=== PATIENT | female | born 1965 | race Caucasian/White ===

== ENCOUNTER → 2019-04-01 11:36 | Outpatient (CLI) | payer OTHER, SELFPAY ==
--- NOTE | 2019-04-01 | DI.MG.S_ITS ---
BILATERAL DIGITAL SCREENING MAMMOGRAM 3D/2D WITH CAD: 04/01/2019 CLINICAL: Routine screening. Comparison is made to exams dated: 01/09/2017 mammogram, 06/27/2014 mammogram, and 11/08/2007 mammogram - [facility]. There are scattered fibroglandular elements in both breasts. Current study was also evaluated with a Computer Aided Detection (CAD) system. There are benign calcifications in the left breast. No significant masses, calcifications, or other findings are seen in either breast. There has been no significant interval change. IMPRESSION: There is no mammographic evidence of malignancy. A 1 year screening mammogram is recommended. This exam was interpreted at Station ID: [id number]. NOTE: For mammograms, a report in lay terms will be sent to the patient. Approximately 15% of breast malignancies will not be visualized mammographically. In the management of a palpable breast mass, a negative mammogram must not discourage biopsy of a clinically suspicious lesion. Electronically Signed By: Kellen wood/kenneth:04/02/2019 08:50:04 letter sent: Normal Exam ACR BI-RADS Category 2: Benign Finding(s) 3342F
== END ==
PROVIDERS: PCP Family Medicine; Visit Provider Family Medicine
DX: Z12.31 Encounter for screening mammogram for malignant neoplasm of breast (principal)
CPT/HCPCS: 77063; 77067

== ENCOUNTER → 2020-04-11 14:47 | Outpatient (CLI) | payer OTHER, SELFPAY ==
--- NOTE | 2020-04-11 14:48 | DI.MG.S_ITS ---
BILATERAL DIGITAL SCREENING MAMMOGRAM 3D/2D WITH CAD: 04/11/2020 CLINICAL: Routine screening. Comparison is made to exams dated: 04/01/2019 mammogram, 01/09/2017 mammogram, and 06/27/2014 mammogram - [facility]. There are scattered fibroglandular elements in both breasts. Current study was also evaluated with a Computer Aided Detection (CAD) system. There are benign calcifications in both breasts. There also are benign post operative findings in both breasts. No significant masses, calcifications, or other findings are seen in either breast. There has been no significant interval change. IMPRESSION: BENIGN There is no mammographic evidence of malignancy. A 1 year screening mammogram is recommended. This exam was interpreted at Station ID: [id number]. NOTE: For mammograms, a report in lay terms will be sent to the patient. Approximately 15% of breast malignancies will not be visualized mammographically. In the management of a palpable breast mass, a negative mammogram must not discourage biopsy of a clinically suspicious lesion. Electronically Signed By: Alonso caro/kenneth:04/13/2020 08:06:24 letter sent: Normal Exam ACR BI-RADS Category 2: Benign Finding(s) 3342F
== END ==
PROVIDERS: PCP Family Medicine; Referring Provider Family Medicine; Visit Provider Family Medicine
DX: Z12.31 Encounter for screening mammogram for malignant neoplasm of breast (principal)
CPT/HCPCS: 77063; 77067

== ENCOUNTER → 2021-07-09 14:59 | Outpatient (CLI) | payer OTHER, SELFPAY ==
--- NOTE | 2021-07-09 15:00 | DI.MG.S_ITS ---
BILATERAL DIGITAL SCREENING MAMMOGRAM 3D/2D WITH CAD: 07/09/2021 CLINICAL: Routine screening. Comparison is made to exams dated: 04/11/2020 mammogram, 04/01/2019 mammogram, and 01/09/2017 mammogram - [facility]. The tissue of both breasts is predominantly fatty. Current study was also evaluated with a Computer Aided Detection (CAD) system. There are benign calcifications in both breasts. There also are benign post operative findings in both breasts. No significant masses, calcifications, or other findings are seen in either breast. There has been no significant interval change. IMPRESSION: BENIGN There is no mammographic evidence of malignancy. A 1 year screening mammogram is recommended. This exam was interpreted at Station ID: [id number]. NOTE: For mammograms, a report in lay terms will be sent to the patient. Approximately 15% of breast malignancies will not be visualized mammographically. In the management of a palpable breast mass, a negative mammogram must not discourage biopsy of a clinically suspicious lesion. Electronically Signed By: Keith barragan/kenneth:07/09/2021 17:50:07 letter sent: Normal Exam ACR BI-RADS Category 2: Benign Finding(s) 3342F
== END ==
PROVIDERS: PCP Family Medicine; Referring Provider Family Medicine; Visit Provider Family Medicine
DX: Z12.31 Encounter for screening mammogram for malignant neoplasm of breast (principal)
CPT/HCPCS: 77063; 77067

== ENCOUNTER 2021-08-17 06:35 | Day surgery (SDC) | payer OTHER, SELFPAY ==
[2021-08-10 10:34] VITALS: BMI 37.2
[2021-08-17] VITALS (8 sets, daily range): BP systolic 124–150; BP diastolic 78–96; PULSE 70–109; RESP 12–18; TEMP 36.1; O2SAT 96–99; BMI 37.2
--- NOTE | 2021-08-17 | PATH_ITS ---
[facility] Accession Number: [id number] . 01 Material submitted: . PART A: rectum - RECTAL POLYP PART B: rectum - RECTAL POLYP BASE . 01 Diagnosis: A. Rectum, Polyp, Biopsy: Inflammatory cloacogenic polyp with mucosal prolapse and superficial erosion. Negative for dysplasia and malignancy. . B. Rectum, Polyp Base, Biopsy: Fibrovascular connective tissue with no evidence of dysplasia or malignancy. MRV 08/19/2021 1117 Local . 01 Electronically signed: . Rocio Jack MD, Pathologist NPI- [id number] . 01 Gross description: . Part A: RECTAL POLYP: Received in formalin is 1 fragment(s) of read, soft tissue measuring 1.5 x 1.3 x 1.0 cm which is serially sectioned and submitted entirely in 2 cassette(s) Part B: RECTAL POLYP BASE: Received in formalin is 1 fragment(s) of read, soft tissue measuring 1.0 x 1.0 x 0.8 cm which is trisected and submitted entirely in 1 cassette(s) /CPE 08/18/2021 0722 Local . 01 Pathologist provided ICD-10: K63.5 . 01 CPT . 229546, 102764 Specimen Comment: A courtesy copy of this report has been sent to [phone] Performed at: 01 [facility] [address] [place] [address], [place], [place] [id number] MD Alonso Jauregui MD Phone: [phone]
[2021-08-17] MEDS: LACTATED RINGERS 1,000 ML 42 ML IV (07:32)
[2021-08-17 07:33] LABS: COVID19 -Nasal RAPID Negative (Negative)
[2021-08-17] MEDS: SCOPOLAMINE 1 PATCH TOP (07:49)
--- NOTE | 2021-08-17 07:50 | PM.HP.1 ---
History of Present Illness History of Present Illness Date Patient Seen: 08/17/21 Time Patient Seen: 07:50 Chief complaint: SDC Narrative: Andreina is a 55-year-old woman who has a prolapsing rectal hemorrhoid versus a rectal polyp. She has bleeding. See the office note from February for details. Patient History Medical History (Updated 08/10/21 @ 10:42 by Ladan Lyon RN) Anxiety Arthritis Depression Diabetes type 2, controlled GERD (gastroesophageal reflux disease) History of headache Kidney stones Sinus drainage Surgical History (Updated 08/10/21 @ 10:42 by Ladan Lyon RN) H/O abdominoplasty History of hysterectomy Hx of breast reduction, elective Hx of colonoscopy (2018) Family & Social History Family History Mother Hypertension Brother Diabetes mellitus Father Stomach cancer Social History: household members spouse,children lives independently Yes Tobacco & Substance use: Smoking Status Never smoker alcohol intake current alcohol intake frequency holiday/special occasion Substance Use Type does not use Meds Home Medications and Allergies Home Medications Medication Instructions Recorded Confirmed Type acyclovir 800 mg tablet 800 mg PO DAILY 03/09/21 08/17/21 History atorvastatin 20 mg tablet 20 mg PO DAILY 03/09/21 08/17/21 History azelastine 0.05 % eye drops 1 drp EYE-BOTH DAILY 03/09/21 08/17/21 History citalopram 20 mg tablet 20 mg PO DAILY 03/09/21 08/17/21 History fluticasone propionate 50 2 spray INTRANASAL DAILY 03/09/21 08/17/21 History mcg/actuation nasal spray,suspension glipizide 10 mg tablet 10 mg PO DAILY 03/09/21 08/17/21 History hydrocortisone 2.5 % topical cream 1 applic OR QD-BID PRN 03/09/21 08/10/21 History with perineal applicator (Anusol-HC) hydroxyzine HCl 10 mg tablet 10 mg PO BEDTIME 03/09/21 08/17/21 History metformin 500 mg tablet 500 mg PO TID 03/09/21 08/17/21 History Allergies Allergy/AdvReac Type Severity Reaction Status Date / Time morphine [MORPHINE] Allergy Severe hives Verified 08/17/21 07:12 amoxicillin AdvReac Severe yeast Verified 08/17/21 07:12 infection Exam Vital Signs (past 8 hours): - 08/17/21 07:35 Temperature 96.9 F L Pulse Rate 70 Respiratory Rate 16 Blood Pressure 130/83 Pulse Oximetry 96 Oxygen Delivery Method Room Air Const General: comfortable Objective Labs Labs: Laboratory Results - last 24 hr 08/17/21 06:52 SARS-CoV-2 (PCR) Negative Assessment & Plan Assessment and plan (1) Internal bleeding hemorrhoids: Status: Acute Plan Recommend excisional hemorrhoidectomy to remove the tissue and assess the pathological significance to determine if it is a prolapsing internal hemorrhoid or a rectal polyp. Time Spent With Patient Critical Care time: I spent a total of [] minutes of critical care time on this patient's care today; this time is exclusive of procedural time.
[2021-08-17] MEDS: CEFAZOLIN 2 GM/20 ML SYRINGE IV (08:04)
--- NOTE | 2021-08-17 08:24 | SUR.OPER ---
Lithotomy on padded OR bed, head on pillow, arms secured on padded arm boards at <90 degrees abduction supported with blankets underneath for proper shoulder alignment. Safety strap across abdomen. Legs secured in padded yellow fins stirrups, heels properly supported. Directed and approved by surgeon
[2021-08-17] MEDS: BUPIVACAINE LIPOSOME 266 MG/20 ML VIAL INJ (08:34)
--- NOTE | 2021-08-17 09:09 | PM.OP.1 ---
Operative Date/Time/Diagnoses Date of procedure: 08/17/21 Time of procedure: 09:09 Pre-op diagnosis: Internal hemorrhoids Post-op diagnosis: other (Rectal polyp) Procedure & Clinicians Procedure: Transanal excision of rectal polyp Same procedure as scheduled: No Surgeon: Myles Cosby Anesthesia Type: General Operative Notes Procedure in detail: The patient was brought to the operating room and placed on the table in the supine position. General endotracheal anesthesia was induced. She was then placed in lithotomy position with stirrups. The perineum was prepped and draped in the usual fashion and a time-out was performed. Anoscopy was performed and demonstrated that the prolapsing tissue was more likely to be a rectal polyp on a stalk. This polyp was about twice as large as it was in February. It appeared to be on a short stalk emanating from anterior distal rectum just above the dentate line. We injected some Exparel into the mucosa and the anoderm in the anterior section. The polyp was then excised at the base with cautery. Polyp was rather friable and did tear off the stalk. This specimen was sent as ?polyp?. We excised additional mucosa from the base and sent this as ?base.? There was some bleeding from the mucosal edges and a 3-0 chromic suture was used to close the wound partially which stopped the bleeding. We then performed rigid proctoscopy. No polyps or other lesions were seen in the distal 2/3 of the rectum. We then placed a Gelfoam into the anus. The patient was taken out of lithotomy and mesh panties were applied with pad. EBL: 30 mL Post-operative Disposition: PACU
--- NOTE | 2021-08-17 09:37 | SUR.PHASEII ---
Denied pain, no CBG check per Dr. Galvez. Pt aware to take home meds when she gets home, denied pain tolerated po fluids.
== END 2021-08-17 16:24 | disposition home or self-care (01) ==
PROVIDERS: PCP Family Medicine; Referring Provider Surgery; Visit Provider Surgery
PROC: (CPT 46610; principal; 2021-08-17 07:45)
DX: K62.1 Rectal polyp (principal); F41.9 Anxiety disorder, unspecified; F32.A Depression, unspecified; E11.9 Type 2 diabetes mellitus without complications; K21.9 Gastro-esophageal reflux disease without esophagitis; Z79.84 Long term (current) use of oral hypoglycemic drugs
CPT/HCPCS: 46610; 87635; C9803; C9290; J0330; J0690; J2250; J2405; J2704; J3010

== ENCOUNTER → 2022-01-11 11:43 | Outpatient (CLI) | payer OTHER, SELFPAY ==
--- NOTE | 2022-01-11 11:45 | DI.RAD.S_ITS ---
PROCEDURE: XR LUMBAR SPINE 2-3V INDICATIONS: Lumbago with sciatica, r side TECHNIQUE: 3 views of the lumbar spine were acquired. COMPARISON: None. FINDINGS: Bones: 5 [id number] vertebrae are present. Minimal dextrocurvature centered at the L3 level. 2 mm retrolisthesis L1-L2 and L3-L4. Mild multilevel disc height loss with endplate sclerosis and spurring. Mild facet joint arthropathy from the L3-L4 through the L5-S1 level.. No vertebral body compression fractures. No suspicious bony lesions. Soft tissues: Overlying bowel gas pattern is normal. No suspicious soft tissue calcifications. IMPRESSION: Mild multilevel lumbar spine spondylosis. Dictated by: Chay Huber [facility] Interpreted: Marcia Cool MD on 01/11/2022 at 12:13 Transcribed by: CATALINA on 01/11/2022 at 12:14 Approved by: Marcia Cool M.D. on 01/11/2022 at 15:39
== END ==
PROVIDERS: PCP Family Medicine; Referring Provider Family Medicine; Visit Provider Family Medicine
DX: M54.41 Lumbago with sciatica, right side (principal); M47.816 Spondylosis without myelopathy or radiculopathy, lumbar region
CPT/HCPCS: 72100

== ENCOUNTER 2022-10-15 18:21 | Observation (INO) | payer OTHER, SELFPAY ==
[2022-10-15] VITALS (18 sets, daily range): BP systolic 132–168; BP diastolic 77–112; PULSE 73–88; RESP 15–34; TEMP 36.1–36.3; O2SAT 93–98; BMI 37.2; BMI 36.8
--- NOTE | 2022-10-15 18:31 | DI.CT.S_ITS ---
PROCEDURE: CT STROKE INDICATIONS: expressive aphasia TECHNIQUE: Noncontrast 4.5 mm thick angled axial sections acquired from the foramen magnum to the vertex, with coronal reformats. For radiation dose reduction, the following was used: automated exposure control, adjustment of mA and/or kV according to patient size. COMPARISON: None. FINDINGS: Image quality: Excellent. CSF spaces: Basal cisterns are patent. No extra-axial fluid collections. Ventricles are normal in size and shape. Brain: No midline shift. No intracranial masses or hemorrhage. Arias-white matter interface is normal. Skull and face: Calvarium and visualized facial bones are intact, without suspicious lesions. Sinuses: Visualized sinuses and mastoids are clear. IMPRESSION: Normal CT of the brain. No intracranial hemorrhage. This study fulfills neurological imaging criteria for inclusion or exclusion of acute stroke therapies based on available published neurological imaging guidelines. Note: Critical results were discussed with Dr. Padilla at 06:10 PM [place] time on 10/15/[address]: [address] M.D. on 10/15/2022 at 18:14
--- NOTE | 2022-10-15 18:32 | ED_ITS ---
HPI - Neuro Symptoms/Deficit General Chief Complaint: Neuro Symptoms/Deficit Stated Complaint: thinks stroke Time Seen by Provider: 10/15/22 18:30 Source: patient, RN notes reviewed and old records reviewed Mode of arrival: EMS Limitations: no limitations History of Present Illness HPI Narrative: This is a 56 year old female with history of diabetes, dyslipidemia with complaint of onset of headache and expressive aphasia at about 1800 today. Patient was with her in the kitchen they were working together when he noticed she is just sort of stopped and was staring he asked her what was wrong she was delayed in her responses and seems to be having a hard time getting her words out he states there was a mild improvement while they were at home but is still present. Patient is able to express that she wants to say her words but can not get them out. She states headache is better, she describes some blurred vision which has improved. Denies numbness, tingling or weakness in her extremities. No gait or balance issues appreciated by patient or . No chest pain, no shortness of breath, some mild nausea, no vomiting, no diarrhea or constipation. No incontinence. Patient did take 3 Advil today. She is on medication for diabetes, dyslipidemia and has been taking Tylenol and Advil as n eeded for joint pain. She states allergic to morphine and amoxicillin. No tobacco use, occasional alcohol, no illicit. Patient's noted the change at 1800, contacted nursing hotline was recommended to come to the emergency department for evaluation. Glucose is 201 with point of care. Related Data Home Medications Medication Instructions Recorded Confirmed acyclovir 800 mg tablet 800 mg PO DAILY Genital herpes 03/09/21 10/15/22 prophylaxis atorvastatin 20 mg tablet 20 mg PO DAILY Cholesterol 03/09/21 10/15/22 azelastine 0.05 % eye drops 1 drp EYE-BOTH DAILY Allergies 03/09/21 10/15/22 citalopram 20 mg tablet 20 mg PO DAILY Depression 03/09/21 10/15/22 fluticasone propionate 50 2 spray intranasal DAILY Allergies 03/09/21 10/15/22 mcg/actuation nasal spray,suspension glipizide 10 mg tablet 10 mg PO BID Diabetes 03/09/21 10/15/22 hydroxyzine HCl 10 mg tablet 10 mg PO BEDTIME PRN Sleep and 12/21/21 07/29/23 anxiety metformin 500 mg tablet 1,000 mg PO BID Diabetes 03/09/21 10/15/22 blood sugar diagnostic (Blood 10/15/22 10/15/22 Glucose Test strips) cyclobenzaprine 10 mg tablet 10 mg PO 3XD PRN Pain, Muscle 10/15/22 10/15/22 Spasms losartan 25 mg DAILY 10/15/22 10/15/22 pen needle, diabetic 32 gauge x 10/15/22 10/15/22 (BD Roxie 2nd Gen Pen Needle) semaglutide 0.25 mg or 0.5 mg (2 0.5 mg SUBCUT QWEEK Diabetes 10/15/22 10/15/22 mg/3 mL) subcutaneous pen injector ([employer]) Allergies Allergy/AdvReac Type Severity Reaction Status Date / Time morphine [MORPHINE] Allergy Severe hives Verified 10/15/22 20:59 alcohol Allergy Mild Generalized Verified 10/15/22 22:21 erythema amoxicillin AdvReac Severe yeast Verified 10/15/22 20:59 infection Review of Systems Review of Systems ROS Unobtainable: All systems reviewed & are unremarkable except as noted in HPI and below Patient History Medical History Anxiety Arthritis Depression Diabetes type 2, controlled GERD (gastroesophageal reflux disease) History of headache Kidney stones Sinus drainage Surgical History H/O abdominoplasty History of hysterectomy Hx of breast reduction, elective Hx of colonoscopy (2018) Family History Mother Hypertension Brother Diabetes mellitus Father Stomach cancer Social History marital status: household members: spouse and children lives independently: Yes Smoking Status: Never smoker alcohol intake: former Smoking Status: Never smoker alcohol intake frequency: holidays/special occasions only Substance Use Type: does not use Exam Narrative Exam Narrative: GEN: well nourished, well appearing female, alert and oriented x 3, patient appears to be in moderate distress. HEENT: Atraumatic, pupils are equal round reactive to light, extraocular movements are intact, nares are clear, TMs are clear with no fluid, there is no conjunctival pallor. Throat is clear without any exudates, erythema, tonsillar enlargement or uvular deviation, no facial droop. HEART: Regular rate and rhythm without murmur, clicks, rubs. pulses are equal in upper and lower extremities LUNGS:Lungs clear to auscultation, no wheezes, rales, crackles, chest moves symmetrically ABD:bowel sounds normal, soft, non-tender, no guarding, rebound, rigidity, no masses noted, no hepatosplenomegaly :No CVA tenderness MSCL: Non-tender, no muscle atrophy, muscles strength 5/5 upper and lower extremities, full range of motion, normal gait NEURO:CN 2-12 intact, sensation normal, reflexes 2/4 upper and lower extremities. finger nose finger test normal, heel malik test normal, positive for expressive aphasia but is able to list everything on the cards although slowly. Initial Vital Signs Initial Vital Signs: Vital Signs Pulse Rate 85 10/15/22 18:33 Respiratory Rate 20 10/15/22 18:33 Blood Pressure 168/112 H 10/15/22 18:33 Pulse Oximetry 97 10/15/22 18:33 Oxygen Delivery Method Room Air 10/15/22 18:33 Scores NIH Stroke Scale Level of Conciousness: Alert, keenly responsive Ask month/age: Answers both questions correctly. Open/close eyes, close hand: Performs both tasks correctly Best gaze horizontal: Normal Visual zimmerman: No visual loss Facial palsy: Normal symetrical movement Left arm drift: No drift for full 10 sec Right arm drift: No drift for full 10 sec Left leg drift: No drift for full 5 sec Right leg drift: No drift for full 5 sec Limb ataxia: Absent Sensory on face/arms/legs: Normal, no sensory loss Best language: Mild to moderate, slurs some words Dysarthria: Mild to mod,some slurring Extinction or inattention: No abnormality Total NIH Stroke scale score: 2 Course Orders Ordered: ED Orders 10/15/22 19:33 COVID19 -Nasal RAPID Stat 10/15/22 20:30 Urine Drug Screen, Rapid Stat Acetaminophen (Acetaminophen 325 Mg Tablet) 650 mg PO Q6H PRN PRN Reason: Fever/Mild Pain (1-3) Hydrocodone Bitart/Acetaminophen (Hydrocodone/Acet 5/325 Tablet) 1 tab PO Q8H PRN PRN Reason: pain Acyclovir (Acyclovir 400 Mg Tablet) 800 mg PO DAILY [facility] Al Hydrox/Mg Hydrox/Simethicone (Mag Hydrox/Alum/Simeth 30 Ml Udc) 30 ml PO Q6HR PRN PRN Reason: Dyspepsia Aspirin (Aspirin Ec 81 Mg Tablet) 81 mg PO DAILY [facility] Atorvastatin Calcium (Atorvastatin 20 Mg Tablet) 20 mg PO DAILY [facility] Citalopram Hydrobromide (Citalopram 10 Mg Tablet) 20 mg PO DAILY [facility] Clopidogrel Bisulfate (Clopidogrel 75 Mg Tablet) 75 mg PO DAILY [facility] Dextrose (Dextrose 50 % In Water 25 Gm/50 Ml Syringe) 25 gm IV PRN PRN PRN Reason: Hypoglycemia Enoxaparin Sodium (Enoxaparin 40 Mg/0.4 Ml Syringe) 40 mg SUBCUT DAILY [facility] Fluticasone Propionate (Fluticasone 120 Toyah/16 Gm Toyah.Susp) 2 spray NASAL DAILY [facility] Glipizide (Glipizide 5 Mg Tablet) 10 mg PO DAILY [facility] Hydrocortisone (Hydrocortisone 2.5% Cream 30 Gm) 1 applic TOP BID PRN PRN Reason: As Directed Insulin Human Lispro (Insulin Lispro 100 Unit/Ml 3ml Vial) 0 unit SUBCUT ACHS [facility]; Protocol Last Admin: 10/15/22 22:38 Dose: Not Given Documented By: AT Magnesium Hydroxide (Magnesium Hydroxide 30 Ml Udc) 30 ml PO DAILY PRN PRN Reason: Constipation Metformin HCl (Metformin Hcl 500 Mg Tablet) 500 mg PO TID [facility] Last Admin: 10/15/22 22:38 Dose: Not Given Documented By: AT Naloxone HCl (Naloxone 0.4 Mg/Ml Vial) 0.2 mg IV Q2MIN PRN PRN Reason: Opiate Reversal Non-Formulary Medication (Azelastine) 1 drop EYE-BOTH DAILY [facility] Non-Formulary Medication (Hydroxyzine Hcl) 10 mg PO BEDTIME [facility] Last Admin: 10/15/22 23:14 Dose: Not Given Documented By: AT Discontinued Medications Aspirin (Aspirin 81 Mg Chew Tab) 324 mg PO NOW ONE Stop: 10/15/22 20:21 Last Admin: 10/15/22 20:43 Dose: 324 mg Documented By: ST Clopidogrel Bisulfate (Clopidogrel 75 Mg Tablet) 300 mg PO NOW ONE Stop: 10/15/22 20:24 Last Admin: 10/15/22 20:43 Dose: 300 mg Documented By: ST Alteplase, Recombinant (Activase) 9 mg in 9 mls @ 540 mls/hr IV NOW ONE Stop: 10/15/22 19:15 Last Admin: 10/15/22 19:29 Dose: Not Given Documented By: ST Alteplase, Recombinant (Activase) 81 mg in 81 mls @ 81 mls/hr IV NOW ONE Stop: 10/15/22 20:13 Last Admin: 10/15/22 19:29 Dose: Not Given Documented By: ST Vital Signs Vital signs: Vital Signs - 8 hr 10/15/22 20:00 10/15/22 20:01 10/15/22 20:01 Pulse Rate 78 80 Respiratory Rate 16 20 Blood Pressure 139/98 H Pulse Oximetry 94 93 Oxygen Delivery Method Room Air 10/15/22 20:15 10/15/22 20:15 10/15/22 20:25 Pulse Rate 82 Respiratory Rate 21 Blood Pressure 139/84 138/82 Pulse Oximetry 94 Oxygen Delivery Method 10/15/22 20:25 Pulse Rate 73 Respiratory Rate Blood Pressure Pulse Oximetry 95 Oxygen Delivery Method Room Air MDM - Neuro Symptoms/Deficit Lab Data 10/15/22 18:37 10/15/22 18:37 Labs: Lab Results 10/15/22 10/15/22 10/15/22 Range/Units 18:37 18:37 18:37 WBC 8.3 (4.5-11.0) X10^3/uL RBC 5.03 (4.0-5.2) X10^6/uL Hgb 15.6 (12.0-16.0) g/dL Hct 45.0 (36-46) % MCV 89.5 (80-100) fL MCH 30.9 (26-34) PG MCHC 34.6 (30-36) % RDW 13.6 (11.6-14.8) % Plt Count (150-400) X10^3/uL Neut % (Auto) 55.4 (50-75) % Lymph % (Auto) 34.8 (25-40) % Charles % (Auto) 5.9 (3-14) % Eos % (Auto) 3.1 (2-4) % Baso % (Auto) 0.8 (0-2) % Neut # (Auto) 4600 (4609-8082) /uL Lymph # (Auto) 2900 (6730-1452) /uL Charles # (Auto) 500 (0-900) /uL Eos # (Auto) 300 (0-450) /uL Baso # (Auto) 100 (0-100) /uL RBC Morphology Normal morphology PT 10.3 (10.1-12.7) SECONDS INR 0.9 (0.9-1.3) APTT 23 L (26-36) SECONDS Sodium 137 (137-145) mmol/L Potassium 4.2 (3.4-5.1) mmol/L Chloride 101 (98-107) mmol/L Carbon Dioxide 27 (22-32) mmol/L BUN 17 (7-17) mg/dL Creatinine 0.56 (0.52-1.04) mg/dL Estimated GFR > 60 (>60) mL/min BUN/Creatinine Ratio 30.4 H (6-22) Glucose 200 H (70-100) mg/dL Calcium 10.0 (8.4-10.2) mg/dL Total Bilirubin 0.6 (0.2-1.3) mg/dL AST 46 H (14-36) IU/L ALT 58 H (<35) IU/L Alkaline Phosphatase 100 (38-126) U/L Total Creatine Kinase 248 H (30-135) U/L Troponin I < 0.012 (0.01-0.034) ng/mL Total Protein 7.5 (6.3-8.2) g/dL Albumin 4.5 (3.5-5.0) g/dL Globulin 3.0 (1.7-4.1) g/dL Albumin/Globulin Ratio 1.5 (1.0-2.8) Ethyl Alcohol < 10 ( - 10) mg/dL SARS-CoV-2 (PCR) (Negative) 10/15/22 Range/Units 19:33 WBC (4.5-11.0) X10^3/uL RBC (4.0-5.2) X10^6/uL Hgb (12.0-16.0) g/dL Hct (36-46) % MCV (80-100) fL MCH (26-34) PG MCHC (30-36) % RDW (11.6-14.8) % Plt Count (150-400) X10^3/uL Neut % (Auto) (50-75) % Lymph % (Auto) (25-40) % Charles % (Auto) (3-14) % Eos % (Auto) (2-4) % Baso % (Auto) (0-2) % Neut # (Auto) (2020-0222) /uL Lymph # (Auto) (8063-2773) /uL Charles # (Auto) (0-900) /uL Eos # (Auto) (0-450) /uL Baso # (Auto) (0-100) /uL RBC Morphology PT (10.1-12.7) SECONDS INR (0.9-1.3) APTT (26-36) SECONDS Sodium (137-145) mmol/L Potassium (3.4-5.1) mmol/L Chloride (98-107) mmol/L Carbon Dioxide (22-32) mmol/L BUN (7-17) mg/dL Creatinine (0.52-1.04) mg/dL Estimated GFR (>60) mL/min BUN/Creatinine Ratio (6-22) Glucose (70-100) mg/dL Calcium (8.4-10.2) mg/dL Total Bilirubin (0.2-1.3) mg/dL AST (14-36) IU/L ALT (<35) IU/L Alkaline Phosphatase (38-126) U/L Total Creatine Kinase (30-135) U/L Troponin I (0.01-0.034) ng/mL Total Protein (6.3-8.2) g/dL Albumin (3.5-5.0) g/dL Globulin (1.7-4.1) g/dL Albumin/Globulin Ratio (1.0-2.8) Ethyl Alcohol ( - 10) mg/dL SARS-CoV-2 (PCR) Negative (Negative) Point of Care Testing Glucose POC [address] scan - head: My Impression: No acute bleed, mass appreciated. CTA - brain/neck: Radiologist's Impression: Andreina Schmid??56??F??1965 ? Allergy/Adv: morphine, alcohol, amoxicillin (More??) Close Head/Neck CTA (Signed) Kody Peña - 10/15/[address] (Signed) Rashad Lane - 10/15/22 Lumbar Spine X-Ray (Signed) Dominic Coolley - 01/11/22 Mammogram Screening (Signed) Keith Laurent - 07/09/21 Mammogram Screening (Signed) Alonso Almanzar - 04/11/20 Mammogram Screening (Signed) Kellen Dawn - 04/01/19 Launch?Image [address] [address] [address] Scan Report Signed Patient: Andreina Schmid MR#: [id number] : 1965 Acct:[id number] Age/Sex: 56 / F Date of Service: 10/15/22 Loc: ED Accession Number: [id number] ?? Procedure: CT angio head and neck Ordering Provider: Cristina Padilla D.O. PROCEDURE:? CT ANGIO HEAD AND NECK ? INDICATIONS:? expressive aphasia ? TECHNIQUE:? ? After the administration of intravenous contrast, 1 mm thick sections acquired from the aortic arch through the [place] of [place].? Post-contrast 4.5 mm thick sections then re-acquired from the foramen magnum to the vertex.? 3-dimensional jwtfcui-eyyuigkdt-kbcwwpekfb (MIP) and/or volume rendering reformats were acquired of the central intracranial vasculature and neck separately. For radiation dose reduction, the following was used:? automated exposure control, adjustment of mA and/or kV according to patient size.? ? COMPARISON:? [facility], CT, CT STROKE, 10/15/2022, 18:40. ? FINDINGS:? ? Suboptimal image quality due to motion artifact. ? BRAIN:? CSF spaces:? Ventricles are normal in size and shape.? Basal cisterns are patent.? No extra-axial fluid collections.? ? Brain:? No midline shift.? No intracranial bleeds or masses.? Arias-white matter interface appears intact.? ? Skull and face:? Calvarium and facial bones appear intact, without suspicious lesions.? Orbits appear normal.? ? Sinuses:? Sinuses and mastoids are clear.? ? HEAD CT ANGIOGRAPHY:? Anterior circulation:? Intracranial internal carotid arteries are normal in size and flow.? The flow within the paired anterior cerebral arteries is normal and symmetric.? The flow within the middle cerebral arteries is normal and symmetric.? The anterior communicating artery is seen.? No aneurysms are seen.? ? Posterior circulation:? Visualized portions of the vertebral arteries demon strate normal caliber, and join to form a normal appearing basilar artery.? Flow within the posterior cerebral arteries is normal and symmetric.? No aneurysms are seen.? ? NECK CT ANGIOGRAPHY:? Carotid system:? The great vessels demonstrate a conventional anatomy as they arise from the aortic arch.? The origins of the common carotid arteries appear patent.? The common carotid arteries demonstrate normal caliber and courses.? The bifurcation regions are both widely patent.? The internal carotid arteries demonstrate normal calibers and courses.? ? Posterior circulation:? The origins of the vertebral arteries both appear widely patent.? The more superior extracranial portions of both vertebral arteries also demonstrate normal courses and calibers.? They join to form a normal appearing basilar artery.? ? ? IMPRESSION:? No large special occlusion or high-grade carotid stenosis identified. ? Any quantitative measurements of stenosis were performed using NASCET criteria.? ? ? Dictated by: Kody Peña M.D. on 10/15/2022 at 19:25 ? ? Approved by: Kody Peña M.D. on 10/15/2022 at 19:32?? ECG Data Attestation: I personally reviewed and interpreted this ECG as follows: Prior ECG tracings: not available for review Interpretation: Sinus rhythm, rate of 72 GA 196, QRS of 90 QTC of 431. No acute ST elevation depression appreciated. No priors for comparison. MDM Narrative Medical decision making narrative: This is a 56-year-old female who presents with mainly expressive aphasia, patient is able to get most of her words out but does clearly have some difficulty. She was able to perform all of the cards for NIH but there is some delay. She is noted to be hypertensive 168/112 initially, glucose was 201, patient's onset of symptoms at 6:00 p.m. she is within the window for tPA. Went to head CT and CT angio emergently. Patient is not anticoagulated. 1906: On recheck still has some expressive aphasia. Consultation with [facility] for stroke: Dr. Brisa Fagan neurology fellow reviewed waiting for head CT non-con an angio NIH of 2 but has persistent expressive aphasia. Blood pressure has improved. Gordon patient is likely to be tPA candidate and she is going to meet with the patient over video to evaluate and discussed recommendations. Non-con head CT reported to myself by Radiology is negative. CT angio is negative Labs show normal white count hemoglobin platelets are Coags are negative CMP shows normal renal function, sodium glucose of 200 AST ALT 46 and 4 VA, total CK is 248, troponins negative. ETOH is negative. Neurology Dr. Brisa Fagan, had [id number] video evaluation with patient and family at this time after evaluation and discussion does not recommend tPA so was canceled. Recommends aspirin/Plavix and continued stroke workup. Aspi rin 324 mg x 1 and then 81 mg daily, Plavix 300mg x 1 and then 75 mg p.o. times [address] Restrepo accepts for admission and evaluated patient in the department. Discharge Plan Departure Patient Disposition: Admitted As Inpatient Clinical Impression: Acute CVA (cerebrovascular accident) Admit Date/Time: 10/15/22 20:27 Admit Provider: Virgil Restrepo
--- NOTE | 2022-10-15 18:32 | DI.CT.S_ITS ---
PROCEDURE: CT ANGIO HEAD AND NECK INDICATIONS: expressive aphasia TECHNIQUE: After the administration of intravenous contrast, 1 mm thick sections acquired from the aortic arch through the [place] of [place]. Post-contrast 4.5 mm thick sections then re-acquired from the foramen magnum to the vertex. 3-dimensional dsecksc-nbklxudzj-mkhvykntly (MIP) and/or volume rendering reformats were acquired of the central intracranial vasculature and neck separately. For radiation dose reduction, the following was used: automated exposure control, adjustment of mA and/or kV according to patient size. COMPARISON: [facility], CT, CT STROKE, 10/15/2022, 18:40. FINDINGS: Suboptimal image quality due to motion artifact. BRAIN: CSF spaces: Ventricles are normal in size and shape. Basal cisterns are patent. No extra-axial fluid collections. Brain: No midline shift. No intracranial bleeds or masses. Arias-white matter interface appears intact. Skull and face: Calvarium and facial bones appear intact, without suspicious lesions. Orbits appear normal. Sinuses: Sinuses and mastoids are clear. HEAD CT ANGIOGRAPHY: Anterior circulation: Intracranial internal carotid arteries are normal in size and flow. The flow within the paired anterior cerebral arteries is normal and symmetric. The flow within the middle cerebral arteries is normal and symmetric. The anterior communicating artery is seen. No aneurysms are seen. Posterior circulation: Visualized portions of the vertebral arteries demonstrate normal caliber, and join to form a normal appearing basilar artery. Flow within the posterior cerebral arteries is normal and symmetric. No aneurysms are seen. NECK CT ANGIOGRAPHY: Carotid system: The great vessels demonstrate a conventional anatomy as they arise from the aortic arch. The origins of the common carotid arteries appear patent. The common carotid arteries demonstrate normal caliber and courses. The bifurcation regions are both widely patent. The internal carotid arteries demonstrate normal calibers and courses. Posterior circulation: The origins of the vertebral arteries both appear widely patent. The more superior extracranial portions of both vertebral arteries also demonstrate normal courses and calibers. They join to form a normal appearing basilar artery. IMPRESSION: No large special occlusion or high-grade carotid stenosis identified. Any quantitative measurements of stenosis were performed using NASCET criteria. Dictated by: Koyd Peña M.D. on 10/15/2022 at 19:25 Approved by: Kody Peña M.D. on 10/15/2022 at 19:32
[2022-10-15 18:57] LABS: INR 0.9 (0.9-1.3); Prothrombin Time 10.3 SECONDS (10.1-12.7)
[2022-10-15 18:59] LABS: PTT Partial Thromboplastin Tim 23 SECONDS (26-36)
[2022-10-15 19:02] LABS: Add Manual Diff / Slide Review SLIDE REVIEW; Basophils Absolute Auto 100 /uL (0-100); Basophils Percent Auto 0.8 % (0-2); Eosinophils Absolute Auto 300 /uL (0-450); Eosinophils Percent Auto 3.1 % (2-4); Hemoglobin 15.6 g/dL (12.0-16.0); Lymphocytes Absolute Auto 2900 /uL (1100-4500); Lymphocytes Percent Auto 34.8 % (25-40); Mean Corpuscular HGB Conc 34.6 % (30-36); Mean Corpuscular Hemoglobin 30.9 PG (26-34); Mean Corpuscular Volume 89.5 fL (80-100); Monocytes Absolute Auto 500 /uL (0-900); Monocytes Percent Auto 5.9 % (3-14); Neutrophils Absolute Auto 4600 /uL (1500-7000); Neutrophils Percent Auto 55.4 % (50-75); Red Blood Cell Count 5.03 X10^6/uL (4.0-5.2); Red Cell Distribution Width 13.6 % (11.6-14.8); White Blood Cell Count 8.3 X10^3/uL (4.5-11.0)
[2022-10-15 19:05] LABS: Alanine Aminotransferase 58 IU/L (<35); Albumin 4.5 g/dL (3.5-5.0); Albumin Globulin Ratio 1.5 (1.0-2.8); Alkaline Phosphatase 100 U/L (38-126); Aspartate Aminotransferase 46 IU/L (14-36); BUN Creatinine Ratio 30.4 (6-22); Bilirubin Total 0.6 mg/dL (0.2-1.3); Blood Urea Nitrogen 17 mg/dL (7-17); Carbon Dioxide 27 mmol/L (22-32); Chloride 101 mmol/L (98-107); Creatine Kinase 248 U/L (30-135); Estimated Glomerular Filt Rate > 60 mL/min (>60); Ethanol (ETOH) < 10 mg/dL; Glucose 200 mg/dL (70-100); HEMOLYSIS 40 (0-50); Potassium 4.2 mmol/L (3.4-5.1); Sodium 137 mmol/L (137-145); Total Protein 7.5 g/dL (6.3-8.2)
[2022-10-15 19:16] LABS: Troponin I < 0.012 ng/mL (0.01-0.034)
[2022-10-15 19:21] LABS: RBC Morphology Normal Morphology
[2022-10-15 19:54] LABS: COVID19 -Nasal RAPID Negative (Negative)
[2022-10-15 20:43] LABS: UR Morphine/Opiate cutoff 300 Negative (Negative); Ur Creatinine Normal (Normal); Ur Specific Gravity Normal (Normal); Urine Amphetamines Negative (Negative); Urine Barbiturates Negative (Negative); Urine Benzodiazepines Negative (Negative); Urine Cocaine Negative (Negative); Urine MDMA Negative (Negative); Urine Methadone Negative (Negative); Urine Methamphetamines Negative (Negative); Urine Oxycodone Negative (Negative); Urine Phencyclidine Negative (Negative); Urine Tetrahydrocannabinol Negative (Negative); Urine Tricyclic Antidepressant Positive (Negative); Urine pH Normal (Normal)
[2022-10-15] MEDS: CLOPIDOGREL 75 MG TABLET 300 MG PO (20:43)
[2022-10-15] MEDS: ASPIRIN 81 MG CHEW TAB 324 MG PO (20:43)
[2022-10-15 20:54] LABS: Bacteria Urine Moderate (10-30); Culture Indicated Urine Specimen Cultured; RBC Urine None Seen (0-5/HPF); Squamous Epithelial Cell Urine 1-5 /HPF (0-5/HPF); WBC Urine 5-10/HPF (0-5/HPF)
--- NOTE | 2022-10-15 20:55 | PC.NURSE ---
Called to give report. RN not available, will call back
--- NOTE | 2022-10-15 21:00 | PC.NURSE ---
Alteplase not given on direction of both neurology (on telestroke) and Dr. Padilla. Returned to pharmacy
--- NOTE | 2022-10-15 21:04 | PC.NURSE ---
Assisted pt to commode. Pt transferred without difficulty and movements are steady. Speech significantly improved over previous assessments on arrival. Mildly slurred speech with somewhat delayed answers and slight difficulty finding words, but RN, pt and spouse all appreciate significant improvement. Pt passed bedside swallow screen and was provided with snack and beverage with MD Padilla approval.
--- NOTE | 2022-10-15 21:26 | PC.NURSE ---
Called report to BRAD Lucia. Pt A&Ox4 on departure.
--- NOTE | 2022-10-15 21:38 | DI.MRI.S_ITS ---
PROCEDURE: MR HEAD/BRAIN WO CON INDICATIONS: aphasia TECHNIQUE: Non-contrast axial T1 spin echo, axial T2 fast spin echo, sagittal and axial FLAIR, coronal T2 fast spin echo, axial gradient echo, axial diffusion and ADC through the brain. COMPARISON: [facility], CT, CT ANGIO HEAD AND NECK, 10/15/2022, 18:40. [facility], CT, CT STROKE, 10/15/2022, 18:40. FINDINGS: Image quality: Excellent. CSF spaces: Ventricles appear symmetric in size and shape. Basal cisterns are patent. No extra-axial fluid collections. Brain: No intracranial bleeds or mass effects. There is cerebral volume loss for age. There are very minimal, age-appropriate periventricular and deep white matter chronic small vessel ischemic changes. Brainstem appears normal. Diffusion-weighted images show no acute ischemic insults. No chronic ischemic insults. Normal intravascular flow voids are present. Skull and face: Calvarial bone marrow is normal in signal. Orbits are normal. Sinuses: Mucous retention cyst, right maxillary sinus. Sinuses and mastoids are otherwise clear. IMPRESSION: No acute intracranial abnormality. Dictated by: Zach Ledesma M.D. on 10/16/2022 at 8:01 Approved by: Zach Ledesma M.D. on 10/16/2022 at 8:03
--- NOTE | 2022-10-15 21:41 | P.HP_ITS ---
History of Present Illness History of Present Illness Date Patient Seen: 10/15/22 Time Patient Seen: 21:41 Date of Onset of Symptoms: 10/15/22 Chief complaint: thinks stroke Narrative: Patient is a 55-year-old female patient of Dr. Carmona who apparently was in her usual state of health as of today until 6:00 p.m. emmie. She was standing making dinner and was holding a glass she got a funny feeling in her head she is having a hard time describing it. She felt pressure in her head. And then kind of went blank. She had a mild headache. No other changes. She did not feel any numbness or tingling she just kind of stood there and stared. Her came up to her and ask her question and she knew she could find the words but s he could not see them. She was not have any issues with movement although her says it was difficult to get her to go and sit down but he did not see any laxity or problem. Patient was very tired. And felt like she wanted to go to bed. She was refusing to go to the hospital. But after discussion they sent her there. Patient continued to have issues with word finding. Stroke score was 2. Should pretty dense aphasia when she arrived but in expressive and it slowly improved by the time she was here. She feels like she is pretty much back to normal in the time I interviewed her. She was at that time not complaining of anything other than being tired and having a mild headache and because of her diabetes she had an 8 and she was worried about that. She has no other significant new changes. Never had any neurologic changes. Never had any cardiac events. [facility] Medical History Anxiety Arthritis Depression Diabetes type 2, controlled GERD (gastroesophageal reflux disease) History of headache Kidney stones Sinus drainage Surgical History H/O abdominoplasty History of hysterectomy Hx of breast reduction, elective Hx of colonoscopy (2018) Family History Mother Hypertension Brother Diabetes mellitus Father Stomach cancer Social History marital status: household members: spouse and children lives independently: Yes Smoking Status: Never smoker alcohol intake: current Meds Home Medications and Allergies Home Medications Medication Instructions Recorded Confirmed Type acyclovir 800 mg tablet 800 mg PO DAILY 03/09/21 09/08/21 History atorvastatin 20 mg tablet 20 mg PO DAILY 03/09/21 09/08/21 History azelastine 0.05 % eye drops 1 drp EYE-BOTH DAILY 03/09/21 09/08/21 History citalopram 20 mg tablet 20 mg PO DAILY 03/09/21 09/08/21 History fluticasone propionate 50 2 spray intranasal DAILY 03/09/21 09/08/21 History mcg/actuation nasal spray,suspension glipizide 10 mg tablet 10 mg PO DAILY 03/09/21 09/08/21 History hydrocortisone 2.5 % topical cream 1 applic NE QD-BID PRN As Directed 03/09/21 09/08/21 History with perineal applicator (Anusol-HC) hydroxyzine HCl 10 mg tablet 10 mg PO BEDTIME 03/09/21 09/08/21 History metformin 500 mg tablet 500 mg PO TID 03/09/21 09/08/21 History hydrocodone 5 mg-acetaminophen 325 1 tab PO Q8H PRN pain #14 tabs 08/17/21 09/08/21 Rx mg tablet Allergies Allergy/AdvReac Type Severity Reaction Status Date / Time morphine [MORPHINE] Allergy Severe hives Verified 10/15/22 20:59 amoxicillin AdvReac Severe yeast Verified 10/15/22 20:59 infection Review of Systems Review of Systems Narrative: Negative except for above Exam Vital Signs (past 8 hours): - 10/15/22 18:36 10/15/22 18:33 10/15/22 18:56 Temperature 97.4 F L Pulse Rate 85 78 Respiratory Rate 20 23 Blood Pressure 168/112 H Pulse Oximetry 97 97 Oxygen Delivery Method Room Air 10/15/22 19:00 10/15/22 19:00 10/15/22 19:07 Temperature Pulse Rate 77 Respiratory Rate 19 Blood Pressure 139/88 140/82 Pulse Oximetry 98 Oxygen Delivery Method 10/15/22 19:07 10/15/22 19:15 10/15/22 19:15 Temperature Pulse Rate 80 83 Respiratory Rate 20 22 Blood Pressure 139/80 Pulse Oximetry 97 95 Oxygen Delivery Method Room Air 10/15/22 19:30 10/15/22 19:30 10/15/22 19:45 Temperature Pulse Rate 81 81 Respiratory Rate 19 21 Blood Pressure 138/77 Pulse Oximetry Oxygen Delivery Method 10/15/22 19:46 10/15/22 19:46 10/15/22 20:00 Temperature Pulse Rate 81 78 Respiratory Rate 34 H 16 Blood Pressure 135/79 Pulse Oximetry 94 Oxygen Delivery Method 10/15/22 20:01 10/15/22 20:01 10/15/22 20:15 Temperature Pulse Rate 80 Respiratory Rate 20 Blood Pressure 139/98 H 139/84 Pulse Oximetry 93 Oxygen Delivery Method Room Air 10/15/22 20:15 10/15/22 20:25 10/15/22 20:25 Temperature Pulse Rate 82 73 Respiratory Rate 21 Blood Pressure 138/82 Pulse Oximetry 94 95 Oxygen Delivery Method Room Air 10/15/22 20:30 10/15/22 20:30 10/15/22 20:45 Temperature Pulse Rate 79 Respiratory Rate 23 Blood Pressure 132/83 136/82 Pulse Oximetry 98 Oxygen Delivery Method 10/15/22 20:45 10/15/22 21:00 10/15/22 21:00 Temperature Pulse Rate 79 81 Respiratory Rate 26 H 23 Blood Pressure 134/87 Pulse Oximetry 95 95 Oxygen Delivery Method Room Air 10/15/22 21:15 10/15/22 21:15 Temperature Pulse Rate 88 Respiratory Rate 22 Blood Pressure 140/91 H Pulse Oximetry 96 Oxygen Delivery Method Room Air Oxygen Delivery Method Room Air Narrative Exam Narrative: Alert mildly fatigued female in no acute distress Pupils are equal response and for light EOMI is intact mucous membranes moist neck supple without adenopathy lungs are clear heart is regular rate and rhythm without murmurs clicks rubs or gallops abdomen is soft positive bowel sounds nontender neurologic exam shows cranial nerves 2-12 are intact motor is 5/5 reflexes 2+ and symmetric sensations intact. [id number] and [id number]-[id number] are normal. Did not ambulate. Objective Labs 10/15/22 18:37 10/15/22 18:37 Labs: Laboratory Results - last 24 hr 10/15/22 10/15/22 10/15/22 18:37 18:37 18:37 WBC 8.3 RBC 5.03 Hgb 15.6 Hct 45.0 MCV 89.5 MCH 30.9 MCHC 34.6 RDW 13.6 Plt Count Neut % (Auto) 55.4 Lymph % (Auto) 34.8 [place] % (Auto) 5.9 Eos % (Auto) 3.1 Baso % (Auto) 0.8 Neut # (Auto) 4600 Lymph # (Auto) 2900 [place] # (Auto) 500 Eos # (Auto) 300 Baso # (Auto) 100 RBC Morphology Normal morphology PT 10.3 INR 0.9 APTT 23 L Sodium 137 Potassium 4.2 Chloride 101 Carbon Dioxide 27 BUN 17 Creatinine 0.56 Estimated GFR > 60 BUN/Creatinine Ratio 30.4 H Glucose 200 H Calcium 10.0 Total Bilirubin 0.6 AST 46 H ALT 58 H Alkaline Phosphatase 100 Total Creatine Kinase 248 H Troponin I < 0.012 Total Protein 7.5 Albumin 4.5 Globulin 3.0 Albumin/Globulin Ratio 1.5 Urine RBC Urine WBC Ur Squamous Epith Cells Urine Bacteria Ur Culture Indicated? U Opiates 300ng/mL cut Ur Oxycodone Screen Urine Methadone Screen Ur Barbiturates Screen U Tricyclic Antidepress Ur Phencyclidine Scrn Ur Amphetamines Screen U Methamphetamines Scrn Ur MDMA Scrn (Ecstasy) U Benzodiazepines Scrn Urine Cocaine Screen U Marijuana (THC) Screen Ethyl Alcohol < 10 SARS-CoV-2 (PCR) 10/15/22 10/15/22 10/15/22 19:33 20:30 20:30 WBC RBC Hgb Hct MCV MCH MCHC RDW Plt Count Neut % (Auto) Lymph % (Auto) [place] % (Auto) Eos % (Auto) Baso % (Auto) Neut # (Auto) Lymph # (Auto) [place] # (Auto) Eos # (Auto) Baso # (Auto) RBC Morphology PT INR APTT Sodium Potassium Chloride Carbon Dioxide BUN Creatinine Estimated GFR BUN/Creatinine Ratio Glucose Calcium Total Bilirubin AST ALT Alkaline Phosphatase Total Creatine Kinase Troponin I Total Protein Albumin Globulin Albumin/Globulin Ratio Urine RBC None seen Urine WBC 5-10/hpf H Ur Squamous Epith Cells 1-5 /hpf Urine Bacteria Moderate (10-30) H Ur Culture Indicated? Specimen cultured U Opiates 300ng/mL cut Negative Ur Oxycodone Screen Negative Urine Methadone Screen Negative Ur Barbiturates Screen Negative U Tricyclic Antidepress Positive H Ur Phencyclidine Scrn Negative Ur Amphetamines Screen Negative U Methamphetamines Scrn Negative Ur MDMA Scrn (Ecstasy) Negative U Benzodiazepines Scrn Negative Urine Cocaine Screen Negative U Marijuana (THC) Screen Negative Ethyl Alcohol SARS-CoV-2 (PCR) Negative Assessment & Plan Assessment & Plan narrative: TIA/stroke with maybe some very slight residual aphasia. Emergency room discussed with neurology team who recommend at this time no transfer. And loading with Plavix and 21 days of Plavix along with full-dose aspirin today and 81 mg at that time. Will obtain MRI tomorrow and echo. Will keep on tele. And follow. We discussed this extensively she understands questions answered clearly she is at high risk if she were to go home. We did discuss the importance of the to our keen window so that if she ever has a again she would be able to come a little quicker and make that make sense. Will start with dysphagia diet mechanical soft and increase as tolerated I do not think she is going to have a swallowing issue. Type 2 diabetes. Stable. Usual maintenance. Will follow. Sliding scale and 4 times a day blood sugars. Follow from there. Hyperlipidemia. Continue statin. May need to consider increase. Insomnia continue hydroxyzine. Code status full. GI prophylaxis will hold for now. Disposition. Will probably be here till Monday morning but will see how things go. Certainly need to get all evaluations before we make any decisions and make sure she is stable. PT OT consult tomorrow. Will follow closely.
[2022-10-16] VITALS: BP 118/75; PULSE 74; RESP 17; TEMP 36.4; O2SAT 95
[2022-10-16 04:00] VITALS: BP 117/80; PULSE 74; RESP 17; TEMP 36.7; O2SAT 95
[2022-10-16 05:23] LABS: Add Manual Diff / Slide Review NO; Basophils Absolute Auto 100 /uL (0-100); Eosinophils Absolute Auto 200 /uL (0-450); Eosinophils Percent Auto 4.2 % (2-4); Hematocrit 40.8 % (36-46); Hemoglobin 13.8 g/dL (12.0-16.0); Lymphocytes Absolute Auto 2100 /uL (1100-4500); Lymphocytes Percent Auto 38.3 % (25-40); Mean Corpuscular HGB Conc 33.8 % (30-36); Mean Corpuscular Volume 88.8 fL (80-100); Monocytes Absolute Auto 300 /uL (0-900); Monocytes Percent Auto 6.2 % (3-14); Neutrophils Absolute Auto 2700 /uL (1500-7000); Neutrophils Percent Auto 50.3 % (50-75); Platelet Count 223 X10^3/uL (150-400); Red Cell Distribution Width 13.5 % (11.6-14.8); White Blood Cell Count 5.4 X10^3/uL (4.5-11.0)
[2022-10-16 05:34] LABS: Alanine Aminotransferase 48 IU/L (<35); Albumin 3.4 g/dL (3.5-5.0); Albumin Globulin Ratio 1.3 (1.0-2.8); Alkaline Phosphatase 83 U/L (38-126); Aspartate Aminotransferase 35 IU/L (14-36); BUN Creatinine Ratio 26.5 (6-22); Bilirubin Total 0.5 mg/dL (0.2-1.3); Blood Urea Nitrogen 13 mg/dL (7-17); Calcium 8.5 mg/dL (8.4-10.2); Carbon Dioxide 25 mmol/L (22-32); Chloride 104 mmol/L (98-107); Estimated Glomerular Filt Rate > 60 mL/min (>60); Globulin 2.7 g/dL (1.7-4.1); Glucose 176 mg/dL (70-100); HEMOLYSIS < 15 (0-50); Potassium 3.7 mmol/L (3.4-5.1); Sodium 135 mmol/L (137-145); Total Protein 6.1 g/dL (6.3-8.2)
[2022-10-16 07:53] VITALS: BP 124/83; PULSE 77; RESP 20; TEMP 36.5; O2SAT 95
[2022-10-16] MEDS: glipiZIDE 5 MG TABLET 10 MG PO (08:16)
[2022-10-16] MEDS: FLUTICASONE 120 SPRAY/16 GM SPRAY.SUSP NASAL (08:16)
[2022-10-16] MEDS: CLOPIDOGREL 75 MG TABLET PO (08:16)
[2022-10-16] MEDS: ASPIRIN EC 81 MG TABLET PO (08:16)
[2022-10-16] MEDS: METFORMIN HCL 500 MG TABLET PO (08:16)
[2022-10-16] MEDS: ACETAMINOPHEN 325 MG TABLET 650 MG PO (08:19)
[2022-10-16] MEDS: ENOXAPARIN 40 MG/0.4 ML SYRINGE SUBCUT (08:24)
--- NOTE | 2022-10-16 09:14 | CM.DANOTE ---
Patient is a 56 yo female who was admitted on 10/15/22 for Stroke r/o. Pt has [employer] FRS for insurance and her PCP is Dr. Christiane Carmona. EMR was reviewed. Per MD, pt admitted with aphasia and headache and TIA/CVA r/o. Per MD and RN, pt's symptoms seem mostly resolved and MRI and Echo ordered. PT/OT/OT ordered and pending. SW met bedside with pt and explained role and she confirms that she lives in [place] with her and pt is active and independent at baseline and denies any hx of HH or SNF. 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 Pt confirms that her spouse is available for transport home and to assist as needed but pt tolerating diet and feels her symptoms have resolved and is hopeful for d/c home today and does not anticipate any needs. Plan: SW to follow for MRI and Echo results and therapies might not be available today (Souris) for initial eval. SW to follow for plan of home with spouse and any further identified discharge planning needs. LAQUITA [place] Discharge Planning/Care Management CM Discharge Assessment Start: 10/16/22 09:11 Freq: Status: Active Protocol: Document 10/16/22 09:11 BF (Rec: 10/16/22 09:14 BF [id number]) Discharge Planning Assessment Assigned Public Relations Senior Associate LAQUITA Álvarez DPOA/Assigned Designee Name informally spouse Sukhwinder Contact Information [phone] Advance Directives? No Advance Directives on File No History Provided By Patient,Medical Record Has Patient been admitted in last 30 No days? Prior Living Arrangements House Comment Spouse, Family members, mom and siblings, live in [place]. Household Members spouse,children Type of transporation used prior to Drives own vehicle admit Independent with ADL's Yes Is patient alert and oriented? Yes Caregiver for Another No Barriers to Discharge No Discharge Plan Home Transportation Arrangement spouse Referrals Initiated None needed Whiteboard Updated in Patient Room with Yes name and ext. # of Public Relations Senior Associate Review Status In Process Please Provide Date Initial DC 10/16/22 Assessment Was Performed Next Review Type Continued Stay Review
[2022-10-16] MEDS: HYDROCODONE/ACET 5/325 TABLET 1 TAB PO (10:23)
--- NOTE | 2022-10-16 10:32 | P.PN_ITS ---
Subjective Subjective Date Patient Seen: 10/16/22 Time Patient Seen: 10:33 Interval history: Patient seen in follow-up of aphasia. Patient currently is feeling better. Has not no difficulties with speech today. No other changes. MRI showed no definitive abnormality. Previous CT scan showed normal vascular tree carotids posterior circulation and head. No evidence of significant change. She is having a small headache but otherwise no changes. Patient has no visual symptoms. He is otherwise neurologically feeling well. Exam Vital Signs (past 8 hours): - 10/16/22 04:00 10/16/22 07:53 Temperature 98.0 F 97.7 F Pulse Rate 74 77 Respiratory Rate 17 20 Blood Pressure 117/80 124/83 Pulse Oximetry 95 95 Oxygen Flow Rate 0 Oxygen Delivery Method Room Air Oxygen Flow Rate 0 Narrative Exam Narrative: Alert female in no acute distress mildly fatigued in appearance Lungs are clear heart is regular rate and rhythm neurologic exam is normal with no focal defect Objective Labs 10/16/22 05:05 10/16/22 05:05 Labs: Laboratory Results - last 24 hr 10/15/22 10/15/22 10/15/22 18:37 18:37 18:37 WBC 8.3 RBC 5.03 Hgb 15.6 Hct 45.0 MCV 89.5 MCH 30.9 MCHC 34.6 RDW 13.6 Plt Count Neut % (Auto) 55.4 Lymph % (Auto) 34.8 [place] % (Auto) 5.9 Eos % (Auto) 3.1 Baso % (Auto) 0.8 Neut # (Auto) 4600 Lymph # (Auto) 2900 [place] # (Auto) 500 Eos # (Auto) 300 Baso # (Auto) 100 RBC Morphology Normal morphology PT 10.3 INR 0.9 APTT 23 L Sodium 137 Potassium 4.2 Chloride 101 Carbon Dioxide 27 BUN 17 Creatinine 0.56 Estimated GFR > 60 BUN/Creatinine Ratio 30.4 H Glucose 200 H Calcium 10.0 Total Bilirubin 0.6 AST 46 H ALT 58 H Alkaline Phosphatase 100 Total Creatine Kinase 248 H Troponin I < 0.012 Total Protein 7.5 Albumin 4.5 Globulin 3.0 Albumin/Globulin Ratio 1.5 Urine RBC Urine WBC Ur Squamous Epith Cells Urine Bacteria Ur Culture Indicated? U Opiates 300ng/mL cut Ur Oxycodone Screen Urine Methadone Screen Ur Barbiturates Screen U Tricyclic Antidepress Ur Phencyclidine Scrn Ur Amphetamines Screen U Methamphetamines Scrn Ur MDMA Scrn (Ecstasy) U Benzodiazepines Scrn Urine Cocaine Screen U Marijuana (THC) Screen Ethyl Alcohol < 10 SARS-CoV-2 (PCR) 10/15/22 10/15/22 10/15/22 19:33 20:30 20:30 WBC RBC Hgb Hct MCV MCH MCHC RDW Plt Count Neut % (Auto) Lymph % (Auto) [place] % (Auto) Eos % (Auto) Baso % (Auto) Neut # (Auto) Lymph # (Auto) [place] # (Auto) Eos # (Auto) Baso # (Auto) RBC Morphology PT INR APTT Sodium Potassium Chloride Carbon Dioxide BUN Creatinine Estimated GFR BUN/Creatinine Ratio Glucose Calcium Total Bilirubin AST ALT Alkaline Phosphatase Total Creatine Kinase Troponin I Total Protein Albumin Globulin Albumin/Globulin Ratio Urine RBC None seen Urine WBC 5-10/hpf H Ur Squamous Epith Cells 1-5 /hpf Urine Bacteria Moderate (10-30) H Ur Culture Indicated? Specimen cultured U Opiates 300ng/mL cut Negative Ur Oxycodone Screen Negative Urine Methadone Screen Negative Ur Barbiturates Screen Negative U Tricyclic Antidepress Positive H Ur Phencyclidine Scrn Negative Ur Amphetamines Screen Negative U Methamphetamines Scrn Negative Ur MDMA Scrn (Ecstasy) Negative U Benzodiazepines Scrn Negative Urine Cocaine Screen Negative U Marijuana (THC) Screen Negative Ethyl Alcohol SARS-CoV-2 (PCR) Negative 10/16/22 10/16/22 05:05 05:05 WBC 5.4 RBC 4.60 Hgb 13.8 Hct 40.8 MCV 88.8 MCH 30.0 MCHC 33.8 RDW 13.5 Plt Count 223 Neut % (Auto) 50.3 Lymph % (Auto) 38.3 [place] % (Auto) 6.2 Eos % (Auto) 4.2 H Baso % (Auto) 1.0 Neut # (Auto) 2700 Lymph # (Auto) 2100 [place] # (Auto) 300 Eos # (Auto) 200 Baso # (Auto) 100 RBC Morphology PT INR APTT Sodium 135 L Potassium 3.7 Chloride 104 Carbon Dioxide 25 BUN 13 Creatinine 0.49 L Estimated GFR > 60 BUN/Creatinine Ratio 26.5 H Glucose 176 H Calcium 8.5 Total Bilirubin 0.5 AST 35 ALT 48 H Alkaline Phosphatase 83 Total Creatine Kinase Troponin I Total Protein 6.1 L Albumin 3.4 L Globulin 2.7 Albumin/Globulin Ratio 1.3 Urine RBC Urine WBC Ur Squamous Epith Cells Urine Bacteria Ur Culture Indicated? U Opiates 300ng/mL cut Ur Oxycodone Screen Urine Methadone Screen Ur Barbiturates Screen U Tricyclic Antidepress Ur Phencyclidine Scrn Ur Amphetamines Screen U Methamphetamines Scrn Ur MDMA Scrn (Ecstasy) U Benzodiazepines Scrn Urine Cocaine Screen U Marijuana (THC) Screen Ethyl Alcohol SARS-CoV-2 (PCR) PFSH Medical History Anxiety Arthritis Depression Diabetes type 2, controlled GERD (gastroesophageal reflux disease) History of headache Kidney stones Sinus drainage Surgical History H/O abdominoplasty History of hysterectomy Hx of breast reduction, elective Hx of colonoscopy (2018) Family History Mother Hypertension Brother Diabetes mellitus Father Stomach cancer Social History marital status: household members: spouse and children lives independently: Yes Smoking Status: Never smoker alcohol intake: former Assessment & Plan Assessment & Plan narrative: TIA/stroke. MRI shows no evidence of stroke. Carotids and intra cerebral vascular evaluation shows no abnormality. Most likely embolic source. Awaiting echo. Tele shows no evidence of atrial fibrillation. May need longer version such as Zio patch. But will need to do that as outpatient. Seems to be stable on her current Plavix load and aspirin. Will need 21 days of Plavix and aspirin once a day. For life. Patient understands. If stable for the next 24 hours will go home. Headache. Etiology is unclear. Certainly does not appear to be sinus related. Unlikely secondary to either vascular or stroke. Since no evidence of either on MRI or CT scan. Maybe just fatigue will see how things go. Continue treatment and re-evaluate in a.m.. Reassuring neurologic exam Hyperlipidemia stable continue statin will increase to 40 mg Insomnia continue hydroxyzine Code status full. GI prophylaxis hold for now. DVT prophylaxis on Lovenox. Disposition discussed with the patient. Catalina salas reviewed all the information in the current situation. Seems to be stable. But need to have echo and tele evaluation. She understands questions answered to probable discharge tomorrow. 40 minutes spent with the patient nursing dictation orders Quality VTE Deep Vein Thrombosis/Pulmonary Embolism Present on Admission: No
[2022-10-16 11:27] VITALS: BP 118/82; PULSE 72; RESP 20; TEMP 36.2; O2SAT 95
[2022-10-16 15:19] VITALS: BP 125/80; PULSE 87; RESP 20; TEMP 35.9; O2SAT 95
[2022-10-16] MEDS: METFORMIN HCL 500 MG TABLET 1000 MG PO (18:24)
[2022-10-16 19:21] VITALS: BP 125/81; PULSE 77; RESP 17; TEMP 35.8; O2SAT 96
--- NOTE | 2022-10-16 20:39 | DI.ECHO.S_ITS ---
[place] +---------+ [facility] +---------+ : : [address] : [place] : : : : [id number] : : : : Phone: [phone]+ Echocardiogram Report + + :Name: BEREKET EARL Study Date: 10/16/2022 Height: 68 in : :[facility] ReadingLocation: Weight: 242 lb : : Gender: Female BSA: 2.2 m2 : :: 1965 Age: 56 yrs BP: 133/85 mmHg: :Reason For Study: APHASIA : : Performed By: Jesus Alberto Werner : :Referring: CAM PARKER : + + Interpretation Summary The left ventricle is normal in size. Left ventricular systolic function is normal. The ejection fraction is estimated to be 55-60%. There are no obvious focal wall motion abnormalities noted but poor endocardial definition reduces the sensitivity for the detection of such. Diastolic parameters suggest a relaxation abnormality of the left ventricle, consistent with probable normal filling pressures. The right ventricle is normal size. Right ventricular systolic function is borderline reduced. Right ventricular systolic pressure is estimated to be 20 mmHg plus the clinically estimated CVP which cannot be estimated on this exam. Both atria are normal in size. Injection of contrast documented no interatrial shunt but bubble study was suboptimal hence sensitivity is reduced. There is no significant valvular heart disease. The aortic root is normal size. Procedure: A two-dimensional transthoracic echocardiogram with color flow and Doppler was performed. The study quality was technically adequate. There is no prior echocardiogram noted for this patient. The subcostal views were difficult to obtain and are suboptimal in quality. A saline contrast injection was performed to assess for cardiac shunting. The patient was in normal sinus rhythm during the exam. Left Ventricle: The left ventricle is normal in size. There is normal left ventricular wall thickness. Left ventricular systolic function is normal. The ejection fraction is estimated to be 55-60%. There are no obvious focal wall motion abnormalities noted but poor endocardial definition reduces the sensitivity for the detection of such. Diastolic parameters suggest a relaxation abnormality of the left ventricle, consistent with probable normal filling pressures. Right Ventricle: The right ventricle is normal size. Right ventricular systolic function is borderline reduced. Atria: Both atria are normal in size. Injection of contrast documented no interatrial shunt. Mitral Valve: There is mild mitral annular calcification. There is mild mitral regurgitation. Aortic Valve: The aortic valve is trileaflet. The aortic valve opens well. No aortic regurgitation is present. Tricuspid Valve: The tricuspid valve is normal in structure and function. There is mild tricuspid regurgitation. Right ventricular systolic pressure is estimated to be 20 mmHg plus the clinically estimated CVP which cannot be estimated on this exam. Pulmonic Valve: The pulmonic valve is not well seen, but is grossly normal. There is trace pulmonic regurgitation. There is no significant valvular heart disease. Great Vessels: The aortic root is normal size. The dimensions of the ascending aorta are normal. The pulmonary artery is normal size. The inferior vena cava was not well visualized. Pericardium/ Pleura There is no pericardial effusion. There is no pleural effusion. MMode/2D Measurements & Calculations LVIDd: 4.5 cm LVOT diam: 2.2 cm LVIDs: 2.7 cm Ao root diam: 3.2 cm FS: 40.8 % asc Aorta Diam: 3.2 cm EPSS: 0.61 cm Ao Arch Diam (Prox Trans): 3.0 cm IVSd: 0.83 cm LVPWd: 0.89 cm LV bowen. diameter/BSA (cm/m^2): 2.0 LV sys. diameter/BSA (cm/m^2): 1.2 LA A2 area: 19.1 cm2 RA long axis: 5.3 cm LA A4 area: 20.1 cm2 RA area: 13.5 cm2 LA length (vol): 5.6 cm RA vol: 29.6 ml LA vol: 58.3 ml RA : 13.3 ml/m2 LA vol index: 26.3 ml/m2 RVD1 (basal): 3.1 cm RVD2 (mid): 2.9 cm TAPSE: 1.6 cm Doppler Measurements & Calculations Ao V2 max: 111.3 cm/sec LVOT Max Shaun: 83.9 cm/sec Ao V2 mean: 91.3 cm/sec LV V1 max P.8 mmHg Ao max P.0 mmHg LV V1 VTI: 19.0 cm Ao mean P.5 mmHg MELQUIADES(I,D): 2.9 cm2 Ao V2 VTI: 24.7 cm MELQUIADES(V,D): 2.9 cm2 sev ratio: 0.77 MELQUIADES indexed to BSA (cm^2/m^2): 1.3 MV E max shaun: 37.1 cm/sec TR max shaun: 224.6 cm/sec MV A max shaun: 53.2 cm/sec TR max P.2 mmHg MV E/A: 0.70 PA V2 max: 69.8 cm/sec Med Peak E' Shaun: 5.8 cm/sec PA V2 mean: 54.0 cm/sec E/E' med: 6.4 PA mean P.2 mmHg Lat Peak E' Shaun: 9.7 cm/sec PA pr(Accel): 34.5 mmHg E/E' lat: 3.8 E/e' average: 5.1 MV dec time: 0.26 sec SV(LVOT): 72.4 ml Reading Physician:06:51 PM
[2022-10-16] MEDS: METOCLOPRAMIDE HCL 5 MG TABLET 10 MG PO (20:58)
[2022-10-16] MEDS: SODIUM CHLORIDE 0.9% FLUSH 10 ML IV (20:58)
[2022-10-17 00:19] VITALS: PULSE 73; RESP 17
[2022-10-17 05:13] VITALS: BP 128/87; PULSE 87; RESP 17; TEMP 36.2; O2SAT 93
--- NOTE | 2022-10-17 05:19 | PC.NURSE ---
Pt was c/o headache, Nausea and vomiting. Pt stated she thinks this all started after she taken some [place]. She also stated it has been happening since she started taking her ozempic. Dr. Restrepo was contacted and pt now has order for reglan 10 mg po which according to patient it helped and she was able to sleep all night.
[2022-10-17] MEDS: PANTOPRAZOLE DR 20 MG TABLET PO (06:29)
[2022-10-17 07:00] VITALS: BP 119/82; PULSE 77; RESP 16; TEMP 36.1; O2SAT 94
--- NOTE | 2022-10-17 07:49 | OT.IP.EVAL ---
Past Medical History (Last Reviewed 10/15/22 @ 18:45 by Cristina Padilla DO) Anxiety Arthritis Depression Diabetes type 2, controlled GERD (gastroesophageal reflux disease) History of headache Kidney stones Sinus drainage Surgical History (Last Reviewed 10/15/22 @ 18:45 by Cristina Padilla DO) H/O abdominoplasty History of hysterectomy Hx of breast reduction, elective Hx of colonoscopy (2018) Occupational Therapy Inpatient Evaluation/Re-Eval M1 PT/OT-IP Prior Functional Status Start: 10/17/22 13:09 Freq: NEEDED Status: Active Protocol: Document 10/17/22 13:10 CGR (Rec: 10/17/22 13:18 CGR [id number]) Medical Review Prior Functional Status Medical History Reviewed Yes Communication Pt is an effective verbal communicator Mobility and Gait Pt was IND in all functional mobility at baseline Activities of Daily Living and IADL's Pt was IND in all ADLs at baseline Social History Household Members spouse,children Living Arrangements House Number of Floors (Floors) Two Floors Number of Stairs To Enter/Railing? Pt has 2 steps to enter with no rail and can stay on the leveler helper. Home Environment Standard Height Toilet,Tub/ Shower Home Equipment Grab Bars In Shower Employment Status [employer] Employed Additional Social History Comment Pt has a claw foot tub and an adjustable bed. 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 M2 OT-IP Current Condition Start: 10/17/22 13:09 Freq: Status: Active Protocol: Document 10/17/22 13:10 CGR (Rec: 10/17/22 13:18 R [id number]) Occupational Therapy Current Condition Current Condition Evaluation Date 10/17/22 Treatment Diagnosis TIA vs CVA with word finding deficits Diagnosis Onset Date 10/15/22 M3 OT- IP Subjective and Pain Start: 10/17/22 13:09 Freq: Status: Active Protocol: Document 10/17/22 13:10 CGR (Rec: 10/17/22 13:18 R [id number]) OT- Subjective Occupational Therapy Visit Type Type Initial Evaluation Visit Start Time 07:38 Visit Stop Time 07:49 Total Visit Minutes 11 Notes Pt is agreeable to OT services . States she has a headache. OT Pain Assessment Pain When Pain Assessed At Rest Pain Present Pain Present Pain Reported Location Head Intensity 4 Scale Used Numeric (0 - 10) Management Techniques Distraction,Modification of Treatment,Re-positioning M4 OT- IP ADL's Start: 10/17/22 13:09 Freq: Status: Active Protocol: Document 10/17/22 13:10 CGR (Rec: 10/17/22 13:18 R [id number]) OT [id number] Comments OT Self-Feeding Comments not meal time OT ADL-Grooming Comments OT Grooming Comments pt declined OT ADL-Oral Care Comments Oral Care Comments pt declined, already performed OT ADL-Dressing General Eval Lower Body Dressing Ability Independent Areas Needing Assistance Socks OT ADL-Toileting General Evaluation Toileting Ability Independent Comments OT Toileting Comments urination seated on toeitl OT ADL-Bathing Comments OT Bathing Comments not performed M5 OT- IP IADL's Start: 10/17/22 13:09 Freq: Status: Active Protocol: Document 10/17/22 13:10 CGR (Rec: 10/17/22 13:18 R [id number]) OT-Instrumental Activities of Daily Living Deficits IADL Deficits Identified No Deficits Home Safety Awareness Awareness of Need for Assistance at Home Good Awareness Ability to Problem Solve Emergency Able to Problem Solve Situations Medication Management Medication Management No Deficits Identified Money Management Money Management No Deficits Identified Meal Preparation Meal Preparation No Deficits Identified Meter Calibrator Meter Calibrator No Deficits Identified Driving Driving Comments 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 OT- IP Functional Cognition Start: 10/17/22 13:09 Freq: Status: Active Protocol: Document 10/17/22 13:10 CGR (Rec: 10/17/22 13:18 R [id number]) Cognitive Factors Limiting Selfcare Function Cognitive Ability Level of Alertness Alert Patient Orientation Name,Age,Birthday,Month,Date, Year,Day of Week,Place, Situation Attention Span Ability Capable of Focused Attention, Capable of Sustained Attention Ability to Follow Commands Able to Follow Multi-Step Commands OT- Vision and Hearing OT- Hearing Assessment OT- Hearing Assessment WFL OT- Vision Assessment Visual Acuity Glasses All The Time Visual Attentiveness WFL Occular Pursuits WFL Visual Convergence WFL M7 OT- IP Mobility and Balance Start: 10/17/22 13:09 Freq: Status: Active Protocol: Document 10/17/22 13:10 CGR (Rec: 10/17/22 13:18 CGR [id number]) OT-Transfer Assessment Sit to and From Stand Sit to and from Stand Independent Transfers Transfer Ability Independent Technique Transfer Destination Chair,Toilet Transfer Technique Stand Step Pivot Comments Mobility Comments Mobility around the room OT- Balance Assessment Sitting Balance and Reactions Static Sitting Balance Ability Normal Dynamic Sitting Balance Ability Normal M8 OT- IP Objective Assessments Start: 10/17/22 13:09 Freq: Status: Active Protocol: Document 10/17/22 13:10 CGR (Rec: 10/17/22 13:18 CGR [id number]) OT Gross Range of Motion Upper Extremity Range of Motion Assessment Within Functional Limits OT Strength Upper Extremity Strength Assessment Within Functional Limits Comments Strength Comments 4/5 throughout OT- Coordination Assessment Upper Extremity Finger to Nose Test Within Functional Limits Finger Tapping Test Within Functional Limits OT-Muscle Tone Assessment Muscle Tone WNL Yes OT Sensation Assessment Edema Edema Absent M9 OT- IP Assessment and Plan Start: 10/17/22 13:09 Freq: Status: Active Protocol: Document 10/17/22 13:10 CGR (Rec: 10/17/22 13:18 CGR [id number]) OT Summary Assessment and Plan Potential Rehabilitation Potential Excellent Analytic Complexity at Evaluation Low Summary Progress Towards Goals Goals Met Assessment Summary Pt presents as a low complexity evaluation s/p admit for TIA. Pt's symptoms appear to be gone with the exception of minimal word finding deficits. No further OT needs. Frequency of Treatment Frequency Of Treatment Discharge Discharge Recommendations OT Discharge Recommendations Home Transportation Needs at Discharge Private Vehicle
[2022-10-17] MEDS: METOCLOPRAMIDE HCL 5 MG TABLET 10 MG PO (08:00)
--- NOTE | 2022-10-17 08:24 | P.DS_ITS ---
History of Present Illness History of Present Illness Chief complaint: thinks stroke Narrative: Patient is a 55-year-old female patient of Dr. Carmona who apparently was in her usual state of health as of today until 6:00 p.m. tonight. She was standing making dinner and was holding a glass she got a funny feeling in her head she is having a hard time describing it. She felt pressure in her head. And then kind of went blank. She had a mild headache. No other changes. She did not feel any numbness or tingling she just kind of stood there and stared. Her came up to her and ask her question and she knew she could find the words but she could not see them. She was not have any issues with movement although her says it was difficult to get her to go and sit down but he did not see any laxity or problem. Patient was very tired. And felt like she wanted to go to bed. She was refusing to go to the hospital. But after discussion they sent her there. Patient continued to have issues with word finding. Stroke score was 2. Should pretty dense aphasia when she arrived but in expressive and it slowly improved by the time she was here. She feels like she is pretty much back to normal in the time I interviewed her. She was at that time not complaining of anything other than being tired and having a mild headache and because of her diabetes she had an 8 and she was worried about that. She has no other significant new changes. Never had any neurologic changes. Never had any cardiac events. Discharge Providers Provider Date of admission: 10/15/22 20:27 Discharge Date: 10/17/22 Primary care physician: Christiane Carmona MD Consults: 10/15/22 20:36 Consult to Discharge Planning Routine Comment: Consult to Occupational Therapy Evaluate & Treat Comment: Physician Instructions: Evaluate and treat Consult to Physical Therapy Evaluate & Treat Comment: Physician Instructions: Evaluate and Treat Consult to Speech Therapy Evaluate & Treat Comment: Physician Instructions: Evaluate and treat Discharge provider: Virgil Restrepo MD Summary Hospital Course Discharge Diagnosis: TIA with aphasia Headache Type 2 diabetes Hyperlipidemia Insomnia Hospital Course: TIA with aphasia. Patient presented with pretty dense aphasia expressive, by the time emergency room evaluation was over she pretty much completely normalize d. Neurologic consult felt no further treatment was needed other than Plavix. She was loaded with Plavix and continued on once a day. Recommendation for 21 days of treatment plus aspirin. Aspirin for life. Telemetry was normal throughout the course of her stay. Echo showed no abnormality. MRI showed no evidence of significant defect her vascular study with CT scan showed no significant change. She was feeling better as time went and was pretty much normal on the day of discharge. Interesting patient had started Ozempic on the day of symptoms and will hold that until discussed with Dr. Carmona and her roofing apprentice. I doubt this was a significant impact but at this point will hold. Also will need probable longer monitoring for cardiac arrhythmias. Headache. Patient with headache since start of admission. Did not seem to definitively come with treatment. She did have a little nausea. Reglan seemed to make that better. She was feeling really pretty well on day of discharge. MRI physical exam labs all were normal. Doubt infection. Probably stress and insomnia related from being in the hospital but will have to follow closely. She will call if any worsening or change. Type 2 diabetes. Stable throughout the course of her admission. No new treatment was done. She was starting on Ozempic on the day that she presented with her symptoms I do not think this is related but we are going to hold until we discuss with her roofing apprentice and her primary care doctor. Will use her usual metformin. Hyperlipidemia. Stable throughout course no change. Insomnia. Not long-term issue. We discussed this. No other changes. Will continue her current treatment as outpatient. No other changes. 40 minutes spent with patient dictation orders Exam Vital Signs (past 8 hours): - 10/17/22 05:13 10/17/22 07:00 Temperature 97.2 F L 97 F L Pulse Rate 87 77 Respiratory Rate 17 16 Blood Pressure 128/87 119/82 Pulse Oximetry 93 94 Oxygen Flow Rate 0 0 Oxygen Delivery Method Room Air Oxygen Flow Rate 0 Narrative Exam Narrative: Alert female in no acute distress much less fatigued in appearance Lungs are clear heart is regular rate and rhythm neurologic exam completely normal Objective Labs 10/16/22 05:05 10/16/22 05:05 [facility] Medical History Anxiety Arthritis Depression Diabetes type 2, controlled GERD (gastroesophageal reflux disease) History of headache Kidney stones Sinus drainage Surgical History H/O abdominoplasty History of hysterectomy Hx of breast reduction, elective Hx of colonoscopy (2018) Family History Mother Hypertension Brother Diabetes mellitus Father Stomach cancer Social History marital status: household members: spouse and children lives independently: Yes Smoking Status: Never smoker alcohol intake: former Discharge Assessment & Plan Assessment and Plan Assessment: Stable Plan of Treatment: Discharge home Discharge Plan Discharge Plan Patient Disposition: Home Discharge orders & Medications Prescriptions: New clopidogrel 75 mg Tablet 75 mg PO DAILY Qty: 30 0RF aspirin 81 mg Tablet,Delayed Release (Dr/Ec) 81 mg PO DAILY Qty: 100 3RF metoclopramide HCl 5 mg Tablet 10 mg PO Q4H PRN (Reason: Nausea) Qty: 60 1RF Continued citalopram 20 mg tablet 20 mg PO DAILY glipizide 10 mg tablet 10 mg PO BID metformin 500 mg tablet 1,000 mg PO BID atorvastatin 20 mg tablet 20 mg PO DAILY hydroxyzine HCl 10 mg tablet 10 mg PO BEDTIME PRN (Reason: Sleep and anxiety) acyclovir 800 mg tablet 800 mg PO DAILY fluticasone propionate 50 mcg/actuation spray,suspension 2 spray intranasal DAILY Rx Instructions: administer into each nostril azelastine 0.05 % drops 1 drp EYE-BOTH DAILY cyclobenzaprine 10 mg tablet 10 mg PO 3XD PRN (Reason: Pain, Muscle Spasms) (DME) Blood Glucose Test Strip 1 strip MISCELLANEOUS DAILY (DME) pen needle, diabetic [BD Roxie 2nd Gen Pen Needle] 32 gauge x 5/32 needle MISCELLANEOUS Patient Comments: [NO ORIGINAL SIG] Ozempic 0.25 mg or 0.5 mg (2 mg/3 mL) pen injector 0.5 mg SUBCUT QWEEK Patient Comments: [NO ORIGINAL SIG] Rx Instructions: Every Monday subcut 0.5 mg losartan 25 mg DAILY Follow up/Referrals: Christiane Carmona MD [Primary Care Provider] - 3-5 Days (Please call for appointment) Discharge Health Status Multidrug resistant organism: No MDRO Diet/Activity/Treatments Diet: Carb-consistent/Diabetic Activity: As tolerated Visit Report/Discharge Packet Stand Alone Forms: Patient Portal/API, Stroke Signs & Symptoms Discharge Data Primary Care Provider: Christiane Carmona Attending Provider: Virgil Restrepo Admit Date/Time: 10/15/22 20:27 Quality VTE Deep Vein Thrombosis/Pulmonary Embolism Present on Admission: No
--- NOTE | 2022-10-17 08:31 | PC.NURSE ---
Patient is A&OX4, VSS, afebrile on RA. She denies n/v this a.m. and is able to tolerate breakfast. She is independent in the room and evaluated by OT at bedside. MD Restrepo at bedside this a.m. clearing patient for discharge home. She c/o a headache but declines hydrocodone for pain medication due to episode of n/v yesterday. She states that reglan has been very effective. She verbalizes understanding of discharge medications, activity, worsening symptoms and follow up recommendations. at bedside here to transport patient home.
[2022-10-17] MEDS: CLOPIDOGREL 75 MG TABLET PO (08:46)
[2022-10-17] MEDS: ASPIRIN EC 81 MG TABLET PO (08:46)
[2022-10-17] MEDS: ACETAMINOPHEN 325 MG TABLET 650 MG PO (08:46)
[2022-10-17] MEDS: METFORMIN HCL 500 MG TABLET 1000 MG PO (08:46)
[2022-10-17] MEDS: glipiZIDE 5 MG TABLET 10 MG PO (08:47)
[2022-10-17] MEDS: FLUTICASONE 120 SPRAY/16 GM SPRAY.SUSP NASAL (08:50)
--- NOTE | 2022-10-17 09:27 | CM.DPC ---
DCP Discharge Home Per MD, pt is medically stable to d/c home today and cleared by OT and pt continues to have a headache but managed with medication and pt agreeable to d/c home today and back to baseline. Per RN, pt independent in room and no concerns identified. Spouse bedside for discharge instructions and plans to transport pt home this morning. No further SW needs at this time. LAQUITA Gillette
--- NOTE | 2022-10-17 09:33 | PT-IP ANOTE ---
Received PT orders and completed chart review. OT had already worked with the patient and noted independent mobility with no balance concerns. RN confirmed same. Met with pt briefly and observed her moving independently in the room. Pt states all of her symptoms have cleared and she feels ready to discharge. Educated pt on stroke signs and symptoms and on the need for immediate treatment if she should experience any of these symptoms again. No acute PT needs are appreciated. Will d/c PT orders.
--- NOTE | 2022-10-17 09:57 | PC.NURSE ---
Discharge instructions and home care handout reviewed with patient. She states understanding and has no further questions or concerns at this time. States she will be following up with Dr. 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 Patient escorted out via wheelchair with all her belongings by [employer]. to discharge to home with her .
== END 2022-10-17 10:01 | disposition home or self-care (01) ==
LOC: ED 20:23 → AC 20:28
PROVIDERS: Admitting Provider Family Medicine; Emergency Provider Emergency Medicine; PCP Family Medicine; Visit Provider Family Medicine
DX: G45.9 Transient cerebral ischemic attack, unspecified (principal); R47.01 Aphasia; R29.702 NIHSS score 2; E11.9 Type 2 diabetes mellitus without complications; E78.5 Hyperlipidemia, unspecified; Z79.84 Long term (current) use of oral hypoglycemic drugs; G47.00 Insomnia, unspecified; Z20.822 Contact with and (suspected) exposure to COVID-19
CPT/HCPCS: 36415; 70450; 70496; 70498; 70551; 80053; 80305; 80320; 81003; 81015; 82550; 82962; 84484; 85025; 85610; 85730; 87077; 87086; 87186; 87635; 93005; 93306; 97166; 99284; C9803; G0378; Q3014; J1650; Q9967

== ENCOUNTER → 2023-04-21 09:44 | Outpatient (CLI) | payer OTHER, SELFPAY ==
[2022-10-15 21:53] VITALS: BMI 36.8
--- NOTE | 2023-04-21 | DI.RAD.S_ITS ---
PROCEDURE: XR LUMBAR SPINE 2-3V INDICATIONS: PAIN TECHNIQUE: 3 views of the lumbar spine were acquired. COMPARISON: [facility], , XR LUMBAR SPINE 2-3V, 01/11/2022, 11:44. FINDINGS: Bones: 5 [id number] vertebrae are present. Stable mild grade 1 anterolisthesis of L4 on L5. There is multilevel facet arthropathy, worse at L4-5 and L5-S1. Mild multilevel disc height loss with degenerative endplate changes and spurring is present. No vertebral body compression fractures. No suspicious bony lesions. Soft tissues: Overlying bowel gas pattern is normal. No suspicious soft tissue calcifications. Mild atherosclerotic vascular calcifications. IMPRESSION: Stable mild degenerative changes of the lumbar spine. Dictated by: Yann Maria M.D. on 04/21/2023 at 10:32 Approved by: Yann Maria M.D. on 04/21/2023 at 10:35
--- NOTE | 2023-04-21 | DI.RAD.S_ITS ---
PROCEDURE: XR ANKLE LT MIN 3V INDICATIONS: PAIN TECHNIQUE: 3 views of the ankle were acquired. COMPARISON: [facility], , ANKLE 3 VIEWS RIGHT, 01/09/2017, 8:12. FINDINGS: Bones: No fractures or dislocations. Ankle mortise is normally aligned. Well-defined plantar calcaneal enthesophyte is seen. No ankle fracture No suspicious bony lesions. Soft tissues: No tibiotalar joint effusion. Achilles tendon appears normal. IMPRESSION: No ankle fracture or dislocation. No significant joint effusion. Well-defined plantar calcaneal enthesophyte. Dictated by: Fermin Pastor M.D. on 04/21/2023 at 10:39 Approved by: Fermin Pastor M.D. on 04/21/2023 at 10:40
== END ==
LOC: RAD 09:46
PROVIDERS: PCP Family Medicine; Referring Provider Family Medicine; Visit Provider Family Medicine
DX: M54.50 Low back pain, unspecified (principal); M25.572 Pain in left ankle and joints of left foot; M47.816 Spondylosis without myelopathy or radiculopathy, lumbar region
CPT/HCPCS: 72100; 73610

== ENCOUNTER → 2023-09-06 07:42 | Outpatient (CLI) | payer OTHER, SELFPAY ==
[2022-10-15 21:53] VITALS: BMI 36.8
--- NOTE | 2023-09-06 | DI.MG.S_ITS ---
BILATERAL DIGITAL SCREENING MAMMOGRAM 3D/2D WITH CAD: 09/06/2023 CLINICAL: Routine screening. Comparison is made to exams dated: 07/09/2021 mammogram, 04/11/2020 mammogram, and 04/01/2019 mammogram - [facility]. Both breasts are almost entirely fatty (category a/<25% glandular tissue). Current study was also evaluated with a Computer Aided Detection (CAD) system. There are benign calcifications in both breasts. There also are benign post operative findings in both breasts. No significant masses, calcifications, or other findings are seen in either breast. There has been no significant interval change. IMPRESSION: BENIGN There is no mammographic evidence of malignancy. A 1 year screening mammogram is recommended. Based on the Tyrer Cuzick model (a risk assessment model) the patient's lifetime risk is 6.9% and her 10 year risk is 2.6%. According to the ACR, ACS, and NCCN guidelines, an annual breast MRI exam along with mammogram is recommended if the patient's lifetime risk is 20% or greater. This exam was interpreted at Station ID: [id number]. NOTE: For mammograms, a report in lay terms will be sent to the patient. Approximately 15% of breast malignancies will not be visualized mammographically. In the management of a palpable breast mass, a negative mammogram must not discourage biopsy of a clinically suspicious lesion. Electronically Signed By: Kellen wood/kenneth:09/06/2023 12:25:19 letter sent: Normal Exam ACR BI-RADS Category 2: Benign Finding(s) [id number]
== END ==
LOC: MAMMO 07:42
PROVIDERS: Family Provider Family Medicine; PCP Family Medicine; Referring Provider Family Medicine; Visit Provider Family Medicine
DX: Z12.31 Encounter for screening mammogram for malignant neoplasm of breast (principal); R92.313 Mammographic fatty tissue density, bilateral breasts
CPT/HCPCS: 77063; 77067

== ENCOUNTER 2023-10-16 14:30 | Outpatient (RCR) | payer OTHER, SELFPAY ==
[2022-10-15 21:53] VITALS: BMI 36.8
--- NOTE | 2023-06-07 15:50 | PT.OIE ---
Current Diagnoses Pain in left ankle and joints of left foot (06/07/23) Low back pain, unspecified (06/07/23) Other lack of coordination (06/07/23) Weakness (06/07/23) Past Medical History (Last Reviewed 10/15/22 @ 18:45 by Cristina Padilla DO) Anxiety Arthritis Depression Diabetes type 2, controlled GERD (gastroesophageal reflux disease) History of headache Kidney stones Sinus drainage Past Surgical History (Last Reviewed 10/15/22 @ 18:45 by Cristina Padilla DO) H/O abdominoplasty History of hysterectomy Hx of breast reduction, elective Hx of colonoscopy (2018) Visit Care Team Role Provider Type Christiane Carmona MD Attending Provider Physician Family Provider Primary Care Provider Referring Provider Specialty: Family Practice Address: [address] [place] [address], [facility] Email: [email or web address] Physical Therapy Initial Evaluation PT-OP-A Visit Information Start: 05/26/23 17:12 Freq: Status: Active Protocol: Document 06/07/23 14:29 NM (Rec: 06/07/23 16:41 NM [id number]) Out-Patient Physical Therapy Visit Information Visit Information Visit Type Initial Evaluation Visit Start Time 14:30 Visit Stop Time 15:15 Visit Number 1 Evaluation Information Evaluation Date 06/07/23 Precautions Precautions anterolisthesis, fall risk, previous TIA PT-OP-B Current Condition Start: 05/26/23 17:12 Freq: Status: Active Protocol: Document 06/07/23 14:29 NM (Rec: 06/07/23 16:41 NM [id number]) Current Condition History of Current Condition Onset Date last year Current Complaints pain, weakness, mobility History of Current Condition Pt presents with lumbar spine pain and L ankle pain. 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 Pt reports that her back pain worsen last year, when lifting an object. Pt reports that lifting up to 10# before pain. Pt reports that she has low back with sitting, standing, walking, sleeping along R side. Pt reports that her knees give out on stairs. She reports that she has a bone spur in L ankle, pain along medial ankle under malleoli. Ankle pain began last year when she was started wearing orthotics (had worn them for 10 years) for collapsed arch and leg lift. Tried a soft brace but did not help. She reports that her ankle pain is worse with walking, when she resorts to using a walking stick. She reports that she is able to bike. 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 Last year, pt reports that she had a ministroke where she was unable to speak but has not been confirmed; reports balance has worsened since then. Prior Treatments and Tests Imaging 04/2023: lumbar spine- stable anterolisthesis L4 on L5, mild facet arthopathy L4- S1; ankle radiograph- no fracture, calcaneal enthesophyte Treatment Goals Patient/Caregiver Goals trip to [place] in Nov, long PT-OP-C Subjective Start: 05/26/23 17:12 Freq: Status: Active Protocol: Document 06/07/23 14:29 NM (Rec: 06/07/23 16:41 NM [id number]) OP-PT Subjective Patient Comments Patient Comments see hx above for pt Patient Questionnaires Oswestry Low Back Index Oswestry Score 13/50 OP-PT Pain Assessment Location lumbar spine Pain Location Details R sided Intensity 2 Scale Used Numeric (0 - 10) Description Aching Description- Other worst 7 Frequency Constant Radiating Location to hip and knee Pain Aggravating Factors ADL's,Activity,Standing, Sitting,Walking,Stair Climbing ,Bending,Lifting Other Pain Aggravating Factors extension, 1/2 mi walking, stand 30 min Pain Alleviating Factors Heat,Lying Supine Other Pain Alleviating Factors sidelying B, dragon balm L ankle Pain Location Details anteromedial ankle pain under medial malleoli Intensity 1 Scale Used Numeric (0 - 10) Description Aching,Sharp Description- Other normal 4-5/10, worst 6-7/10 Frequency Frequent Pain Aggravating Factors Standing,Sitting,Walking Other Pain Aggravating Factors 1/2 mi walking, stand 30 min Pain Alleviating Factors Medication,Elevation,Rest Other Pain Alleviating Factors topical dragon balm, oil PT-OP-D Balance Start: 05/26/23 17:12 Freq: Status: Active Protocol: Document 06/07/23 14:29 NM (Rec: 06/07/23 16:41 NM [id number]) Balance Tests Single Limb Standing Single Limb- Right 0 seconds Single Limb- Left 1 seconds Tandem Tandem Standing unable to maintain PT-OP-E Functional Tests Start: 05/26/23 17:12 Freq: Status: Active Protocol: Document 06/07/23 14:29 NM (Rec: 06/07/23 16:41 NM [id number]) Functional Tests Five Times Sit to Stand Test Score 4 reps in 15 seconds, unable to complete 5th w/o UE assist Comments requires hand on quads to stand PT-OP-F Manual Assessment Start: 05/26/23 17:12 Freq: Status: Active Protocol: Document 06/07/23 14:29 NM (Rec: 06/07/23 16:41 NM [id number]) Manual Assessments Soft Tissue Assessment Soft Tissue Mobility Assessment Tightness R>L: B hamstrings, paraspinals, QL, and glutes/ piriformis Joint Mobility Assessment Joint Mobility Assessment Decreased L ankle dorsiflexion , pain with inversion. Hypomobility of L1-L5 with P-A springing. No lateral or medial ligamentous instability of L ankle PT-OP-G Mobility & Gait Start: 05/26/23 17:12 Freq: Status: Active Protocol: Document 06/07/23 14:29 NM (Rec: 06/07/23 16:41 NM [id number]) OP Gait Assessment Gait Gait Assistance Required: Independent Distance (Feet) 150 Gait Deviations General Gait Pattern Antalgic,Lateral Trunk Lean Factors Limiting Gait Function Factors Limiting Gait Function Decreased Strength,Limited Range of Motion,Pain,Poor Balance Comments Gait Comments L lean with L stance, also slight forward trunk lean PT-OP-H Neuro Start: 05/26/23 17:12 Freq: Status: Active Protocol: Document 06/07/23 14:29 NM (Rec: 06/07/23 16:41 NM [id number]) Sensation Evaluation Comments Summary Comments BLE equally intact to light touch sensation PT-OP-J Posture/Palpation/Skin Start: 05/26/23 17:12 Freq: Status: Active Protocol: Document 06/07/23 14:29 NM (Rec: 06/07/23 16:41 NM [id number]) Posture Evaluation Position Standing Head/C-Spine Posture Forward Head T-Spine Posture Increased Kyphosis L-Spine Posture Increased Lordosis Pelvis Posture Anteriorly Tilted Hip Posture (L) Externally Rotated,(R) Externally Rotated Knee Posture (L) Genu Valgus,(R) Genu Valgus Patellar Posture (L) Superior,(R) Superior Ankle/Foot Posture (L) Pronated,(R) Pronated,(L) Calcaneal Eversion,(R) Calcaneal Eversion Foot Arch (L) Low Arch,(R) Low Arch Palpation Assessment Location L ankle Palpation Details Tenderness at R navicular bone , under R medial malleolus and along posterior tibialis tendon, metatarsal pads Edema of B ankles, swelling present over R navicular bone lumbar spine Palpation Details R>L symptoms Tenderness: B PSIS, R SIJ, R glutes/piriformis, R lateral to midline L4-S1, R greater trochanter PT-OP-K Range of Motion Start: 05/26/23 17:12 Freq: Status: Active Protocol: Document 06/07/23 14:29 NM (Rec: 06/07/23 16:41 NM [id number]) Lumbar Spine Range of Motion Lumbar Spine Active Percentage Flexion 75 Extension 100 Rotation Left 5 Rotation Right 3 Lateral Flexion Left 100 Lateral Flexion Right 100 ROM Limitations Soft Tissue Tightness,Pain Comments Pain reproduced at R PSIS with R rotation, R lateral flexion , extension. Stretch of paraspinals with flexion Hip Goniometric Range of Motion Hip Right Flexion w/Knee Flexed 90 Extension 5 Abduction 25 Internal Rotation 30 External Rotation 25 Comments hamstrin deg Left Flexion w/Knee Flexed 100 Extension 5 Abduction 20 Internal Rotation 30 External Rotation 35 Comments hamstrin deg Ankle and Foot Goniometric Range of Motion Ankle and Foot Right Dorsiflexion with Knee Flexed 5 Plantarflexion 30 Inversion 20 Eversion 10 Left Dorsiflexion with Knee Flexed 5 Plantarflexion 30 Inversion 20 Eversion 15 Comments No pain with passive movement except from examiner hand placement PT-OP-L Special Tests Start: 05/26/23 17:12 Freq: Status: Active Protocol: Document 06/07/23 14:29 NM (Rec: 06/07/23 16:41 NM [id number]) Special Tests Lumbar Spine Special Tests Straight Leg Raise Test Results - Comments hamstring tightness, no change with tension Slump Test Results + Comments L Distraction Test Results + Jarvis/Quadrant Test Results + Comments R PSIS pain reproduced ea direction Foot/Ankle Special Tests Windlass Test Results - Talar tilt Test Results - Anterior Drawer Test Results - PT-OP-M Strength Start: 05/26/23 17:12 Freq: Status: Active Protocol: Document 06/07/23 14:29 NM (Rec: 06/07/23 16:41 NM [id number]) Trunk Strength Trunk Manual Muscle Testing Flexion 4 Good Extension 4 Good Rotation Left 4 Good Rotation Right 4 Good Lateral Flexion Left 4 Good Lateral Flexion Right 4 Good Comments Pain reproduced at R PSIS with resisted R rotation Hip Strength Hip Manual Muscle Testing Right Flexion (L2) 4 Good Extension (S1) 3+ Fair+ Abduction 3+ Fair+ Adduction 4 Good External Rotation 4 Good Internal Rotation 4 Good Comments Reports hip pain with resisted abduction along glute Left Flexion (L2) 4 Good Extension (S1) 3+ Fair+ Abduction 3+ Fair+ Adduction 4 Good External Rotation 4 Good Internal Rotation 4 Good Comments Reports hip pain with resisted abduction along glute Knee Strength Knee Manual Muscle Testing Right Flexion (S2) 4 Good Extension (L3) 4 Good Left Flexion (S2) 4 Good Extension (L3) 4 Good Ankle/Foot Strength Ankle and Foot Manual Muscle Testing Right Dorsiflexion (L4) 4 Good Plantarflexion (S1) 4 Good Inversion 4 Good Eversion (S1) 4 Good Left Dorsiflexion (L4) 4 Good Plantarflexion (S1) 4 Good Inversion 4- Good- Eversion (S1) 4 Good Comments Pain reproduced with resisted inversion PT-OP-T Assessment and Plan Start: 05/26/23 17:12 Freq: Status: Active Protocol: Document 06/07/23 14:29 NM (Rec: 06/07/23 16:41 NM [id number]) Physical Therapy Assessment Rehab Potential Rehabilitation Potential Good Evaluation Complexity Number of Personal Factors/Comorbidities 3 or More Number of Body Systems Impaired 1-2 Clinical Presentation at Evaluation Stable Impairments Impairments Activity Tolerance,Balance, Coordination,Edema,Functional Activities,Functional Mobility ,Gait,Integument,Pain,Posture, ROM,Sensation,Soft Tissue Mobility,Strength Goals Five Impairment mobility Impairment L ankle dorsiflexion 5 deg Short Term Goal (STG) Pt will increase L ankle dorsiflexion to at least 8 deg in order to improve gait mechanics and ankle AROM for activity STG Duration 5 weeks Junior Estimator Goal (LTG) Pt will increase B ankle dorsiflexion to at least 10 deg in order to improve gait mechanics and ankle AROM for activity LTG Duration 10 weeks Four Impairment HEP Impairment not performing HEP Short Term Goal (STG) Pt will report compliance with HEP at least 2-3x/wk in order to maximize progression with PT during episode of care STG Duration 5 weeks Halfway Goal (LTG) Pt will report compliance with HEP at least 3x/wk in order to smoothly transition to maintenance program upon discharge from PT to independent exercise LTG Duration 10 weeks Three Impairment function Impairment standing 30 minutes before pain in ankle and low back, walk 1/2 mile Short Term Goal (STG) Pt will report that she is able to stand for at least 45 minutes before needing to sit or rest due to pain in the low back in order to demonstrate improved activity tolerance STG Duration 5 weeks Junior Estimator Goal (LTG) Pt will report that she is able to ambulate for at least 3/4 mile before resting due to pain in order to demonstrate improved activity tolerance and pain management LTG Duration 10 weeks Two Impairment strength Impairment Difficulty with STS without UE use Short Term Goal (STG) Pt will be able to perform 5x STS without UE use from 20 table in order to demonstrate improved quad and glute strength for gait, stairs, and ADLs STG Duration 5 weeks Halfway Goal (LTG) Pt will be able to perform at least 10 bilateral squats without pain or compensation in order to demonstrate improved quad and glute strength for gait, stairs, and ADLs LTG Duration 10 weeks One Impairment Oswestry Impairment 13/50 Junior Estimator Goal (LTG) Pt will decrease Oswestry score to <13/50 in order to demonstrate improved pain management and activity tolerance LTG Duration 10 weeks Assessment Summary Assessment Pt is a 57 y.o. female presenting with R sided lumbar spine pain and L ankle pain beginning in 2022. Pt has difficulty with standing or ambulating for >30 minutes due to pain. Low back pain is worse with extension, R lateral flexion, and 3D movements. Jarvis/Quadrant is positive for R sided local pain, along with L slump test; symptoms are minimized with distraction. Pain symptoms are reproduced near R PSIS and R lower lumbar spine facets. Pt' s lumbar spine AROM is limited into flexion due to hamstring tightness; has full trunk AROM despite pain with lumbar extension. Trunk strength is within functional limits, but concordant pain is reproduced with R lateral flexion. Left ankle pain is reproduced with palpation along medial ankle at navicular bone and posterior tibilias tendon. Pt has decreased B ankle AROM, especially into dorsiflexion which likely influences gait pattern and ankle pain symptoms. Gait is antalgic with left trunk lean and slight forward trunk lean with L stance. Pt is unable to perform sit to stand without use of UE. Due to pt's previous use of foot orthotics , she would likely benefit from updated referral to echocardiologist to address impairments of L foot and to improve management of pain symptoms with updated orthotic . PT discussed exam findings and POC with pt; pt verbalizes agreement. 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 from skilled PT to address lumbar AROM and stabilization, L ankle mobility and BLE strengthening along with body mechanics training in order to decrease pain symptoms, improve activity tolerance, and improve QOL. Physical Therapy Plan Frequency and Duration Frequency of Treatment 2x/Week Duration of treatment (weeks) 10 Plan of Care Start Date 06/07/23 Plan of Care End Date 08/18/23 Therapeutic Interventions Therapeutic Interventions Aquatic Therapy,Balance Training,Coordination Training ,Gait Training,Home Exercise Program,Joint Mobilizations, Manual Therapy,Neuromuscular Re-education,Orthotic/ Prosthetic Management,Patient/ Caregiver Education,Self-Care/ Home Management,Sensory Integration,Soft Tissue Mobilization,Taping, Therapeutic Activities, Therapeutic Exercises Modalities Cold Pack/Ice Massage,Electric Stimulation,Hot Packs, Ultrasound,Vasopneumatic Devices Other Therapeutic Interventions pelvic realignment Other Referrals/Consults Referrals/Consults Recommended 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 from referral to echocardiologist for custom orthotics to address L ankle/ foot pain Next Visit Focus/Plan Next Note Type Treatment Note Next Visit Plan Ankle: DF mobilization, banded ankle 4 way, ankle mobility with BAPS, G/S stretch Back: LTR, TrA, flexion-biased core isometrics>progress, squat/STS from elevated height , hip abduction/extension ( sidelying, sitting, supine), bridge with ADD
--- NOTE | 2023-06-13 16:26 | PT.OTN ---
Current Diagnoses Pain in left ankle and joints of left foot (06/13/23) Low back pain, unspecified (06/13/23) Other lack of coordination (06/13/23) Weakness (06/13/23) Physical Therapy Treatment Note PT-OP-A Visit Information Start: 05/26/23 17:12 Freq: Status: Active Protocol: Document 06/13/23 12:53 AB (Rec: 06/13/23 16:26 AB [id number]) Out-Patient Physical Therapy Visit Information Visit Information Visit Type Treatment Note Visit Note Access Code: [email or web address] Visit Start Time 13:48 Visit Stop Time 14:34 Visit Number 2 Number of COMMUNITY SERVICE DIRECTOR Visits 1 Evaluation Information Evaluation Date 06/07/23 Precautions Precautions anterolisthesis, fall risk, previous TIA PT-OP-B Current Condition Start: 05/26/23 17:12 Freq: Status: Active Protocol: Document 06/07/23 14:29 NM (Rec: 06/07/23 16:41 NM [id number]) Current Condition History of Current Condition Onset Date last year Current Complaints pain, weakness, mobility History of Current Condition Pt presents with lumbar spine pain and L ankle pain. 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 Pt reports that her back pain worsen last year, when lifting an object. Pt reports that lifting up to 10# before pain. Pt reports that she has low back with sitting, standing, walking, sleeping along R side. Pt reports that her knees give out on stairs. She reports that she has a bone spur in L ankle, pain along medial ankle under malleoli. Ankle pain began last year when she was started wearing orthotics (had worn them for 10 years) for collapsed arch and leg lift. Tried a soft brace but did not help. She reports that her ankle pain is worse with walking, when she resorts to using a walking stick. She reports that she is able to bike. 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 Last year, pt reports that she had a ministroke where she was unable to speak but has not been confirmed; reports balance has worsened since then. Prior Treatments and Tests Imaging 04/2023: lumbar spine- stable anterolisthesis L4 on L5, mild facet arthopathy L4- S1; ankle radiograph- no fracture, calcaneal enthesophyte Treatment Goals Patient/Caregiver Goals trip to [place] in Nov, long flight PT-OP-C Subjective Start: 05/26/23 17:12 Freq: Status: Active Protocol: Document 06/13/23 12:53 AB (Rec: 06/13/23 16:26 AB [id number]) OP-PT Subjective Patient Comments Patient Comments Patient reports the back is more sore on the right side, also comments that she thinks nothing can be done with the foot PT-OP-D Balance Start: 05/26/23 17:12 Freq: Status: Active Protocol: Document 06/07/23 14:29 NM (Rec: 06/07/23 16:41 NM [id number]) Balance Tests Single Limb Standing Single Limb- Right 0 seconds Single Limb- Left 1 seconds Tandem Tandem Standing unable to maintain PT-OP-E Functional Tests Start: 05/26/23 17:12 Freq: Status: Active Protocol: Document 06/07/23 14:29 NM (Rec: 06/07/23 16:41 NM [id number]) Functional Tests Five Times Sit to Stand Test Score 4 reps in 15 seconds, unable to complete 5th w/o UE assist Comments requires hand on quads to stand PT-OP-F Manual Assessment Start: 05/26/23 17:12 Freq: Status: Active Protocol: Document 06/07/23 14:29 NM (Rec: 06/07/23 16:41 NM [id number]) Manual Assessments Soft Tissue Assessment Soft Tissue Mobility Assessment Tightness R>L: B hamstrings, paraspinals, QL, and glutes/ piriformis Joint Mobility Assessment Joint Mobility Assessment Decreased L ankle dorsiflexion , pain with inversion. Hypomobility of L1-L5 with P-A springing. No lateral or medial ligamentous instability of L ankle PT-OP-G Mobility & Gait Start: 05/26/23 17:12 Freq: Status: Active Protocol: Document 06/07/23 14:29 NM (Rec: 06/07/23 16:41 NM [id number]) OP Gait Assessment Gait Gait Assistance Required: Independent Distance (Feet) 150 Gait Deviations General Gait Pattern Antalgic,Lateral Trunk Lean Factors Limiting Gait Function Factors Limiting Gait Function Decreased Strength,Limited Range of Motion,Pain,Poor Balance Comments Gait Comments L lean with L stance, also slight forward trunk lean PT-OP-H Neuro Start: 05/26/23 17:12 Freq: Status: Active Protocol: Document 06/07/23 14:29 NM (Rec: 06/07/23 16:41 NM [id number]) Sensation Evaluation Comments Summary Comments BLE equally intact to light touch sensation PT-OP-J Posture/Palpation/Skin Start: 05/26/23 17:12 Freq: Status: Active Protocol: Document 06/07/23 14:29 NM (Rec: 06/07/23 16:41 NM [id number]) Posture Evaluation Position Standing Head/C-Spine Posture Forward Head T-Spine Posture Increased Kyphosis L-Spine Posture Increased Lordosis Pelvis Posture Anteriorly Tilted Hip Posture (L) Externally Rotated,(R) Externally Rotated Knee Posture (L) Genu Valgus,(R) Genu Valgus Patellar Posture (L) Superior,(R) Superior Ankle/Foot Posture (L) Pronated,(R) Pronated,(L) Calcaneal Eversion,(R) Calcaneal Eversion Foot Arch (L) Low Arch,(R) Low Arch Palpation Assessment Location L ankle Palpation Details Tenderness at R navicular bone , under R medial malleolus and along posterior tibialis tendon, metatarsal pads Edema of B ankles, swelling present over R navicular bone lumbar spine Palpation Details R>L symptoms Tenderness: B PSIS, R SIJ, R glutes/piriformis, R lateral to midline L4-S1, R greater trochanter PT-OP-K Range of Motion Start: 05/26/23 17:12 Freq: Status: Active Protocol: Document 06/07/23 14:29 NM (Rec: 06/07/23 16:41 NM [id number]) Lumbar Spine Range of Motion Lumbar Spine Active Percentage Flexion 75 Extension 100 Rotation Left 5 Rotation Right 3 Lateral Flexion Left 100 Lateral Flexion Right 100 ROM Limitations Soft Tissue Tightness,Pain Comments Pain reproduced at R PSIS with R rotation, R lateral flexion , extension. Stretch of paraspinals with flexion Hip Goniometric Range of Motion Hip Right Flexion w/Knee Flexed 90 Extension 5 Abduction 25 Internal Rotation 30 External Rotation 25 Comments hamstrin deg Left Flexion w/Knee Flexed 100 Extension 5 Abduction 20 Internal Rotation 30 External Rotation 35 Comments hamstrin deg Ankle and Foot Goniometric Range of Motion Ankle and Foot Right Dorsiflexion with Knee Flexed 5 Plantarflexion 30 Inversion 20 Eversion 10 Left Dorsiflexion with Knee Flexed 5 Plantarflexion 30 Inversion 20 Eversion 15 Comments No pain with passive movement except from examiner hand placement PT-OP-L Special Tests Start: 05/26/23 17:12 Freq: Status: Active Protocol: Document 06/07/23 14:29 NM (Rec: 06/07/23 16:41 NM [id number]) Special Tests Lumbar Spine Special Tests Straight Leg Raise Test Results - Comments hamstring tightness, no change with tension Slump Test Results + Comments L Distraction Test Results + Jarvis/Quadrant Test Results + Comments R PSIS pain reproduced ea direction Foot/Ankle Special Tests Windlass Test Results - Talar tilt Test Results - Anterior Drawer Test Results - PT-OP-M Strength Start: 05/26/23 17:12 Freq: Status: Active Protocol: Document 06/07/23 14:29 NM (Rec: 06/07/23 16:41 NM [id number]) Trunk Strength Trunk Manual Muscle Testing Flexion 4 Good Extension 4 Good Rotation Left 4 Good Rotation Right 4 Good Lateral Flexion Left 4 Good Lateral Flexion Right 4 Good Comments Pain reproduced at R PSIS with resisted R rotation Hip Strength Hip Manual Muscle Testing Right Flexion (L2) 4 Good Extension (S1) 3+ Fair+ Abduction 3+ Fair+ Adduction 4 Good External Rotation 4 Good Internal Rotation 4 Good Comments Reports hip pain with resisted abduction along glute Left Flexion (L2) 4 Good Extension (S1) 3+ Fair+ Abduction 3+ Fair+ Adduction 4 Good External Rotation 4 Good Internal Rotation 4 Good Comments Reports hip pain with resisted abduction along glute Knee Strength Knee Manual Muscle Testing Right Flexion (S2) 4 Good Extension (L3) 4 Good Left Flexion (S2) 4 Good Extension (L3) 4 Good Ankle/Foot Strength Ankle and Foot Manual Muscle Testing Right Dorsiflexion (L4) 4 Good Plantarflexion (S1) 4 Good Inversion 4 Good Eversion (S1) 4 Good Left Dorsiflexion (L4) 4 Good Plantarflexion (S1) 4 Good Inversion 4- Good- Eversion (S1) 4 Good Comments Pain reproduced with resisted inversion PT-OP-Q Treatments Start: 05/26/23 17:12 Freq: Status: Active Protocol: Document 06/13/23 12:53 AB (Rec: 06/13/23 16:26 AB [id number]) Therapeutic Exercises Supine Exercises lower trunk rotation Reps/Minutes one minute Comments Verbal cues to perform in pain free range hooklying hip abduction with band Resistance level 3 band Reps/Minutes X10 Comments verbal cues for direction of force bridge with band Resistance level 3 band Reps/Minutes X10 Comments verbal cues to keep tension on band and monitored for pain breathing from diaphragm in modified restorative pose Reps/Minutes 2 minutes Comments verbal cues for LE positioning and and breathing from diaphragm Chaitanya stretch Supine Exercise Name from hooklying knee to chest Side bilateral Reps/Minutes 60 seconds each LE Sitting Exercises seated hip abduction with band Side bilateral Equipment Used level 3 light green band Reps/Minutes X10 Comments verbal cues monitored for pain Therapeutic Activity Therapeutic Activity sit to stand Name raised seat height Reps/Minutes 4 X Comments Verbal cues for hip hinge, patient ed mechanics of sit to stand Manual Therapy Treatment Soft Tissue Mobilization LS parspinals Mobilization Type Sustained Pressure Intensity/Depth Moderate Body Position Sidelying Comments superficial right lower levels bilateral gluteal muscles/piriformis Mobilization Type Cross-Friction,Rolling Intensity/Depth Moderate Body Position Sidelying Manual Techniques MET for right AI left PI and pubic shotgun Body Location SI Body Position Hooklying Reps/Duration 6X6 seconds Comments Verbal cues to perform with decreased force Self-Care/Home Management Treatment Activities Self-Care/Home Management Activities Chaitanya stretch edge of bed, breathing from diaphragm, seated hip abd with band and bridge with band, lower trunk rotation to HEP PT-OP-T Assessment and Plan Start: 05/26/23 17:12 Freq: Status: Active Protocol: Document 06/13/23 12:53 AB (Rec: 06/13/23 16:26 AB [id number]) Physical Therapy Assessment Goals Five Impairment mobility Impairment L ankle dorsiflexion 5 deg Short Term Goal (STG) Pt will increase L ankle dorsiflexion to at least 8 deg in order to improve gait mechanics and ankle AROM for activity STG Duration 5 weeks Bowling Alley Refinisher Goal (LTG) Pt will increase B ankle dorsiflexion to at least 10 deg in order to improve gait mechanics and ankle AROM for activity LTG Duration 10 weeks Four Impairment HEP Impairment not performing HEP Short Term Goal (STG) Pt will report compliance with HEP at least 2-3x/wk in order to maximize progression with PT during episode of care STG Duration 5 weeks Bowling Alley Refinisher Goal (LTG) Pt will report compliance with HEP at least 3x/wk in order to smoothly transition to maintenance program upon discharge from PT to independent exercise LTG Duration 10 weeks Three Impairment function Impairment standing 30 minutes before pain in ankle and low back, walk 1/2 mile Short Term Goal (STG) Pt will report that she is able to stand for at least 45 minutes before needing to sit or rest due to pain in the low back in order to demonstrate improved activity tolerance STG Duration 5 weeks Bowling Alley Refinisher Goal (LTG) Pt will report that she is able to ambulate for at least 3/4 mile before resting due to pain in order to demonstrate improved activity tolerance and pain management LTG Duration 10 weeks Two Impairment strength Impairment Difficulty with STS without UE use Short Term Goal (STG) Pt will be able to perform 5x STS without UE use from 20 table in order to demonstrate improved quad and glute strength for gait, stairs, and ADLs STG Duration 5 weeks Longterm Goal (LTG) Pt will be able to perform at least 10 bilateral squats without pain or compensation in order to demonstrate improved quad and glute strength for gait, stairs, and ADLs LTG Duration 10 weeks One Impairment Oswestry Impairment 13/50 Longterm Goal (LTG) Pt will decrease Oswestry score to <13/50 in order to demonstrate improved pain management and activity tolerance LTG Duration 10 weeks Assessment Summary Assessment Patient reports feeling better end of session. Good tolerance to exercise, but hooklying abd with band appeared more difficult than seated hip abd with band which patient confirmed when question and sit to stand from a standard chair height requires UE use, but did have good return demonstration for hip hinge from raised seat height. Physical Therapy Plan Frequency and Duration Frequency of Treatment 2x/Week Duration of treatment (weeks) 10 Plan of Care Start Date 06/07/23 Plan of Care End Date 08/18/23 Next Visit Focus/Plan Next Note Type Treatment Note Next Visit Plan Ankle: DF mobilization, banded ankle 4 way, ankle mobility with BAPS, G/S stretch Back: LTR, TrA, flexion-biased core isometrics>progress, squat/STS from elevated height , hip abduction/extension ( sidelying, sitting (added to HEP for abd), supine (abd not corby supine)), bridge with ADD * assess corby to HEP, focus on abdominal/core strength, reassess sit to stand
--- NOTE | 2023-06-16 16:18 | PT.OTN ---
Current Diagnoses Pain in left ankle and joints of left foot (06/16/23) Low back pain, unspecified (06/16/23) Other lack of coordination (06/16/23) Weakness (06/16/23) Physical Therapy Treatment Note PT-OP-A Visit Information Start: 05/26/23 17:12 Freq: Status: Active Protocol: Document 06/16/23 10:21 AB (Rec: 06/16/23 16:18 AB [id number]) Out-Patient Physical Therapy Visit Information Visit Information Visit Type Treatment Note Visit Note Access Code: [email or web address] Visit Start Time 13:48 Visit Stop Time 14:31 Visit Number 3 Number of FEED RESEARCH AIDE Visits 1 Evaluation Information Evaluation Date 06/07/23 Precautions Precautions anterolisthesis, fall risk, previous TIA PT-OP-B Current Condition Start: 05/26/23 17:12 Freq: Status: Active Protocol: Document 06/07/23 14:29 NM (Rec: 06/07/23 16:41 NM [id number]) Current Condition History of Current Condition Onset Date last year Current Complaints pain, weakness, mobility History of Current Condition Pt presents with lumbar spine pain and L ankle pain. 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 Pt reports that her back pain worsen last year, when lifting an object. Pt reports that lifting up to 10# before pain. Pt reports that she has low back with sitting, standing, walking, sleeping along R side. Pt reports that her knees give out on stairs. She reports that she has a bone spur in L ankle, pain along medial ankle under malleoli. Ankle pain began last year when she was started wearing orthotics (had worn them for 10 years) for collapsed arch and leg lift. Tried a soft brace but did not help. She reports that her ankle pain is worse with walking, when she resorts to using a walking stick. She reports that she is able to bike. 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 Last year, pt reports that she had a ministroke where she was unable to speak but has not been confirmed; reports balance has worsened since then. Prior Treatments and Tests Imaging 04/2023: lumbar spine- stable anterolisthesis L4 on L5, mild facet arthopathy L4- S1; ankle radiograph- no fracture, calcaneal enthesophyte Treatment Goals Patient/Caregiver Goals trip to [place] [place] in Nov, long flight PT-OP-C Subjective Start: 05/26/23 17:12 Freq: Status: Active Protocol: Document 06/16/23 10:21 AB (Rec: 06/16/23 16:18 AB [id number]) OP-PT Subjective Patient Comments Patient Comments Patient reports she is a little better, comments the pain is still there, but the stretching and breathing are helping. PT-OP-D Balance Start: 05/26/23 17:12 Freq: Status: Active Protocol: Document 06/07/23 14:29 NM (Rec: 06/07/23 16:41 NM [id number]) Balance Tests Single Limb Standing Single Limb- Right 0 seconds Single Limb- Left 1 seconds Tandem Tandem Standing unable to maintain PT-OP-E Functional Tests Start: 05/26/23 17:12 Freq: Status: Active Protocol: Document 06/07/23 14:29 NM (Rec: 06/07/23 16:41 NM [id number]) Functional Tests Five Times Sit to Stand Test Score 4 reps in 15 seconds, unable to complete 5th w/o UE assist Comments requires hand on quads to stand PT-OP-F Manual Assessment Start: 05/26/23 17:12 Freq: Status: Active Protocol: Document 06/07/23 14:29 NM (Rec: 06/07/23 16:41 NM [id number]) Manual Assessments Soft Tissue Assessment Soft Tissue Mobility Assessment Tightness R>L: B hamstrings, paraspinals, QL, and glutes/ piriformis Joint Mobility Assessment Joint Mobility Assessment Decreased L ankle dorsiflexion , pain with inversion. Hypomobility of L1-L5 with P-A springing. No lateral or medial ligamentous instability of L ankle PT-OP-G Mobility & Gait Start: 05/26/23 17:12 Freq: Status: Active Protocol: Document 06/07/23 14:29 NM (Rec: 06/07/23 16:41 NM [id number]) OP Gait Assessment Gait Gait Assistance Required: Independent Distance (Feet) 150 Gait Deviations General Gait Pattern Antalgic,Lateral Trunk Lean Factors Limiting Gait Function Factors Limiting Gait Function Decreased Strength,Limited Range of Motion,Pain,Poor Balance Comments Gait Comments L lean with L stance, also slight forward trunk lean PT-OP-H Neuro Start: 05/26/23 17:12 Freq: Status: Active Protocol: Document 06/07/23 14:29 NM (Rec: 06/07/23 16:41 NM [id number]) Sensation Evaluation Comments Summary Comments BLE equally intact to light touch sensation PT-OP-J Posture/Palpation/Skin Start: 05/26/23 17:12 Freq: Status: Active Protocol: Document 06/07/23 14:29 NM (Rec: 06/07/23 16:41 NM [id number]) Posture Evaluation Position Standing Head/C-Spine Posture Forward Head T-Spine Posture Increased Kyphosis L-Spine Posture Increased Lordosis Pelvis Posture Anteriorly Tilted Hip Posture (L) Externally Rotated,(R) Externally Rotated Knee Posture (L) Genu Valgus,(R) Genu Valgus Patellar Posture (L) Superior,(R) Superior Ankle/Foot Posture (L) Pronated,(R) Pronated,(L) Calcaneal Eversion,(R) Calcaneal Eversion Foot Arch (L) Low Arch,(R) Low Arch Palpation Assessment Location L ankle Palpation Details Tenderness at R navicular bone , under R medial malleolus and along posterior tibialis tendon, metatarsal pads Edema of B ankles, swelling present over R navicular bone lumbar spine Palpation Details R>L symptoms Tenderness: B PSIS, R SIJ, R glutes/piriformis, R lateral to midline L4-S1, R greater trochanter PT-OP-K Range of Motion Start: 05/26/23 17:12 Freq: Status: Active Protocol: Document 06/07/23 14:29 NM (Rec: 06/07/23 16:41 NM [id number]) Lumbar Spine Range of Motion Lumbar Spine Active Percentage Flexion 75 Extension 100 Rotation Left 5 Rotation Right 3 Lateral Flexion Left 100 Lateral Flexion Right 100 ROM Limitations Soft Tissue Tightness,Pain Comments Pain reproduced at R PSIS with R rotation, R lateral flexion , extension. Stretch of paraspinals with flexion Hip Goniometric Range of Motion Hip Right Flexion w/Knee Flexed 90 Extension 5 Abduction 25 Internal Rotation 30 External Rotation 25 Comments hamstrin deg Left Flexion w/Knee Flexed 100 Extension 5 Abduction 20 Internal Rotation 30 External Rotation 35 Comments hamstrin deg Ankle and Foot Goniometric Range of Motion Ankle and Foot Right Dorsiflexion with Knee Flexed 5 Plantarflexion 30 Inversion 20 Eversion 10 Left Dorsiflexion with Knee Flexed 5 Plantarflexion 30 Inversion 20 Eversion 15 Comments No pain with passive movement except from examiner hand placement PT-OP-L Special Tests Start: 05/26/23 17:12 Freq: Status: Active Protocol: Document 06/07/23 14:29 NM (Rec: 06/07/23 16:41 NM [id number]) Special Tests Lumbar Spine Special Tests Straight Leg Raise Test Results - Comments hamstring tightness, no change with tension Slump Test Results + Comments L Distraction Test Results + Jarvis/Quadrant Test Results + Comments R PSIS pain reproduced ea direction Foot/Ankle Special Tests Windlass Test Results - Talar tilt Test Results - Anterior Drawer Test Results - PT-OP-M Strength Start: 05/26/23 17:12 Freq: Status: Active Protocol: Document 06/07/23 14:29 NM (Rec: 06/07/23 16:41 NM [id number]) Trunk Strength Trunk Manual Muscle Testing Flexion 4 Good Extension 4 Good Rotation Left 4 Good Rotation Right 4 Good Lateral Flexion Left 4 Good Lateral Flexion Right 4 Good Comments Pain reproduced at R PSIS with resisted R rotation Hip Strength Hip Manual Muscle Testing Right Flexion (L2) 4 Good Extension (S1) 3+ Fair+ Abduction 3+ Fair+ Adduction 4 Good External Rotation 4 Good Internal Rotation 4 Good Comments Reports hip pain with resisted abduction along glute Left Flexion (L2) 4 Good Extension (S1) 3+ Fair+ Abduction 3+ Fair+ Adduction 4 Good External Rotation 4 Good Internal Rotation 4 Good Comments Reports hip pain with resisted abduction along glute Knee Strength Knee Manual Muscle Testing Right Flexion (S2) 4 Good Extension (L3) 4 Good Left Flexion (S2) 4 Good Extension (L3) 4 Good Ankle/Foot Strength Ankle and Foot Manual Muscle Testing Right Dorsiflexion (L4) 4 Good Plantarflexion (S1) 4 Good Inversion 4 Good Eversion (S1) 4 Good Left Dorsiflexion (L4) 4 Good Plantarflexion (S1) 4 Good Inversion 4- Good- Eversion (S1) 4 Good Comments Pain reproduced with resisted inversion PT-OP-Q Treatments Start: 05/26/23 17:12 Freq: Status: Active Protocol: Document 06/16/23 10:21 AB (Rec: 06/16/23 16:18 AB [id number]) Therapeutic Exercises Supine Exercises abdominal bracing with LE extension Side bilateral Reps/Minutes X10 Comments verbal cues to brace as LE moves away from core Chaitanya stretch Supine Exercise Name from hooklying knee to chest Side bilateral Reps/Minutes 60 seconds each LE Sitting Exercises AROM DF Side bilateral Reps/Minutes X10 Comments Verbal and visual cues Standing Exercises Pallof press Side bilateral Resistance level one band Reps/Minutes 2X15 Comments Verbal and visual cues calf stretches Standing Exercise Name standing at wall with knee straight and knee bent Side bilateral Reps/Minutes 60 seconds X 1 each Manual Therapy Treatment Soft Tissue Mobilization left calf Mobilization Type Cross-Friction,Rolling Intensity/Depth Moderate Body Position Sidelying Comments with AROM DF PF LS parspinals Body Location bilateral Mobilization Type Sustained Pressure Intensity/Depth Moderate Body Position Sidelying Comments superficial right lower levels bilateral gluteal muscles/piriformis Mobilization Type Cross-Friction,Rolling Intensity/Depth Moderate Body Position Sidelying Manual Techniques MET for right AI left PI and pubic shotgun Body Location SI Body Position Hooklying Reps/Duration 6X6 seconds Comments Verbal cues to perform with decreased force PT-OP-T Assessment and Plan Start: 05/26/23 17:12 Freq: Status: Active Protocol: Document 06/16/23 10:21 AB (Rec: 06/16/23 16:18 AB [id number]) Physical Therapy Assessment Goals Five Impairment mobility Impairment L ankle dorsiflexion 5 deg Short Term Goal (STG) Pt will increase L ankle dorsiflexion to at least 8 deg in order to improve gait mechanics and ankle AROM for activity STG Duration 5 weeks Halfway Goal (LTG) Pt will increase B ankle dorsiflexion to at least 10 deg in order to improve gait mechanics and ankle AROM for activity LTG Duration 10 weeks Four Impairment HEP Impairment not performing HEP Short Term Goal (STG) Pt will report compliance with HEP at least 2-3x/wk in order to maximize progression with PT during episode of care STG Duration 5 weeks Halfway Goal (LTG) Pt will report compliance with HEP at least 3x/wk in order to smoothly transition to maintenance program upon discharge from PT to independent exercise LTG Duration 10 weeks Three Impairment function Impairment standing 30 minutes before pain in ankle and low back, walk 1/2 mile Short Term Goal (STG) Pt will report that she is able to stand for at least 45 minutes before needing to sit or rest due to pain in the low back in order to demonstrate improved activity tolerance STG Duration 5 weeks Halfway Goal (LTG) Pt will report that she is able to ambulate for at least 3/4 mile before resting due to pain in order to demonstrate improved activity tolerance and pain management LTG Duration 10 weeks Two Impairment strength Impairment Difficulty with STS without UE use Short Term Goal (STG) Pt will be able to perform 5x STS without UE use from 20 table in order to demonstrate improved quad and glute strength for gait, stairs, and ADLs STG Duration 5 weeks Halfway Goal (LTG) Pt will be able to perform at least 10 bilateral squats without pain or compensation in order to demonstrate improved quad and glute strength for gait, stairs, and ADLs LTG Duration 10 weeks One Impairment Oswestry Impairment 13/50 Halfway Goal (LTG) Pt will decrease Oswestry score to <13/50 in order to demonstrate improved pain management and activity tolerance LTG Duration 10 weeks Assessment Summary Assessment Patient reports feeling stretched end of session. Patient reports she started this session with less pain compared to last session. Physical Therapy Plan Frequency and Duration Frequency of Treatment 2x/Week Duration of treatment (weeks) 10 Plan of Care Start Date 06/07/23 Plan of Care End Date 08/18/23 Next Visit Focus/Plan Next Note Type Treatment Note Next Visit Plan Ankle: DF mobilization MWM next session, banded ankle 4 way, ankle mobility with BAPS, G/S stretch Back: LTR, TrA, flexion-biased core isometrics>progress, squat/STS from elevated height , hip abduction/extension ( sidelying, sitting (added to HEP for abd), supine (abd not corby supine)), bridge with ADD * assess corby to HEP, focus on abdominal/core strength/bent knee fall out, reassess sit to stand
--- NOTE | 2023-06-19 15:30 | PT.OTN ---
Current Diagnoses Pain in left ankle and joints of left foot (06/19/23) Low back pain, unspecified (06/19/23) Other lack of coordination (06/19/23) Weakness (06/19/23) Physical Therapy Treatment Note PT-OP-A Visit Information Start: 05/26/23 17:12 Freq: Status: Active Protocol: Document 06/19/23 14:34 NM (Rec: 06/19/23 15:30 NM [id number]) Out-Patient Physical Therapy Visit Information Visit Information Visit Type Treatment Note Visit Start Time 14:35 Visit Stop Time 15:15 Visit Number 4 PT-OP-B Current Condition Start: 05/26/23 17:12 Freq: Status: Active Protocol: Document 06/07/23 14:29 NM (Rec: 06/07/23 16:41 NM [id number]) Current Condition History of Current Condition Onset Date last year Current Complaints pain, weakness, mobility History of Current Condition Pt presents with lumbar spine pain and L ankle pain. 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 Pt reports that her back pain worsen last year, when lifting an object. Pt reports that lifting up to 10# before pain. Pt reports that she has low back with sitting, standing, walking, sleeping along R side. Pt reports that her knees give out on stairs. She reports that she has a bone spur in L ankle, pain along medial ankle under malleoli. Ankle pain began last year when she was started wearing orthotics (had worn them for 10 years) for collapsed arch and leg lift. Tried a soft brace but did not help. She reports that her ankle pain is worse with walking, when she resorts to using a walking stick. She reports that she is able to bike. 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 Last year, pt reports that she had a ministroke where she was unable to speak but has not been confirmed; reports balance has worsened since then. Prior Treatments and Tests Imaging 04/2023: lumbar spine- stable anterolisthesis L4 on L5, mild facet arthopathy L4- S1; ankle radiograph- no fracture, calcaneal enthesophyte Treatment Goals Patient/Caregiver Goals trip to [place] in Nov, long flight PT-OP-C Subjective Start: 05/26/23 17:12 Freq: Status: Active Protocol: Document 06/19/23 14:34 NM (Rec: 06/19/23 15:30 NM [id number]) OP-PT Subjective Patient Comments Patient Comments Pt reports no change in symptoms but reports feeling better after last session and arriving into this session. Really enjoys STM, MET. Feels like needs strengthening (core ); not compliant with HEP PT-OP-D Balance Start: 05/26/23 17:12 Freq: Status: Active Protocol: Document 06/07/23 14:29 NM (Rec: 06/07/23 16:41 NM [id number]) Balance Tests Single Limb Standing Single Limb- Right 0 seconds Single Limb- Left 1 seconds Tandem Tandem Standing unable to maintain PT-OP-E Functional Tests Start: 05/26/23 17:12 Freq: Status: Active Protocol: Document 06/07/23 14:29 NM (Rec: 06/07/23 16:41 NM [id number]) Functional Tests Five Times Sit to Stand Test Score 4 reps in 15 seconds, unable to complete 5th w/o UE assist Comments requires hand on quads to stand PT-OP-F Manual Assessment Start: 05/26/23 17:12 Freq: Status: Active Protocol: Document 06/07/23 14:29 NM (Rec: 06/07/23 16:41 NM [id number]) Manual Assessments Soft Tissue Assessment Soft Tissue Mobility Assessment Tightness R>L: B hamstrings, paraspinals, QL, and glutes/ piriformis Joint Mobility Assessment Joint Mobility Assessment Decreased L ankle dorsiflexion , pain with inversion. Hypomobility of L1-L5 with P-A springing. No lateral or medial ligamentous instability of L ankle PT-OP-G Mobility & Gait Start: 05/26/23 17:12 Freq: Status: Active Protocol: Document 06/07/23 14:29 NM (Rec: 06/07/23 16:41 NM [id number]) OP Gait Assessment Gait Gait Assistance Required: Independent Distance (Feet) 150 Gait Deviations General Gait Pattern Antalgic,Lateral Trunk Lean Factors Limiting Gait Function Factors Limiting Gait Function Decreased Strength,Limited Range of Motion,Pain,Poor Balance Comments Gait Comments L lean with L stance, also slight forward trunk lean PT-OP-H Neuro Start: 05/26/23 17:12 Freq: Status: Active Protocol: Document 06/07/23 14:29 NM (Rec: 06/07/23 16:41 NM [id number]) Sensation Evaluation Comments Summary Comments BLE equally intact to light touch sensation PT-OP-J Posture/Palpation/Skin Start: 05/26/23 17:12 Freq: Status: Active Protocol: Document 06/07/23 14:29 NM (Rec: 06/07/23 16:41 NM [id number]) Posture Evaluation Position Standing Head/C-Spine Posture Forward Head T-Spine Posture Increased Kyphosis L-Spine Posture Increased Lordosis Pelvis Posture Anteriorly Tilted Hip Posture (L) Externally Rotated,(R) Externally Rotated Knee Posture (L) Genu Valgus,(R) Genu Valgus Patellar Posture (L) Superior,(R) Superior Ankle/Foot Posture (L) Pronated,(R) Pronated,(L) Calcaneal Eversion,(R) Calcaneal Eversion Foot Arch (L) Low Arch,(R) Low Arch Palpation Assessment Location L ankle Palpation Details Tenderness at R navicular bone , under R medial malleolus and along posterior tibialis tendon, metatarsal pads Edema of B ankles, swelling present over R navicular bone lumbar spine Palpation Details R>L symptoms Tenderness: B PSIS, R SIJ, R glutes/piriformis, R lateral to midline L4-S1, R greater trochanter PT-OP-K Range of Motion Start: 05/26/23 17:12 Freq: Status: Active Protocol: Document 06/07/23 14:29 NM (Rec: 06/07/23 16:41 NM [id number]) Lumbar Spine Range of Motion Lumbar Spine Active Percentage Flexion 75 Extension 100 Rotation Left 5 Rotation Right 3 Lateral Flexion Left 100 Lateral Flexion Right 100 ROM Limitations Soft Tissue Tightness,Pain Comments Pain reproduced at R PSIS with R rotation, R lateral flexion , extension. Stretch of paraspinals with flexion Hip Goniometric Range of Motion Hip Right Flexion w/Knee Flexed 90 Extension 5 Abduction 25 Internal Rotation 30 External Rotation 25 Comments hamstrin deg Left Flexion w/Knee Flexed 100 Extension 5 Abduction 20 Internal Rotation 30 External Rotation 35 Comments hamstrin deg Ankle and Foot Goniometric Range of Motion Ankle and Foot Right Dorsiflexion with Knee Flexed 5 Plantarflexion 30 Inversion 20 Eversion 10 Left Dorsiflexion with Knee Flexed 5 Plantarflexion 30 Inversion 20 Eversion 15 Comments No pain with passive movement except from examiner hand placement PT-OP-L Special Tests Start: 05/26/23 17:12 Freq: Status: Active Protocol: Document 06/07/23 14:29 NM (Rec: 06/07/23 16:41 NM [id number]) Special Tests Lumbar Spine Special Tests Straight Leg Raise Test Results - Comments hamstring tightness, no change with tension Slump Test Results + Comments L Distraction Test Results + Jarvis/Quadrant Test Results + Comments R PSIS pain reproduced ea direction Foot/Ankle Special Tests Windlass Test Results - Talar tilt Test Results - Anterior Drawer Test Results - PT-OP-M Strength Start: 05/26/23 17:12 Freq: Status: Active Protocol: Document 06/07/23 14:29 NM (Rec: 06/07/23 16:41 NM [id number]) Trunk Strength Trunk Manual Muscle Testing Flexion 4 Good Extension 4 Good Rotation Left 4 Good Rotation Right 4 Good Lateral Flexion Left 4 Good Lateral Flexion Right 4 Good Comments Pain reproduced at R PSIS with resisted R rotation Hip Strength Hip Manual Muscle Testing Right Flexion (L2) 4 Good Extension (S1) 3+ Fair+ Abduction 3+ Fair+ Adduction 4 Good External Rotation 4 Good Internal Rotation 4 Good Comments Reports hip pain with resisted abduction along glute Left Flexion (L2) 4 Good Extension (S1) 3+ Fair+ Abduction 3+ Fair+ Adduction 4 Good External Rotation 4 Good Internal Rotation 4 Good Comments Reports hip pain with resisted abduction along glute Knee Strength Knee Manual Muscle Testing Right Flexion (S2) 4 Good Extension (L3) 4 Good Left Flexion (S2) 4 Good Extension (L3) 4 Good Ankle/Foot Strength Ankle and Foot Manual Muscle Testing Right Dorsiflexion (L4) 4 Good Plantarflexion (S1) 4 Good Inversion 4 Good Eversion (S1) 4 Good Left Dorsiflexion (L4) 4 Good Plantarflexion (S1) 4 Good Inversion 4- Good- Eversion (S1) 4 Good Comments Pain reproduced with resisted inversion PT-OP-Q Treatments Start: 05/26/23 17:12 Freq: Status: Active Protocol: Document 06/19/23 14:34 NM (Rec: 06/19/23 15:30 NM [id number]) Therapeutic Exercises Supine Exercises figure 4 Supine Exercise Name knee flexed Side bilateral Equipment Used cued ppt Reps/Minutes 1x60 Comments pain free, feels good, gentle stretch TrA activation Supine Exercise Name 1. bracing w/ breath, 2. BKFO Side bilateral Reps/Minutes 1. 1x5 with brief hold, 2. 1x10 ea Comments cued ppt, pain free abdominal bracing with LE extension Supine Exercise Name heel taps Side bilateral Equipment Used hooklying; cued ppt Reps/Minutes 1x10 Comments verbal cues to brace as LE moves away from core lower trunk rotation Side bilateral Reps/Minutes 1x10 ea Comments cued for ppt, pain free, feels good Sitting Exercises AROM DF Side bilateral Resistance lvl 2 tb Reps/Minutes 2x10 Comments cued eccentric control Standing Exercises Ankle DF mobilization Standing Exercise Name talocrural mobilization Side left Resistance lvl 3 resistance band A-P force on talus Equipment Used foot on second step, hand rail use for balance Reps/Minutes 1x10 with 3 hold Comments cued heel flat; reports knee gives out at end range flexion calf stretches Standing Exercise Name standing at wall with knee straight and knee bent Side bilateral Reps/Minutes 1x60 ea Comments pain free Other Exercises self soft tissue mobilization Other Exercise Name lumbar spine, glutes Side right Equipment Used ball in pillowcase at wall Reps/Minutes 2 min total Comments wow this feels really good Therapeutic Activity Therapeutic Activity sit to stand Name raised seat height Reps/Minutes 2x8 Comments Verbal cues for hip hinge, patient ed mechanics of sit to stand. Level 2 teal tb around thighs to promote hip abduction and level pelvis, cued anterior weight shift Manual Therapy Treatment Soft Tissue Mobilization left calf Mobilization Type Cross-Friction,Instrument Assisted,Rolling Intensity/Depth Moderate Body Position Sidelying Comments Mobilization with movement ( ankle DF/PF), pain free but very tender along L lateral mid-calf. Monitored for pain, tenderness improved with reps LS parspinals Body Location right paraspinals, QL Mobilization Type Oscillations,Rolling,Sustained Pressure Intensity/Depth Moderate Body Position Sidelying Comments 1. Rolling/sustained pressure along R QL, paraspinals. Reports pain free but increased tightness, improved with soft tissue mobilization 2. L sidelying, L lateral flexion with R trunk elongation at ribs/pelvis to create lengthening of R paraspinals, pain free, feels really good, 1x10 bilateral gluteal muscles/piriformis Body Location Right Mobilization Type Cross-Friction,Rolling, Sustained Pressure Intensity/Depth Moderate Body Position Sidelying Comments Mobilization with movement into hip ext and hip ER/IR, no pain but increased tenderness along R piriformis, decreased with reps. Educated on STM using ball/wall as part of HEP PT-OP-T Assessment and Plan Start: 05/26/23 17:12 Freq: Status: Active Protocol: Document 06/19/23 14:34 NM (Rec: 06/19/23 15:30 NM [id number]) Physical Therapy Assessment Goals Five Impairment mobility Impairment L ankle dorsiflexion 5 deg Short Term Goal (STG) Pt will increase L ankle dorsiflexion to at least 8 deg in order to improve gait mechanics and ankle AROM for activity STG Duration 5 weeks Shop Tech Goal (LTG) Pt will increase B ankle dorsiflexion to at least 10 deg in order to improve gait mechanics and ankle AROM for activity LTG Duration 10 weeks Four Impairment HEP Impairment not performing HEP Short Term Goal (STG) Pt will report compliance with HEP at least 2-3x/wk in order to maximize progression with PT during episode of care STG Duration 5 weeks Retirement Goal (LTG) Pt will report compliance with HEP at least 3x/wk in order to smoothly transition to maintenance program upon discharge from PT to independent exercise LTG Duration 10 weeks Three Impairment function Impairment standing 30 minutes before pain in ankle and low back, walk 1/2 mile Short Term Goal (STG) Pt will report that she is able to stand for at least 45 minutes before needing to sit or rest due to pain in the low back in order to demonstrate improved activity tolerance STG Duration 5 weeks Shop Tech Goal (LTG) Pt will report that she is able to ambulate for at least 3/4 mile before resting due to pain in order to demonstrate improved activity tolerance and pain management LTG Duration 10 weeks Two Impairment strength Impairment Difficulty with STS without UE use Short Term Goal (STG) Pt will be able to perform 5x STS without UE use from 20 table in order to demonstrate improved quad and glute strength for gait, stairs, and ADLs STG Duration 5 weeks Retirement Goal (LTG) Pt will be able to perform at least 10 bilateral squats without pain or compensation in order to demonstrate improved quad and glute strength for gait, stairs, and ADLs LTG Duration 10 weeks One Impairment Oswestry Impairment 13/50 Retirement Goal (LTG) Pt will decrease Oswestry score to <13/50 in order to demonstrate improved pain management and activity tolerance LTG Duration 10 weeks Assessment Summary Assessment Pt tolerated session well and reports feeling improvements in both her L ankle and her back pain. Manual treatment to reduce soft tissue restrictions and promote pain reduciton. Initiated lateral flexion trunk elongation to improve R paraspinal muscle length. Added mobilization with movement of R hip and L ankle to improve soft tissue length within functional movements, which pt has improved pain symptoms after performing. Progressed sit to stand with resistance band to improve ankle and pelvic stability; pt cued for hip hinge, limit knee valgus, anterior weight shift to improve biomechanics. Continued with flexion-biased core strengthening, pt demos good core activation but would benefit from stabilization in sitting/standing to maximize function. Educated pt on soft tissue mobilization using a small ball to assist with reducing pain symptoms. Initiated resisted ankle dorsiflexion; pain free, will assess ankle plantarflexion in next session. 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 from skilled PT for progressive B hip and lumbar/ core strengthening in order to improve stability and L ankle mobility/strengthening in order to improve activity tolerance and decrease pain symptoms. Physical Therapy Plan Frequency and Duration Frequency of Treatment 2x/Week Duration of treatment (weeks) 10 Plan of Care Start Date 06/07/23 Plan of Care End Date 08/18/23 Therapeutic Interventions Therapeutic Interventions Aquatic Therapy,Balance Training,Coordination Training ,Gait Training,Home Exercise Program,Joint Mobilizations, Manual Therapy,Neuromuscular Re-education,Orthotic/ Prosthetic Management,Patient/ Caregiver Education,Self-Care/ Home Management,Sensory Integration,Soft Tissue Mobilization,Taping, Therapeutic Activities, Therapeutic Exercises Modalities Cold Pack/Ice Massage,Electric Stimulation,Hot Packs, Ultrasound,Vasopneumatic Devices Other Therapeutic Interventions pelvic realignment Other Referrals/Consults Referrals/Consults Recommended 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 from referral to senior sales operations manager for custom orthotics to address L ankle/ foot pain Next Visit Focus/Plan Next Note Type Treatment Note Next Visit Plan Calf raise Ankle: DF mobilization MWM next session, banded ankle 4 way, ankle mobility with BAPS, G/S stretch Back: LTR, TrA, flexion-biased core isometrics>progress, squat/STS from elevated height , hip abduction/extension ( sidelying, sitting (added to HEP for abd), supine (abd not corby supine)), bridge with ADD * assess corby to HEP, focus on abdominal/core strength/bent knee fall out, reassess sit to stand
--- NOTE | 2023-06-23 12:42 | PT.OTN ---
Current Diagnoses Pain in left ankle and joints of left foot (06/23/23) Low back pain, unspecified (06/23/23) Other lack of coordination (06/23/23) Weakness (06/23/23) Physical Therapy Treatment Note PT-OP-A Visit Information Start: 05/26/23 17:12 Freq: Status: Active Protocol: Document 06/23/23 10:32 NM (Rec: 06/23/23 11:17 NM [id number]) Out-Patient Physical Therapy Visit Information Visit Information Visit Type Treatment Note Visit Start Time 10:32 Visit Stop Time 11:15 Visit Number 5 PT-OP-B Current Condition Start: 05/26/23 17:12 Freq: Status: Active Protocol: Document 06/07/23 14:29 NM (Rec: 06/07/23 16:41 NM [id number]) Current Condition History of Current Condition Onset Date last year Current Complaints pain, weakness, mobility History of Current Condition Pt presents with lumbar spine pain and L ankle pain. 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 Pt reports that her back pain worsen last year, when lifting an object. Pt reports that lifting up to 10# before pain. Pt reports that she has low back with sitting, standing, walking, sleeping along R side. Pt reports that her knees give out on stairs. She reports that she has a bone spur in L ankle, pain along medial ankle under malleoli. Ankle pain began last year when she was started wearing orthotics (had worn them for 10 years) for collapsed arch and leg lift. Tried a soft brace but did not help. She reports that her ankle pain is worse with walking, when she resorts to using a walking stick. She reports that she is able to bike. 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 Last year, pt reports that she had a ministroke where she was unable to speak but has not been confirmed; reports balance has worsened since then. Prior Treatments and Tests Imaging 04/2023: lumbar spine- stable anterolisthesis L4 on L5, mild facet arthopathy L4- S1; ankle radiograph- no fracture, calcaneal enthesophyte Treatment Goals Patient/Caregiver Goals trip to [place] in Nov, long flight PT-OP-C Subjective Start: 05/26/23 17:12 Freq: Status: Active Protocol: Document 06/23/23 10:32 NM (Rec: 06/23/23 11:17 NM [id number]) OP-PT Subjective Patient Comments Patient Comments Pt reports that her symptoms feel the same, but she tweaked her back while moving . She is moving her mom. She was bending/twisting. She has been using dragon balm, hot shower, tylenol. Reports ankle is just there. She performed HEP last 2 days, reports improved core activation. She was good sore after last session, resolved <24 hrs PT-OP-D Balance Start: 05/26/23 17:12 Freq: Status: Active Protocol: Document 06/07/23 14:29 NM (Rec: 06/07/23 16:41 NM [id number]) Balance Tests Single Limb Standing Single Limb- Right 0 seconds Single Limb- Left 1 seconds Tandem Tandem Standing unable to maintain PT-OP-E Functional Tests Start: 05/26/23 17:12 Freq: Status: Active Protocol: Document 06/07/23 14:29 NM (Rec: 06/07/23 16:41 NM [id number]) Functional Tests Five Times Sit to Stand Test Score 4 reps in 15 seconds, unable to complete 5th w/o UE assist Comments requires hand on quads to stand PT-OP-F Manual Assessment Start: 05/26/23 17:12 Freq: Status: Active Protocol: Document 06/07/23 14:29 NM (Rec: 06/07/23 16:41 NM [id number]) Manual Assessments Soft Tissue Assessment Soft Tissue Mobility Assessment Tightness R>L: B hamstrings, paraspinals, QL, and glutes/ piriformis Joint Mobility Assessment Joint Mobility Assessment Decreased L ankle dorsiflexion , pain with inversion. Hypomobility of L1-L5 with P-A springing. No lateral or medial ligamentous instability of L ankle PT-OP-G Mobility & Gait Start: 05/26/23 17:12 Freq: Status: Active Protocol: Document 06/07/23 14:29 NM (Rec: 06/07/23 16:41 NM [id number]) OP Gait Assessment Gait Gait Assistance Required: Independent Distance (Feet) 150 Gait Deviations General Gait Pattern Antalgic,Lateral Trunk Lean Factors Limiting Gait Function Factors Limiting Gait Function Decreased Strength,Limited Range of Motion,Pain,Poor Balance Comments Gait Comments L lean with L stance, also slight forward trunk lean PT-OP-H Neuro Start: 05/26/23 17:12 Freq: Status: Active Protocol: Document 06/07/23 14:29 NM (Rec: 06/07/23 16:41 NM [id number]) Sensation Evaluation Comments Summary Comments BLE equally intact to light touch sensation PT-OP-J Posture/Palpation/Skin Start: 05/26/23 17:12 Freq: Status: Active Protocol: Document 06/07/23 14:29 NM (Rec: 06/07/23 16:41 NM [id number]) Posture Evaluation Position Standing Head/C-Spine Posture Forward Head T-Spine Posture Increased Kyphosis L-Spine Posture Increased Lordosis Pelvis Posture Anteriorly Tilted Hip Posture (L) Externally Rotated,(R) Externally Rotated Knee Posture (L) Genu Valgus,(R) Genu Valgus Patellar Posture (L) Superior,(R) Superior Ankle/Foot Posture (L) Pronated,(R) Pronated,(L) Calcaneal Eversion,(R) Calcaneal Eversion Foot Arch (L) Low Arch,(R) Low Arch Palpation Assessment Location L ankle Palpation Details Tenderness at R navicular bone , under R medial malleolus and along posterior tibialis tendon, metatarsal pads Edema of B ankles, swelling present over R navicular bone lumbar spine Palpation Details R>L symptoms Tenderness: B PSIS, R SIJ, R glutes/piriformis, R lateral to midline L4-S1, R greater trochanter PT-OP-K Range of Motion Start: 05/26/23 17:12 Freq: Status: Active Protocol: Document 06/07/23 14:29 NM (Rec: 06/07/23 16:41 NM [id number]) Lumbar Spine Range of Motion Lumbar Spine Active Percentage Flexion 75 Extension 100 Rotation Left 5 Rotation Right 3 Lateral Flexion Left 100 Lateral Flexion Right 100 ROM Limitations Soft Tissue Tightness,Pain Comments Pain reproduced at R PSIS with R rotation, R lateral flexion , extension. Stretch of paraspinals with flexion Hip Goniometric Range of Motion Hip Right Flexion w/Knee Flexed 90 Extension 5 Abduction 25 Internal Rotation 30 External Rotation 25 Comments hamstrin deg Left Flexion w/Knee Flexed 100 Extension 5 Abduction 20 Internal Rotation 30 External Rotation 35 Comments hamstrin deg Ankle and Foot Goniometric Range of Motion Ankle and Foot Right Dorsiflexion with Knee Flexed 5 Plantarflexion 30 Inversion 20 Eversion 10 Left Dorsiflexion with Knee Flexed 5 Plantarflexion 30 Inversion 20 Eversion 15 Comments No pain with passive movement except from examiner hand placement PT-OP-L Special Tests Start: 05/26/23 17:12 Freq: Status: Active Protocol: Document 06/07/23 14:29 NM (Rec: 06/07/23 16:41 NM [id number]) Special Tests Lumbar Spine Special Tests Straight Leg Raise Test Results - Comments hamstring tightness, no change with tension Slump Test Results + Comments L Distraction Test Results + Jarvis/Quadrant Test Results + Comments R PSIS pain reproduced ea direction Foot/Ankle Special Tests Windlass Test Results - Talar tilt Test Results - Anterior Drawer Test Results - PT-OP-M Strength Start: 05/26/23 17:12 Freq: Status: Active Protocol: Document 06/07/23 14:29 NM (Rec: 06/07/23 16:41 NM [id number]) Trunk Strength Trunk Manual Muscle Testing Flexion 4 Good Extension 4 Good Rotation Left 4 Good Rotation Right 4 Good Lateral Flexion Left 4 Good Lateral Flexion Right 4 Good Comments Pain reproduced at R PSIS with resisted R rotation Hip Strength Hip Manual Muscle Testing Right Flexion (L2) 4 Good Extension (S1) 3+ Fair+ Abduction 3+ Fair+ Adduction 4 Good External Rotation 4 Good Internal Rotation 4 Good Comments Reports hip pain with resisted abduction along glute Left Flexion (L2) 4 Good Extension (S1) 3+ Fair+ Abduction 3+ Fair+ Adduction 4 Good External Rotation 4 Good Internal Rotation 4 Good Comments Reports hip pain with resisted abduction along glute Knee Strength Knee Manual Muscle Testing Right Flexion (S2) 4 Good Extension (L3) 4 Good Left Flexion (S2) 4 Good Extension (L3) 4 Good Ankle/Foot Strength Ankle and Foot Manual Muscle Testing Right Dorsiflexion (L4) 4 Good Plantarflexion (S1) 4 Good Inversion 4 Good Eversion (S1) 4 Good Left Dorsiflexion (L4) 4 Good Plantarflexion (S1) 4 Good Inversion 4- Good- Eversion (S1) 4 Good Comments Pain reproduced with resisted inversion PT-OP-Q Treatments Start: 05/26/23 17:12 Freq: Status: Active Protocol: Document 06/23/23 10:32 NM (Rec: 06/23/23 11:17 NM [id number]) Therapeutic Exercises Supine Exercises figure 4 Supine Exercise Name knee flexed Side bilateral Equipment Used cued ppt Reps/Minutes 1x60 Comments pain free, feels good, gentle stretch Standing Exercises hip 3 way Standing Exercise Name trialed in PT Side bilateral Resistance lvl 2 tb around ankles Equipment Used prn hand support on ballet bar Reps/Minutes 1x5 ea Comments cued upright posture with slight hip hinge for glute activation, core stab lat pull down Standing Exercise Name added to HEP Side bilateral Resistance lvl 4 tb Reps/Minutes 2x12 Comments cued core stabilization w/ strong stance, pain free rojas carry Standing Exercise Name 1. uni side, 2. opp side, 3. OH carry Side bilateral Resistance 5# db 1 hand Reps/Minutes 2x20 ft ea Comments feels it in R side, pain free but working Pallof press Side bilateral Resistance level one band (2 bands) Reps/Minutes 2x15 Comments Verbal and visual cues to prevent rotation, pain free but working calf stretches Standing Exercise Name standing at wall with knee straight and knee bent Side bilateral Reps/Minutes 1x30 ea Comments pain free Manual Therapy Treatment Soft Tissue Mobilization left calf Body Location calf, post tib distal>proximal , navicular Mobilization Type Cross-Friction,Instrument Assisted,Rolling Intensity/Depth Moderate Body Position Sidelying Comments Mobilization with movement ( ankle DF/PF), pain free but very tender along L lateral mid-calf. Monitored for pain, tenderness improved with reps LS parspinals Body Location right paraspinals, QL Mobilization Type Oscillations,Rolling,Sustained Pressure Intensity/Depth Moderate Body Position Sidelying Comments 1. Rolling/sustained pressure along R QL, paraspinals. Reports pain free but increased tightness, improved with soft tissue mobilization 2. L sidelying, L lateral flexion with R trunk elongation at ribs/pelvis to create lengthening of R paraspinals, pain free, feels really good, 1x10 3. L sidelying with rotation and extension with blocking at pelvis/shoulder 4x15. Pt reports this feels really good, like lengthened bilateral gluteal muscles/piriformis Body Location Right Mobilization Type Cross-Friction,Rolling, Sustained Pressure Intensity/Depth Moderate Body Position Sidelying Comments No pain but increased tenderness along R piriformis Joint Mobilizations L ankle Joint talocrural joint Direction A-P for DF Grade III Body Position Supine Reps/Duration 1x15 Comments monitored for pain, for improved mobility. Pain free, reports Feels good Self-Care/Home Management Treatment Education Patient Education Body Mechanics,Home Exercise Program,Joint Protection Other Education HEP: lat pull down, hip 3 way with band. Brief education on body mechanics, protecting low back while moving pt's mom to new home PT-OP-T Assessment and Plan Start: 05/26/23 17:12 Freq: Status: Active Protocol: Document 06/23/23 10:32 NM (Rec: 06/23/23 11:17 NM [id number]) Physical Therapy Assessment Goals Five Impairment mobility Impairment L ankle dorsiflexion 5 deg Short Term Goal (STG) Pt will increase L ankle dorsiflexion to at least 8 deg in order to improve gait mechanics and ankle AROM for activity STG Duration 5 weeks Custodial Goal (LTG) Pt will increase B ankle dorsiflexion to at least 10 deg in order to improve gait mechanics and ankle AROM for activity LTG Duration 10 weeks Four Impairment HEP Impairment not performing HEP Short Term Goal (STG) Pt will report compliance with HEP at least 2-3x/wk in order to maximize progression with PT during episode of care STG Duration 5 weeks Custodial Goal (LTG) Pt will report compliance with HEP at least 3x/wk in order to smoothly transition to maintenance program upon discharge from PT to independent exercise LTG Duration 10 weeks Three Impairment function Impairment standing 30 minutes before pain in ankle and low back, walk 1/2 mile Short Term Goal (STG) Pt will report that she is able to stand for at least 45 minutes before needing to sit or rest due to pain in the low back in order to demonstrate improved activity tolerance STG Duration 5 weeks 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) Pt will report that she is able to ambulate for at least 3/4 mile before resting due to pain in order to demonstrate improved activity tolerance and pain management LTG Duration 10 weeks Two Impairment strength Impairment Difficulty with STS without UE use Short Term Goal (STG) Pt will be able to perform 5x STS without UE use from 20 table in order to demonstrate improved quad and glute strength for gait, stairs, and ADLs STG Duration 5 weeks Custodial Goal (LTG) Pt will be able to perform at least 10 bilateral squats without pain or compensation in order to demonstrate improved quad and glute strength for gait, stairs, and ADLs LTG Duration 10 weeks One Impairment Oswestry Impairment 13/50 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 Began with manual treatment to reduce pain levels, improve lumbar muscle length. Trialed sidelying lateral flexion elongation, then with extension/rotation bias; pt reports reduction in symptoms post soft tissue mobilization. Followed by light weight rojas's carry to retrain lumbar paraspinals. Pt challenged with avoiding trunk lean compensation, but reports good feedback with strengthening, pain free on R side. Initiated dorsiflexion grade III mobilization to improve L ankle mobility. Trialed lat pull down to improve core stability in dynamic situation and strengthen back muscles. Added Hip 3 way to HEP, trialed in PT for hip stability and strengthening. Pt pain free and cued for upright posture with good hip hinge to activate glutes. 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 from skilled PT for lumbar/core strengthening and L ankle stabilization to improve activity tolerance and decrease pain symptoms. Physical Therapy Plan Frequency and Duration Frequency of Treatment 2x/Week Duration of treatment (weeks) 10 Plan of Care Start Date 06/07/23 Plan of Care End Date 08/18/23 Therapeutic Interventions Therapeutic Interventions Aquatic Therapy,Balance Training,Coordination Training ,Gait Training,Home Exercise Program,Joint Mobilizations, Manual Therapy,Neuromuscular Re-education,Orthotic/ Prosthetic Management,Patient/ Caregiver Education,Self-Care/ Home Management,Sensory Integration,Soft Tissue Mobilization,Taping, Therapeutic Activities, Therapeutic Exercises Modalities Cold Pack/Ice Massage,Electric Stimulation,Hot Packs, Ultrasound,Vasopneumatic Devices Other Therapeutic Interventions pelvic realignment Other Referrals/Consults Referrals/Consults Recommended 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 from referral to department director for custom orthotics to address L ankle/ foot pain Next Visit Focus/Plan Next Note Type Treatment Note Next Visit Plan Calf raise, hip hinge/deadlift for body mechanics, hip abd strengthening, rojas carry, ankle BAPS/4 way Ankle: DF mobilization MWM next session, banded ankle 4 way, ankle mobility with BAPS, G/S stretch Back: LTR, TrA, flexion-biased core isometrics>progress, squat/STS from elevated height , hip abduction/extension ( sidelying, sitting (added to HEP for abd), supine (abd not corby supine)), bridge with ADD * assess corby to HEP, focus on abdominal/core strength/bent knee fall out, reassess sit to stand
--- NOTE | 2023-06-27 12:11 | PT.OTN ---
Current Diagnoses Pain in left ankle and joints of left foot (06/27/23) Low back pain, unspecified (06/27/23) Other lack of coordination (06/27/23) Weakness (06/27/23) Physical Therapy Treatment Note PT-OP-A Visit Information Start: 05/26/23 17:12 Freq: Status: Active Protocol: Document 06/27/23 10:19 AB (Rec: 06/27/23 12:11 AB [id number]) Out-Patient Physical Therapy Visit Information Visit Information Visit Type Treatment Note Visit Note Access Code: [email or web address] Visit Start Time 11:16 Visit Stop Time 12:04 Visit Number 6 Number of ANIMAL KEEPER Visits 1 Evaluation Information Evaluation Date 06/07/23 Precautions Precautions anterolisthesis, fall risk, previous TIA PT-OP-B Current Condition Start: 05/26/23 17:12 Freq: Status: Active Protocol: Document 06/07/23 14:29 NM (Rec: 06/07/23 16:41 NM [id number]) Current Condition History of Current Condition Onset Date last year Current Complaints pain, weakness, mobility History of Current Condition Pt presents with lumbar spine pain and L ankle pain. 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 Pt reports that her back pain worsen last year, when lifting an object. Pt reports that lifting up to 10# before pain. Pt reports that she has low back with sitting, standing, walking, sleeping along R side. Pt reports that her knees give out on stairs. She reports that she has a bone spur in L ankle, pain along medial ankle under malleoli. Ankle pain began last year when she was started wearing orthotics (had worn them for 10 years) for collapsed arch and leg lift. Tried a soft brace but did not help. She reports that her ankle pain is worse with walking, when she resorts to using a walking stick. She reports that she is able to bike. 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 Last year, pt reports that she had a ministroke where she was unable to speak but has not been confirmed; reports balance has worsened since then. Prior Treatments and Tests Imaging 04/2023: lumbar spine- stable anterolisthesis L4 on L5, mild facet arthopathy L4- S1; ankle radiograph- no fracture, calcaneal enthesophyte Treatment Goals Patient/Caregiver Goals trip to [place] in Nov, long flight PT-OP-C Subjective Start: 05/26/23 17:12 Freq: Status: Active Protocol: Document 06/27/23 10:19 AB (Rec: 06/27/23 12:11 AB [id number]) OP-PT Subjective Patient Comments Patient Comments Patient reports the back as somewhat recovered from helping her mother move. Patient reports she is more aware of how she is moving, lifting, breathing. PT-OP-D Balance Start: 05/26/23 17:12 Freq: Status: Active Protocol: Document 06/07/23 14:29 NM (Rec: 06/07/23 16:41 NM [id number]) Balance Tests Single Limb Standing Single Limb- Right 0 seconds Single Limb- Left 1 seconds Tandem Tandem Standing unable to maintain PT-OP-E Functional Tests Start: 05/26/23 17:12 Freq: Status: Active Protocol: Document 06/07/23 14:29 NM (Rec: 06/07/23 16:41 NM [id number]) Functional Tests Five Times Sit to Stand Test Score 4 reps in 15 seconds, unable to complete 5th w/o UE assist Comments requires hand on quads to stand PT-OP-F Manual Assessment Start: 05/26/23 17:12 Freq: Status: Active Protocol: Document 06/07/23 14:29 NM (Rec: 06/07/23 16:41 NM [id number]) Manual Assessments Soft Tissue Assessment Soft Tissue Mobility Assessment Tightness R>L: B hamstrings, paraspinals, QL, and glutes/ piriformis Joint Mobility Assessment Joint Mobility Assessment Decreased L ankle dorsiflexion , pain with inversion. Hypomobility of L1-L5 with P-A springing. No lateral or medial ligamentous instability of L ankle PT-OP-G Mobility & Gait Start: 05/26/23 17:12 Freq: Status: Active Protocol: Document 06/07/23 14:29 NM (Rec: 06/07/23 16:41 NM [id number]) OP Gait Assessment Gait Gait Assistance Required: Independent Distance (Feet) 150 Gait Deviations General Gait Pattern Antalgic,Lateral Trunk Lean Factors Limiting Gait Function Factors Limiting Gait Function Decreased Strength,Limited Range of Motion,Pain,Poor Balance Comments Gait Comments L lean with L stance, also slight forward trunk lean PT-OP-H Neuro Start: 05/26/23 17:12 Freq: Status: Active Protocol: Document 06/07/23 14:29 NM (Rec: 06/07/23 16:41 NM [id number]) Sensation Evaluation Comments Summary Comments BLE equally intact to light touch sensation PT-OP-J Posture/Palpation/Skin Start: 05/26/23 17:12 Freq: Status: Active Protocol: Document 06/07/23 14:29 NM (Rec: 06/07/23 16:41 NM [id number]) Posture Evaluation Position Standing Head/C-Spine Posture Forward Head T-Spine Posture Increased Kyphosis L-Spine Posture Increased Lordosis Pelvis Posture Anteriorly Tilted Hip Posture (L) Externally Rotated,(R) Externally Rotated Knee Posture (L) Genu Valgus,(R) Genu Valgus Patellar Posture (L) Superior,(R) Superior Ankle/Foot Posture (L) Pronated,(R) Pronated,(L) Calcaneal Eversion,(R) Calcaneal Eversion Foot Arch (L) Low Arch,(R) Low Arch Palpation Assessment Location L ankle Palpation Details Tenderness at R navicular bone , under R medial malleolus and along posterior tibialis tendon, metatarsal pads Edema of B ankles, swelling present over R navicular bone lumbar spine Palpation Details R>L symptoms Tenderness: B PSIS, R SIJ, R glutes/piriformis, R lateral to midline L4-S1, R greater trochanter PT-OP-K Range of Motion Start: 05/26/23 17:12 Freq: Status: Active Protocol: Document 06/07/23 14:29 NM (Rec: 06/07/23 16:41 NM [id number]) Lumbar Spine Range of Motion Lumbar Spine Active Percentage Flexion 75 Extension 100 Rotation Left 5 Rotation Right 3 Lateral Flexion Left 100 Lateral Flexion Right 100 ROM Limitations Soft Tissue Tightness,Pain Comments Pain reproduced at R PSIS with R rotation, R lateral flexion , extension. Stretch of paraspinals with flexion Hip Goniometric Range of Motion Hip Right Flexion w/Knee Flexed 90 Extension 5 Abduction 25 Internal Rotation 30 External Rotation 25 Comments hamstrin deg Left Flexion w/Knee Flexed 100 Extension 5 Abduction 20 Internal Rotation 30 External Rotation 35 Comments hamstrin deg Ankle and Foot Goniometric Range of Motion Ankle and Foot Right Dorsiflexion with Knee Flexed 5 Plantarflexion 30 Inversion 20 Eversion 10 Left Dorsiflexion with Knee Flexed 5 Plantarflexion 30 Inversion 20 Eversion 15 Comments No pain with passive movement except from examiner hand placement PT-OP-L Special Tests Start: 05/26/23 17:12 Freq: Status: Active Protocol: Document 06/07/23 14:29 NM (Rec: 06/07/23 16:41 NM [id number]) Special Tests Lumbar Spine Special Tests Straight Leg Raise Test Results - Comments hamstring tightness, no change with tension Slump Test Results + Comments L Distraction Test Results + Jarvis/Quadrant Test Results + Comments R PSIS pain reproduced ea direction Foot/Ankle Special Tests Windlass Test Results - Talar tilt Test Results - Anterior Drawer Test Results - PT-OP-M Strength Start: 05/26/23 17:12 Freq: Status: Active Protocol: Document 06/07/23 14:29 NM (Rec: 06/07/23 16:41 NM [id number]) Trunk Strength Trunk Manual Muscle Testing Flexion 4 Good Extension 4 Good Rotation Left 4 Good Rotation Right 4 Good Lateral Flexion Left 4 Good Lateral Flexion Right 4 Good Comments Pain reproduced at R PSIS with resisted R rotation Hip Strength Hip Manual Muscle Testing Right Flexion (L2) 4 Good Extension (S1) 3+ Fair+ Abduction 3+ Fair+ Adduction 4 Good External Rotation 4 Good Internal Rotation 4 Good Comments Reports hip pain with resisted abduction along glute Left Flexion (L2) 4 Good Extension (S1) 3+ Fair+ Abduction 3+ Fair+ Adduction 4 Good External Rotation 4 Good Internal Rotation 4 Good Comments Reports hip pain with resisted abduction along glute Knee Strength Knee Manual Muscle Testing Right Flexion (S2) 4 Good Extension (L3) 4 Good Left Flexion (S2) 4 Good Extension (L3) 4 Good Ankle/Foot Strength Ankle and Foot Manual Muscle Testing Right Dorsiflexion (L4) 4 Good Plantarflexion (S1) 4 Good Inversion 4 Good Eversion (S1) 4 Good Left Dorsiflexion (L4) 4 Good Plantarflexion (S1) 4 Good Inversion 4- Good- Eversion (S1) 4 Good Comments Pain reproduced with resisted inversion PT-OP-Q Treatments Start: 05/26/23 17:12 Freq: Status: Active Protocol: Document 06/27/23 10:19 AB (Rec: 06/27/23 12:11 AB [id number]) Therapeutic Exercises Supine Exercises bent knee fall out Reps/Minutes X10 piriformis stretch Supine Exercise Name from hooklying Reps/Minutes 60 seconds X 1 each LE figure 4 Supine Exercise Name knee flexed Side bilateral Equipment Used cued ppt Reps/Minutes 1x60 Comments pain free, feels good, gentle stretch lower trunk rotation Side bilateral Reps/Minutes 2 min Comments verbal cues to perform in pain free range Sitting Exercises AROM DF Side bilateral Resistance lvl 3 tb Reps/Minutes X15 with band X 15 without band Comments cued eccentric control Manual Therapy Treatment Soft Tissue Mobilization left calf Body Location left calf muscles Mobilization Type Cross-Friction,Instrument Assisted Intensity/Depth Superficial Body Position Standing Comments peformed during soleus and calf stretch positions on step , not corby prior to MWM tolerated well post MWM LS parspinals Body Location right paraspinals, QL Mobilization Type Oscillations,Rolling,Sustained Pressure Intensity/Depth Moderate Body Position Sidelying Comments 1. Rolling/sustained pressure along R QL, paraspinals. Reports pain free but increased tightness, improved with soft tissue mobilization 2. L sidelying, L lateral flexion with R trunk elongation at ribs/pelvis to create lengthening of R paraspinals, pain free, feels really good, 1x10 3. L sidelying with rotation and extension with blocking at pelvis/shoulder 4x15. Pt reports this feels really good, like lengthened bilateral gluteal muscles/piriformis Body Location bilateral Mobilization Type Cross-Friction,Rolling, Sustained Pressure Intensity/Depth Moderate Body Position Sidelying Comments No pain but increased tenderness along R piriformis Joint Mobilizations L ankle Joint Mulligan with movement TC mobilization Direction A-P for DF Grade IV Body Position Standing Reps/Duration 3X10 Manual Techniques MET for right AI left PI and pubic shotgun Body Location SI Body Position Hooklying Reps/Duration 6X6 seconds Comments Verbal cues to perform with decreased force Self-Care/Home Management Treatment Activities Self-Care/Home Management Activities bent knee fall out added HEP PT-OP-T Assessment and Plan Start: 05/26/23 17:12 Freq: Status: Active Protocol: Document 06/27/23 10:19 AB (Rec: 06/27/23 12:11 AB [id number]) Physical Therapy Assessment Goals Five Impairment mobility Impairment L ankle dorsiflexion 5 deg Short Term Goal (STG) Pt will increase L ankle dorsiflexion to at least 8 deg in order to improve gait mechanics and ankle AROM for activity STG Duration 5 weeks Fpc Goal (LTG) Pt will increase B ankle dorsiflexion to at least 10 deg in order to improve gait mechanics and ankle AROM for activity LTG Duration 10 weeks Four Impairment HEP Impairment not performing HEP Short Term Goal (STG) Pt will report compliance with HEP at least 2-3x/wk in order to maximize progression with PT during episode of care STG Duration 5 weeks Fpc Goal (LTG) Pt will report compliance with HEP at least 3x/wk in order to smoothly transition to maintenance program upon discharge from PT to independent exercise LTG Duration 10 weeks Three Impairment function Impairment standing 30 minutes before pain in ankle and low back, walk 1/2 mile Short Term Goal (STG) Pt will report that she is able to stand for at least 45 minutes before needing to sit or rest due to pain in the low back in order to demonstrate improved activity tolerance STG Duration 5 weeks Fpc Goal (LTG) Pt will report that she is able to ambulate for at least 3/4 mile before resting due to pain in order to demonstrate improved activity tolerance and pain management LTG Duration 10 weeks Two Impairment strength Impairment Difficulty with STS without UE use Short Term Goal (STG) Pt will be able to perform 5x STS without UE use from 20 table in order to demonstrate improved quad and glute strength for gait, stairs, and ADLs STG Duration 5 weeks Fpc Goal (LTG) Pt will be able to perform at least 10 bilateral squats without pain or compensation in order to demonstrate improved quad and glute strength for gait, stairs, and ADLs LTG Duration 10 weeks One Impairment Oswestry Impairment 13/50 Fpc Goal (LTG) Pt will decrease Oswestry score to <13/50 in order to demonstrate improved pain management and activity tolerance LTG Duration 10 weeks Assessment Summary Assessment Patient reports ankle and back feel better end of session. Increased corby to STM left calf post MWM mobilization this session. Physical Therapy Plan Frequency and Duration Frequency of Treatment 2x/Week Duration of treatment (weeks) 10 Plan of Care Start Date 06/07/23 Plan of Care End Date 08/18/23 Next Visit Focus/Plan Next Note Type Treatment Note Next Visit Plan Calf raise, hip hinge/deadlift for body mechanics, hip abd strengthening, rojas carry, ankle BAPS/4 way Ankle: DF mobilization MWM next session, banded ankle 4 way, ankle mobility with BAPS, G/S stretch Back: LTR, TrA, flexion-biased core isometrics>progress, squat/STS from elevated height , hip abduction/extension ( sidelying, sitting (added to HEP for abd), supine (abd not corby supine)), bridge with ADD * assess corby to HEP, focus on abdominal/core strength reassess sit to stand * patient would like to return to gym, review machines, squats, ?? bike vs treadmill.
--- NOTE | 2023-07-04 13:39 | PT.OTN ---
Current Diagnoses Pain in left ankle and joints of left foot (07/04/23) Low back pain, unspecified (07/04/23) Other lack of coordination (07/04/23) Weakness (07/04/23) Physical Therapy Treatment Note PT-OP-A Visit Information Start: 05/26/23 17:12 Freq: Status: Active Protocol: Document 07/04/23 07:27 NM (Rec: 07/04/23 08:15 NM [id number]) Out-Patient Physical Therapy Visit Information Visit Information Visit Type Treatment Note Visit Start Time 07:32 Visit Stop Time 08:13 Visit Number 7 Evaluation Information Evaluation Date 06/07/23 PT-OP-B Current Condition Start: 05/26/23 17:12 Freq: Status: Active Protocol: Document 06/07/23 14:29 NM (Rec: 06/07/23 16:41 NM [id number]) Current Condition History of Current Condition Onset Date last year Current Complaints pain, weakness, mobility History of Current Condition Pt presents with lumbar spine pain and L ankle pain. 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 Pt reports that her back pain worsen last year, when lifting an object. Pt reports that lifting up to 10# before pain. Pt reports that she has low back with sitting, standing, walking, sleeping along R side. Pt reports that her knees give out on stairs. She reports that she has a bone spur in L ankle, pain along medial ankle under malleoli. Ankle pain began last year when she was started wearing orthotics (had worn them for 10 years) for collapsed arch and leg lift. Tried a soft brace but did not help. She reports that her ankle pain is worse with walking, when she resorts to using a walking stick. She reports that she is able to bike. 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 Last year, pt reports that she had a ministroke where she was unable to speak but has not been confirmed; reports balance has worsened since then. Prior Treatments and Tests Imaging 04/2023: lumbar spine- stable anterolisthesis L4 on L5, mild facet arthopathy L4- S1; ankle radiograph- no fracture, calcaneal enthesophyte Treatment Goals Patient/Caregiver Goals trip to [place] in Nov, long flight PT-OP-C Subjective Start: 05/26/23 17:12 Freq: Status: Active Protocol: Document 07/04/23 07:27 NM (Rec: 07/04/23 08:15 NM [id number]) OP-PT Subjective Patient Comments Patient Comments Pt reports excruciating pain with calf stretch, reports occurs also when she lays in bed. She reports that began after last session, difficult to walk. Pain is along medial ankle. Pt reports back pain is on and off, states stretching is better, using ab muscles and able to carry daughter. PT-OP-D Balance Start: 05/26/23 17:12 Freq: Status: Active Protocol: Document 06/07/23 14:29 NM (Rec: 06/07/23 16:41 NM [id number]) Balance Tests Single Limb Standing Single Limb- Right 0 seconds Single Limb- Left 1 seconds Tandem Tandem Standing unable to maintain PT-OP-E Functional Tests Start: 05/26/23 17:12 Freq: Status: Active Protocol: Document 06/07/23 14:29 NM (Rec: 06/07/23 16:41 NM [id number]) Functional Tests Five Times Sit to Stand Test Score 4 reps in 15 seconds, unable to complete 5th w/o UE assist Comments requires hand on quads to stand PT-OP-F Manual Assessment Start: 05/26/23 17:12 Freq: Status: Active Protocol: Document 06/07/23 14:29 NM (Rec: 06/07/23 16:41 NM [id number]) Manual Assessments Soft Tissue Assessment Soft Tissue Mobility Assessment Tightness R>L: B hamstrings, paraspinals, QL, and glutes/ piriformis Joint Mobility Assessment Joint Mobility Assessment Decreased L ankle dorsiflexion , pain with inversion. Hypomobility of L1-L5 with P-A springing. No lateral or medial ligamentous instability of L ankle PT-OP-G Mobility & Gait Start: 05/26/23 17:12 Freq: Status: Active Protocol: Document 06/07/23 14:29 NM (Rec: 06/07/23 16:41 NM [id number]) OP Gait Assessment Gait Gait Assistance Required: Independent Distance (Feet) 150 Gait Deviations General Gait Pattern Antalgic,Lateral Trunk Lean Factors Limiting Gait Function Factors Limiting Gait Function Decreased Strength,Limited Range of Motion,Pain,Poor Balance Comments Gait Comments L lean with L stance, also slight forward trunk lean PT-OP-H Neuro Start: 05/26/23 17:12 Freq: Status: Active Protocol: Document 06/07/23 14:29 NM (Rec: 06/07/23 16:41 NM [id number]) Sensation Evaluation Comments Summary Comments BLE equally intact to light touch sensation PT-OP-J Posture/Palpation/Skin Start: 05/26/23 17:12 Freq: Status: Active Protocol: Document 06/07/23 14:29 NM (Rec: 06/07/23 16:41 NM [id number]) Posture Evaluation Position Standing Head/C-Spine Posture Forward Head T-Spine Posture Increased Kyphosis L-Spine Posture Increased Lordosis Pelvis Posture Anteriorly Tilted Hip Posture (L) Externally Rotated,(R) Externally Rotated Knee Posture (L) Genu Valgus,(R) Genu Valgus Patellar Posture (L) Superior,(R) Superior Ankle/Foot Posture (L) Pronated,(R) Pronated,(L) Calcaneal Eversion,(R) Calcaneal Eversion Foot Arch (L) Low Arch,(R) Low Arch Palpation Assessment Location L ankle Palpation Details Tenderness at R navicular bone , under R medial malleolus and along posterior tibialis tendon, metatarsal pads Edema of B ankles, swelling present over R navicular bone lumbar spine Palpation Details R>L symptoms Tenderness: B PSIS, R SIJ, R glutes/piriformis, R lateral to midline L4-S1, R greater trochanter PT-OP-K Range of Motion Start: 05/26/23 17:12 Freq: Status: Active Protocol: Document 06/07/23 14:29 NM (Rec: 06/07/23 16:41 NM [id number]) Lumbar Spine Range of Motion Lumbar Spine Active Percentage Flexion 75 Extension 100 Rotation Left 5 Rotation Right 3 Lateral Flexion Left 100 Lateral Flexion Right 100 ROM Limitations Soft Tissue Tightness,Pain Comments Pain reproduced at R PSIS with R rotation, R lateral flexion , extension. Stretch of paraspinals with flexion Hip Goniometric Range of Motion Hip Right Flexion w/Knee Flexed 90 Extension 5 Abduction 25 Internal Rotation 30 External Rotation 25 Comments hamstrin deg Left Flexion w/Knee Flexed 100 Extension 5 Abduction 20 Internal Rotation 30 External Rotation 35 Comments hamstrin deg Ankle and Foot Goniometric Range of Motion Ankle and Foot Right Dorsiflexion with Knee Flexed 5 Plantarflexion 30 Inversion 20 Eversion 10 Left Dorsiflexion with Knee Flexed 5 Plantarflexion 30 Inversion 20 Eversion 15 Comments No pain with passive movement except from examiner hand placement PT-OP-L Special Tests Start: 05/26/23 17:12 Freq: Status: Active Protocol: Document 06/07/23 14:29 NM (Rec: 06/07/23 16:41 NM [id number]) Special Tests Lumbar Spine Special Tests Straight Leg Raise Test Results - Comments hamstring tightness, no change with tension Slump Test Results + Comments L Distraction Test Results + Jarvis/Quadrant Test Results + Comments R PSIS pain reproduced ea direction Foot/Ankle Special Tests Windlass Test Results - Talar tilt Test Results - Anterior Drawer Test Results - PT-OP-M Strength Start: 05/26/23 17:12 Freq: Status: Active Protocol: Document 06/07/23 14:29 NM (Rec: 06/07/23 16:41 NM [id number]) Trunk Strength Trunk Manual Muscle Testing Flexion 4 Good Extension 4 Good Rotation Left 4 Good Rotation Right 4 Good Lateral Flexion Left 4 Good Lateral Flexion Right 4 Good Comments Pain reproduced at R PSIS with resisted R rotation Hip Strength Hip Manual Muscle Testing Right Flexion (L2) 4 Good Extension (S1) 3+ Fair+ Abduction 3+ Fair+ Adduction 4 Good External Rotation 4 Good Internal Rotation 4 Good Comments Reports hip pain with resisted abduction along glute Left Flexion (L2) 4 Good Extension (S1) 3+ Fair+ Abduction 3+ Fair+ Adduction 4 Good External Rotation 4 Good Internal Rotation 4 Good Comments Reports hip pain with resisted abduction along glute Knee Strength Knee Manual Muscle Testing Right Flexion (S2) 4 Good Extension (L3) 4 Good Left Flexion (S2) 4 Good Extension (L3) 4 Good Ankle/Foot Strength Ankle and Foot Manual Muscle Testing Right Dorsiflexion (L4) 4 Good Plantarflexion (S1) 4 Good Inversion 4 Good Eversion (S1) 4 Good Left Dorsiflexion (L4) 4 Good Plantarflexion (S1) 4 Good Inversion 4- Good- Eversion (S1) 4 Good Comments Pain reproduced with resisted inversion PT-OP-Q Treatments Start: 05/26/23 17:12 Freq: Status: Active Protocol: Document 07/04/23 07:27 NM (Rec: 07/04/23 08:15 NM [id number]) Therapeutic Exercises Supine Exercises hamstring stretch Side bilateral Reps/Minutes 1x60 Comments cued straight leg, pain free, good stretch piriformis stretch Supine Exercise Name from hooklying Side bilateral Reps/Minutes 1x60 Comments pain free, gentle stretch Sitting Exercises ankle eversion Side left Resistance lvl 1 tb Reps/Minutes 2x10 Comments pain free ankle inversion Sitting Exercise Name trialed in PT Side left Resistance lvl 1 tb Reps/Minutes 2x10 Comments reports feel it but states not painful Standing Exercises heel raise Side bilateral Resistance AROM Equipment Used tennis ball btwn ankles for post tib Reps/Minutes 2x10 Comments cued no rocking hip 3 way Side bilateral Resistance lvl 2 tb around ankles Equipment Used prn hand support on ballet bar Reps/Minutes 1x8 ea Comments cued upright posture with slight hip hinge for glute activation, core stab Pallof press Side bilateral Resistance lvl 1 band Reps/Minutes 1x10 Comments improved core stabilization; progress next session, painfree calf stretches Standing Exercise Name 1. gastroc, 2. soleus Side left Equipment Used staggered stance at stairs Reps/Minutes 1x30 ea Comments pain free Manual Therapy Treatment Soft Tissue Mobilization left calf Body Location ant and post tib, calf Mobilization Type Cross-Friction,Rolling Intensity/Depth Moderate Body Position Supine Comments Mobilization with movement ( ankle DF/PF), pain free but very tender along L lateral mid-calf. Monitored for pain, tenderness improved with reps LS parspinals Body Location right paraspinals, QL Mobilization Type Oscillations,Rolling,Sustained Pressure Intensity/Depth Moderate Body Position Sidelying Comments 1. Rolling/sustained pressure along R QL, paraspinals. Reports pain free but increased tightness mainly near T12-L3, improved with soft tissue mobilization 2. L sidelying, L lateral flexion with R trunk elongation at ribs/pelvis to create lengthening of R paraspinals, pain free, 1x12 Joint Mobilizations L ankle Joint talocrural joint Direction A-P for DF Grade III Body Position Supine Reps/Duration 1x10 Comments monitored for pain, for improved mobility. Pain free, reports Feels good PT-OP-T Assessment and Plan Start: 05/26/23 17:12 Freq: Status: Active Protocol: Document 07/04/23 07:27 NM (Rec: 07/04/23 08:15 NM [id number]) Physical Therapy Assessment Goals Five Impairment mobility Impairment L ankle dorsiflexion 5 deg Short Term Goal (STG) Pt will increase L ankle dorsiflexion to at least 8 deg in order to improve gait mechanics and ankle AROM for activity STG Duration 5 weeks [employer] Goal (LTG) Pt will increase B ankle dorsiflexion to at least 10 deg in order to improve gait mechanics and ankle AROM for activity LTG Duration 10 weeks Four Impairment HEP Impairment not performing HEP Short Term Goal (STG) Pt will report compliance with HEP at least 2-3x/wk in order to maximize progression with PT during episode of care STG Duration 5 weeks [employer]writer Goal (LTG) Pt will report compliance with HEP at least 3x/wk in order to smoothly transition to maintenance program upon discharge from PT to independent exercise LTG Duration 10 weeks Three Impairment function Impairment standing 30 minutes before pain in ankle and low back, walk 1/2 mile Short Term Goal (STG) Pt will report that she is able to stand for at least 45 minutes before needing to sit or rest due to pain in the low back in order to demonstrate improved activity tolerance STG Duration 5 weeks [employer]writer Goal (LTG) Pt will report that she is able to ambulate for at least 3/4 mile before resting due to pain in order to demonstrate improved activity tolerance and pain management LTG Duration 10 weeks Two Impairment strength Impairment Difficulty with STS without UE use Short Term Goal (STG) Pt will be able to perform 5x STS without UE use from 20 table in order to demonstrate improved quad and glute strength for gait, stairs, and ADLs STG Duration 5 weeks [employer] Underwriter Goal (LTG) Pt will be able to perform at least 10 bilateral squats without pain or compensation in order to demonstrate improved quad and glute strength for gait, stairs, and ADLs LTG Duration 10 weeks One Impairment Oswestry Impairment 13/50 Residential Goal (LTG) Pt will decrease Oswestry score to <13/50 in order to demonstrate improved pain management and activity tolerance LTG Duration 10 weeks Assessment Summary Assessment Pt presents with increased L ankle pain related to stretching as part of HEP. Pt has tenderness with soft tissue mobilization of posterior and anterior tibialis muscles today, but symptoms improve with mobilization. Continued with dorsiflexion mobilization to improve ankle mobility. Initiated resisted ankle inversion and eversion; pt has medial ankle discomfort with banded inversion. Cued to limit hip compensation. Pt demos improvements in ability to stabilize core during pallof press and hip 3 way. However, pt continues to demonstrate weakness of hip abductors and glutes. Tolerated session without increase in ankle or back pain . 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 from skilled PT for progressive core/lumbar and BLE strengthening in order to improve activity tolerance and improve pain management. Physical Therapy Plan Frequency and Duration Frequency of Treatment 2x/Week Duration of treatment (weeks) 10 Plan of Care Start Date 06/07/23 Plan of Care End Date 08/18/23 Therapeutic Interventions Therapeutic Interventions Aquatic Therapy,Balance Training,Coordination Training ,Gait Training,Home Exercise Program,Joint Mobilizations, Manual Therapy,Neuromuscular Re-education,Orthotic/ Prosthetic Management,Patient/ Caregiver Education,Self-Care/ Home Management,Sensory Integration,Soft Tissue Mobilization,Taping, Therapeutic Activities, Therapeutic Exercises Modalities Cold Pack/Ice Massage,Electric Stimulation,Hot Packs, Ultrasound,Vasopneumatic Devices Other Therapeutic Interventions pelvic realignment Other Referrals/Consults Referrals/Consults Recommended 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 from 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 stock 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 for custom orthotics to address L ankle/ foot pain Next Visit Focus/Plan Next Note Type Treatment Note Next Visit Plan Trial eccentric Calf raise, toe raise, trial hip hinge/ deadlift for body mechanics, squat, hip abd strengthening, rojas carry, ankle BAPS/4 way Ankle: DF mobilization MWM next session, banded ankle 4 way, ankle mobility with BAPS, G/S stretch Back: LTR, TrA, flexion-biased core isometrics>progress, squat/STS from elevated height , hip abduction/extension ( sidelying, sitting (added to HEP for abd), supine (abd not corby supine)), bridge with ADD * assess corby to HEP, focus on abdominal/core strength reassess sit to stand * patient would like to return to gym, review machines, squats, ?? bike vs treadmill.
--- NOTE | 2023-07-06 13:59 | PT.OTN ---
Current Diagnoses Pain in left ankle and joints of left foot (07/06/23) Low back pain, unspecified (07/06/23) Other lack of coordination (07/06/23) Weakness (07/06/23) Physical Therapy Treatment Note PT-OP-A Visit Information Start: 05/26/23 17:12 Freq: Status: Active Protocol: Document 07/06/23 13:00 NM (Rec: 07/06/23 13:59 NM [id number]) Out-Patient Physical Therapy Visit Information Visit Information Visit Type Treatment Note Visit Start Time 13:04 Visit Stop Time 13:45 Visit Number 8 Evaluation Information Evaluation Date 06/07/23 PT-OP-B Current Condition Start: 05/26/23 17:12 Freq: Status: Active Protocol: Document 06/07/23 14:29 NM (Rec: 06/07/23 16:41 NM [id number]) Current Condition History of Current Condition Onset Date last year Current Complaints pain, weakness, mobility History of Current Condition Pt presents with lumbar spine pain and L ankle pain. 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 Pt reports that her back pain worsen last year, when lifting an object. Pt reports that lifting up to 10# before pain. Pt reports that she has low back with sitting, standing, walking, sleeping along R side. Pt reports that her knees give out on stairs. She reports that she has a bone spur in L ankle, pain along medial ankle under malleoli. Ankle pain began last year when she was started wearing orthotics (had worn them for 10 years) for collapsed arch and leg lift. Tried a soft brace but did not help. She reports that her ankle pain is worse with walking, when she resorts to using a walking stick. She reports that she is able to bike. 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 Last year, pt reports that she had a ministroke where she was unable to speak but has not been confirmed; reports balance has worsened since then. Prior Treatments and Tests Imaging 04/2023: lumbar spine- stable anterolisthesis L4 on L5, mild facet arthopathy L4- S1; ankle radiograph- no fracture, calcaneal enthesophyte Treatment Goals Patient/Caregiver Goals trip to [place] in Nov, long flight PT-OP-C Subjective Start: 05/26/23 17:12 Freq: Status: Active Protocol: Document 07/06/23 13:00 NM (Rec: 07/06/23 13:59 NM [id number]) OP-PT Subjective Patient Comments Patient Comments Pt reports that her L ankle is improved, only 1 spasm since Monday. Reports that L ankle is less painfulin general, not noticing ankle pain as much. States that R side back pain, 05/27. PT-OP-D Balance Start: 05/26/23 17:12 Freq: Status: Active Protocol: Document 06/07/23 14:29 NM (Rec: 06/07/23 16:41 NM [id number]) Balance Tests Single Limb Standing Single Limb- Right 0 seconds Single Limb- Left 1 seconds Tandem Tandem Standing unable to maintain PT-OP-E Functional Tests Start: 05/26/23 17:12 Freq: Status: Active Protocol: Document 06/07/23 14:29 NM (Rec: 06/07/23 16:41 NM [id number]) Functional Tests Five Times Sit to Stand Test Score 4 reps in 15 seconds, unable to complete 5th w/o UE assist Comments requires hand on quads to stand PT-OP-F Manual Assessment Start: 05/26/23 17:12 Freq: Status: Active Protocol: Document 06/07/23 14:29 NM (Rec: 06/07/23 16:41 NM [id number]) Manual Assessments Soft Tissue Assessment Soft Tissue Mobility Assessment Tightness R>L: B hamstrings, paraspinals, QL, and glutes/ piriformis Joint Mobility Assessment Joint Mobility Assessment Decreased L ankle dorsiflexion , pain with inversion. Hypomobility of L1-L5 with P-A springing. No lateral or medial ligamentous instability of L ankle PT-OP-G Mobility & Gait Start: 05/26/23 17:12 Freq: Status: Active Protocol: Document 06/07/23 14:29 NM (Rec: 06/07/23 16:41 NM [id number]) OP Gait Assessment Gait Gait Assistance Required: Independent Distance (Feet) 150 Gait Deviations General Gait Pattern Antalgic,Lateral Trunk Lean Factors Limiting Gait Function Factors Limiting Gait Function Decreased Strength,Limited Range of Motion,Pain,Poor Balance Comments Gait Comments L lean with L stance, also slight forward trunk lean PT-OP-H Neuro Start: 05/26/23 17:12 Freq: Status: Active Protocol: Document 06/07/23 14:29 NM (Rec: 06/07/23 16:41 NM [id number]) Sensation Evaluation Comments Summary Comments BLE equally intact to light touch sensation PT-OP-J Posture/Palpation/Skin Start: 05/26/23 17:12 Freq: Status: Active Protocol: Document 06/07/23 14:29 NM (Rec: 06/07/23 16:41 NM [id number]) Posture Evaluation Position Standing Head/C-Spine Posture Forward Head T-Spine Posture Increased Kyphosis L-Spine Posture Increased Lordosis Pelvis Posture Anteriorly Tilted Hip Posture (L) Externally Rotated,(R) Externally Rotated Knee Posture (L) Genu Valgus,(R) Genu Valgus Patellar Posture (L) Superior,(R) Superior Ankle/Foot Posture (L) Pronated,(R) Pronated,(L) Calcaneal Eversion,(R) Calcaneal Eversion Foot Arch (L) Low Arch,(R) Low Arch Palpation Assessment Location L ankle Palpation Details Tenderness at R navicular bone , under R medial malleolus and along posterior tibialis tendon, metatarsal pads Edema of B ankles, swelling present over R navicular bone lumbar spine Palpation Details R>L symptoms Tenderness: B PSIS, R SIJ, R glutes/piriformis, R lateral to midline L4-S1, R greater trochanter PT-OP-K Range of Motion Start: 05/26/23 17:12 Freq: Status: Active Protocol: Document 06/07/23 14:29 NM (Rec: 06/07/23 16:41 NM [id number]) Lumbar Spine Range of Motion Lumbar Spine Active Percentage Flexion 75 Extension 100 Rotation Left 5 Rotation Right 3 Lateral Flexion Left 100 Lateral Flexion Right 100 ROM Limitations Soft Tissue Tightness,Pain Comments Pain reproduced at R PSIS with R rotation, R lateral flexion , extension. Stretch of paraspinals with flexion Hip Goniometric Range of Motion Hip Right Flexion w/Knee Flexed 90 Extension 5 Abduction 25 Internal Rotation 30 External Rotation 25 Comments hamstrin deg Left Flexion w/Knee Flexed 100 Extension 5 Abduction 20 Internal Rotation 30 External Rotation 35 Comments hamstrin deg Ankle and Foot Goniometric Range of Motion Ankle and Foot Right Dorsiflexion with Knee Flexed 5 Plantarflexion 30 Inversion 20 Eversion 10 Left Dorsiflexion with Knee Flexed 5 Plantarflexion 30 Inversion 20 Eversion 15 Comments No pain with passive movement except from examiner hand placement PT-OP-L Special Tests Start: 05/26/23 17:12 Freq: Status: Active Protocol: Document 06/07/23 14:29 NM (Rec: 06/07/23 16:41 NM [id number]) Special Tests Lumbar Spine Special Tests Straight Leg Raise Test Results - Comments hamstring tightness, no change with tension Slump Test Results + Comments L Distraction Test Results + Jarvis/Quadrant Test Results + Comments R PSIS pain reproduced ea direction Foot/Ankle Special Tests Windlass Test Results - Talar tilt Test Results - Anterior Drawer Test Results - PT-OP-M Strength Start: 05/26/23 17:12 Freq: Status: Active Protocol: Document 06/07/23 14:29 NM (Rec: 06/07/23 16:41 NM [id number]) Trunk Strength Trunk Manual Muscle Testing Flexion 4 Good Extension 4 Good Rotation Left 4 Good Rotation Right 4 Good Lateral Flexion Left 4 Good Lateral Flexion Right 4 Good Comments Pain reproduced at R PSIS with resisted R rotation Hip Strength Hip Manual Muscle Testing Right Flexion (L2) 4 Good Extension (S1) 3+ Fair+ Abduction 3+ Fair+ Adduction 4 Good External Rotation 4 Good Internal Rotation 4 Good Comments Reports hip pain with resisted abduction along glute Left Flexion (L2) 4 Good Extension (S1) 3+ Fair+ Abduction 3+ Fair+ Adduction 4 Good External Rotation 4 Good Internal Rotation 4 Good Comments Reports hip pain with resisted abduction along glute Knee Strength Knee Manual Muscle Testing Right Flexion (S2) 4 Good Extension (L3) 4 Good Left Flexion (S2) 4 Good Extension (L3) 4 Good Ankle/Foot Strength Ankle and Foot Manual Muscle Testing Right Dorsiflexion (L4) 4 Good Plantarflexion (S1) 4 Good Inversion 4 Good Eversion (S1) 4 Good Left Dorsiflexion (L4) 4 Good Plantarflexion (S1) 4 Good Inversion 4- Good- Eversion (S1) 4 Good Comments Pain reproduced with resisted inversion PT-OP-Q Treatments Start: 05/26/23 17:12 Freq: Status: Active Protocol: Document 07/06/23 13:00 NM (Rec: 07/06/23 13:59 NM [id number]) Therapeutic Exercises Supine Exercises hamstring stretch Side bilateral Equipment Used with strap Reps/Minutes 1x60 ea Comments cued straight leg, pain free, good stretch Chaitanya stretch Supine Exercise Name from hooklying knee to chest Side bilateral Equipment Used towel use to assist Reps/Minutes 1x60 Comments pain free Sitting Exercises lumbopelvic mobility Sitting Exercise Name tail wags Side bilateral Equipment Used large green hungarian ball Reps/Minutes 5x5 second holds with breaths Comments pain free, reports good stretch seated core hungarian ball Sitting Exercise Name 1. may (nonalt), 2. lat pull down, 3. pallof press Side bilateral Resistance 2. lvl 3 band>lvl 4, 3. lvl 1 band Equipment Used large green hungarian ball Reps/Minutes 1. 1x10 ea, 2. 2x15, 1x20 Comments pain free, good core contract, cued core brace ankle eversion Sitting Exercise Name edu on wrap band around B feet for HEP Side left Resistance lvl 2 tb Reps/Minutes 3x10 Comments pain free ankle inversion Side left Resistance lvl 1 tb Reps/Minutes 3x10 Comments pain free Standing Exercises heel raise Standing Exercise Name elevated heel raise with ball Side bilateral Equipment Used small orange ball, 4 step Reps/Minutes 1x15 with 5 stretch Comments pain free rojas carry Standing Exercise Name 1. uni side, 2. opp side Side bilateral Resistance 8# db 1 hand Reps/Minutes 2x20 ft ea hand/exercise Comments pain free, core is working Self-Care/Home Management Treatment Education Patient Education Home Exercise Program Other Education HEP: ankle eversion with band; verbally added ankle inversion to hand out PT-OP-T Assessment and Plan Start: 05/26/23 17:12 Freq: Status: Active Protocol: Document 07/06/23 13:00 NM (Rec: 07/06/23 13:59 NM [id number]) Physical Therapy Assessment Goals Five Impairment mobility Impairment L ankle dorsiflexion 5 deg Short Term Goal (STG) Pt will increase L ankle dorsiflexion to at least 8 deg in order to improve gait mechanics and ankle AROM for activity STG Duration 5 weeks [facility] Goal (LTG) Pt will increase B ankle dorsiflexion to at least 10 deg in order to improve gait mechanics and ankle AROM for activity LTG Duration 10 weeks Four Impairment HEP Impairment not performing HEP Short Term Goal (STG) Pt will report compliance with HEP at least 2-3x/wk in order to maximize progression with PT during episode of care STG Duration 5 weeks [facility] Goal (LTG) Pt will report compliance with HEP at least 3x/wk in order to smoothly transition to maintenance program upon discharge from PT to independent exercise LTG Duration 10 weeks Three Impairment function Impairment standing 30 minutes before pain in ankle and low back, walk 1/2 mile Short Term Goal (STG) Pt will report that she is able to stand for at least 45 minutes before needing to sit or rest due to pain in the low back in order to demonstrate improved activity tolerance STG Duration 5 weeks [employer] Goal (LTG) Pt will report that she is able to ambulate for at least 3/4 mile before resting due to pain in order to demonstrate improved activity tolerance and pain management LTG Duration 10 weeks Two Impairment strength Impairment Difficulty with STS without UE use Short Term Goal (STG) Pt will be able to perform 5x STS without UE use from 20 table in order to demonstrate improved quad and glute strength for gait, stairs, and ADLs STG Duration 5 weeks [employer] Hand Goal (LTG) Pt will be able to perform at least 10 bilateral squats without pain or compensation in order to demonstrate improved quad and glute strength for gait, stairs, and ADLs LTG Duration 10 weeks One Impairment Oswestry Impairment 13/50 Penit[facility]iary Goal (LTG) Pt will decrease Oswestry score to <13/50 in order to demonstrate improved pain management and activity tolerance LTG Duration 10 weeks Assessment Summary Assessment Pt tolerated session well without any increase in low back or L ankle pain. Continued with core and lumbopelvic strengthening to improve stabilization. Initiated seated dynamic core on hungarian ball. Pt challenged to maintain CHARY stable while performing pallof press and lat pulldowns; however, maintains elongated posture and demonstrates improved core bracing with reps. Trialed elevated heel raises with eccentric stretch on 4 stairs . Pt pain free with activity, but requires a small between ankles to facilitate improved posterior tibialis activation and decrease pronation. Progressed ankle eversion, pain free with ankle inversion today, which is an improvement. Pt with good progress with pain management today. She would benefit from skilled PT for progressive core/lumbar strengthening and ankle mobilization/ strengthening in order to reduce pain symptoms, improve activity tolerance, and return to PLOF. Physical Therapy Plan Frequency and Duration Frequency of Treatment 2x/Week Duration of treatment (weeks) 10 Plan of Care Start Date 06/07/23 Plan of Care End Date 08/18/23 Therapeutic Interventions Therapeutic Interventions Aquatic Therapy,Balance Training,Coordination Training ,Gait Training,Home Exercise Program,Joint Mobilizations, Manual Therapy,Neuromuscular Re-education,Orthotic/ Prosthetic Management,Patient/ Caregiver Education,Self-Care/ Home Management,Sensory Integration,Soft Tissue Mobilization,Taping, Therapeutic Activities, Therapeutic Exercises Modalities Cold Pack/Ice Massage,Electric Stimulation,Hot Packs, Ultrasound,Vasopneumatic Devices Other Therapeutic Interventions pelvic realignment Other Referrals/Consults Referrals/Consults Recommended 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 from referral to elevator adjuster for custom orthotics to address L ankle/ foot pain Next Visit Focus/Plan Next Note Type Progress Note Next Visit Plan Next session: hip hinge with deadlift, eccentric calf raise , toe raises, ankle stabilization (SLS), squat with band, hip abduction strengthening, bear plank Ankle: DF mobilization MWM next session, banded ankle 4 way, ankle mobility with BAPS, G/S stretch Back: LTR, TrA, flexion-biased core isometrics>progress, squat/STS from elevated height , hip abduction/extension ( sidelying, sitting (added to HEP for abd), supine (abd not corby supine)), bridge with ADD * assess corby to HEP, focus on abdominal/core strength reassess sit to stand * patient would like to return to gym, review machines, squats, ?? bike vs treadmill.
--- NOTE | 2023-07-11 09:32 | PT.OTN ---
Current Diagnoses Pain in left ankle and joints of left foot (07/11/23) Low back pain, unspecified (07/11/23) Other lack of coordination (07/11/23) Weakness (07/11/23) Physical Therapy Treatment Note PT-OP-A Visit Information Start: 05/26/23 17:12 Freq: Status: Active Protocol: Document 07/11/23 07:29 NM (Rec: 07/11/23 08:19 NM [id number]) Out-Patient Physical Therapy Visit Information Visit Information Visit Type Progress Note Visit Start Time 07:32 Visit Stop Time 08:15 Visit Number 9 PT-OP-B Current Condition Start: 05/26/23 17:12 Freq: Status: Active Protocol: Document 06/07/23 14:29 NM (Rec: 06/07/23 16:41 NM [id number]) Current Condition History of Current Condition Onset Date last year Current Complaints pain, weakness, mobility History of Current Condition Pt presents with lumbar spine pain and L ankle pain. 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 Pt reports that her back pain worsen last year, when lifting an object. Pt reports that lifting up to 10# before pain. Pt reports that she has low back with sitting, standing, walking, sleeping along R side. Pt reports that her knees give out on stairs. She reports that she has a bone spur in L ankle, pain along medial ankle under malleoli. Ankle pain began last year when she was started wearing orthotics (had worn them for 10 years) for collapsed arch and leg lift. Tried a soft brace but did not help. She reports that her ankle pain is worse with walking, when she resorts to using a walking stick. She reports that she is able to bike. 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 Last year, pt reports that she had a ministroke where she was unable to speak but has not been confirmed; reports balance has worsened since then. Prior Treatments and Tests Imaging 04/2023: lumbar spine- stable anterolisthesis L4 on L5, mild facet arthopathy L4- S1; ankle radiograph- no fracture, calcaneal enthesophyte Treatment Goals Patient/Caregiver Goals trip to [place] in Nov, long flight PT-OP-C Subjective Start: 05/26/23 17:12 Freq: Status: Active Protocol: Document 07/11/23 07:29 NM (Rec: 07/11/23 08:19 NM [id number]) OP-PT Subjective Patient Comments Patient Comments Pt reports that she is having L sided pain just above pantline since Monday after moving objects at her mom's house. It is painful to touch. She has an appt Monday with Dr. Carmona. Feels better with compression, e.g pants; worse with sleeping. She states her L ankle is improved, not bothering her as frequently after stretching and movement/ exercises. Pt reports that she thinks her low back has improved with core, strengthening, breathing, awareness. States with going up with stairs her knees give out, states every day. PT-OP-D Balance Start: 05/26/23 17:12 Freq: Status: Active Protocol: Document 06/07/23 14:29 NM (Rec: 06/07/23 16:41 NM [id number]) Balance Tests Single Limb Standing Single Limb- Right 0 seconds Single Limb- Left 1 seconds Tandem Tandem Standing unable to maintain PT-OP-E Functional Tests Start: 05/26/23 17:12 Freq: Status: Active Protocol: Document 06/07/23 14:29 NM (Rec: 06/07/23 16:41 NM [id number]) Functional Tests Five Times Sit to Stand Test Score 4 reps in 15 seconds, unable to complete 5th w/o UE assist Comments requires hand on quads to stand PT-OP-F Manual Assessment Start: 05/26/23 17:12 Freq: Status: Active Protocol: Document 06/07/23 14:29 NM (Rec: 06/07/23 16:41 NM [id number]) Manual Assessments Soft Tissue Assessment Soft Tissue Mobility Assessment Tightness R>L: B hamstrings, paraspinals, QL, and glutes/ piriformis Joint Mobility Assessment Joint Mobility Assessment Decreased L ankle dorsiflexion , pain with inversion. Hypomobility of L1-L5 with P-A springing. No lateral or medial ligamentous instability of L ankle PT-OP-G Mobility & Gait Start: 05/26/23 17:12 Freq: Status: Active Protocol: Document 06/07/23 14:29 NM (Rec: 06/07/23 16:41 NM [id number]) OP Gait Assessment Gait Gait Assistance Required: Independent Distance (Feet) 150 Gait Deviations General Gait Pattern Antalgic,Lateral Trunk Lean Factors Limiting Gait Function Factors Limiting Gait Function Decreased Strength,Limited Range of Motion,Pain,Poor Balance Comments Gait Comments L lean with L stance, also slight forward trunk lean PT-OP-H Neuro Start: 05/26/23 17:12 Freq: Status: Active Protocol: Document 06/07/23 14:29 NM (Rec: 06/07/23 16:41 NM [id number]) Sensation Evaluation Comments Summary Comments BLE equally intact to light touch sensation PT-OP-J Posture/Palpation/Skin Start: 05/26/23 17:12 Freq: Status: Active Protocol: Document 06/07/23 14:29 NM (Rec: 06/07/23 16:41 NM [id number]) Posture Evaluation Position Standing Head/C-Spine Posture Forward Head T-Spine Posture Increased Kyphosis L-Spine Posture Increased Lordosis Pelvis Posture Anteriorly Tilted Hip Posture (L) Externally Rotated,(R) Externally Rotated Knee Posture (L) Genu Valgus,(R) Genu Valgus Patellar Posture (L) Superior,(R) Superior Ankle/Foot Posture (L) Pronated,(R) Pronated,(L) Calcaneal Eversion,(R) Calcaneal Eversion Foot Arch (L) Low Arch,(R) Low Arch Palpation Assessment Location L ankle Palpation Details Tenderness at R navicular bone , under R medial malleolus and along posterior tibialis tendon, metatarsal pads Edema of B ankles, swelling present over R navicular bone lumbar spine Palpation Details R>L symptoms Tenderness: B PSIS, R SIJ, R glutes/piriformis, R lateral to midline L4-S1, R greater trochanter PT-OP-K Range of Motion Start: 05/26/23 17:12 Freq: Status: Active Protocol: Document 07/11/23 07:29 NM (Rec: 07/11/23 08:19 NM [id number]) Lumbar Spine Range of Motion Lumbar Spine Active Percentage Flexion 75 Extension 100 Rotation Left 5 Rotation Right 3 Lateral Flexion Left 100 Lateral Flexion Right 100 ROM Limitations Soft Tissue Tightness,Pain Comments Pain reproduced at R PSIS with R rotation, R lateral flexion , extension. Stretch of paraspinals with flexion Ankle and Foot Goniometric Range of Motion Ankle and Foot Left Dorsiflexion with Knee Flexed 5 Plantarflexion 30 Inversion 20 Eversion 15 Comments No pain with passive movement except from examiner hand placement 4/23/24: 8 deg DF PT-OP-L Special Tests Start: 05/26/23 17:12 Freq: Status: Active Protocol: Document 06/07/23 14:29 NM (Rec: 06/07/23 16:41 NM [id number]) Special Tests Lumbar Spine Special Tests Straight Leg Raise Test Results - Comments hamstring tightness, no change with tension Slump Test Results + Comments L Distraction Test Results + Jarvis/Quadrant Test Results + Comments R PSIS pain reproduced ea direction Foot/Ankle Special Tests Windlass Test Results - Talar tilt Test Results - Anterior Drawer Test Results - PT-OP-M Strength Start: 05/26/23 17:12 Freq: Status: Active Protocol: Document 07/11/23 07:29 NM (Rec: 07/11/23 09:22 NM [id number]) Trunk Strength Trunk Manual Muscle Testing Flexion 4 Good Extension 4 Good Rotation Left 4 Good Rotation Right 4 Good Lateral Flexion Left 4 Good Lateral Flexion Right 4 Good Comments Pain reproduced at R PSIS with resisted R rotation Hip Strength Hip Manual Muscle Testing Right Flexion (L2) 4 Good Extension (S1) 3+ Fair+ Abduction 3+ Fair+ Adduction 4 Good External Rotation 4 Good Internal Rotation 4 Good Comments Reports hip pain with resisted abduction along glute 07/11/23: improved glute activation during squats with band Left Flexion (L2) 4 Good Extension (S1) 3+ Fair+ Abduction 3+ Fair+ Adduction 4 Good External Rotation 4 Good Internal Rotation 4 Good Comments Reports hip pain with resisted abduction along glute 07/11/23: improved glute activation during squats with band PT-OP-Q Treatments Start: 05/26/23 17:12 Freq: Status: Active Protocol: Document 07/11/23 07:29 NM (Rec: 07/11/23 08:19 NM [id number]) Therapeutic Exercises Supine Exercises lumbar distraction Supine Exercise Name with spinal elongation, BLE distraction Side bilateral Equipment Used legs elevated on small orange kenyan ball Reps/Minutes 4x30 Comments periodically for pain reduction, feels good, edu about add to HEP B knees to chest Supine Exercise Name repeated motions Side bilateral Resistance AROM Equipment Used box breathing 4 counts, small orange kenyan ball Reps/Minutes 1x10 Comments for pain reduction figure 4 Supine Exercise Name knee flexed Side bilateral Equipment Used cued ppt, towel to assist with knee/hip flexion Reps/Minutes 1x60 Comments pain free, no increase LBP, only stretch lower trunk rotation Supine Exercise Name for pain reduction Side bilateral Reps/Minutes 1x15 Comments reports L sided pulling with R rot bridge with band Supine Exercise Name trialed single leg bridge Standing Exercises squat Standing Exercise Name 1. AROM, 2. eccentric squats w / UE support Side bilateral Resistance lvl 3 band Equipment Used 2. 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 inc R knee instab feeling (no give out) heel raise Standing Exercise Name trialed eccentric single leg heel raise Side bilateral Resistance AROM Equipment Used B hand support on step Reps/Minutes 2x5 ea Comments decreased range of motion, L more stability Manual Therapy Treatment Soft Tissue Mobilization LS parspinals Body Location L paraspinals, QL Mobilization Type Rolling,Strumming Intensity/Depth Superficial Body Position Sidelying Comments L paraspinals near L1-3 tender today to touch. Performed gentle rolling and strumming around tender areas, avoiding point specific tenderness. Performed also with sidelying gapping with sidebend into R lateral flexion, pt reports elongation feels good Self-Care/Home Management Treatment Education Patient Education Home Exercise Program Other Education Added to HEP verbally (no hand out provided): knees to chest repeated flexion (gentle) and lumbar distraction in supine 90/90 position PT-OP-T Assessment and Plan Start: 05/26/23 17:12 Freq: Status: Active Protocol: Document 07/11/23 07:29 NM (Rec: 07/11/23 08:19 NM [id number]) Physical Therapy Assessment Goals Five Impairment mobility Impairment L ankle dorsiflexion 5 deg Short Term Goal (STG) Pt will increase L ankle dorsiflexion to at least 8 deg in order to improve gait mechanics and ankle AROM for activity 07/11/23: 8 deg DF STG Duration 5 weeks MET Intermediate Goal (LTG) Pt will increase B ankle dorsiflexion to at least 10 deg in order to improve gait mechanics and ankle AROM for activity LTG Duration 10 weeks Four Impairment HEP Impairment not performing HEP Short Term Goal (STG) Pt will report compliance with HEP at least 2-3x/wk in order to maximize progression with PT during episode of care 07/11/23: states performing HEP every other day STG Duration 5 weeks MET Intermediate Goal (LTG) Pt will report compliance with HEP at least 3x/wk in order to smoothly transition to maintenance program upon discharge from PT to independent exercise LTG Duration 10 weeks Three Impairment function Impairment standing 30 minutes before pain in ankle and low back, walk 1/2 mile Short Term Goal (STG) Pt will report that she is able to stand for at least 45 minutes before needing to sit or rest due to pain in the low back in order to demonstrate improved activity tolerance 07/10/23: states can stand 1 hr before needing to take a seated break STG Duration 5 weeks MET Intermediate Goal (LTG) Pt will report that she is able to ambulate for at least 3/4 mile before resting due to pain in order to demonstrate improved activity tolerance and pain management LTG Duration 10 weeks Two Impairment strength Impairment Difficulty with STS without UE use Short Term Goal (STG) Pt will be able to perform 5x STS without UE use from 20 table in order to demonstrate improved quad and glute strength for gait, stairs, and ADLs 07/11/23: able to perform 5x STS without UE assist, arms in front for weight shift anterior, prn cues for control w/ eccentric lowering STG Duration 5 weeks MET Bat Lathe Operator Goal (LTG) Pt will be able to perform at least 10 bilateral squats without pain or compensation in order to demonstrate improved quad and glute strength for gait, stairs, and ADLs LTG Duration 10 weeks One Impairment Oswestry Impairment 13/50 Bat Lathe Operator Goal (LTG) Pt will decrease Oswestry score to <13/50 in order to demonstrate improved pain management and activity tolerance LTG Duration 10 weeks Progress Towards Goals Progress Towards Goals Progressing Toward Goals Progress Comments Met several STGs Assessment Summary Assessment Pt has increased pain levels related to lifting objects over the weekend. Regressed with treatment for pain reduction. Initiated B knee to chest and lumbar distraction to elongate lumbar spine as symptoms are disc-related. Pt has good improvement in symptom relief with gentle repeated flexion and lumbar distraction with flexion bias. Manual treatment to decrease L sided paraspinal pain and promote relaxation; pt demos muscle spasms, but has relief with sidelying facet gapping and QL elongation. Trialed eccentric lowering heel raises . Pt is pain free for all ankle activities today; however, has increased L plantarflexion ROM and strength compared to RLE. Educated pt to perform all ankle mobility and strength bilaterally. Physical Therapy Plan Frequency and Duration Frequency of Treatment 2x/Week Duration of treatment (weeks) 10 Plan of Care Start Date 06/07/23 Plan of Care End Date 08/18/23 Therapeutic Interventions Therapeutic Interventions Aquatic Therapy,Balance Training,Coordination Training ,Gait Training,Home Exercise Program,Joint Mobilizations, Manual Therapy,Neuromuscular Re-education,Orthotic/ Prosthetic Management,Patient/ Caregiver Education,Self-Care/ Home Management,Sensory Integration,Soft Tissue Mobilization,Taping, Therapeutic Activities, Therapeutic Exercises Modalities Cold Pack/Ice Massage,Electric Stimulation,Hot Packs, Ultrasound,Vasopneumatic Devices Other Therapeutic Interventions pelvic realignment Other Referrals/Consults Referrals/Consults Recommended 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 from referral to wrapping clerk for custom orthotics to address L ankle/ foot pain Next Visit Focus/Plan Next Note Type Treatment Note Next Visit Plan Next session:4 step up trial, hip hinge with deadlift, eccentric squat with band, bear plank, ankle stabilization with hip strengthening Future sessions: trial bike, leg press if knee stability ok , LAQ
--- NOTE | 2023-07-13 08:18 | PT.OTN ---
Current Diagnoses Pain in left ankle and joints of left foot (07/13/23) Low back pain, unspecified (07/13/23) Other lack of coordination (07/13/23) Weakness (07/13/23) Physical Therapy Treatment Note PT-OP-A Visit Information Start: 05/26/23 17:12 Freq: Status: Active Protocol: Document 07/13/23 07:29 NM (Rec: 07/13/23 08:16 NM [id number]) Out-Patient Physical Therapy Visit Information Visit Information Visit Type Treatment Note Visit Note 03/29 PN Visit Start Time 07:31 Visit Stop Time 08:13 Visit Number 10 PT-OP-B Current Condition Start: 05/26/23 17:12 Freq: Status: Active Protocol: Document 06/07/23 14:29 NM (Rec: 06/07/23 16:41 NM [id number]) Current Condition History of Current Condition Onset Date last year Current Complaints pain, weakness, mobility History of Current Condition Pt presents with lumbar spine pain and L ankle pain. 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 Pt reports that her back pain worsen last year, when lifting an object. Pt reports that lifting up to 10# before pain. Pt reports that she has low back with sitting, standing, walking, sleeping along R side. Pt reports that her knees give out on stairs. She reports that she has a bone spur in L ankle, pain along medial ankle under malleoli. Ankle pain began last year when she was started wearing orthotics (had worn them for 10 years) for collapsed arch and leg lift. Tried a soft brace but did not help. She reports that her ankle pain is worse with walking, when she resorts to using a walking stick. She reports that she is able to bike. 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 Last year, pt reports that she had a ministroke where she was unable to speak but has not been confirmed; reports balance has worsened since then. Prior Treatments and Tests Imaging 04/2023: lumbar spine- stable anterolisthesis L4 on L5, mild facet arthopathy L4- S1; ankle radiograph- no fracture, calcaneal enthesophyte Treatment Goals Patient/Caregiver Goals trip to [place] in Nov, long flight PT-OP-C Subjective Start: 05/26/23 17:12 Freq: Status: Active Protocol: Document 07/13/23 07:29 NM (Rec: 07/13/23 08:16 NM [id number]) OP-PT Subjective Patient Comments Patient Comments Pt reports that her L low back continues to bother her, states the same or even worse than last time. She recently did a walking tour with her job, which led to a lot of discomfort in her back and ankle. PT-OP-D Balance Start: 05/26/23 17:12 Freq: Status: Active Protocol: Document 06/07/23 14:29 NM (Rec: 06/07/23 16:41 NM [id number]) Balance Tests Single Limb Standing Single Limb- Right 0 seconds Single Limb- Left 1 seconds Tandem Tandem Standing unable to maintain PT-OP-E Functional Tests Start: 05/26/23 17:12 Freq: Status: Active Protocol: Document 06/07/23 14:29 NM (Rec: 06/07/23 16:41 NM [id number]) Functional Tests Five Times Sit to Stand Test Score 4 reps in 15 seconds, unable to complete 5th w/o UE assist Comments requires hand on quads to stand PT-OP-F Manual Assessment Start: 05/26/23 17:12 Freq: Status: Active Protocol: Document 06/07/23 14:29 NM (Rec: 06/07/23 16:41 NM [id number]) Manual Assessments Soft Tissue Assessment Soft Tissue Mobility Assessment Tightness R>L: B hamstrings, paraspinals, QL, and glutes/ piriformis Joint Mobility Assessment Joint Mobility Assessment Decreased L ankle dorsiflexion , pain with inversion. Hypomobility of L1-L5 with P-A springing. No lateral or medial ligamentous instability of L ankle PT-OP-G Mobility & Gait Start: 05/26/23 17:12 Freq: Status: Active Protocol: Document 06/07/23 14:29 NM (Rec: 06/07/23 16:41 NM [id number]) OP Gait Assessment Gait Gait Assistance Required: Independent Distance (Feet) 150 Gait Deviations General Gait Pattern Antalgic,Lateral Trunk Lean Factors Limiting Gait Function Factors Limiting Gait Function Decreased Strength,Limited Range of Motion,Pain,Poor Balance Comments Gait Comments L lean with L stance, also slight forward trunk lean PT-OP-H Neuro Start: 05/26/23 17:12 Freq: Status: Active Protocol: Document 06/07/23 14:29 NM (Rec: 06/07/23 16:41 NM [id number]) Sensation Evaluation Comments Summary Comments BLE equally intact to light touch sensation PT-OP-J Posture/Palpation/Skin Start: 05/26/23 17:12 Freq: Status: Active Protocol: Document 06/07/23 14:29 NM (Rec: 06/07/23 16:41 NM [id number]) Posture Evaluation Position Standing Head/C-Spine Posture Forward Head T-Spine Posture Increased Kyphosis L-Spine Posture Increased Lordosis Pelvis Posture Anteriorly Tilted Hip Posture (L) Externally Rotated,(R) Externally Rotated Knee Posture (L) Genu Valgus,(R) Genu Valgus Patellar Posture (L) Superior,(R) Superior Ankle/Foot Posture (L) Pronated,(R) Pronated,(L) Calcaneal Eversion,(R) Calcaneal Eversion Foot Arch (L) Low Arch,(R) Low Arch Palpation Assessment Location L ankle Palpation Details Tenderness at R navicular bone , under R medial malleolus and along posterior tibialis tendon, metatarsal pads Edema of B ankles, swelling present over R navicular bone lumbar spine Palpation Details R>L symptoms Tenderness: B PSIS, R SIJ, R glutes/piriformis, R lateral to midline L4-S1, R greater trochanter PT-OP-K Range of Motion Start: 05/26/23 17:12 Freq: Status: Active Protocol: Document 07/11/23 07:29 NM (Rec: 07/11/23 08:19 NM [id number]) Lumbar Spine Range of Motion Lumbar Spine Active Percentage Flexion 75 Extension 100 Rotation Left 5 Rotation Right 3 Lateral Flexion Left 100 Lateral Flexion Right 100 ROM Limitations Soft Tissue Tightness,Pain Comments Pain reproduced at R PSIS with R rotation, R lateral flexion , extension. Stretch of paraspinals with flexion Ankle and Foot Goniometric Range of Motion Ankle and Foot Left Dorsiflexion with Knee Flexed 5 Plantarflexion 30 Inversion 20 Eversion 15 Comments No pain with passive movement except from examiner hand placement 07/11/23: 8 deg DF PT-OP-L Special Tests Start: 05/26/23 17:12 Freq: Status: Active Protocol: Document 06/07/23 14:29 NM (Rec: 06/07/23 16:41 NM [id number]) Special Tests Lumbar Spine Special Tests Straight Leg Raise Test Results - Comments hamstring tightness, no change with tension Slump Test Results + Comments L Distraction Test Results + Jarvis/Quadrant Test Results + Comments R PSIS pain reproduced ea direction Foot/Ankle Special Tests Windlass Test Results - Talar tilt Test Results - Anterior Drawer Test Results - PT-OP-M Strength Start: 05/26/23 17:12 Freq: Status: Active Protocol: Document 07/11/23 07:29 NM (Rec: 07/11/23 09:22 NM [id number]) Trunk Strength Trunk Manual Muscle Testing Flexion 4 Good Extension 4 Good Rotation Left 4 Good Rotation Right 4 Good Lateral Flexion Left 4 Good Lateral Flexion Right 4 Good Comments Pain reproduced at R PSIS with resisted R rotation Hip Strength Hip Manual Muscle Testing Right Flexion (L2) 4 Good Extension (S1) 3+ Fair+ Abduction 3+ Fair+ Adduction 4 Good External Rotation 4 Good Internal Rotation 4 Good Comments Reports hip pain with resisted abduction along glute 07/11/23: improved glute activation during squats with band Left Flexion (L2) 4 Good Extension (S1) 3+ Fair+ Abduction 3+ Fair+ Adduction 4 Good External Rotation 4 Good Internal Rotation 4 Good Comments Reports hip pain with resisted abduction along glute 07/11/23: improved glute activation during squats with band PT-OP-Q Treatments Start: 05/26/23 17:12 Freq: Status: Active Protocol: Document 07/13/23 07:29 NM (Rec: 07/13/23 08:16 NM [id number]) Therapeutic Exercises Supine Exercises hamstring stretch Side bilateral Equipment Used with strap Reps/Minutes 1x60 ea Comments cued straight leg, pain free, good stretch figure 4 Supine Exercise Name knee flexed Side bilateral Equipment Used cued ppt, towel to assist with knee/hip flexion Reps/Minutes 1x60 Comments pain free, no increase LBP, only stretch Chaitanya stretch Supine Exercise Name from hooklying knee to chest Side bilateral Reps/Minutes 1x60 Comments pain free Standing Exercises squat Standing Exercise Name wall squat with ball Side bilateral Resistance AROM Reps/Minutes 1x10 Comments pain free, L knee feels like going to give out as fatigues heel raise Standing Exercise Name trialed eccentric single leg heel raise Side bilateral Resistance AROM Equipment Used B hand support on step Reps/Minutes 1x12 ea Comments cued feet closer together calf stretches Standing Exercise Name 1. gastroc, 2. soleus Side left Equipment Used staggered stance at stairs Reps/Minutes 1x60 ea Comments pain free Therapeutic Activity Therapeutic Activity hip hinge Reps/Minutes 8 minutes Comments 1. AROM w/o dowel, buttock tap to wall 1x10 2. AROM w/ dowel, buttock tap to wall and slight knee flex with hip hinge. Dowel sliding dowel front of thighs 3. Bolster pick ups from ground, 1x10 Pain free for all. Improved hip hinge with reps 4. crate pick ups (no resistance), 1x8 ea Manual Therapy Treatment Soft Tissue Mobilization left calf Body Location B calves Mobilization Type Instrument Assisted,Rolling Intensity/Depth Moderate Body Position Sidelying Comments To reduce soft tissue tension, promote pain reduction and tissue elongation. Sore but pain free LS parspinals Body Location B paraspinals, QL Mobilization Type Rolling,Strumming Intensity/Depth Superficial Body Position Sidelying Comments B paraspinals sore, tight. Continues to have tenderness on L L1-3 to touch. Performed gentle rolling and strumming around tender areas, avoiding point specific tenderness. Gentle elongation bilateral gluteal muscles/piriformis Body Location B glutes and HS Mobilization Type Instrument Assisted,Rolling Intensity/Depth Moderate Body Position Sidelying Comments To reduce soft tissue tension, promote pain reduction and tissue elongation. Sore but pain free Self-Care/Home Management Treatment Education Patient Education Home Exercise Program Other Education HEP: eccentric calf raise PT-OP-T Assessment and Plan Start: 05/26/23 17:12 Freq: Status: Active Protocol: Document 07/13/23 07:29 NM (Rec: 07/13/23 08:16 NM [id number]) Physical Therapy Assessment Goals Five Impairment mobility Impairment L ankle dorsiflexion 5 deg Short Term Goal (STG) Pt will increase L ankle dorsiflexion to at least 8 deg in order to improve gait mechanics and ankle AROM for activity 07/11/23: 8 deg DF STG Duration 5 weeks MET Alf Goal (LTG) Pt will increase B ankle dorsiflexion to at least 10 deg in order to improve gait mechanics and ankle AROM for activity LTG Duration 10 weeks Four Impairment HEP Impairment not performing HEP Short Term Goal (STG) Pt will report compliance with HEP at least 2-3x/wk in order to maximize progression with PT during episode of care 4/23/24: states performing HEP every other day STG Duration 5 weeks MET Alf Goal (LTG) Pt will report compliance with HEP at least 3x/wk in order to smoothly transition to maintenance program upon discharge from PT to independent exercise LTG Duration 10 weeks Three Impairment function Impairment standing 30 minutes before pain in ankle and low back, walk 1/2 mile Short Term Goal (STG) Pt will report that she is able to stand for at least 45 minutes before needing to sit or rest due to pain in the low back in order to demonstrate improved activity tolerance 07/10/23: states can stand 1 hr before needing to take a seated break STG Duration 5 weeks MET Ground Services Instructor Goal (LTG) Pt will report that she is able to ambulate for at least 3/4 mile before resting due to pain in order to demonstrate improved activity tolerance and pain management LTG Duration 10 weeks Two Impairment strength Impairment Difficulty with STS without UE use Short Term Goal (STG) Pt will be able to perform 5x STS without UE use from 20 table in order to demonstrate improved quad and glute strength for gait, stairs, and ADLs 07/11/23: able to perform 5x STS without UE assist, arms in front for weight shift anterior, prn cues for control w/ eccentric lowering STG Duration 5 weeks MET [employer] Services Instructor Goal (LTG) Pt will be able to perform at least 10 bilateral squats without pain or compensation in order to demonstrate improved quad and glute strength for gait, stairs, and ADLs LTG Duration 10 weeks One Impairment Oswestry Impairment 13/50 Ground Services Instructor Goal (LTG) Pt will decrease Oswestry score to <13/50 in order to demonstrate improved pain management and activity tolerance LTG Duration 10 weeks Assessment Summary Assessment Increased time spent on manual treatment and stretching today due to increase in pt soreness across low back and BLE. PT educated pt on managing soreness with soft tissue mobilization, stretching, modalities, and gentle activity. Manual treatment focusing on elongation of BLE and lumbar paraspinals, pain reduction; pt with increased tightness in glutes and hamstrings. Trialed wall squats using colombian ball to offload BLE and reduce need for UE assistance; pt tolerates well but limited in number of reps due to L knee feeling unstable. However , pain free and pt reports likes activity. Initiated hip hinge and deadlift training with dowel for body mechanics. Progressed to picking up unweighted box from ground. PT cued pt for hip hinge, neutral spine with tactile and verbal cues. Pt improved with reps. Pt planning to follow up with PCP this week for low back. 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 from skilled PT for lumbar/core and BLE strengthening, body mechanics training in order to improve activity tolerance and decrease pain symptoms. Physical Therapy Plan Frequency and Duration Frequency of Treatment 2x/Week Duration of treatment (weeks) 10 Plan of Care Start Date 06/07/23 Plan of Care End Date 08/18/23 Therapeutic Interventions Therapeutic Interventions Aquatic Therapy,Balance Training,Coordination Training ,Gait Training,Home Exercise Program,Joint Mobilizations, Manual Therapy,Neuromuscular Re-education,Orthotic/ Prosthetic Management,Patient/ Caregiver Education,Self-Care/ Home Management,Sensory Integration,Soft Tissue Mobilization,Taping, Therapeutic Activities, Therapeutic Exercises Modalities Cold Pack/Ice Massage,Electric Stimulation,Hot Packs, Ultrasound,Vasopneumatic Devices Other Therapeutic Interventions pelvic realignment Other Referrals/Consults Referrals/Consults Recommended 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 from referral to practice or student teacher for custom orthotics to address L ankle/ foot pain Next Visit Focus/Plan Next Note Type Treatment Note Next Visit Plan Next session: review hip hinge with resistance, wall squat with ball, trial heel elevated eccentric heel raise and single leg stability, 4 step up trial, hip hinge with deadlift, eccentric squat with band, bear plank, ankle stabilization with hip strengthening Future sessions: trial bike, leg press if knee stability ok , LAQ
--- NOTE | 2023-07-17 16:18 | PT.OTN ---
Current Diagnoses Pain in left ankle and joints of left foot (07/17/23) Low back pain, unspecified (07/17/23) Other lack of coordination (07/17/23) Weakness (07/17/23) Physical Therapy Treatment Note PT-OP-A Visit Information Start: 05/26/23 17:12 Freq: Status: Active Protocol: Document 07/17/23 16:04 AB (Rec: 07/17/23 16:18 AB [id number]) Out-Patient Physical Therapy Visit Information Visit Information Visit Type Treatment Note Visit Note 04/29 PN Visit Start Time 15:17 Visit Stop Time 16:01 Visit Number 11 Number of PICTURE COPYIST Visits 1 Evaluation Information Evaluation Date 06/07/23 Precautions Precautions anterolisthesis, fall risk, previous TIA PT-OP-B Current Condition Start: 05/26/23 17:12 Freq: Status: Active Protocol: Document 06/07/23 14:29 NM (Rec: 06/07/23 16:41 NM [id number]) Current Condition History of Current Condition Onset Date last year Current Complaints pain, weakness, mobility History of Current Condition Pt presents with lumbar spine pain and L ankle pain. 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 Pt reports that her back pain worsen last year, when lifting an object. Pt reports that lifting up to 10# before pain. Pt reports that she has low back with sitting, standing, walking, sleeping along R side. Pt reports that her knees give out on stairs. She reports that she has a bone spur in L ankle, pain along medial ankle under malleoli. Ankle pain began last year when she was started wearing orthotics (had worn them for 10 years) for collapsed arch and leg lift. Tried a soft brace but did not help. She reports that her ankle pain is worse with walking, when she resorts to using a walking stick. She reports that she is able to bike. 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 Last year, pt reports that she had a ministroke where she was unable to speak but has not been confirmed; reports balance has worsened since then. Prior Treatments and Tests Imaging 04/2023: lumbar spine- stable anterolisthesis L4 on L5, mild facet arthopathy L4- S1; ankle radiograph- no fracture, calcaneal enthesophyte Treatment Goals Patient/Caregiver Goals trip to [place] in Nov, long flight PT-OP-C Subjective Start: 05/26/23 17:12 Freq: Status: Active Protocol: Document 07/17/23 16:04 AB (Rec: 07/17/23 16:18 AB [id number]) OP-PT Subjective Patient Comments Patient Comments Patient reports she saw Dr. Carmona and received muscle relaxers which are helping with pain and sleep. Andreina rates left sided back pain 3/ 10 right sided back pain 2/10 start of session. Andreina descends stairs with a quad dominant pattern using 2 rails , reciprocal pattern with reports of increased knee pain . PT-OP-D Balance Start: 05/26/23 17:12 Freq: Status: Active Protocol: Document 06/07/23 14:29 NM (Rec: 06/07/23 16:41 NM [id number]) Balance Tests Single Limb Standing Single Limb- Right 0 seconds Single Limb- Left 1 seconds Tandem Tandem Standing unable to maintain PT-OP-E Functional Tests Start: 05/26/23 17:12 Freq: Status: Active Protocol: Document 06/07/23 14:29 NM (Rec: 06/07/23 16:41 NM [id number]) Functional Tests Five Times Sit to Stand Test Score 4 reps in 15 seconds, unable to complete 5th w/o UE assist Comments requires hand on quads to stand PT-OP-F Manual Assessment Start: 05/26/23 17:12 Freq: Status: Active Protocol: Document 06/07/23 14:29 NM (Rec: 06/07/23 16:41 NM [id number]) Manual Assessments Soft Tissue Assessment Soft Tissue Mobility Assessment Tightness R>L: B hamstrings, paraspinals, QL, and glutes/ piriformis Joint Mobility Assessment Joint Mobility Assessment Decreased L ankle dorsiflexion , pain with inversion. Hypomobility of L1-L5 with P-A springing. No lateral or medial ligamentous instability of L ankle PT-OP-G Mobility & Gait Start: 05/26/23 17:12 Freq: Status: Active Protocol: Document 06/07/23 14:29 NM (Rec: 06/07/23 16:41 NM [id number]) OP Gait Assessment Gait Gait Assistance Required: Independent Distance (Feet) 150 Gait Deviations General Gait Pattern Antalgic,Lateral Trunk Lean Factors Limiting Gait Function Factors Limiting Gait Function Decreased Strength,Limited Range of Motion,Pain,Poor Balance Comments Gait Comments L lean with L stance, also slight forward trunk lean PT-OP-H Neuro Start: 05/26/23 17:12 Freq: Status: Active Protocol: Document 06/07/23 14:29 NM (Rec: 06/07/23 16:41 NM [id number]) Sensation Evaluation Comments Summary Comments BLE equally intact to light touch sensation PT-OP-J Posture/Palpation/Skin Start: 05/26/23 17:12 Freq: Status: Active Protocol: Document 06/07/23 14:29 NM (Rec: 06/07/23 16:41 NM [id number]) Posture Evaluation Position Standing Head/C-Spine Posture Forward Head T-Spine Posture Increased Kyphosis L-Spine Posture Increased Lordosis Pelvis Posture Anteriorly Tilted Hip Posture (L) Externally Rotated,(R) Externally Rotated Knee Posture (L) Genu Valgus,(R) Genu Valgus Patellar Posture (L) Superior,(R) Superior Ankle/Foot Posture (L) Pronated,(R) Pronated,(L) Calcaneal Eversion,(R) Calcaneal Eversion Foot Arch (L) Low Arch,(R) Low Arch Palpation Assessment Location L ankle Palpation Details Tenderness at R navicular bone , under R medial malleolus and along posterior tibialis tendon, metatarsal pads Edema of B ankles, swelling present over R navicular bone lumbar spine Palpation Details R>L symptoms Tenderness: B PSIS, R SIJ, R glutes/piriformis, R lateral to midline L4-S1, R greater trochanter PT-OP-K Range of Motion Start: 05/26/23 17:12 Freq: Status: Active Protocol: Document 07/11/23 07:29 NM (Rec: 07/11/23 08:19 NM [id number]) Lumbar Spine Range of Motion Lumbar Spine Active Percentage Flexion 75 Extension 100 Rotation Left 5 Rotation Right 3 Lateral Flexion Left 100 Lateral Flexion Right 100 ROM Limitations Soft Tissue Tightness,Pain Comments Pain reproduced at R PSIS with R rotation, R lateral flexion , extension. Stretch of paraspinals with flexion Ankle and Foot Goniometric Range of Motion Ankle and Foot Left Dorsiflexion with Knee Flexed 5 Plantarflexion 30 Inversion 20 Eversion 15 Comments No pain with passive movement except from examiner hand placement 07/11/23: 8 deg DF PT-OP-L Special Tests Start: 05/26/23 17:12 Freq: Status: Active Protocol: Document 06/07/23 14:29 NM (Rec: 06/07/23 16:41 NM [id number]) Special Tests Lumbar Spine Special Tests Straight Leg Raise Test Results - Comments hamstring tightness, no change with tension Slump Test Results + Comments L Distraction Test Results + Jarvis/Quadrant Test Results + Comments R PSIS pain reproduced ea direction Foot/Ankle Special Tests Windlass Test Results - Talar tilt Test Results - Anterior Drawer Test Results - PT-OP-M Strength Start: 05/26/23 17:12 Freq: Status: Active Protocol: Document 07/11/23 07:29 NM (Rec: 07/11/23 09:22 NM [id number]) Trunk Strength Trunk Manual Muscle Testing Flexion 4 Good Extension 4 Good Rotation Left 4 Good Rotation Right 4 Good Lateral Flexion Left 4 Good Lateral Flexion Right 4 Good Comments Pain reproduced at R PSIS with resisted R rotation Hip Strength Hip Manual Muscle Testing Right Flexion (L2) 4 Good Extension (S1) 3+ Fair+ Abduction 3+ Fair+ Adduction 4 Good External Rotation 4 Good Internal Rotation 4 Good Comments Reports hip pain with resisted abduction along glute 07/11/23: improved glute activation during squats with band Left Flexion (L2) 4 Good Extension (S1) 3+ Fair+ Abduction 3+ Fair+ Adduction 4 Good External Rotation 4 Good Internal Rotation 4 Good Comments Reports hip pain with resisted abduction along glute 07/11/23: improved glute activation during squats with band PT-OP-Q Treatments Start: 05/26/23 17:12 Freq: Status: Active Protocol: Document 07/17/23 16:04 AB (Rec: 07/17/23 16:18 AB [id number]) Therapeutic Exercises Supine Exercises abdominal bracing with LE extension Supine Exercise Name heel taps Side bilateral Equipment Used hooklying; cued ppt Reps/Minutes 1x10 Comments verbal cues to brace as LE moves away from core Chaitanya stretch Supine Exercise Name from hooklying knee to chest Side bilateral Reps/Minutes 2x60 Comments pain free Standing Exercises squat Standing Exercise Name wall squat with ball Side bilateral Resistance AROM Reps/Minutes 2x10 Comments Verbal cues for buttocks under ball calf stretches Standing Exercise Name 1. gastroc, 2. soleus Side left Equipment Used staggered stance at stairs Reps/Minutes 2x60 ea Comments pain free Therapeutic Activity Therapeutic Activity descending stairs Name using 2 rails Reps/Minutes 4 steps X 2 Comments Verbal and visual cues to position trunk in a hip hinge, VC for UE position on rials Manual Therapy Treatment Soft Tissue Mobilization bilateral hip flexors Mobilization Type Cross-Friction Intensity/Depth Moderate Body Position Hooklying LS parspinals Body Location B lumbar paraspinals Mobilization Type Sustained Pressure Body Position Sidelying bilateral gluteal muscles/piriformis Body Location B glutes/piriformis Mobilization Type Cross-Friction,Rolling Intensity/Depth Moderate Body Position Sidelying Self-Care/Home Management Treatment Activities Self-Care/Home Management Activities no new exercises, but HEP revised for ease of use ie supine exercises together, seated together, standing together and notes for wall squat/wall squat added to handout PT-OP-T Assessment and Plan Start: 05/26/23 17:12 Freq: Status: Active Protocol: Document 07/17/23 16:04 AB (Rec: 07/17/23 16:18 AB [id number]) Physical Therapy Assessment Goals Five Impairment mobility Impairment L ankle dorsiflexion 5 deg Short Term Goal (STG) Pt will increase L ankle dorsiflexion to at least 8 deg in order to improve gait mechanics and ankle AROM for activity 07/11/23: 8 deg DF STG Duration 5 weeks MET Correction Goal (LTG) Pt will increase B ankle dorsiflexion to at least 10 deg in order to improve gait mechanics and ankle AROM for activity LTG Duration 10 weeks Four Impairment HEP Impairment not performing HEP Short Term Goal (STG) Pt will report compliance with HEP at least 2-3x/wk in order to maximize progression with PT during episode of care 07/11/23: states performing HEP every other day STG Duration 5 weeks MET Inclusion Intern Goal (LTG) Pt will report compliance with HEP at least 3x/wk in order to smoothly transition to maintenance program upon discharge from PT to independent exercise LTG Duration 10 weeks Three Impairment function Impairment standing 30 minutes before pain in ankle and low back, walk 1/2 mile Short Term Goal (STG) Pt will report that she is able to stand for at least 45 minutes before needing to sit or rest due to pain in the low back in order to demonstrate improved activity tolerance 07/10/23: states can stand 1 hr before needing to take a seated break STG Duration 5 weeks MET Correction Goal (LTG) Pt will report that she is able to ambulate for at least 3/4 mile before resting due to pain in order to demonstrate improved activity tolerance and pain management LTG Duration 10 weeks Two Impairment strength Impairment Difficulty with STS without UE use Short Term Goal (STG) Pt will be able to perform 5x STS without UE use from 20 table in order to demonstrate improved quad and glute strength for gait, stairs, and ADLs 07/11/23: able to perform 5x STS without UE assist, arms in front for weight shift anterior, prn cues for control w/ eccentric lowering STG Duration 5 weeks MET Inclusion Intern Goal (LTG) Pt will be able to perform at least 10 bilateral squats without pain or compensation in order to demonstrate improved quad and glute strength for gait, stairs, and ADLs LTG Duration 10 weeks One Impairment Oswestry Impairment 13/50 Inclusion Intern Goal (LTG) Pt will decrease Oswestry score to <13/50 in order to demonstrate improved pain management and activity tolerance LTG Duration 10 weeks Assessment Summary Assessment Andreina reports feeling better end of session rates back pain at 2/10. Andreina reports having less knee pain when descending stairs with a less quad dominant pattern and when improving hip hinge with squat with ball. Physical Therapy Plan Frequency and Duration Frequency of Treatment 2x/Week Duration of treatment (weeks) 10 Plan of Care Start Date 06/07/23 Plan of Care End Date 08/18/23 Next Visit Focus/Plan Next Note Type Treatment Note Next Visit Plan Next session: review hip hinge with resistance, trial heel elevated eccentric heel raise and single leg stability, 4 step up trial, hip hinge with deadlift, eccentric squat with band, bear plank, ankle stabilization with hip strengthening Future sessions: trial bike, leg press if knee stability ok , LAQ
--- NOTE | 2023-07-31 09:21 | PT.OTN ---
Current Diagnoses Pain in left ankle and joints of left foot (07/31/23) Low back pain, unspecified (07/31/23) Other lack of coordination (07/31/23) Weakness (07/31/23) Physical Therapy Treatment Note PT-OP-A Visit Information Start: 05/26/23 17:12 Freq: Status: Active Protocol: Document 07/31/23 08:03 AB (Rec: 07/31/23 09:21 AB [id number]) Out-Patient Physical Therapy Visit Information Visit Information Visit Type Treatment Note Visit Note 05/27 for PN Access Code: [email or web address] Visit Start Time 08:17 Visit Stop Time 09:00 Visit Number 12 Number of HYDROMETER FINISHER Visits 2 Evaluation Information Evaluation Date 06/07/23 Precautions Precautions anterolisthesis, fall risk, previous TIA PT-OP-B Current Condition Start: 05/26/23 17:12 Freq: Status: Active Protocol: Document 06/07/23 14:29 NM (Rec: 06/07/23 16:41 NM [id number]) Current Condition History of Current Condition Onset Date last year Current Complaints pain, weakness, mobility History of Current Condition Pt presents with lumbar spine pain and L ankle pain. 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 Pt reports that her back pain worsen last year, when lifting an object. Pt reports that lifting up to 10# before pain. Pt reports that she has low back with sitting, standing, walking, sleeping along R side. Pt reports that her knees give out on stairs. She reports that she has a bone spur in L ankle, pain along medial ankle under malleoli. Ankle pain began last year when she was started wearing orthotics (had worn them for 10 years) for collapsed arch and leg lift. Tried a soft brace but did not help. She reports that her ankle pain is worse with walking, when she resorts to using a walking stick. She reports that she is able to bike. 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 Last year, pt reports that she had a ministroke where she was unable to speak but has not been confirmed; reports balance has worsened since then. Prior Treatments and Tests Imaging 04/2023: lumbar spine- stable anterolisthesis L4 on L5, mild facet arthopathy L4- S1; ankle radiograph- no fracture, calcaneal enthesophyte Treatment Goals Patient/Caregiver Goals trip to [place] in Nov, long flight PT-OP-C Subjective Start: 05/26/23 17:12 Freq: Status: Active Protocol: Document 07/31/23 08:03 AB (Rec: 07/31/23 09:21 AB [id number]) OP-PT Subjective Patient Comments Patient Comments Patient comments she probably over did it cooking and having company, taking care of 25 lb grand daughter over the weekend, but still did the exercises. Right sided back pain 4/10, left ankle 6/10 start of session. PT-OP-D Balance Start: 05/26/23 17:12 Freq: Status: Active Protocol: Document 06/07/23 14:29 NM (Rec: 06/07/23 16:41 NM [id number]) Balance Tests Single Limb Standing Single Limb- Right 0 seconds Single Limb- Left 1 seconds Tandem Tandem Standing unable to maintain PT-OP-E Functional Tests Start: 05/26/23 17:12 Freq: Status: Active Protocol: Document 06/07/23 14:29 NM (Rec: 06/07/23 16:41 NM [id number]) Functional Tests Five Times Sit to Stand Test Score 4 reps in 15 seconds, unable to complete 5th w/o UE assist Comments requires hand on quads to stand PT-OP-F Manual Assessment Start: 05/26/23 17:12 Freq: Status: Active Protocol: Document 06/07/23 14:29 NM (Rec: 06/07/23 16:41 NM [id number]) Manual Assessments Soft Tissue Assessment Soft Tissue Mobility Assessment Tightness R>L: B hamstrings, paraspinals, QL, and glutes/ piriformis Joint Mobility Assessment Joint Mobility Assessment Decreased L ankle dorsiflexion , pain with inversion. Hypomobility of L1-L5 with P-A springing. No lateral or medial ligamentous instability of L ankle PT-OP-G Mobility & Gait Start: 05/26/23 17:12 Freq: Status: Active Protocol: Document 06/07/23 14:29 NM (Rec: 06/07/23 16:41 NM [id number]) OP Gait Assessment Gait Gait Assistance Required: Independent Distance (Feet) 150 Gait Deviations General Gait Pattern Antalgic,Lateral Trunk Lean Factors Limiting Gait Function Factors Limiting Gait Function Decreased Strength,Limited Range of Motion,Pain,Poor Balance Comments Gait Comments L lean with L stance, also slight forward trunk lean PT-OP-H Neuro Start: 05/26/23 17:12 Freq: Status: Active Protocol: Document 06/07/23 14:29 NM (Rec: 06/07/23 16:41 NM [id number]) Sensation Evaluation Comments Summary Comments BLE equally intact to light touch sensation PT-OP-J Posture/Palpation/Skin Start: 05/26/23 17:12 Freq: Status: Active Protocol: Document 06/07/23 14:29 NM (Rec: 06/07/23 16:41 NM [id number]) Posture Evaluation Position Standing Head/C-Spine Posture Forward Head T-Spine Posture Increased Kyphosis L-Spine Posture Increased Lordosis Pelvis Posture Anteriorly Tilted Hip Posture (L) Externally Rotated,(R) Externally Rotated Knee Posture (L) Genu Valgus,(R) Genu Valgus Patellar Posture (L) Superior,(R) Superior Ankle/Foot Posture (L) Pronated,(R) Pronated,(L) Calcaneal Eversion,(R) Calcaneal Eversion Foot Arch (L) Low Arch,(R) Low Arch Palpation Assessment Location L ankle Palpation Details Tenderness at R navicular bone , under R medial malleolus and along posterior tibialis tendon, metatarsal pads Edema of B ankles, swelling present over R navicular bone lumbar spine Palpation Details R>L symptoms Tenderness: B PSIS, R SIJ, R glutes/piriformis, R lateral to midline L4-S1, R greater trochanter PT-OP-K Range of Motion Start: 05/26/23 17:12 Freq: Status: Active Protocol: Document 07/11/23 07:29 NM (Rec: 07/11/23 08:19 NM [id number]) Lumbar Spine Range of Motion Lumbar Spine Active Percentage Flexion 75 Extension 100 Rotation Left 5 Rotation Right 3 Lateral Flexion Left 100 Lateral Flexion Right 100 ROM Limitations Soft Tissue Tightness,Pain Comments Pain reproduced at R PSIS with R rotation, R lateral flexion , extension. Stretch of paraspinals with flexion Ankle and Foot Goniometric Range of Motion Ankle and Foot Left Dorsiflexion with Knee Flexed 5 Plantarflexion 30 Inversion 20 Eversion 15 Comments No pain with passive movement except from examiner hand placement 07/11/23: 8 deg DF PT-OP-L Special Tests Start: 05/26/23 17:12 Freq: Status: Active Protocol: Document 06/07/23 14:29 NM (Rec: 06/07/23 16:41 NM [id number]) Special Tests Lumbar Spine Special Tests Straight Leg Raise Test Results - Comments hamstring tightness, no change with tension Slump Test Results + Comments L Distraction Test Results + Jarvis/Quadrant Test Results + Comments R PSIS pain reproduced ea direction Foot/Ankle Special Tests Windlass Test Results - Talar tilt Test Results - Anterior Drawer Test Results - PT-OP-M Strength Start: 05/26/23 17:12 Freq: Status: Active Protocol: Document 07/11/23 07:29 NM (Rec: 07/11/23 09:22 NM [id number]) Trunk Strength Trunk Manual Muscle Testing Flexion 4 Good Extension 4 Good Rotation Left 4 Good Rotation Right 4 Good Lateral Flexion Left 4 Good Lateral Flexion Right 4 Good Comments Pain reproduced at R PSIS with resisted R rotation Hip Strength Hip Manual Muscle Testing Right Flexion (L2) 4 Good Extension (S1) 3+ Fair+ Abduction 3+ Fair+ Adduction 4 Good External Rotation 4 Good Internal Rotation 4 Good Comments Reports hip pain with resisted abduction along glute 07/11/23: improved glute activation during squats with band Left Flexion (L2) 4 Good Extension (S1) 3+ Fair+ Abduction 3+ Fair+ Adduction 4 Good External Rotation 4 Good Internal Rotation 4 Good Comments Reports hip pain with resisted abduction along glute 07/11/23: improved glute activation during squats with band PT-OP-Q Treatments Start: 05/26/23 17:12 Freq: Status: Active Protocol: Document 07/31/23 08:03 AB (Rec: 07/31/23 09:21 AB [id number]) Therapeutic Exercises Supine Exercises piriformis stretch Supine Exercise Name from hooklying Side bilateral Reps/Minutes 1x60 Comments post stretch prior to MET figure 4 Supine Exercise Name knee flexed Side bilateral Reps/Minutes 1x60 Comments post stretch prior to MET Chaitanya stretch Supine Exercise Name from hooklying knee to chest Side bilateral Reps/Minutes 1x60 Standing Exercises heel raise Standing Exercise Name trialed eccentric single leg heel raise Side left Resistance AROM Equipment Used B hand support on step Reps/Minutes X2 then 1x12 Comments cued feet closer together calf stretches Standing Exercise Name 1. gastroc, 2. soleus Side left Equipment Used on stairs Reps/Minutes 2x60 ea Comments pain free Manual Therapy Treatment Soft Tissue Mobilization left calf Body Location left calf Mobilization Type Cross-Friction,Rolling Intensity/Depth Moderate Body Position Sidelying Comments prior to stretch LS parspinals Body Location B lumbar paraspinals Mobilization Type Sustained Pressure Body Position Sidelying bilateral gluteal muscles/piriformis Body Location B glutes/piriformis Mobilization Type Cross-Friction,Rolling Intensity/Depth Moderate Body Position Sidelying Joint Mobilizations L ankle Joint talocrural joint, Mulligan with movement Direction A-P for DF Grade III Body Position Supine Reps/Duration 3X10 Comments Post pain on initiation of HR on step Manual Techniques MET for right AI left PI and pubic shotgun Body Location SI Body Position Hooklying Reps/Duration 6X6 seconds Comments Verbal cues to perform with decreased force PT-OP-T Assessment and Plan Start: 05/26/23 17:12 Freq: Status: Active Protocol: Document 07/31/23 08:03 AB (Rec: 07/31/23 09:21 AB [id number]) Physical Therapy Assessment Goals Five Impairment mobility Impairment L ankle dorsiflexion 5 deg Short Term Goal (STG) Pt will increase L ankle dorsiflexion to at least 8 deg in order to improve gait mechanics and ankle AROM for activity 07/11/23: 8 deg DF STG Duration 5 weeks MET Correction Goal (LTG) Pt will increase B ankle dorsiflexion to at least 10 deg in order to improve gait mechanics and ankle AROM for activity LTG Duration 10 weeks Four Impairment HEP Impairment not performing HEP Short Term Goal (STG) Pt will report compliance with HEP at least 2-3x/wk in order to maximize progression with PT during episode of care 07/11/23: states performing HEP every other day STG Duration 5 weeks 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) Pt will report compliance with HEP at least 3x/wk in order to smoothly transition to maintenance program upon discharge from PT to independent exercise LTG Duration 10 weeks Three Impairment function Impairment standing 30 minutes before pain in ankle and low back, walk 1/2 mile Short Term Goal (STG) Pt will report that she is able to stand for at least 45 minutes before needing to sit or rest due to pain in the low back in order to demonstrate improved activity tolerance 07/10/23: states can stand 1 hr before needing to take a seated break STG Duration 5 weeks MET Correction Goal (LTG) Pt will report that she is able to ambulate for at least 3/4 mile before resting due to pain in order to demonstrate improved activity tolerance and pain management LTG Duration 10 weeks Two Impairment strength Impairment Difficulty with STS without UE use Short Term Goal (STG) Pt will be able to perform 5x STS without UE use from 20 table in order to demonstrate improved quad and glute strength for gait, stairs, and ADLs 07/11/23: able to perform 5x STS without UE assist, arms in front for weight shift anterior, prn cues for control w/ eccentric lowering STG Duration 5 weeks MET Correction Goal (LTG) Pt will be able to perform at least 10 bilateral squats without pain or compensation in order to demonstrate improved quad and glute strength for gait, stairs, and ADLs LTG Duration 10 weeks One Impairment Oswestry Impairment 13/50 Correction Goal (LTG) Pt will decrease Oswestry score to <13/50 in order to demonstrate improved pain management and activity tolerance LTG Duration 10 weeks Assessment Summary Assessment Andreina reports having no pain with eccentric HR on step post Mulligan with movement mobilizations. Physical Therapy Plan Frequency and Duration Frequency of Treatment 2x/Week Duration of treatment (weeks) 10 Plan of Care Start Date 06/07/23 Plan of Care End Date 08/18/23 Next Visit Focus/Plan Next Note Type Treatment Note Next Visit Plan Next session: review hip hinge with resistance/? to HEP, heel elevated ( on step ) eccentric heel raise to HEP if tolerated and single leg stability, 4 step up trial, hip hinge with deadlift, eccentric squat with band, bear plank, ankle stabilization with hip strengthening Future sessions: trial bike, leg press if knee stability ok , LAQ
--- NOTE | 2023-08-08 11:58 | PT.OTN ---
Current Diagnoses Pain in left ankle and joints of left foot (08/08/23) Low back pain, unspecified (08/08/23) Other lack of coordination (08/08/23) Weakness (08/08/23) Physical Therapy Treatment Note PT-OP-A Visit Information Start: 05/26/23 17:12 Freq: Status: Active Protocol: Document 08/08/23 08:18 NM (Rec: 08/08/23 09:02 NM [id number]) Out-Patient Physical Therapy Visit Information Visit Information Visit Type Treatment Note Visit Note Pt had to leave early Visit Start Time 08:18 Visit Stop Time 08:55 Visit Number 13 PT-OP-B Current Condition Start: 05/26/23 17:12 Freq: Status: Active Protocol: Document 06/07/23 14:29 NM (Rec: 06/07/23 16:41 NM [id number]) Current Condition History of Current Condition Onset Date last year Current Complaints pain, weakness, mobility History of Current Condition Pt presents with lumbar spine pain and L ankle pain. 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 Pt reports that her back pain worsen last year, when lifting an object. Pt reports that lifting up to 10# before pain. Pt reports that she has low back with sitting, standing, walking, sleeping along R side. Pt reports that her knees give out on stairs. She reports that she has a bone spur in L ankle, pain along medial ankle under malleoli. Ankle pain began last year when she was started wearing orthotics (had worn them for 10 years) for collapsed arch and leg lift. Tried a soft brace but did not help. She reports that her ankle pain is worse with walking, when she resorts to using a walking stick. She reports that she is able to bike. 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 Last year, pt reports that she had a ministroke where she was unable to speak but has not been confirmed; reports balance has worsened since then. Prior Treatments and Tests Imaging 04/2023: lumbar spine- stable anterolisthesis L4 on L5, mild facet arthopathy L4- S1; ankle radiograph- no fracture, calcaneal enthesophyte Treatment Goals Patient/Caregiver Goals trip to [place] in Nov, long flight PT-OP-C Subjective Start: 05/26/23 17:12 Freq: Status: Active Protocol: Document 08/08/23 08:18 NM (Rec: 08/08/23 09:02 NM [id number]) OP-PT Subjective Patient Comments Patient Comments Pt reports that her ankle is doing better, but still bothers her when she stands for too long (1.5 to 2 hours now until needs to sit). Pt reports that she still has pain in her L side. She reports that the HEP and movement has been helping. She reports that she is much stronger than at evaluation, balance improved, PT-OP-D Balance Start: 05/26/23 17:12 Freq: Status: Active Protocol: Document 06/07/23 14:29 NM (Rec: 06/07/23 16:41 NM [id number]) Balance Tests Single Limb Standing Single Limb- Right 0 seconds Single Limb- Left 1 seconds Tandem Tandem Standing unable to maintain PT-OP-E Functional Tests Start: 05/26/23 17:12 Freq: Status: Active Protocol: Document 06/07/23 14:29 NM (Rec: 06/07/23 16:41 NM [id number]) Functional Tests Five Times Sit to Stand Test Score 4 reps in 15 seconds, unable to complete 5th w/o UE assist Comments requires hand on quads to stand PT-OP-F Manual Assessment Start: 05/26/23 17:12 Freq: Status: Active Protocol: Document 06/07/23 14:29 NM (Rec: 06/07/23 16:41 NM [id number]) Manual Assessments Soft Tissue Assessment Soft Tissue Mobility Assessment Tightness R>L: B hamstrings, paraspinals, QL, and glutes/ piriformis Joint Mobility Assessment Joint Mobility Assessment Decreased L ankle dorsiflexion , pain with inversion. Hypomobility of L1-L5 with P-A springing. No lateral or medial ligamentous instability of L ankle PT-OP-G Mobility & Gait Start: 05/26/23 17:12 Freq: Status: Active Protocol: Document 06/07/23 14:29 NM (Rec: 06/07/23 16:41 NM [id number]) OP Gait Assessment Gait Gait Assistance Required: Independent Distance (Feet) 150 Gait Deviations General Gait Pattern Antalgic,Lateral Trunk Lean Factors Limiting Gait Function Factors Limiting Gait Function Decreased Strength,Limited Range of Motion,Pain,Poor Balance Comments Gait Comments L lean with L stance, also slight forward trunk lean PT-OP-H Neuro Start: 05/26/23 17:12 Freq: Status: Active Protocol: Document 06/07/23 14:29 NM (Rec: 06/07/23 16:41 NM [id number]) Sensation Evaluation Comments Summary Comments BLE equally intact to light touch sensation PT-OP-J Posture/Palpation/Skin Start: 05/26/23 17:12 Freq: Status: Active Protocol: Document 06/07/23 14:29 NM (Rec: 06/07/23 16:41 NM [id number]) Posture Evaluation Position Standing Head/C-Spine Posture Forward Head T-Spine Posture Increased Kyphosis L-Spine Posture Increased Lordosis Pelvis Posture Anteriorly Tilted Hip Posture (L) Externally Rotated,(R) Externally Rotated Knee Posture (L) Genu Valgus,(R) Genu Valgus Patellar Posture (L) Superior,(R) Superior Ankle/Foot Posture (L) Pronated,(R) Pronated,(L) Calcaneal Eversion,(R) Calcaneal Eversion Foot Arch (L) Low Arch,(R) Low Arch Palpation Assessment Location L ankle Palpation Details Tenderness at R navicular bone , under R medial malleolus and along posterior tibialis tendon, metatarsal pads Edema of B ankles, swelling present over R navicular bone lumbar spine Palpation Details R>L symptoms Tenderness: B PSIS, R SIJ, R glutes/piriformis, R lateral to midline L4-S1, R greater trochanter PT-OP-K Range of Motion Start: 05/26/23 17:12 Freq: Status: Active Protocol: Document 07/11/23 07:29 NM (Rec: 07/11/23 08:19 NM [id number]) Lumbar Spine Range of Motion Lumbar Spine Active Percentage Flexion 75 Extension 100 Rotation Left 5 Rotation Right 3 Lateral Flexion Left 100 Lateral Flexion Right 100 ROM Limitations Soft Tissue Tightness,Pain Comments Pain reproduced at R PSIS with R rotation, R lateral flexion , extension. Stretch of paraspinals with flexion Ankle and Foot Goniometric Range of Motion Ankle and Foot Left Dorsiflexion with Knee Flexed 5 Plantarflexion 30 Inversion 20 Eversion 15 Comments No pain with passive movement except from examiner hand placement 07/11/23: 8 deg DF PT-OP-L Special Tests Start: 05/26/23 17:12 Freq: Status: Active Protocol: Document 06/07/23 14:29 NM (Rec: 06/07/23 16:41 NM [id number]) Special Tests Lumbar Spine Special Tests Straight Leg Raise Test Results - Comments hamstring tightness, no change with tension Slump Test Results + Comments L Distraction Test Results + Jarvis/Quadrant Test Results + Comments R PSIS pain reproduced ea direction Foot/Ankle Special Tests Windlass Test Results - Talar tilt Test Results - Anterior Drawer Test Results - PT-OP-M Strength Start: 05/26/23 17:12 Freq: Status: Active Protocol: Document 07/11/23 07:29 NM (Rec: 07/11/23 09:22 NM [id number]) Trunk Strength Trunk Manual Muscle Testing Flexion 4 Good Extension 4 Good Rotation Left 4 Good Rotation Right 4 Good Lateral Flexion Left 4 Good Lateral Flexion Right 4 Good Comments Pain reproduced at R PSIS with resisted R rotation Hip Strength Hip Manual Muscle Testing Right Flexion (L2) 4 Good Extension (S1) 3+ Fair+ Abduction 3+ Fair+ Adduction 4 Good External Rotation 4 Good Internal Rotation 4 Good Comments Reports hip pain with resisted abduction along glute 07/11/23: improved glute activation during squats with band Left Flexion (L2) 4 Good Extension (S1) 3+ Fair+ Abduction 3+ Fair+ Adduction 4 Good External Rotation 4 Good Internal Rotation 4 Good Comments Reports hip pain with resisted abduction along glute 07/11/23: improved glute activation during squats with band PT-OP-Q Treatments Start: 05/26/23 17:12 Freq: Status: Active Protocol: Document 08/08/23 08:18 NM (Rec: 08/08/23 09:02 NM [id number]) Therapeutic Exercises Supine Exercises hip flexion Side bilateral Resistance lvl 1 band around ankles Equipment Used knees slightly flexed for low back comfort; core bracing Reps/Minutes 3x10 Comments pain free; good feedback Chaitanya stretch Supine Exercise Name from hooklying knee to chest Side bilateral Reps/Minutes 1x60 Comments pain free Sitting Exercises seated core [place] ball Sitting Exercise Name 1. lateral flexion/tail wags, 2. A/P tilts to neutral spine, 3. latpulldown Side bilateral Equipment Used large green [place] ball Reps/Minutes 1-2. 1x15 ea, 3. Comments no pain, slight L sided stretching Standing Exercises RDL Standing Exercise Name staggered RDL Side bilateral Resistance 8# db Equipment Used prn cues for hip hinge, improved with reps Reps/Minutes 1x15 ea Comments pain free in low back; good feedback in appropriate muscles Other Exercises quadruped Other Exercise Name hip ext Side bilateral Equipment Used changed from quadruped to standing w/ bent over on plank for 2nd set Reps/Minutes 2x8 Comments cued slower motion, core stab; kick the wall Self-Care/Home Management Treatment Education Patient Education Home Exercise Program Other Education HEP: walking program PT-OP-T Assessment and Plan Start: 05/26/23 17:12 Freq: Status: Active Protocol: Document 08/08/23 08:18 NM (Rec: 08/08/23 09:02 NM [id number]) Physical Therapy Assessment Goals Five Impairment mobility Impairment L ankle dorsiflexion 5 deg Short Term Goal (STG) Pt will increase L ankle dorsiflexion to at least 8 deg in order to improve gait mechanics and ankle AROM for activity 07/11/23: 8 deg DF STG Duration 5 weeks MET Custodial Goal (LTG) Pt will increase B ankle dorsiflexion to at least 10 deg in order to improve gait mechanics and ankle AROM for activity LTG Duration 10 weeks Four Impairment HEP Impairment not performing HEP Short Term Goal (STG) Pt will report compliance with HEP at least 2-3x/wk in order to maximize progression with PT during episode of care 07/11/23: states performing HEP every other day STG Duration 5 weeks MET Instructional Aide Goal (LTG) Pt will report compliance with HEP at least 3x/wk in order to smoothly transition to maintenance program upon discharge from PT to independent exercise LTG Duration 10 weeks Three Impairment function Impairment standing 30 minutes before pain in ankle and low back, walk 1/2 mile Short Term Goal (STG) Pt will report that she is able to stand for at least 45 minutes before needing to sit or rest due to pain in the low back in order to demonstrate improved activity tolerance 07/10/23: states can stand 1 hr before needing to take a seated break STG Duration 5 weeks MET Custodial Goal (LTG) Pt will report that she is able to ambulate for at least 3/4 mile before resting due to pain in order to demonstrate improved activity tolerance and pain management LTG Duration 10 weeks Two Impairment strength Impairment Difficulty with STS without UE use Short Term Goal (STG) Pt will be able to perform 5x STS without UE use from 20 table in order to demonstrate improved quad and glute strength for gait, stairs, and ADLs 07/11/23: able to perform 5x STS without UE assist, arms in front for weight shift anterior, prn cues for control w/ eccentric lowering STG Duration 5 weeks MET Instructional Aide Goal (LTG) Pt will be able to perform at least 10 bilateral squats without pain or compensation in order to demonstrate improved quad and glute strength for gait, stairs, and ADLs LTG Duration 10 weeks One Impairment Oswestry Impairment 13/50 Instructional Aide Goal (LTG) Pt will decrease Oswestry score to <13/50 in order to demonstrate improved pain management and activity tolerance LTG Duration 10 weeks Assessment Summary Assessment Pt tolerated session well with good feedback to therapeutic exercise. Due to fatigue and weakness, pt unable to perform more than 1-2 sets of ea activity. Initiated quadruped to standing hip extension with emphasis on core bracing, neutral spine, and lumbar strengthening. Progressed from deadlift to staggered stance RDL with resistance. Pt requires cues for hip hinge occasionally, but improved with reps and external cues for form. Initiated supine hip flexor strengthening for symptom management of L anterior/lateral hip. Pt has slight knee pain with supine hip flexion, but no hip or back pain. PT and pt discussed activity modification to improve overall activity tolerance, initiating ambulation program 3-5x/wk. Pt agreeable to program, education on importance of mobility for overall health and symptom management. 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 from skilled PT for improved symptom management and activity tolerance. Physical Therapy Plan Frequency and Duration Frequency of Treatment 2x/Week Duration of treatment (weeks) 10 Plan of Care Start Date 06/07/23 Plan of Care End Date 08/18/23 Therapeutic Interventions Therapeutic Interventions Aquatic Therapy,Balance Training,Coordination Training ,Gait Training,Home Exercise Program,Joint Mobilizations, Manual Therapy,Neuromuscular Re-education,Orthotic/ Prosthetic Management,Patient/ Caregiver Education,Self-Care/ Home Management,Sensory Integration,Soft Tissue Mobilization,Taping, Therapeutic Activities, Therapeutic Exercises Modalities Cold Pack/Ice Massage,Electric Stimulation,Hot Packs, Ultrasound,Vasopneumatic Devices Other Therapeutic Interventions pelvic realignment Other Referrals/Consults Referrals/Consults Recommended 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 from referral to precision machinist for custom orthotics to address L ankle/ foot pain Next Visit Focus/Plan Next Note Type Treatment Note Next Visit Plan Next session: heel elevated ( on step ) eccentric heel raise to HEP if tolerated and single leg stability, 4-6 step up trial for glute, leg press (low resistance), modified bird dog with hip ext at counter
--- NOTE | 2023-08-10 10:05 | PT.OTN ---
Current Diagnoses Pain in left ankle and joints of left foot (08/10/23) Low back pain, unspecified (08/10/23) Other lack of coordination (08/10/23) Weakness (08/10/23) Physical Therapy Treatment Note PT-OP-A Visit Information Start: 05/26/23 17:12 Freq: Status: Active Protocol: Document 08/10/23 08:14 AB (Rec: 08/10/23 10:05 AB [id number]) Out-Patient Physical Therapy Visit Information Visit Information Visit Type Treatment Note Visit Note Access Code: [email or web address] Visit Start Time 08:17 Visit Stop Time 09:00 Visit Number 14 Number of SECURITY ADMINISTRATOR Visits 1 Evaluation Information Evaluation Date 06/07/23 Precautions Precautions anterolisthesis, fall risk, previous TIA PT-OP-B Current Condition Start: 05/26/23 17:12 Freq: Status: Active Protocol: Document 06/07/23 14:29 NM (Rec: 06/07/23 16:41 NM [id number]) Current Condition History of Current Condition Onset Date last year Current Complaints pain, weakness, mobility History of Current Condition Pt presents with lumbar spine pain and L ankle pain. 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 Pt reports that her back pain worsen last year, when lifting an object. Pt reports that lifting up to 10# before pain. Pt reports that she has low back with sitting, standing, walking, sleeping along R side. Pt reports that her knees give out on stairs. She reports that she has a bone spur in L ankle, pain along medial ankle under malleoli. Ankle pain began last year when she was started wearing orthotics (had worn them for 10 years) for collapsed arch and leg lift. Tried a soft brace but did not help. She reports that her ankle pain is worse with walking, when she resorts to using a walking stick. She reports that she is able to bike. 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 Last year, pt reports that she had a ministroke where she was unable to speak but has not been confirmed; reports balance has worsened since then. Prior Treatments and Tests Imaging 04/2023: lumbar spine- stable anterolisthesis L4 on L5, mild facet arthopathy L4- S1; ankle radiograph- no fracture, calcaneal enthesophyte Treatment Goals Patient/Caregiver Goals trip to [place] in Nov, long flight PT-OP-C Subjective Start: 05/26/23 17:12 Freq: Status: Active Protocol: Document 08/10/23 08:14 AB (Rec: 08/10/23 10:05 AB [id number]) OP-PT Subjective Patient Comments Patient Comments Patient reports walking 30 minutes daily is enough. Patient reports she did not have pain after, but was done. PT-OP-D Balance Start: 05/26/23 17:12 Freq: Status: Active Protocol: Document 06/07/23 14:29 NM (Rec: 06/07/23 16:41 NM [id number]) Balance Tests Single Limb Standing Single Limb- Right 0 seconds Single Limb- Left 1 seconds Tandem Tandem Standing unable to maintain PT-OP-E Functional Tests Start: 05/26/23 17:12 Freq: Status: Active Protocol: Document 06/07/23 14:29 NM (Rec: 06/07/23 16:41 NM [id number]) Functional Tests Five Times Sit to Stand Test Score 4 reps in 15 seconds, unable to complete 5th w/o UE assist Comments requires hand on quads to stand PT-OP-F Manual Assessment Start: 05/26/23 17:12 Freq: Status: Active Protocol: Document 06/07/23 14:29 NM (Rec: 06/07/23 16:41 NM [id number]) Manual Assessments Soft Tissue Assessment Soft Tissue Mobility Assessment Tightness R>L: B hamstrings, paraspinals, QL, and glutes/ piriformis Joint Mobility Assessment Joint Mobility Assessment Decreased L ankle dorsiflexion , pain with inversion. Hypomobility of L1-L5 with P-A springing. No lateral or medial ligamentous instability of L ankle PT-OP-G Mobility & Gait Start: 05/26/23 17:12 Freq: Status: Active Protocol: Document 06/07/23 14:29 NM (Rec: 06/07/23 16:41 NM [id number]) OP Gait Assessment Gait Gait Assistance Required: Independent Distance (Feet) 150 Gait Deviations General Gait Pattern Antalgic,Lateral Trunk Lean Factors Limiting Gait Function Factors Limiting Gait Function Decreased Strength,Limited Range of Motion,Pain,Poor Balance Comments Gait Comments L lean with L stance, also slight forward trunk lean PT-OP-H Neuro Start: 05/26/23 17:12 Freq: Status: Active Protocol: Document 06/07/23 14:29 NM (Rec: 06/07/23 16:41 NM [id number]) Sensation Evaluation Comments Summary Comments BLE equally intact to light touch sensation PT-OP-J Posture/Palpation/Skin Start: 05/26/23 17:12 Freq: Status: Active Protocol: Document 06/07/23 14:29 NM (Rec: 06/07/23 16:41 NM [id number]) Posture Evaluation Position Standing Head/C-Spine Posture Forward Head T-Spine Posture Increased Kyphosis L-Spine Posture Increased Lordosis Pelvis Posture Anteriorly Tilted Hip Posture (L) Externally Rotated,(R) Externally Rotated Knee Posture (L) Genu Valgus,(R) Genu Valgus Patellar Posture (L) Superior,(R) Superior Ankle/Foot Posture (L) Pronated,(R) Pronated,(L) Calcaneal Eversion,(R) Calcaneal Eversion Foot Arch (L) Low Arch,(R) Low Arch Palpation Assessment Location L ankle Palpation Details Tenderness at R navicular bone , under R medial malleolus and along posterior tibialis tendon, metatarsal pads Edema of B ankles, swelling present over R navicular bone lumbar spine Palpation Details R>L symptoms Tenderness: B PSIS, R SIJ, R glutes/piriformis, R lateral to midline L4-S1, R greater trochanter PT-OP-K Range of Motion Start: 05/26/23 17:12 Freq: Status: Active Protocol: Document 07/11/23 07:29 NM (Rec: 07/11/23 08:19 NM [id number]) Lumbar Spine Range of Motion Lumbar Spine Active Percentage Flexion 75 Extension 100 Rotation Left 5 Rotation Right 3 Lateral Flexion Left 100 Lateral Flexion Right 100 ROM Limitations Soft Tissue Tightness,Pain Comments Pain reproduced at R PSIS with R rotation, R lateral flexion , extension. Stretch of paraspinals with flexion Ankle and Foot Goniometric Range of Motion Ankle and Foot Left Dorsiflexion with Knee Flexed 5 Plantarflexion 30 Inversion 20 Eversion 15 Comments No pain with passive movement except from examiner hand placement 07/11/23: 8 deg DF PT-OP-L Special Tests Start: 05/26/23 17:12 Freq: Status: Active Protocol: Document 06/07/23 14:29 NM (Rec: 06/07/23 16:41 NM [id number]) Special Tests Lumbar Spine Special Tests Straight Leg Raise Test Results - Comments hamstring tightness, no change with tension Slump Test Results + Comments L Distraction Test Results + Jarvis/Quadrant Test Results + Comments R PSIS pain reproduced ea direction Foot/Ankle Special Tests Windlass Test Results - Talar tilt Test Results - Anterior Drawer Test Results - PT-OP-M Strength Start: 05/26/23 17:12 Freq: Status: Active Protocol: Document 07/11/23 07:29 NM (Rec: 07/11/23 09:22 NM [id number]) Trunk Strength Trunk Manual Muscle Testing Flexion 4 Good Extension 4 Good Rotation Left 4 Good Rotation Right 4 Good Lateral Flexion Left 4 Good Lateral Flexion Right 4 Good Comments Pain reproduced at R PSIS with resisted R rotation Hip Strength Hip Manual Muscle Testing Right Flexion (L2) 4 Good Extension (S1) 3+ Fair+ Abduction 3+ Fair+ Adduction 4 Good External Rotation 4 Good Internal Rotation 4 Good Comments Reports hip pain with resisted abduction along glute 07/11/23: improved glute activation during squats with band Left Flexion (L2) 4 Good Extension (S1) 3+ Fair+ Abduction 3+ Fair+ Adduction 4 Good External Rotation 4 Good Internal Rotation 4 Good Comments Reports hip pain with resisted abduction along glute 07/11/23: improved glute activation during squats with band PT-OP-Q Treatments Start: 05/26/23 17:12 Freq: Status: Active Protocol: Document 08/10/23 08:14 AB (Rec: 08/10/23 10:05 AB [id number]) Therapeutic Exercises Supine Exercises Chaitanya stretch Supine Exercise Name from hooklying knee to chest Side bilateral Reps/Minutes 1x60 Comments pain free Standing Exercises bird dog Standing Exercise Name counter plank position with UE 's resting on pillows Reps/Minutes X10 Comments Verbal cues, monitored for pain heel raise Standing Exercise Name single leg heel raise Side left Resistance AROM Equipment Used B hand support on step Comments X3 the X 10 post MWM left, X 10 X2 right single calf stretches Standing Exercise Name 1. gastroc, 2. soleus Side left Equipment Used on stairs Reps/Minutes 2x60 ea Comments pain free Manual Therapy Treatment Soft Tissue Mobilization bilateral hip flexors Mobilization Type Cross-Friction Intensity/Depth Moderate Body Position Hooklying left calf Body Location left calf Mobilization Type Cross-Friction,Rolling Intensity/Depth Moderate Body Position Sidelying Comments prior to stretch Joint Mobilizations L ankle Joint talocrural joint, Mulligan with movement Direction A-P for DF Grade III Body Position Supine Reps/Duration 3X10 Comments Post pain on initiation of HR on step PT-OP-T Assessment and Plan Start: 05/26/23 17:12 Freq: Status: Active Protocol: Document 08/10/23 08:14 AB (Rec: 08/10/23 10:05 AB [id number]) Physical Therapy Assessment Goals Five Impairment mobility Impairment L ankle dorsiflexion 5 deg Short Term Goal (STG) Pt will increase L ankle dorsiflexion to at least 8 deg in order to improve gait mechanics and ankle AROM for activity 07/11/23: 8 deg DF STG Duration 5 weeks [facility] Goal (LTG) Pt will increase B ankle dorsiflexion to at least 10 deg in order to improve gait mechanics and ankle AROM for activity LTG Duration 10 weeks Four Impairment HEP Impairment not performing HEP Short Term Goal (STG) Pt will report compliance with HEP at least 2-3x/wk in order to maximize progression with PT during episode of care 07/11/23: states performing HEP every other day STG Duration 5 weeks [facility] Goal (LTG) Pt will report compliance with HEP at least 3x/wk in order to smoothly transition to maintenance program upon discharge from PT to independent exercise LTG Duration 10 weeks Three Impairment function Impairment standing 30 minutes before pain in ankle and low back, walk 1/2 mile Short Term Goal (STG) Pt will report that she is able to stand for at least 45 minutes before needing to sit or rest due to pain in the low back in order to demonstrate improved activity tolerance 07/10/23: states can stand 1 hr before needing to take a seated break STG Duration 5 weeks [facility] Goal (LTG) Pt will report that she is able to ambulate for at least 3/4 mile before resting due to pain in order to demonstrate improved activity tolerance and pain management LTG Duration 10 weeks Two Impairment strength Impairment Difficulty with STS without UE use Short Term Goal (STG) Pt will be able to perform 5x STS without UE use from 20 table in order to demonstrate improved quad and glute strength for gait, stairs, and ADLs 07/11/23: able to perform 5x STS without UE assist, arms in front for weight shift anterior, prn cues for control w/ eccentric lowering STG Duration 5 weeks [facility] Goal (LTG) Pt will be able to perform at least 10 bilateral squats without pain or compensation in order to demonstrate improved quad and glute strength for gait, stairs, and ADLs LTG Duration 10 weeks One Impairment Oswestry Impairment 13/50 Art Handler Goal (LTG) Pt will decrease Oswestry score to <13/50 in order to demonstrate improved pain management and activity tolerance LTG Duration 10 weeks Assessment Summary Assessment Patient reports the ankle feels much better after Mulligan with movement technique during single heel raise and post technique in general the ankle feels better . Physical Therapy Plan Frequency and Duration Frequency of Treatment 2x/Week Duration of treatment (weeks) 10 Plan of Care Start Date 06/07/23 Plan of Care End Date 08/18/23 Next Visit Focus/Plan Next Note Type Treatment Note Next Visit Plan Next session:assess corby to single leg heel raise and add TC self mob to HEP, single leg stability, 4-6 step up trial for glute, leg press ( low resistance),
--- NOTE | 2023-08-15 08:55 | PT.OTN ---
Current Diagnoses Pain in left ankle and joints of left foot (08/15/23) Low back pain, unspecified (08/15/23) Other lack of coordination (08/15/23) Weakness (08/15/23) Physical Therapy Treatment Note PT-OP-A Visit Information Start: 05/26/23 17:12 Freq: Status: Active Protocol: Document 08/15/23 08:18 NM (Rec: 08/15/23 08:54 NM [id number]) Out-Patient Physical Therapy Visit Information Visit Information Visit Type Treatment Note Visit Note Pt has to leave at 0850 for a meeting at 9000 Visit Start Time 08:18 Visit Stop Time 08:50 Visit Number 15 Evaluation Information Evaluation Date 06/07/23 PT-OP-B Current Condition Start: 05/26/23 17:12 Freq: Status: Active Protocol: Document 06/07/23 14:29 NM (Rec: 06/07/23 16:41 NM [id number]) Current Condition History of Current Condition Onset Date last year Current Complaints pain, weakness, mobility History of Current Condition Pt presents with lumbar spine pain and L ankle pain. 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 Pt reports that her back pain worsen last year, when lifting an object. Pt reports that lifting up to 10# before pain. Pt reports that she has low back with sitting, standing, walking, sleeping along R side. Pt reports that her knees give out on stairs. She reports that she has a bone spur in L ankle, pain along medial ankle under malleoli. Ankle pain began last year when she was started wearing orthotics (had worn them for 10 years) for collapsed arch and leg lift. Tried a soft brace but did not help. She reports that her ankle pain is worse with walking, when she resorts to using a walking stick. She reports that she is able to bike. 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 Last year, pt reports that she had a ministroke where she was unable to speak but has not been confirmed; reports balance has worsened since then. Prior Treatments and Tests Imaging 04/2023: lumbar spine- stable anterolisthesis L4 on L5, mild facet arthopathy L4- S1; ankle radiograph- no fracture, calcaneal enthesophyte Treatment Goals Patient/Caregiver Goals trip to [place] in Nov, long flight PT-OP-C Subjective Start: 05/26/23 17:12 Freq: Status: Active Protocol: Document 08/15/23 08:18 NM (Rec: 08/15/23 08:54 NM [id number]) OP-PT Subjective Patient Comments Patient Comments Pt planning to see Dr. Carmona later today. She reports that she was able to get up and down from the floor by herself over the weekend, which is a significant improvement. Pt reports she is walking 30 minutes without pain in her ankle. Pt reports that her back is not bothering her, stretching and working core is improving PT-OP-D Balance Start: 05/26/23 17:12 Freq: Status: Active Protocol: Document 06/07/23 14:29 NM (Rec: 06/07/23 16:41 NM [id number]) Balance Tests Single Limb Standing Single Limb- Right 0 seconds Single Limb- Left 1 seconds Tandem Tandem Standing unable to maintain PT-OP-E Functional Tests Start: 05/26/23 17:12 Freq: Status: Active Protocol: Document 06/07/23 14:29 NM (Rec: 06/07/23 16:41 NM [id number]) Functional Tests Five Times Sit to Stand Test Score 4 reps in 15 seconds, unable to complete 5th w/o UE assist Comments requires hand on quads to stand PT-OP-F Manual Assessment Start: 05/26/23 17:12 Freq: Status: Active Protocol: Document 06/07/23 14:29 NM (Rec: 06/07/23 16:41 NM [id number]) Manual Assessments Soft Tissue Assessment Soft Tissue Mobility Assessment Tightness R>L: B hamstrings, paraspinals, QL, and glutes/ piriformis Joint Mobility Assessment Joint Mobility Assessment Decreased L ankle dorsiflexion , pain with inversion. Hypomobility of L1-L5 with P-A springing. No lateral or medial ligamentous instability of L ankle PT-OP-G Mobility & Gait Start: 05/26/23 17:12 Freq: Status: Active Protocol: Document 06/07/23 14:29 NM (Rec: 06/07/23 16:41 NM [id number]) OP Gait Assessment Gait Gait Assistance Required: Independent Distance (Feet) 150 Gait Deviations General Gait Pattern Antalgic,Lateral Trunk Lean Factors Limiting Gait Function Factors Limiting Gait Function Decreased Strength,Limited Range of Motion,Pain,Poor Balance Comments Gait Comments L lean with L stance, also slight forward trunk lean PT-OP-H Neuro Start: 05/26/23 17:12 Freq: Status: Active Protocol: Document 06/07/23 14:29 NM (Rec: 06/07/23 16:41 NM [id number]) Sensation Evaluation Comments Summary Comments BLE equally intact to light touch sensation PT-OP-J Posture/Palpation/Skin Start: 05/26/23 17:12 Freq: Status: Active Protocol: Document 06/07/23 14:29 NM (Rec: 06/07/23 16:41 NM [id number]) Posture Evaluation Position Standing Head/C-Spine Posture Forward Head T-Spine Posture Increased Kyphosis L-Spine Posture Increased Lordosis Pelvis Posture Anteriorly Tilted Hip Posture (L) Externally Rotated,(R) Externally Rotated Knee Posture (L) Genu Valgus,(R) Genu Valgus Patellar Posture (L) Superior,(R) Superior Ankle/Foot Posture (L) Pronated,(R) Pronated,(L) Calcaneal Eversion,(R) Calcaneal Eversion Foot Arch (L) Low Arch,(R) Low Arch Palpation Assessment Location L ankle Palpation Details Tenderness at R navicular bone , under R medial malleolus and along posterior tibialis tendon, metatarsal pads Edema of B ankles, swelling present over R navicular bone lumbar spine Palpation Details R>L symptoms Tenderness: B PSIS, R SIJ, R glutes/piriformis, R lateral to midline L4-S1, R greater trochanter PT-OP-K Range of Motion Start: 05/26/23 17:12 Freq: Status: Active Protocol: Document 07/11/23 07:29 NM (Rec: 07/11/23 08:19 NM [id number]) Lumbar Spine Range of Motion Lumbar Spine Active Percentage Flexion 75 Extension 100 Rotation Left 5 Rotation Right 3 Lateral Flexion Left 100 Lateral Flexion Right 100 ROM Limitations Soft Tissue Tightness,Pain Comments Pain reproduced at R PSIS with R rotation, R lateral flexion , extension. Stretch of paraspinals with flexion Ankle and Foot Goniometric Range of Motion Ankle and Foot Left Dorsiflexion with Knee Flexed 5 Plantarflexion 30 Inversion 20 Eversion 15 Comments No pain with passive movement except from examiner hand placement 07/11/23: 8 deg DF PT-OP-L Special Tests Start: 05/26/23 17:12 Freq: Status: Active Protocol: Document 06/07/23 14:29 NM (Rec: 06/07/23 16:41 NM [id number]) Special Tests Lumbar Spine Special Tests Straight Leg Raise Test Results - Comments hamstring tightness, no change with tension Slump Test Results + Comments L Distraction Test Results + Jarvis/Quadrant Test Results + Comments R PSIS pain reproduced ea direction Foot/Ankle Special Tests Windlass Test Results - Talar tilt Test Results - Anterior Drawer Test Results - PT-OP-M Strength Start: 05/26/23 17:12 Freq: Status: Active Protocol: Document 07/11/23 07:29 NM (Rec: 07/11/23 09:22 NM [id number]) Trunk Strength Trunk Manual Muscle Testing Flexion 4 Good Extension 4 Good Rotation Left 4 Good Rotation Right 4 Good Lateral Flexion Left 4 Good Lateral Flexion Right 4 Good Comments Pain reproduced at R PSIS with resisted R rotation Hip Strength Hip Manual Muscle Testing Right Flexion (L2) 4 Good Extension (S1) 3+ Fair+ Abduction 3+ Fair+ Adduction 4 Good External Rotation 4 Good Internal Rotation 4 Good Comments Reports hip pain with resisted abduction along glute 07/11/23: improved glute activation during squats with band Left Flexion (L2) 4 Good Extension (S1) 3+ Fair+ Abduction 3+ Fair+ Adduction 4 Good External Rotation 4 Good Internal Rotation 4 Good Comments Reports hip pain with resisted abduction along glute 07/11/23: improved glute activation during squats with band PT-OP-Q Treatments Start: 05/26/23 17:12 Freq: Status: Active Protocol: Document 08/15/23 08:18 NM (Rec: 08/15/23 08:54 NM [id number]) Therapeutic Exercises Standing Exercises step ups Standing Exercise Name trialed in PT Side bilateral Resistance lvl 3 tb around thighs for cue to limit valgus Equipment Used 4 step, 2 finger support on rail for balance Reps/Minutes 2x8 Comments poor quad control, L more limited than R side bird dog Standing Exercise Name 1. counter plank (mod plank), 2. LE ext only, 3. non-alt UE/ LE bird dog Reps/Minutes 1. 1x30, 2. 1x10 ea LE, 3. 1x8 ea Comments cues to maintain neutral pelvis squat Resistance lvl 3 band around thighs Equipment Used to mesh chair (no glute tap) Reps/Minutes 3x8 Comments cued sit in chair heel raise Standing Exercise Name 1. B > eccentric single leg, 2 . single leg heel raise, 3. B heel raise Side bilateral Resistance AROM Equipment Used BUE support on rails; 4 step for 1; 3. orange ball btwn ankles Reps/Minutes 1. 1x10 ea, 2. 1x10 (L only)- challenge, 3. 2x10 Comments post MWM; cued increased range Manual Therapy Treatment Joint Mobilizations L ankle Joint mobilization with movement of talocrural jt Direction A-P for DF Grade III Body Position Standing Comments prior to ankle strengthening. Pain free, improved TC glide and visible improvement in ankle dorsiflexion Self-Care/Home Management Treatment Education Patient Education Home Exercise Program Other Education HEP: counter top bird dog PT-OP-T Assessment and Plan Start: 05/26/23 17:12 Freq: Status: Active Protocol: Document 08/15/23 08:18 NM (Rec: 08/15/23 08:54 NM [id number]) Physical Therapy Assessment Goals Five Impairment mobility Impairment L ankle dorsiflexion 5 deg Short Term Goal (STG) Pt will increase L ankle dorsiflexion to at least 8 deg in order to improve gait mechanics and ankle AROM for activity 07/11/23: 8 deg DF STG Duration 5 weeks [facility] Goal (LTG) Pt will increase B ankle dorsiflexion to at least 10 deg in order to improve gait mechanics and ankle AROM for activity LTG Duration 10 weeks Four Impairment HEP Impairment not performing HEP Short Term Goal (STG) Pt will report compliance with HEP at least 2-3x/wk in order to maximize progression with PT during episode of care 07/11/23: states performing HEP every other day STG Duration 5 weeks [facility] Goal (LTG) Pt will report compliance with HEP at least 3x/wk in order to smoothly transition to maintenance program upon discharge from PT to independent exercise LTG Duration 10 weeks Three Impairment function Impairment standing 30 minutes before pain in ankle and low back, walk 1/2 mile Short Term Goal (STG) Pt will report that she is able to stand for at least 45 minutes before needing to sit or rest due to pain in the low back in order to demonstrate improved activity tolerance 07/10/23: states can stand 1 hr before needing to take a seated break STG Duration 5 weeks [facility] Goal (LTG) Pt will report that she is able to ambulate for at least 3/4 mile before resting due to pain in order to demonstrate improved activity tolerance and pain management LTG Duration 10 weeks Two Impairment strength Impairment Difficulty with STS without UE use Short Term Goal (STG) Pt will be able to perform 5x STS without UE use from 20 table in order to demonstrate improved quad and glute strength for gait, stairs, and ADLs 07/11/23: able to perform 5x STS without UE assist, arms in front for weight shift anterior, prn cues for control w/ eccentric lowering STG Duration 5 weeks [facility] Goal (LTG) Pt will be able to perform at least 10 bilateral squats without pain or compensation in order to demonstrate improved quad and glute strength for gait, stairs, and ADLs LTG Duration 10 weeks One Impairment Oswestry Impairment 13/50 Grinder Lap Goal (LTG) Pt will decrease Oswestry score to <13/50 in order to demonstrate improved pain management and activity tolerance LTG Duration 10 weeks Assessment Summary Assessment Pt tolerated session well. She is improving with her ability to tolerate exercise, overall functional mobility, and symptom management. Decreased session time due to pt having to leave early. Pt continues to lack strength in ankle plantarflexors, unable to complete full range heel raise . She is challenged with single leg heel raises, demonstrates improved bilateral form/range with ball between ankles as tactile cue . Initiated step up today on 4 step. Pt has quad weakness and demonstrates poor quad control, fatiguing easily. However, able to maintain improved trunk posture during steps ups and squats. 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 from skilled PT for BLE and trunk strengthening for improved symptom management and ADL tolerance. Physical Therapy Plan Frequency and Duration Frequency of Treatment 2x/Week Duration of treatment (weeks) 10 Plan of Care Start Date 06/07/23 Plan of Care End Date 08/18/23 Therapeutic Interventions Therapeutic Interventions Aquatic Therapy,Balance Training,Coordination Training ,Gait Training,Home Exercise Program,Joint Mobilizations, Manual Therapy,Neuromuscular Re-education,Orthotic/ Prosthetic Management,Patient/ Caregiver Education,Self-Care/ Home Management,Sensory Integration,Soft Tissue Mobilization,Taping, Therapeutic Activities, Therapeutic Exercises Modalities Cold Pack/Ice Massage,Electric Stimulation,Hot Packs, Ultrasound,Vasopneumatic Devices Other Therapeutic Interventions pelvic realignment Other Referrals/Consults Referrals/Consults Recommended 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 from referral to complaint clerk for custom orthotics to address L ankle/ foot pain Next Visit Focus/Plan Next Note Type Progress Note Next Visit Plan carries, deadlift, step up > 6 , bird dog Next session:assess corby to single leg heel raise and add TC self mob to HEP, single leg stability, 4-6 step up trial for glute, leg press ( low resistance),
--- NOTE | 2023-08-17 15:53 | PT.OTN ---
Current Diagnoses Pain in left ankle and joints of left foot (08/17/23) Low back pain, unspecified (08/17/23) Other lack of coordination (08/17/23) Weakness (08/17/23) Physical Therapy Treatment Note PT-OP-A Visit Information Start: 05/26/23 17:12 Freq: Status: Active Protocol: Document 08/17/23 08:20 NM (Rec: 08/17/23 09:03 NM [id number]) Out-Patient Physical Therapy Visit Information Visit Information Visit Type Progress Note Visit Start Time 08:20 Visit Stop Time 09:00 Visit Number 16 Evaluation Information Evaluation Date 06/07/23 Precautions Precautions anterolisthesis, fall risk, previous TIA PT-OP-B Current Condition Start: 05/26/23 17:12 Freq: Status: Active Protocol: Document 06/07/23 14:29 NM (Rec: 06/07/23 16:41 NM [id number]) Current Condition History of Current Condition Onset Date last year Current Complaints pain, weakness, mobility History of Current Condition Pt presents with lumbar spine pain and L ankle pain. 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 Pt reports that her back pain worsen last year, when lifting an object. Pt reports that lifting up to 10# before pain. Pt reports that she has low back with sitting, standing, walking, sleeping along R side. Pt reports that her knees give out on stairs. She reports that she has a bone spur in L ankle, pain along medial ankle under malleoli. Ankle pain began last year when she was started wearing orthotics (had worn them for 10 years) for collapsed arch and leg lift. Tried a soft brace but did not help. She reports that her ankle pain is worse with walking, when she resorts to using a walking stick. She reports that she is able to bike. 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 Last year, pt reports that she had a ministroke where she was unable to speak but has not been confirmed; reports balance has worsened since then. Prior Treatments and Tests Imaging 04/2023: lumbar spine- stable anterolisthesis L4 on L5, mild facet arthopathy L4- S1; ankle radiograph- no fracture, calcaneal enthesophyte Treatment Goals Patient/Caregiver Goals trip to [place] in Nov, long flight PT-OP-C Subjective Start: 05/26/23 17:12 Freq: Status: Active Protocol: Document 08/17/23 08:20 NM (Rec: 08/17/23 09:03 NM [id number]) OP-PT Subjective Patient Comments Patient Comments Pt reports that she can ambulate up to an hour before her ankle bothers her or R back bothers her. She is wanting to move down to 1x/wk as she wants to continue w/ PT and is making improvement, but still needs strengthening PT-OP-D Balance Start: 05/26/23 17:12 Freq: Status: Active Protocol: Document 06/07/23 14:29 NM (Rec: 06/07/23 16:41 NM [id number]) Balance Tests Single Limb Standing Single Limb- Right 0 seconds Single Limb- Left 1 seconds Tandem Tandem Standing unable to maintain PT-OP-E Functional Tests Start: 05/26/23 17:12 Freq: Status: Active Protocol: Document 06/07/23 14:29 NM (Rec: 06/07/23 16:41 NM [id number]) Functional Tests Five Times Sit to Stand Test Score 4 reps in 15 seconds, unable to complete 5th w/o UE assist Comments requires hand on quads to stand PT-OP-F Manual Assessment Start: 05/26/23 17:12 Freq: Status: Active Protocol: Document 06/07/23 14:29 NM (Rec: 06/07/23 16:41 NM [id number]) Manual Assessments Soft Tissue Assessment Soft Tissue Mobility Assessment Tightness R>L: B hamstrings, paraspinals, QL, and glutes/ piriformis Joint Mobility Assessment Joint Mobility Assessment Decreased L ankle dorsiflexion , pain with inversion. Hypomobility of L1-L5 with P-A springing. No lateral or medial ligamentous instability of L ankle PT-OP-G Mobility & Gait Start: 05/26/23 17:12 Freq: Status: Active Protocol: Document 06/07/23 14:29 NM (Rec: 06/07/23 16:41 NM [id number]) OP Gait Assessment Gait Gait Assistance Required: Independent Distance (Feet) 150 Gait Deviations General Gait Pattern Antalgic,Lateral Trunk Lean Factors Limiting Gait Function Factors Limiting Gait Function Decreased Strength,Limited Range of Motion,Pain,Poor Balance Comments Gait Comments L lean with L stance, also slight forward trunk lean PT-OP-H Neuro Start: 05/26/23 17:12 Freq: Status: Active Protocol: Document 06/07/23 14:29 NM (Rec: 06/07/23 16:41 NM [id number]) Sensation Evaluation Comments Summary Comments BLE equally intact to light touch sensation PT-OP-J Posture/Palpation/Skin Start: 05/26/23 17:12 Freq: Status: Active Protocol: Document 06/07/23 14:29 NM (Rec: 06/07/23 16:41 NM [id number]) Posture Evaluation Position Standing Head/C-Spine Posture Forward Head T-Spine Posture Increased Kyphosis L-Spine Posture Increased Lordosis Pelvis Posture Anteriorly Tilted Hip Posture (L) Externally Rotated,(R) Externally Rotated Knee Posture (L) Genu Valgus,(R) Genu Valgus Patellar Posture (L) Superior,(R) Superior Ankle/Foot Posture (L) Pronated,(R) Pronated,(L) Calcaneal Eversion,(R) Calcaneal Eversion Foot Arch (L) Low Arch,(R) Low Arch Palpation Assessment Location L ankle Palpation Details Tenderness at R navicular bone , under R medial malleolus and along posterior tibialis tendon, metatarsal pads Edema of B ankles, swelling present over R navicular bone lumbar spine Palpation Details R>L symptoms Tenderness: B PSIS, R SIJ, R glutes/piriformis, R lateral to midline L4-S1, R greater trochanter PT-OP-K Range of Motion Start: 05/26/23 17:12 Freq: Status: Active Protocol: Document 08/17/23 08:20 NM (Rec: 08/17/23 09:03 NM [id number]) Lumbar Spine Range of Motion Lumbar Spine Active Percentage Flexion 75 Extension 100 Rotation Left 5 Rotation Right 3 Lateral Flexion Left 100 Lateral Flexion Right 100 ROM Limitations Soft Tissue Tightness,Pain Comments Pain reproduced at R PSIS with R rotation, R lateral flexion , extension. Stretch of paraspinals with flexion 08/17/23: 11 fwd, 80% flex; pain free Ankle and Foot Goniometric Range of Motion Ankle and Foot Left Dorsiflexion with Knee Flexed 10 Plantarflexion 30 Inversion 20 Eversion 15 Comments IE: 5 deg. No pain with passive movement except from examiner hand placement 07/11/23: 8 deg DF 08/17/23: 10 deg DF PT-OP-L Special Tests Start: 05/26/23 17:12 Freq: Status: Active Protocol: Document 06/07/23 14:29 NM (Rec: 06/07/23 16:41 NM [id number]) Special Tests Lumbar Spine Special Tests Straight Leg Raise Test Results - Comments hamstring tightness, no change with tension Slump Test Results + Comments L Distraction Test Results + Jarvis/Quadrant Test Results + Comments R PSIS pain reproduced ea direction Foot/Ankle Special Tests Windlass Test Results - Talar tilt Test Results - Anterior Drawer Test Results - PT-OP-M Strength Start: 05/26/23 17:12 Freq: Status: Active Protocol: Document 08/17/23 08:20 NM (Rec: 08/17/23 09:03 NM [id number]) Trunk Strength Trunk Manual Muscle Testing Flexion 4 Good Extension 4 Good Rotation Left 4 Good Rotation Right 4 Good Lateral Flexion Left 4 Good Lateral Flexion Right 4 Good Comments Pain reproduced at R PSIS with resisted R rotation 08/17/23: 4/5 for all, no pain reproduced with resisted testing Hip Strength Hip Manual Muscle Testing Right Flexion (L2) 4 Good Extension (S1) 4 Good Abduction 4 Good Adduction 4 Good External Rotation 4 Good Internal Rotation 4 Good Comments Reports hip pain with resisted abduction along glute 07/11/23: improved glute activation during squats with band 08/17/23: 4/5 for all, pain free Left Flexion (L2) 4 Good Extension (S1) 4 Good Abduction 4 Good Adduction 4 Good External Rotation 4 Good Internal Rotation 4 Good Comments Reports hip pain with resisted abduction along glute 07/11/23: improved glute activation during squats with band 08/17/23: 4/5 for all, pain free PT-OP-Q Treatments Start: 05/26/23 17:12 Freq: Status: Active Protocol: Document 08/17/23 08:20 NM (Rec: 08/17/23 09:03 NM [id number]) Therapeutic Exercises Standing Exercises ankle DF Side bilateral Resistance lvl 3 band around toes Reps/Minutes 2x10 Comments pain free step ups Side bilateral Resistance 2# ankle weights Equipment Used 6 step, no UE support Reps/Minutes 2x8 Comments improved control; end of session; fatiguing bird dog Standing Exercise Name bird dog Side bilateral Resistance 2# ankle weights Reps/Minutes 2x10 Comments cued core bracing as fatigue; good neutral pelvis today squat Resistance lvl 3 band around thighs Equipment Used to mesh chair (no glute tap), 2 airex pads behind for form to tap Reps/Minutes 2x10 Comments cued sit in chair; improved form heel raise Standing Exercise Name B > eccentric single leg Side bilateral Resistance AROM Reps/Minutes 1x10 ea Comments cued max ROM hip 3 way Side bilateral Resistance lvl 3 band around thighs Equipment Used holding 4# tball for trunk stabilization Reps/Minutes 2x10 Comments painfree; fatiguing rojas carry Side bilateral Equipment Used bucket with 10# Reps/Minutes 2x50 ea Comments pain free; more challenging w/ maintaining R side upright Other Exercises self soft tissue mobilization Other Exercise Name calf Side left Equipment Used rolling pin, sitting Reps/Minutes 1 minute Comments post calf raises Self-Care/Home Management Treatment Education Patient Education Home Exercise Program Other Education Reviewed and condensed HEP PT-OP-T Assessment and Plan Start: 05/26/23 17:12 Freq: Status: Active Protocol: Document 08/17/23 08:20 NM (Rec: 08/17/23 09:03 NM [id number]) Physical Therapy Assessment Goals Five Impairment mobility Impairment L ankle dorsiflexion 5 deg Short Term Goal (STG) Pt will increase L ankle dorsiflexion to at least 8 deg in order to improve gait mechanics and ankle AROM for activity 07/11/23: 8 deg DF STG Duration 5 weeks MET Rubber Stamp Maker Goal (LTG) Pt will increase B ankle dorsiflexion to at least 10 deg in order to improve gait mechanics and ankle AROM for activity 08/17/23: 10 deg ofDF LTG Duration 10 weeks MET Four Impairment HEP Impairment not performing HEP Short Term Goal (STG) Pt will report compliance with HEP at least 2-3x/wk in order to maximize progression with PT during episode of care 07/11/23: states performing HEP every other day STG Duration 5 weeks MET [facility] Goal (LTG) Pt will report compliance with HEP at least 3x/wk in order to smoothly transition to maintenance program upon discharge from PT to independent exercise 08/17/23: reports 3x/wk, daily walking program LTG Duration 10 weeks MET Three Impairment function Impairment standing 30 minutes before pain in ankle and low back, walk 1/2 mile Short Term Goal (STG) Pt will report that she is able to stand for at least 45 minutes before needing to sit or rest due to pain in the low back in order to demonstrate improved activity tolerance 07/10/23: states can stand 1 hr before needing to take a seated break STG Duration 5 weeks MET Rubber Stamp Maker Goal (LTG) Pt will report that she is able to ambulate for at least 3/4 mile before resting due to pain in order to demonstrate improved activity tolerance and pain management 08/17/23: able to walk 1hr, but not 3/4 mi w/o increase in back pain LTG Duration 10 weeks PROGRESSING; NOT MET 08/17/23 Two Impairment strength Impairment Difficulty with STS without UE use Short Term Goal (STG) Pt will be able to perform 5x STS without UE use from 20 table in order to demonstrate improved quad and glute strength for gait, stairs, and ADLs 07/11/23: able to perform 5x STS without UE assist, arms in front for weight shift anterior, prn cues for control w/ eccentric lowering STG Duration 5 weeks MET Rubber Stamp Maker Goal (LTG) Pt will be able to perform at least 10 bilateral squats without pain or compensation in order to demonstrate improved quad and glute strength for gait, stairs, and ADLs 08/17/23: able to perform 10 squats with band around thighs for knee valgus, limited depth. Reports no pain in back or ankle, slight knee pain LTG Duration 10 weeks PROGRESSING; NOT MET One Impairment Oswestry Impairment 13/50 Rubber Stamp Maker Goal (LTG) Pt will decrease Oswestry score to <13/50 in order to demonstrate improved pain management and activity tolerance 08/17/23: pt did not finish oswestry so unable to score; LEFS now 49/50 LTG Duration 10 weeks NOT MET Assessment Summary Assessment Pt tolerated session well and demonstrates good response to therapeutic exercise. She is making progress toward goals, meeting several. Pt continues to be limited with trunk extensor strength and hip strength. Pt demonstrates improved trunk and quad control with step ups, progressed to 2# ankle weights . She also has improved form and neuromuscular control with modified bird dogs. Pt requires verbal and visual cues during rojas carry for upright posture and core bracing; pain free with carries, L better than R. Physical Therapy Plan Frequency and Duration Frequency of Treatment 1x/Week Duration of treatment (weeks) 10 Plan of Care Start Date 08/17/23 Plan of Care End Date 10/27/23 Therapeutic Interventions Therapeutic Interventions Aquatic Therapy,Balance Training,Coordination Training ,Gait Training,Home Exercise Program,Joint Mobilizations, Manual Therapy,Neuromuscular Re-education,Orthotic/ Prosthetic Management,Patient/ Caregiver Education,Self-Care/ Home Management,Sensory Integration,Soft Tissue Mobilization,Taping, Therapeutic Activities, Therapeutic Exercises Modalities Cold Pack/Ice Massage,Electric Stimulation,Hot Packs, Ultrasound,Vasopneumatic Devices Other Therapeutic Interventions pelvic realignment Other Referrals/Consults Referrals/Consults Recommended 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 from referral to applied biology professor for custom orthotics to address L ankle/ foot pain Next Visit Focus/Plan Next Note Type Treatment Note Next Visit Plan Continue with trunk strengthening: trial chops, increase resistance with carries, deadlift, step up > 6 , goblet squats, resisted dorsiflexion, shuttle balance Next session:assess corby to single leg heel raise and add TC self mob to HEP, single leg stability, 4-6 step up trial for glute, leg press ( low resistance),
--- NOTE | 2023-08-17 15:54 | PT.OPPOC ---
Physical, Occupational & Speech Therapy At [facility] Current Diagnoses Pain in left ankle and joints of left foot (08/17/23) Low back pain, unspecified (08/17/23) Other lack of coordination (08/17/23) Weakness (08/17/23) Visit Care Team Role Provider Type Christiane Carmona MD Attending Provider Physician Family Provider Primary Care Provider Referring Provider Specialty: Family Practice Address: [address] [place] [address], [facility] Email: [email or web address] Plan Of Care PT-OP-T Assessment and Plan Start: 05/26/23 17:12 Freq: Status: Active Protocol: Document 08/17/23 08:20 NM (Rec: 08/17/23 09:03 NM [id number]) Physical Therapy Assessment Goals Five Impairment mobility Impairment L ankle dorsiflexion 5 deg Short Term Goal (STG) Pt will increase L ankle dorsiflexion to at least 8 deg in order to improve gait mechanics and ankle AROM for activity 07/11/23: 8 deg DF STG Duration 5 weeks MET [facility] Goal (LTG) Pt will increase B ankle dorsiflexion to at least 10 deg in order to improve gait mechanics and ankle AROM for activity 08/17/23: 10 deg ofDF LTG Duration 10 weeks MET Four Impairment HEP Impairment not performing HEP Short Term Goal (STG) Pt will report compliance with HEP at least 2-3x/wk in order to maximize progression with PT during episode of care 07/11/23: states performing HEP every other day STG Duration 5 weeks MET Swatch Folder Goal (LTG) Pt will report compliance with HEP at least 3x/wk in order to smoothly transition to maintenance program upon discharge from PT to independent exercise 08/17/23: reports 3x/wk, daily walking program LTG Duration 10 weeks MET Three Impairment function Impairment standing 30 minutes before pain in ankle and low back, walk 1/2 mile Short Term Goal (STG) Pt will report that she is able to stand for at least 45 minutes before needing to sit or rest due to pain in the low back in order to demonstrate improved activity tolerance 07/10/23: states can stand 1 hr before needing to take a seated break STG Duration 5 weeks MET Swatch Folder Goal (LTG) Pt will report that she is able to ambulate for at least 3/4 mile before resting due to pain in order to demonstrate improved activity tolerance and pain management 08/17/23: able to walk 1hr, but not 3/4 mi w/o increase in back pain LTG Duration 10 weeks PROGRESSING; NOT MET 08/17/23 Two Impairment strength Impairment Difficulty with STS without UE use Short Term Goal (STG) Pt will be able to perform 5x STS without UE use from 20 table in order to demonstrate improved quad and glute strength for gait, stairs, and ADLs 07/11/23: able to perform 5x STS without UE assist, arms in front for weight shift anterior, prn cues for control w/ eccentric lowering STG Duration 5 weeks MET Swatch Folder Goal (LTG) Pt will be able to perform at least 10 bilateral squats without pain or compensation in order to demonstrate improved quad and glute strength for gait, stairs, and ADLs 08/17/23: able to perform 10 squats with band around thighs for knee valgus, limited depth. Reports no pain in back or ankle, slight knee pain LTG Duration 10 weeks PROGRESSING; NOT MET One Impairment Oswestry Impairment 13/50 Swatch Folder Goal (LTG) Pt will decrease Oswestry score to <13/50 in order to demonstrate improved pain management and activity tolerance 08/17/23: pt did not finish oswestry so unable to score; LEFS now 49/50 LTG Duration 10 weeks NOT MET Assessment Summary Assessment Pt has been seen x15 visits since evaluation in May 2023 for low back pain. She is progressing well toward goals, meeting several LTGs. Pt continues to be most limited in her ability to stabilize her trunk against resistance and her hip strength. Pt demonstrates improved body mechanics and safer movement patterns with bending, lifting , which has improved her ability to manage her pain symptoms. Overall, pt reports significant decrease in back and ankle symptoms since beginning PT. However, she continues to have limited activity tolerance and is limited by her ambulation distance/endurance, which is a requirement for work. Pt also has impairments in hip and lumbar/trunk strength. Pt recently began a daily ambulation program and has been compliant with both program and HEP. She continues to have back pain, including newer onset L sided back pain. 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 from further skilled PT in order to continue to improve symptom management, improve strength, and improve activity tolerance /ability to participate in work/ADLs. Physical Therapy Plan Frequency and Duration Frequency of Treatment 1x/Week Duration of treatment (weeks) 10 Plan of Care Start Date 08/17/23 Plan of Care End Date 10/27/23 Therapeutic Interventions Therapeutic Interventions Aquatic Therapy,Balance Training,Coordination Training ,Gait Training,Home Exercise Program,Joint Mobilizations, Manual Therapy,Neuromuscular Re-education,Orthotic/ Prosthetic Management,Patient/ Caregiver Education,Self-Care/ Home Management,Sensory Integration,Soft Tissue Mobilization,Taping, Therapeutic Activities, Therapeutic Exercises Modalities Cold Pack/Ice Massage,Electric Stimulation,Hot Packs, Ultrasound,Vasopneumatic Devices Other Therapeutic Interventions pelvic realignment Other Referrals/Consults Referrals/Consults Recommended 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 from referral to hot dip plater for custom orthotics to address L ankle/ foot pain Next Visit Focus/Plan Next Note Type Treatment Note Next Visit Plan Continue with trunk strengthening: trial chops, increase resistance with carries, deadlift, step up > 6 , goblet squats, resisted dorsiflexion, shuttle balance Next session:assess corby to single leg heel raise and add TC self mob to HEP, single leg stability, 4-6 step up trial for glute, leg press ( low resistance), Plan of Care Dates Plan of Care Start Date 08/17/23 Plan of Care End Date 10/27/23 Electronically Signed by: Estrella Yepez, PT 08/17/23 [id number] If you are in agreement with this Plan of Care, please return a signed and dated copy. I have reviewed this Plan of Care and certify that the skilled therapy services above are required to meet the patient?s needs. Physician Signature Date Printed Name and Credentials Clinical Instructor Signature Printed Name and Credentials
--- NOTE | 2023-08-22 08:20 | PT.OTN ---
Current Diagnoses Pain in left ankle and joints of left foot (08/22/23) Low back pain, unspecified (08/22/23) Other lack of coordination (08/22/23) Weakness (08/22/23) Physical Therapy Treatment Note PT-OP-A Visit Information Start: 05/26/23 17:12 Freq: Status: Active Protocol: Document 08/22/23 07:34 NM (Rec: 08/22/23 08:20 NM [id number]) Out-Patient Physical Therapy Visit Information Visit Information Visit Type Treatment Note Visit Start Time 07:35 Visit Stop Time 08:15 Visit Number 17 Evaluation Information Evaluation Date 06/07/23 PT-OP-B Current Condition Start: 05/26/23 17:12 Freq: Status: Active Protocol: Document 06/07/23 14:29 NM (Rec: 06/07/23 16:41 NM [id number]) Current Condition History of Current Condition Onset Date last year Current Complaints pain, weakness, mobility History of Current Condition Pt presents with lumbar spine pain and L ankle pain. 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 Pt reports that her back pain worsen last year, when lifting an object. Pt reports that lifting up to 10# before pain. Pt reports that she has low back with sitting, standing, walking, sleeping along R side. Pt reports that her knees give out on stairs. She reports that she has a bone spur in L ankle, pain along medial ankle under malleoli. Ankle pain began last year when she was started wearing orthotics (had worn them for 10 years) for collapsed arch and leg lift. Tried a soft brace but did not help. She reports that her ankle pain is worse with walking, when she resorts to using a walking stick. She reports that she is able to bike. 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 Last year, pt reports that she had a ministroke where she was unable to speak but has not been confirmed; reports balance has worsened since then. Prior Treatments and Tests Imaging 04/2023: lumbar spine- stable anterolisthesis L4 on L5, mild facet arthopathy L4- S1; ankle radiograph- no fracture, calcaneal enthesophyte Treatment Goals Patient/Caregiver Goals trip to [place] in Nov, long flight PT-OP-C Subjective Start: 05/26/23 17:12 Freq: Status: Active Protocol: Document 08/22/23 07:34 NM (Rec: 08/22/23 08:20 NM [id number]) OP-PT Subjective Patient Comments Patient Comments Pt reports that she tried eccentric heel raises with single leg descent, which caused her ankle to feel sore. She has been walking, which is helpful. Has been compliant with HEP. States back doing well. PT-OP-D Balance Start: 05/26/23 17:12 Freq: Status: Active Protocol: Document 06/07/23 14:29 NM (Rec: 06/07/23 16:41 NM [id number]) Balance Tests Single Limb Standing Single Limb- Right 0 seconds Single Limb- Left 1 seconds Tandem Tandem Standing unable to maintain PT-OP-E Functional Tests Start: 05/26/23 17:12 Freq: Status: Active Protocol: Document 06/07/23 14:29 NM (Rec: 06/07/23 16:41 NM [id number]) Functional Tests Five Times Sit to Stand Test Score 4 reps in 15 seconds, unable to complete 5th w/o UE assist Comments requires hand on quads to stand PT-OP-F Manual Assessment Start: 05/26/23 17:12 Freq: Status: Active Protocol: Document 06/07/23 14:29 NM (Rec: 06/07/23 16:41 NM [id number]) Manual Assessments Soft Tissue Assessment Soft Tissue Mobility Assessment Tightness R>L: B hamstrings, paraspinals, QL, and glutes/ piriformis Joint Mobility Assessment Joint Mobility Assessment Decreased L ankle dorsiflexion , pain with inversion. Hypomobility of L1-L5 with P-A springing. No lateral or medial ligamentous instability of L ankle PT-OP-G Mobility & Gait Start: 05/26/23 17:12 Freq: Status: Active Protocol: Document 06/07/23 14:29 NM (Rec: 06/07/23 16:41 NM [id number]) OP Gait Assessment Gait Gait Assistance Required: Independent Distance (Feet) 150 Gait Deviations General Gait Pattern Antalgic,Lateral Trunk Lean Factors Limiting Gait Function Factors Limiting Gait Function Decreased Strength,Limited Range of Motion,Pain,Poor Balance Comments Gait Comments L lean with L stance, also slight forward trunk lean PT-OP-H Neuro Start: 05/26/23 17:12 Freq: Status: Active Protocol: Document 06/07/23 14:29 NM (Rec: 06/07/23 16:41 NM [id number]) Sensation Evaluation Comments Summary Comments BLE equally intact to light touch sensation PT-OP-J Posture/Palpation/Skin Start: 05/26/23 17:12 Freq: Status: Active Protocol: Document 06/07/23 14:29 NM (Rec: 06/07/23 16:41 NM [id number]) Posture Evaluation Position Standing Head/C-Spine Posture Forward Head T-Spine Posture Increased Kyphosis L-Spine Posture Increased Lordosis Pelvis Posture Anteriorly Tilted Hip Posture (L) Externally Rotated,(R) Externally Rotated Knee Posture (L) Genu Valgus,(R) Genu Valgus Patellar Posture (L) Superior,(R) Superior Ankle/Foot Posture (L) Pronated,(R) Pronated,(L) Calcaneal Eversion,(R) Calcaneal Eversion Foot Arch (L) Low Arch,(R) Low Arch Palpation Assessment Location L ankle Palpation Details Tenderness at R navicular bone , under R medial malleolus and along posterior tibialis tendon, metatarsal pads Edema of B ankles, swelling present over R navicular bone lumbar spine Palpation Details R>L symptoms Tenderness: B PSIS, R SIJ, R glutes/piriformis, R lateral to midline L4-S1, R greater trochanter PT-OP-K Range of Motion Start: 05/26/23 17:12 Freq: Status: Active Protocol: Document 08/17/23 08:20 NM (Rec: 08/17/23 09:03 NM [id number]) Lumbar Spine Range of Motion Lumbar Spine Active Percentage Flexion 75 Extension 100 Rotation Left 5 Rotation Right 3 Lateral Flexion Left 100 Lateral Flexion Right 100 ROM Limitations Soft Tissue Tightness,Pain Comments Pain reproduced at R PSIS with R rotation, R lateral flexion , extension. Stretch of paraspinals with flexion 08/17/23: 11 fwd, 80% flex; pain free Ankle and Foot Goniometric Range of Motion Ankle and Foot Left Dorsiflexion with Knee Flexed 10 Plantarflexion 30 Inversion 20 Eversion 15 Comments IE: 5 deg. No pain with passive movement except from examiner hand placement 07/11/23: 8 deg DF 08/17/23: 10 deg DF PT-OP-L Special Tests Start: 05/26/23 17:12 Freq: Status: Active Protocol: Document 06/07/23 14:29 NM (Rec: 06/07/23 16:41 NM [id number]) Special Tests Lumbar Spine Special Tests Straight Leg Raise Test Results - Comments hamstring tightness, no change with tension Slump Test Results + Comments L Distraction Test Results + Jarvis/Quadrant Test Results + Comments R PSIS pain reproduced ea direction Foot/Ankle Special Tests Windlass Test Results - Talar tilt Test Results - Anterior Drawer Test Results - PT-OP-M Strength Start: 05/26/23 17:12 Freq: Status: Active Protocol: Document 08/17/23 08:20 NM (Rec: 08/17/23 09:03 NM [id number]) Trunk Strength Trunk Manual Muscle Testing Flexion 4 Good Extension 4 Good Rotation Left 4 Good Rotation Right 4 Good Lateral Flexion Left 4 Good Lateral Flexion Right 4 Good Comments Pain reproduced at R PSIS with resisted R rotation 08/17/23: 4/5 for all, no pain reproduced with resisted testing Hip Strength Hip Manual Muscle Testing Right Flexion (L2) 4 Good Extension (S1) 4 Good Abduction 4 Good Adduction 4 Good External Rotation 4 Good Internal Rotation 4 Good Comments Reports hip pain with resisted abduction along glute 07/11/23: improved glute activation during squats with band 08/17/23: 4/5 for all, pain free Left Flexion (L2) 4 Good Extension (S1) 4 Good Abduction 4 Good Adduction 4 Good External Rotation 4 Good Internal Rotation 4 Good Comments Reports hip pain with resisted abduction along glute 07/11/23: improved glute activation during squats with band 08/17/23: 4/5 for all, pain free PT-OP-Q Treatments Start: 05/26/23 17:12 Freq: Status: Active Protocol: Document 08/22/23 07:34 NM (Rec: 08/22/23 08:20 NM [id number]) Cardio Equipment Treadmill Duration (Minutes) 5 Incline 2.5 Other 3.0 min fwd (elevated), 2.5 min bwd (non-elevated) Gym Equipment Cable Column (Body Solid) Lat Pull Down Resistance 2 plates cable> 3 plates cables Reps/Time 3x12 Shuttle Recovery B squat Details cued TKE w/o locking, no knee valgus Resistance 50# (2 navy) Reps/Time 3x8 Therapeutic Exercises Sitting Exercises ankle eversion Side left Resistance lvl 2 tb Reps/Minutes 2x10 Comments pain free ankle inversion Side left Resistance lvl 2 teal band Reps/Minutes 2x10 Comments pain free, challenging and weak Standing Exercises deadlift Side bilateral Resistance 8# db ea hand Equipment Used wall for tactile cue Reps/Minutes 2x10 Comments good feedback in appropriate muscles; good form chops Standing Exercise Name PNF low-high diagonal Resistance lvl 2 band Equipment Used holding w/ foot, mirroring PT for form Reps/Minutes 1x10 ea Comments reports feels in back; denies pain, improved form but challenging calf stretches Standing Exercise Name 1. gastroc, 2. soleus Side bilateral Reps/Minutes 1x60 ea Comments post TM PT-OP-T Assessment and Plan Start: 05/26/23 17:12 Freq: Status: Active Protocol: Document 08/22/23 07:34 NM (Rec: 08/22/23 08:20 NM [id number]) Physical Therapy Assessment Goals Five Impairment mobility Impairment L ankle dorsiflexion 5 deg Short Term Goal (STG) Pt will increase L ankle dorsiflexion to at least 8 deg in order to improve gait mechanics and ankle AROM for activity 07/11/23: 8 deg DF STG Duration 5 weeks MET Occupational Physician Goal (LTG) Pt will increase B ankle dorsiflexion to at least 10 deg in order to improve gait mechanics and ankle AROM for activity 08/17/23: 10 deg ofDF LTG Duration 10 weeks MET Four Impairment HEP Impairment not performing HEP Short Term Goal (STG) Pt will report compliance with HEP at least 2-3x/wk in order to maximize progression with PT during episode of care 07/11/23: states performing HEP every other day STG Duration 5 weeks MET Detention Goal (LTG) Pt will report compliance with HEP at least 3x/wk in order to smoothly transition to maintenance program upon discharge from PT to independent exercise 08/17/23: reports 3x/wk, daily walking program LTG Duration 10 weeks MET Three Impairment function Impairment standing 30 minutes before pain in ankle and low back, walk 1/2 mile Short Term Goal (STG) Pt will report that she is able to stand for at least 45 minutes before needing to sit or rest due to pain in the low back in order to demonstrate improved activity tolerance 07/10/23: states can stand 1 hr before needing to take a seated break STG Duration 5 weeks MET Detention Goal (LTG) Pt will report that she is able to ambulate for at least 3/4 mile before resting due to pain in order to demonstrate improved activity tolerance and pain management 08/17/23: able to walk 1hr, but not 3/4 mi w/o increase in back pain LTG Duration 10 weeks PROGRESSING; NOT MET 08/17/23 Two Impairment strength Impairment Difficulty with STS without UE use Short Term Goal (STG) Pt will be able to perform 5x STS without UE use from 20 table in order to demonstrate improved quad and glute strength for gait, stairs, and ADLs 07/11/23: able to perform 5x STS without UE assist, arms in front for weight shift anterior, prn cues for control w/ eccentric lowering STG Duration 5 weeks MET Detention Goal (LTG) Pt will be able to perform at least 10 bilateral squats without pain or compensation in order to demonstrate improved quad and glute strength for gait, stairs, and ADLs 08/17/23: able to perform 10 squats with band around thighs for knee valgus, limited depth. Reports no pain in back or ankle, slight knee pain LTG Duration 10 weeks PROGRESSING; NOT MET One Impairment Oswestry Impairment 13/50 Occupational Physician Goal (LTG) Pt will decrease Oswestry score to <13/50 in order to demonstrate improved pain management and activity tolerance 08/17/23: pt did not finish oswestry so unable to score; LEFS now 49/50 LTG Duration 10 weeks NOT MET Assessment Summary Assessment Pt tolerated session well and demonstrates good tolerance for exercise. Initiated lower resistance leg press for greater glute/quad strengthening. Continued with posterior chain flexibility and strengthening. Demos good tolerance for lat pull down; cued for form. Pt also has improved hip hinge and maintains core bracing during deadlifts. Trialed incline and retro-ambulation on treadmill for greater stretch. Pt continues to have ankle weakness during gait and exercises, would benefit from greater ankle invertor strengthening. 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 from skilled PT for progressive posterior chain and core strengthening, in addition to ankle strengthening in order to improve activity tolerance and symptom management. Physical Therapy Plan Frequency and Duration Frequency of Treatment 1x/Week Duration of treatment (weeks) 10 Plan of Care Start Date 08/17/23 Plan of Care End Date 10/27/23 Therapeutic Interventions Therapeutic Interventions Aquatic Therapy,Balance Training,Coordination Training ,Gait Training,Home Exercise Program,Joint Mobilizations, Manual Therapy,Neuromuscular Re-education,Orthotic/ Prosthetic Management,Patient/ Caregiver Education,Self-Care/ Home Management,Sensory Integration,Soft Tissue Mobilization,Taping, Therapeutic Activities, Therapeutic Exercises Modalities Cold Pack/Ice Massage,Electric Stimulation,Hot Packs, Ultrasound,Vasopneumatic Devices Other Therapeutic Interventions pelvic realignment Other Referrals/Consults Referrals/Consults Recommended 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 from referral to nuclear waste management engineer for custom orthotics to address L ankle/ foot pain Next Visit Focus/Plan Next Note Type Treatment Note Next Visit Plan deadlift, lat pull downs and rows, ankle inversion, leg press vs step up, ankle stability and DF mobility Next session:assess corby to single leg heel raise and add TC self mob to HEP, single leg stability, 4-6 step up trial for glute, leg press ( low resistance),
--- NOTE | 2023-09-06 13:11 | PT.OTN ---
Current Diagnoses Pain in left ankle and joints of left foot (09/06/23) Low back pain, unspecified (09/06/23) Other lack of coordination (09/06/23) Weakness (09/06/23) Physical Therapy Treatment Note PT-OP-A Visit Information Start: 05/26/23 17:12 Freq: Status: Active Protocol: Document 09/06/23 08:11 AB (Rec: 09/06/23 09:47 AB [id number]) Out-Patient Physical Therapy Visit Information Visit Information Visit Type Treatment Note Visit Note Access Code [email or web address] Visit Start Time 09:04 Visit Stop Time 09:45 Visit Number 18 Number of SLOT SERVICE SPECIALIST Visits 1 Evaluation Information Evaluation Date 06/07/23 Precautions Precautions anterolisthesis, fall risk, previous TIA PT-OP-B Current Condition Start: 05/26/23 17:12 Freq: Status: Active Protocol: Document 06/07/23 14:29 NM (Rec: 06/07/23 16:41 NM [id number]) Current Condition History of Current Condition Onset Date last year Current Complaints pain, weakness, mobility History of Current Condition Pt presents with lumbar spine pain and L ankle pain. 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 Pt reports that her back pain worsen last year, when lifting an object. Pt reports that lifting up to 10# before pain. Pt reports that she has low back with sitting, standing, walking, sleeping along R side. Pt reports that her knees give out on stairs. She reports that she has a bone spur in L ankle, pain along medial ankle under malleoli. Ankle pain began last year when she was started wearing orthotics (had worn them for 10 years) for collapsed arch and leg lift. Tried a soft brace but did not help. She reports that her ankle pain is worse with walking, when she resorts to using a walking stick. She reports that she is able to bike. 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 Last year, pt reports that she had a ministroke where she was unable to speak but has not been confirmed; reports balance has worsened since then. Prior Treatments and Tests Imaging 04/2023: lumbar spine- stable anterolisthesis L4 on L5, mild facet arthopathy L4- S1; ankle radiograph- no fracture, calcaneal enthesophyte Treatment Goals Patient/Caregiver Goals trip to [place] in Nov, long flight PT-OP-C Subjective Start: 05/26/23 17:12 Freq: Status: Active Protocol: Document 09/06/23 08:11 AB (Rec: 09/06/23 09:47 AB [id number]) OP-PT Subjective Patient Comments Patient Comments Patient reports she has been walking every day, started slowly at [facility], but ankle has been acting up left ankle is goint out when she walks, has a referal with the veneer trimmer. PT-OP-D Balance Start: 05/26/23 17:12 Freq: Status: Active Protocol: Document 06/07/23 14:29 NM (Rec: 06/07/23 16:41 NM [id number]) Balance Tests Single Limb Standing Single Limb- Right 0 seconds Single Limb- Left 1 seconds Tandem Tandem Standing unable to maintain PT-OP-E Functional Tests Start: 05/26/23 17:12 Freq: Status: Active Protocol: Document 06/07/23 14:29 NM (Rec: 06/07/23 16:41 NM [id number]) Functional Tests Five Times Sit to Stand Test Score 4 reps in 15 seconds, unable to complete 5th w/o UE assist Comments requires hand on quads to stand PT-OP-F Manual Assessment Start: 05/26/23 17:12 Freq: Status: Active Protocol: Document 06/07/23 14:29 NM (Rec: 06/07/23 16:41 NM [id number]) Manual Assessments Soft Tissue Assessment Soft Tissue Mobility Assessment Tightness R>L: B hamstrings, paraspinals, QL, and glutes/ piriformis Joint Mobility Assessment Joint Mobility Assessment Decreased L ankle dorsiflexion , pain with inversion. Hypomobility of L1-L5 with P-A springing. No lateral or medial ligamentous instability of L ankle PT-OP-G Mobility & Gait Start: 05/26/23 17:12 Freq: Status: Active Protocol: Document 06/07/23 14:29 NM (Rec: 06/07/23 16:41 NM [id number]) OP Gait Assessment Gait Gait Assistance Required: Independent Distance (Feet) 150 Gait Deviations General Gait Pattern Antalgic,Lateral Trunk Lean Factors Limiting Gait Function Factors Limiting Gait Function Decreased Strength,Limited Range of Motion,Pain,Poor Balance Comments Gait Comments L lean with L stance, also slight forward trunk lean PT-OP-H Neuro Start: 05/26/23 17:12 Freq: Status: Active Protocol: Document 06/07/23 14:29 NM (Rec: 06/07/23 16:41 NM [id number]) Sensation Evaluation Comments Summary Comments BLE equally intact to light touch sensation PT-OP-J Posture/Palpation/Skin Start: 05/26/23 17:12 Freq: Status: Active Protocol: Document 06/07/23 14:29 NM (Rec: 06/07/23 16:41 NM [id number]) Posture Evaluation Position Standing Head/C-Spine Posture Forward Head T-Spine Posture Increased Kyphosis L-Spine Posture Increased Lordosis Pelvis Posture Anteriorly Tilted Hip Posture (L) Externally Rotated,(R) Externally Rotated Knee Posture (L) Genu Valgus,(R) Genu Valgus Patellar Posture (L) Superior,(R) Superior Ankle/Foot Posture (L) Pronated,(R) Pronated,(L) Calcaneal Eversion,(R) Calcaneal Eversion Foot Arch (L) Low Arch,(R) Low Arch Palpation Assessment Location L ankle Palpation Details Tenderness at R navicular bone , under R medial malleolus and along posterior tibialis tendon, metatarsal pads Edema of B ankles, swelling present over R navicular bone lumbar spine Palpation Details R>L symptoms Tenderness: B PSIS, R SIJ, R glutes/piriformis, R lateral to midline L4-S1, R greater trochanter PT-OP-K Range of Motion Start: 05/26/23 17:12 Freq: Status: Active Protocol: Document 08/17/23 08:20 NM (Rec: 08/17/23 09:03 NM [id number]) Lumbar Spine Range of Motion Lumbar Spine Active Percentage Flexion 75 Extension 100 Rotation Left 5 Rotation Right 3 Lateral Flexion Left 100 Lateral Flexion Right 100 ROM Limitations Soft Tissue Tightness,Pain Comments Pain reproduced at R PSIS with R rotation, R lateral flexion , extension. Stretch of paraspinals with flexion 08/17/23: 11 fwd, 80% flex; pain free Ankle and Foot Goniometric Range of Motion Ankle and Foot Left Dorsiflexion with Knee Flexed 10 Plantarflexion 30 Inversion 20 Eversion 15 Comments IE: 5 deg. No pain with passive movement except from examiner hand placement 07/11/23: 8 deg DF 5/30/24: 10 deg DF PT-OP-L Special Tests Start: 05/26/23 17:12 Freq: Status: Active Protocol: Document 06/07/23 14:29 NM (Rec: 06/07/23 16:41 NM [id number]) Special Tests Lumbar Spine Special Tests Straight Leg Raise Test Results - Comments hamstring tightness, no change with tension Slump Test Results + Comments L Distraction Test Results + Jarvis/Quadrant Test Results + Comments R PSIS pain reproduced ea direction Foot/Ankle Special Tests Windlass Test Results - Talar tilt Test Results - Anterior Drawer Test Results - PT-OP-M Strength Start: 05/26/23 17:12 Freq: Status: Active Protocol: Document 08/17/23 08:20 NM (Rec: 08/17/23 09:03 NM [id number]) Trunk Strength Trunk Manual Muscle Testing Flexion 4 Good Extension 4 Good Rotation Left 4 Good Rotation Right 4 Good Lateral Flexion Left 4 Good Lateral Flexion Right 4 Good Comments Pain reproduced at R PSIS with resisted R rotation 08/17/23: 4/5 for all, no pain reproduced with resisted testing Hip Strength Hip Manual Muscle Testing Right Flexion (L2) 4 Good Extension (S1) 4 Good Abduction 4 Good Adduction 4 Good External Rotation 4 Good Internal Rotation 4 Good Comments Reports hip pain with resisted abduction along glute 07/11/23: improved glute activation during squats with band 08/17/23: 4/5 for all, pain free Left Flexion (L2) 4 Good Extension (S1) 4 Good Abduction 4 Good Adduction 4 Good External Rotation 4 Good Internal Rotation 4 Good Comments Reports hip pain with resisted abduction along glute 07/11/23: improved glute activation during squats with band 08/17/23: 4/5 for all, pain free PT-OP-Q Treatments Start: 05/26/23 17:12 Freq: Status: Active Protocol: Document 09/06/23 08:11 AB (Rec: 09/06/23 09:47 AB [id number]) Therapeutic Exercises Supine Exercises piriformis stretch Supine Exercise Name from hooklying Side bilateral Reps/Minutes 1x60 Comments post stretch prior to MET Chaitanya stretch Supine Exercise Name from hooklying knee to chest Side right Reps/Minutes 1x60 Comments pain free Standing Exercises calf stretches Standing Exercise Name 1. gastroc, 2. soleus Side bilateral Reps/Minutes 2x60 ea Comments post TM Other Exercises self talocrural mobilization Side left Resistance level 5 band Reps/Minutes X10 Comments verbal cues and assist for set up Manual Therapy Treatment Soft Tissue Mobilization bilateral hip flexors Mobilization Type Cross-Friction Intensity/Depth Moderate Body Position Hooklying bilateral gluteal muscles/piriformis Body Location B glutes/piriformis Mobilization Type Cross-Friction,Rolling Intensity/Depth Moderate Body Position Sidelying Joint Mobilizations L ankle Joint Mulligan mobilization with movement of talocrural jt Direction A-P for DF Grade III Body Position Standing Manual Techniques MET for right AI left PI and pubic shotgun Type right AI left PI and pubic shot gun Reps/Duration 6 X 6 seconds PT-OP-T Assessment and Plan Start: 05/26/23 17:12 Freq: Status: Active Protocol: Document 09/06/23 08:11 AB (Rec: 09/06/23 09:47 AB [id number]) Physical Therapy Assessment Goals Five Impairment mobility Impairment L ankle dorsiflexion 5 deg Short Term Goal (STG) Pt will increase L ankle dorsiflexion to at least 8 deg in order to improve gait mechanics and ankle AROM for activity 07/11/23: 8 deg DF STG Duration 5 weeks MET Residential Goal (LTG) Pt will increase B ankle dorsiflexion to at least 10 deg in order to improve gait mechanics and ankle AROM for activity 08/17/23: 10 deg ofDF LTG Duration 10 weeks MET Four Impairment HEP Impairment not performing HEP Short Term Goal (STG) Pt will report compliance with HEP at least 2-3x/wk in order to maximize progression with PT during episode of care 07/11/23: states performing HEP every other day STG Duration 5 weeks MET Programming Specialist Goal (LTG) Pt will report compliance with HEP at least 3x/wk in order to smoothly transition to maintenance program upon discharge from PT to independent exercise 08/17/23: reports 3x/wk, daily walking program LTG Duration 10 weeks MET Three Impairment function Impairment standing 30 minutes before pain in ankle and low back, walk 1/2 mile Short Term Goal (STG) Pt will report that she is able to stand for at least 45 minutes before needing to sit or rest due to pain in the low back in order to demonstrate improved activity tolerance 07/10/23: states can stand 1 hr before needing to take a seated break STG Duration 5 weeks MET Residential Goal (LTG) Pt will report that she is able to ambulate for at least 3/4 mile before resting due to pain in order to demonstrate improved activity tolerance and pain management 08/17/23: able to walk 1hr, but not 3/4 mi w/o increase in back pain LTG Duration 10 weeks PROGRESSING; NOT MET 08/17/23 Two Impairment strength Impairment Difficulty with STS without UE use Short Term Goal (STG) Pt will be able to perform 5x STS without UE use from 20 table in order to demonstrate improved quad and glute strength for gait, stairs, and ADLs 07/11/23: able to perform 5x STS without UE assist, arms in front for weight shift anterior, prn cues for control w/ eccentric lowering STG Duration 5 weeks MET Programming Specialist Goal (LTG) Pt will be able to perform at least 10 bilateral squats without pain or compensation in order to demonstrate improved quad and glute strength for gait, stairs, and ADLs 08/17/23: able to perform 10 squats with band around thighs for knee valgus, limited depth. Reports no pain in back or ankle, slight knee pain LTG Duration 10 weeks PROGRESSING; NOT MET One Impairment Oswestry Impairment 13/50 Residential Goal (LTG) Pt will decrease Oswestry score to <13/50 in order to demonstrate improved pain management and activity tolerance 08/17/23: pt did not finish oswestry so unable to score; LEFS now 49/50 LTG Duration 10 weeks NOT MET Assessment Summary Assessment Patient reports the ankle feels 100% better Physical Therapy Plan Frequency and Duration Frequency of Treatment 1x/Week Duration of treatment (weeks) 10 Plan of Care Start Date 08/17/23 Plan of Care End Date 10/27/23 Next Visit Focus/Plan Next Note Type Treatment Note Next Visit Plan deadlift, lat pull downs and rows, ankle inversion, leg press vs step up, ankle stability and DF mobility Next session:assess corby to single leg heel raise single leg stability, 4-6 step up trial for glute, leg press ( low resistance),
--- NOTE | 2023-09-12 09:01 | PT.OTN ---
Current Diagnoses Pain in left ankle and joints of left foot (09/12/23) Low back pain, unspecified (09/12/23) Other lack of coordination (09/12/23) Weakness (09/12/23) Physical Therapy Treatment Note PT-OP-A Visit Information Start: 05/26/23 17:12 Freq: Status: Active Protocol: Document 09/12/23 08:15 AB (Rec: 09/12/23 09:00 AB [id number]) Out-Patient Physical Therapy Visit Information Visit Information Visit Type Treatment Note Visit Note Access Code [email or web address] Visit Start Time 08:16 Visit Stop Time 08:58 Visit Number 19 Number of [employer] Visits 2 Evaluation Information Evaluation Date 06/07/23 Precautions Precautions anterolisthesis, fall risk, previous TIA PT-OP-B Current Condition Start: 05/26/23 17:12 Freq: Status: Active Protocol: Document 06/07/23 14:29 NM (Rec: 06/07/23 16:41 NM [id number]) Current Condition History of Current Condition Onset Date last year Current Complaints pain, weakness, mobility History of Current Condition Pt presents with lumbar spine pain and L ankle pain. 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 Pt reports that her back pain worsen last year, when lifting an object. Pt reports that lifting up to 10# before pain. Pt reports that she has low back with sitting, standing, walking, sleeping along R side. Pt reports that her knees give out on stairs. She reports that she has a bone spur in L ankle, pain along medial ankle under malleoli. Ankle pain began last year when she was started wearing orthotics (had worn them for 10 years) for collapsed arch and leg lift. Tried a soft brace but did not help. She reports that her ankle pain is worse with walking, when she resorts to using a walking stick. She reports that she is able to bike. 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 Last year, pt reports that she had a ministroke where she was unable to speak but has not been confirmed; reports balance has worsened since then. Prior Treatments and Tests Imaging 04/2023: lumbar spine- stable anterolisthesis L4 on L5, mild facet arthopathy L4- S1; ankle radiograph- no fracture, calcaneal enthesophyte Treatment Goals Patient/Caregiver Goals trip to [place] in Nov, long flight PT-OP-C Subjective Start: 05/26/23 17:12 Freq: Status: Active Protocol: Document 09/12/23 08:15 AB (Rec: 09/12/23 09:00 AB [id number]) OP-PT Subjective Patient Comments Patient Comments Patient reports the ankle is the same, is swollen attributes to going on a hike with son, down a hill, on a beach over rocks, reports ankle kept turning even with assist from son during hike. Patient reports she cannot do the single leg heel raise is back to double LE heel raise. Patient comments the back is doing better. PT-OP-D Balance Start: 05/26/23 17:12 Freq: Status: Active Protocol: Document 06/07/23 14:29 NM (Rec: 06/07/23 16:41 NM [id number]) Balance Tests Single Limb Standing Single Limb- Right 0 seconds Single Limb- Left 1 seconds Tandem Tandem Standing unable to maintain PT-OP-E Functional Tests Start: 05/26/23 17:12 Freq: Status: Active Protocol: Document 06/07/23 14:29 NM (Rec: 06/07/23 16:41 NM [id number]) Functional Tests Five Times Sit to Stand Test Score 4 reps in 15 seconds, unable to complete 5th w/o UE assist Comments requires hand on quads to stand PT-OP-F Manual Assessment Start: 05/26/23 17:12 Freq: Status: Active Protocol: Document 06/07/23 14:29 NM (Rec: 06/07/23 16:41 NM [id number]) Manual Assessments Soft Tissue Assessment Soft Tissue Mobility Assessment Tightness R>L: B hamstrings, paraspinals, QL, and glutes/ piriformis Joint Mobility Assessment Joint Mobility Assessment Decreased L ankle dorsiflexion , pain with inversion. Hypomobility of L1-L5 with P-A springing. No lateral or medial ligamentous instability of L ankle PT-OP-G Mobility & Gait Start: 05/26/23 17:12 Freq: Status: Active Protocol: Document 06/07/23 14:29 NM (Rec: 06/07/23 16:41 NM [id number]) OP Gait Assessment Gait Gait Assistance Required: Independent Distance (Feet) 150 Gait Deviations General Gait Pattern Antalgic,Lateral Trunk Lean Factors Limiting Gait Function Factors Limiting Gait Function Decreased Strength,Limited Range of Motion,Pain,Poor Balance Comments Gait Comments L lean with L stance, also slight forward trunk lean PT-OP-H Neuro Start: 05/26/23 17:12 Freq: Status: Active Protocol: Document 06/07/23 14:29 NM (Rec: 06/07/23 16:41 NM [id number]) Sensation Evaluation Comments Summary Comments BLE equally intact to light touch sensation PT-OP-J Posture/Palpation/Skin Start: 05/26/23 17:12 Freq: Status: Active Protocol: Document 06/07/23 14:29 NM (Rec: 06/07/23 16:41 NM [id number]) Posture Evaluation Position Standing Head/C-Spine Posture Forward Head T-Spine Posture Increased Kyphosis L-Spine Posture Increased Lordosis Pelvis Posture Anteriorly Tilted Hip Posture (L) Externally Rotated,(R) Externally Rotated Knee Posture (L) Genu Valgus,(R) Genu Valgus Patellar Posture (L) Superior,(R) Superior Ankle/Foot Posture (L) Pronated,(R) Pronated,(L) Calcaneal Eversion,(R) Calcaneal Eversion Foot Arch (L) Low Arch,(R) Low Arch Palpation Assessment Location L ankle Palpation Details Tenderness at R navicular bone , under R medial malleolus and along posterior tibialis tendon, metatarsal pads Edema of B ankles, swelling present over R navicular bone lumbar spine Palpation Details R>L symptoms Tenderness: B PSIS, R SIJ, R glutes/piriformis, R lateral to midline L4-S1, R greater trochanter PT-OP-K Range of Motion Start: 05/26/23 17:12 Freq: Status: Active Protocol: Document 08/17/23 08:20 NM (Rec: 08/17/23 09:03 NM [id number]) Lumbar Spine Range of Motion Lumbar Spine Active Percentage Flexion 75 Extension 100 Rotation Left 5 Rotation Right 3 Lateral Flexion Left 100 Lateral Flexion Right 100 ROM Limitations Soft Tissue Tightness,Pain Comments Pain reproduced at R PSIS with R rotation, R lateral flexion , extension. Stretch of paraspinals with flexion 08/17/23: 11 fwd, 80% flex; pain free Ankle and Foot Goniometric Range of Motion Ankle and Foot Left Dorsiflexion with Knee Flexed 10 Plantarflexion 30 Inversion 20 Eversion 15 Comments IE: 5 deg. No pain with passive movement except from examiner hand placement 07/11/23: 8 deg DF 08/17/23: 10 deg DF PT-OP-L Special Tests Start: 05/26/23 17:12 Freq: Status: Active Protocol: Document 06/07/23 14:29 NM (Rec: 06/07/23 16:41 NM [id number]) Special Tests Lumbar Spine Special Tests Straight Leg Raise Test Results - Comments hamstring tightness, no change with tension Slump Test Results + Comments L Distraction Test Results + Jarvis/Quadrant Test Results + Comments R PSIS pain reproduced ea direction Foot/Ankle Special Tests Windlass Test Results - Talar tilt Test Results - Anterior Drawer Test Results - PT-OP-M Strength Start: 05/26/23 17:12 Freq: Status: Active Protocol: Document 08/17/23 08:20 NM (Rec: 08/17/23 09:03 NM [id number]) Trunk Strength Trunk Manual Muscle Testing Flexion 4 Good Extension 4 Good Rotation Left 4 Good Rotation Right 4 Good Lateral Flexion Left 4 Good Lateral Flexion Right 4 Good Comments Pain reproduced at R PSIS with resisted R rotation 08/17/23: 4/5 for all, no pain reproduced with resisted testing Hip Strength Hip Manual Muscle Testing Right Flexion (L2) 4 Good Extension (S1) 4 Good Abduction 4 Good Adduction 4 Good External Rotation 4 Good Internal Rotation 4 Good Comments Reports hip pain with resisted abduction along glute 07/11/23: improved glute activation during squats with band 08/17/23: 4/5 for all, pain free Left Flexion (L2) 4 Good Extension (S1) 4 Good Abduction 4 Good Adduction 4 Good External Rotation 4 Good Internal Rotation 4 Good Comments Reports hip pain with resisted abduction along glute 07/11/23: improved glute activation during squats with band 08/17/23: 4/5 for all, pain free PT-OP-Q Treatments Start: 05/26/23 17:12 Freq: Status: Active Protocol: Document 09/12/23 08:15 AB (Rec: 09/12/23 09:00 AB [id number]) Therapeutic Exercises Supine Exercises ankle pumps Reps/Minutes X30 Comments post manual therapy Sitting Exercises seated hip abduction with band Sitting Exercise Name HEP blue band now Side bilateral Equipment Used level 4 blue band post X one one minute hold with level 3 band Reps/Minutes X10, one minute hold Comments verbal cues monitored for pain Standing Exercises step downs Standing Exercise Name up back, down fwd, lateral HEP for Lateral* Side bilateral Reps/Minutes X1 X 1 left LE upback, dwnfwd, lateral X 10 Comments Verbal and visual cues squat Standing Exercise Name with ball back to wall Resistance lvl 3 band around thighs Reps/Minutes 3x10 Comments first set without band, 2nd and 3rd set with band, monit for pain heel raise Standing Exercise Name single leg heel raise Side bilateral Resistance AROM Reps/Minutes 2x10 ea Comments verbal cues to lower LE to floor slowly calf stretches Standing Exercise Name 1. gastroc, 2. soleus Side bilateral Reps/Minutes 2x60 ea Comments on step, post manual therapy Manual Therapy Treatment Soft Tissue Mobilization left calf Body Location left calf and for swelling Mobilization Type Cross-Friction,Rolling Intensity/Depth Moderate Body Position Sidelying Comments prior to stretch Joint Mobilizations L ankle Joint Mulligan mobilization with movement of talocrural jt, distal tib/fib Direction A-P for DF MWM, AP and PA for distal tib/fib Grade III Body Position Standing Reps/Duration [id number], tib/fib X 10 hooklying PT-OP-T Assessment and Plan Start: 05/26/23 17:12 Freq: Status: Active Protocol: Document 09/12/23 08:15 AB (Rec: 09/12/23 09:00 AB [id number]) Physical Therapy Assessment Goals Five Impairment mobility Impairment L ankle dorsiflexion 5 deg Short Term Goal (STG) Pt will increase L ankle dorsiflexion to at least 8 deg in order to improve gait mechanics and ankle AROM for activity 07/11/23: 8 deg DF STG Duration 5 weeks MET Skilled Nursing Goal (LTG) Pt will increase B ankle dorsiflexion to at least 10 deg in order to improve gait mechanics and ankle AROM for activity 08/17/23: 10 deg ofDF LTG Duration 10 weeks MET Four Impairment HEP Impairment not performing HEP Short Term Goal (STG) Pt will report compliance with HEP at least 2-3x/wk in order to maximize progression with PT during episode of care 07/11/23: states performing HEP every other day STG Duration 5 weeks MET Skilled Nursing Goal (LTG) Pt will report compliance with HEP at least 3x/wk in order to smoothly transition to maintenance program upon discharge from PT to independent exercise 08/17/23: reports 3x/wk, daily walking program LTG Duration 10 weeks MET Three Impairment function Impairment standing 30 minutes before pain in ankle and low back, walk 1/2 mile Short Term Goal (STG) Pt will report that she is able to stand for at least 45 minutes before needing to sit or rest due to pain in the low back in order to demonstrate improved activity tolerance 07/10/23: states can stand 1 hr before needing to take a seated break STG Duration 5 weeks MET Skilled Nursing Goal (LTG) Pt will report that she is able to ambulate for at least 3/4 mile before resting due to pain in order to demonstrate improved activity tolerance and pain management 08/17/23: able to walk 1hr, but not 3/4 mi w/o increase in back pain LTG Duration 10 weeks PROGRESSING; NOT MET 08/17/23 Two Impairment strength Impairment Difficulty with STS without UE use Short Term Goal (STG) Pt will be able to perform 5x STS without UE use from 20 table in order to demonstrate improved quad and glute strength for gait, stairs, and ADLs 07/11/23: able to perform 5x STS without UE assist, arms in front for weight shift anterior, prn cues for control w/ eccentric lowering STG Duration 5 weeks MET Sodder Goal (LTG) Pt will be able to perform at least 10 bilateral squats without pain or compensation in order to demonstrate improved quad and glute strength for gait, stairs, and ADLs 08/17/23: able to perform 10 squats with band around thighs for knee valgus, limited depth. Reports no pain in back or ankle, slight knee pain LTG Duration 10 weeks PROGRESSING; NOT MET One Impairment Oswestry Impairment 13/50 Skilled Nursing Goal (LTG) Pt will decrease Oswestry score to <13/50 in order to demonstrate improved pain management and activity tolerance 08/17/23: pt did not finish oswestry so unable to score; LEFS now 49/50 LTG Duration 10 weeks NOT MET Assessment Summary Assessment Patient reports no pain with single leg heel raise left LE post manual therapy and calf stretches. Physical Therapy Plan Frequency and Duration Frequency of Treatment 1x/Week Duration of treatment (weeks) 10 Plan of Care Start Date 08/17/23 Plan of Care End Date 10/27/23 Next Visit Focus/Plan Next Note Type Treatment Note Next Visit Plan deadlift, lat pull downs and rows, ankle inversion, leg press vs step up, ankle stability and DF mobility Next session:single leg stability, 4-6 step up trial for glute, leg press (low resistance),
--- NOTE | 2023-09-20 09:44 | PT.OTN ---
Current Diagnoses Pain in left ankle and joints of left foot (09/20/23) Low back pain, unspecified (09/20/23) Other lack of coordination (09/20/23) Weakness (09/20/23) Physical Therapy Treatment Note PT-OP-A Visit Information Start: 05/26/23 17:12 Freq: Status: Active Protocol: Document 09/20/23 07:33 NM (Rec: 09/20/23 08:08 NM [id number]) Out-Patient Physical Therapy Visit Information Visit Information Visit Type Progress Note Visit Start Time 07:34 Visit Stop Time 08:05 Visit Number 20 Evaluation Information Evaluation Date 06/07/23 Precautions Precautions anterolisthesis, fall risk, previous TIA PT-OP-B Current Condition Start: 05/26/23 17:12 Freq: Status: Active Protocol: Document 06/07/23 14:29 NM (Rec: 06/07/23 16:41 NM [id number]) Current Condition History of Current Condition Onset Date last year Current Complaints pain, weakness, mobility History of Current Condition Pt presents with lumbar spine pain and L ankle pain. 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 Pt reports that her back pain worsen last year, when lifting an object. Pt reports that lifting up to 10# before pain. Pt reports that she has low back with sitting, standing, walking, sleeping along R side. Pt reports that her knees give out on stairs. She reports that she has a bone spur in L ankle, pain along medial ankle under malleoli. Ankle pain began last year when she was started wearing orthotics (had worn them for 10 years) for collapsed arch and leg lift. Tried a soft brace but did not help. She reports that her ankle pain is worse with walking, when she resorts to using a walking stick. She reports that she is able to bike. 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 Last year, pt reports that she had a ministroke where she was unable to speak but has not been confirmed; reports balance has worsened since then. Prior Treatments and Tests Imaging 04/2023: lumbar spine- stable anterolisthesis L4 on L5, mild facet arthopathy L4- S1; ankle radiograph- no fracture, calcaneal enthesophyte Treatment Goals Patient/Caregiver Goals trip to [place] in Nov, long flight PT-OP-C Subjective Start: 05/26/23 17:12 Freq: Status: Active Protocol: Document 09/20/23 07:33 NM (Rec: 09/20/23 08:08 NM [id number]) OP-PT Subjective Patient Comments Patient Comments Pt went to tax collector yesterday, issued brace to assist with collapsing arch and to prevent foot turning. She is supposed to wear it except for PT. Feels difference when wearing it. States that she does not have pain. The only way to fix it is surgery but unable due to diabetes. Reports not arthritis due to x rays. She is unable to stay entire session because catching a train, plans to do a lot of walking. Pt reports that since last PN, she feels like she is maintaining. She reports that she has been non- compliant with HEP. She has been to health club 2x and has been walking. PT-OP-D Balance Start: 05/26/23 17:12 Freq: Status: Active Protocol: Document 06/07/23 14:29 NM (Rec: 06/07/23 16:41 NM [id number]) Balance Tests Single Limb Standing Single Limb- Right 0 seconds Single Limb- Left 1 seconds Tandem Tandem Standing unable to maintain PT-OP-E Functional Tests Start: 05/26/23 17:12 Freq: Status: Active Protocol: Document 06/07/23 14:29 NM (Rec: 06/07/23 16:41 NM [id number]) Functional Tests Five Times Sit to Stand Test Score 4 reps in 15 seconds, unable to complete 5th w/o UE assist Comments requires hand on quads to stand PT-OP-F Manual Assessment Start: 05/26/23 17:12 Freq: Status: Active Protocol: Document 06/07/23 14:29 NM (Rec: 06/07/23 16:41 NM [id number]) Manual Assessments Soft Tissue Assessment Soft Tissue Mobility Assessment Tightness R>L: B hamstrings, paraspinals, QL, and glutes/ piriformis Joint Mobility Assessment Joint Mobility Assessment Decreased L ankle dorsiflexion , pain with inversion. Hypomobility of L1-L5 with P-A springing. No lateral or medial ligamentous instability of L ankle PT-OP-G Mobility & Gait Start: 05/26/23 17:12 Freq: Status: Active Protocol: Document 06/07/23 14:29 NM (Rec: 06/07/23 16:41 NM [id number]) OP Gait Assessment Gait Gait Assistance Required: Independent Distance (Feet) 150 Gait Deviations General Gait Pattern Antalgic,Lateral Trunk Lean Factors Limiting Gait Function Factors Limiting Gait Function Decreased Strength,Limited Range of Motion,Pain,Poor Balance Comments Gait Comments L lean with L stance, also slight forward trunk lean PT-OP-H Neuro Start: 05/26/23 17:12 Freq: Status: Active Protocol: Document 06/07/23 14:29 NM (Rec: 06/07/23 16:41 NM [id number]) Sensation Evaluation Comments Summary Comments BLE equally intact to light touch sensation PT-OP-J Posture/Palpation/Skin Start: 05/26/23 17:12 Freq: Status: Active Protocol: Document 06/07/23 14:29 NM (Rec: 06/07/23 16:41 NM [id number]) Posture Evaluation Position Standing Head/C-Spine Posture Forward Head T-Spine Posture Increased Kyphosis L-Spine Posture Increased Lordosis Pelvis Posture Anteriorly Tilted Hip Posture (L) Externally Rotated,(R) Externally Rotated Knee Posture (L) Genu Valgus,(R) Genu Valgus Patellar Posture (L) Superior,(R) Superior Ankle/Foot Posture (L) Pronated,(R) Pronated,(L) Calcaneal Eversion,(R) Calcaneal Eversion Foot Arch (L) Low Arch,(R) Low Arch Palpation Assessment Location L ankle Palpation Details Tenderness at R navicular bone , under R medial malleolus and along posterior tibialis tendon, metatarsal pads Edema of B ankles, swelling present over R navicular bone lumbar spine Palpation Details R>L symptoms Tenderness: B PSIS, R SIJ, R glutes/piriformis, R lateral to midline L4-S1, R greater trochanter PT-OP-K Range of Motion Start: 05/26/23 17:12 Freq: Status: Active Protocol: Document 09/20/23 07:33 NM (Rec: 09/20/23 08:08 NM [id number]) Ankle and Foot Goniometric Range of Motion Ankle and Foot Left Dorsiflexion with Knee Flexed 10 Plantarflexion 30 Inversion 20 Eversion 15 Comments IE: 5 deg. No pain with passive movement except from examiner hand placement 07/11/23: 8 deg DF 09/19/23, 08/17/23: 10 deg DF PT-OP-L Special Tests Start: 05/26/23 17:12 Freq: Status: Active Protocol: Document 06/07/23 14:29 NM (Rec: 06/07/23 16:41 NM [id number]) Special Tests Lumbar Spine Special Tests Straight Leg Raise Test Results - Comments hamstring tightness, no change with tension Slump Test Results + Comments L Distraction Test Results + Jarvis/Quadrant Test Results + Comments R PSIS pain reproduced ea direction Foot/Ankle Special Tests Windlass Test Results - Talar tilt Test Results - Anterior Drawer Test Results - PT-OP-M Strength Start: 05/26/23 17:12 Freq: Status: Active Protocol: Document 09/20/23 07:33 NM (Rec: 09/20/23 08:08 NM [id number]) Hip Strength Hip Manual Muscle Testing Right Flexion (L2) 4 Good Extension (S1) 4 Good Abduction 4 Good Adduction 4 Good External Rotation 4 Good Internal Rotation 4 Good Comments Reports hip pain with resisted abduction along glute 07/11/23: improved glute activation during squats with band 09/19/23, 08/17/23: 4/5 for all, pain free Left Flexion (L2) 4 Good Extension (S1) 4 Good Abduction 4 Good Adduction 4 Good External Rotation 4 Good Internal Rotation 4 Good Comments Reports hip pain with resisted abduction along glute 07/11/23: improved glute activation during squats with band 09/19/23, 08/17/23: 4/5 for all, pain free Knee Strength Knee Manual Muscle Testing Right Flexion (S2) 4 Good Extension (L3) 4 Good Left Flexion (S2) 4 Good Extension (L3) 4 Good Ankle/Foot Strength Ankle and Foot Manual Muscle Testing Left Dorsiflexion (L4) 4 Good Plantarflexion (S1) 4 Good Inversion 4- Good- Eversion (S1) 4 Good Comments Pain reproduced with resisted inversion 09/19/23: 4/5, pain free PT-OP-Q Treatments Start: 05/26/23 17:12 Freq: Status: Active Protocol: Document 09/20/23 07:33 NM (Rec: 09/20/23 08:08 NM [id number]) Therapeutic Exercises Standing Exercises squat Standing Exercise Name squat Side bilateral Resistance AROM Equipment Used to chair Reps/Minutes 2x10 Comments pain free in back and ankle; cued less trunk flex d/t ankle DF lacking hip [address] way Standing Exercise Name 1. hip march, 2. hip ext, 3. hip abd Side bilateral Resistance 1. level 1 band at toes, 2. level 2 band at ankles Equipment Used hand support for balance Reps/Minutes 2x15 ea Comments pain free Ankle DF mobilization Standing Exercise Name toe scour Side left Resistance level 3 band at ankle for post glide Equipment Used PT holding band, on 8 step Reps/Minutes 2 rounds ea toe Comments pain free, feels good Manual Therapy Treatment Consent Patient gave verbal consent for manual Yes treatment Soft Tissue Mobilization left calf Body Location tibialis anterior and posterior Mobilization Type Rolling Intensity/Depth Superficial Body Position Supine Comments For pain reduction, less swelling today. Superficial to moderate, tenderness reported along medial lower leg which reduced with soft tissue mobilization Joint Mobilizations L ankle Joint TC joint Direction Post glide Grade III Body Position Supine Reps/Duration 2x30 Comments To improve ankle mobility, reports improvement in symptoms post mobilization. Monitored for pain, pain free PT-OP-T Assessment and Plan Start: 05/26/23 17:12 Freq: Status: Active Protocol: Document 09/20/23 07:33 NM (Rec: 09/20/23 08:08 NM [id number]) Physical Therapy Assessment Goals Five Impairment mobility Impairment L ankle dorsiflexion 5 deg Short Term Goal (STG) Pt will increase L ankle dorsiflexion to at least 8 deg in order to improve gait mechanics and ankle AROM for activity 07/11/23: 8 deg DF STG Duration 5 weeks MET Ip Paralegal Goal (LTG) Pt will increase B ankle dorsiflexion to at least 10 deg in order to improve gait mechanics and ankle AROM for activity 08/17/23: 10 deg ofDF LTG Duration 10 weeks MET Four Impairment HEP Impairment not performing HEP Short Term Goal (STG) Pt will report compliance with HEP at least 2-3x/wk in order to maximize progression with PT during episode of care 07/11/23: states performing HEP every other day STG Duration 5 weeks MET Halfway Goal (LTG) Pt will report compliance with HEP at least 3x/wk in order to smoothly transition to maintenance program upon discharge from PT to independent exercise 08/17/23: reports 3x/wk, daily walking program LTG Duration 10 weeks MET Three Impairment function Impairment standing 30 minutes before pain in ankle and low back, walk 1/2 mile Short Term Goal (STG) Pt will report that she is able to stand for at least 45 minutes before needing to sit or rest due to pain in the low back in order to demonstrate improved activity tolerance 07/10/23: states can stand 1 hr before needing to take a seated break STG Duration 5 weeks MET Ip Paralegal Goal (LTG) Pt will report that she is able to ambulate for at least 3/4 mile before resting due to pain in order to demonstrate improved activity tolerance and pain management 08/17/23: able to walk 1hr, but not 3/4 mi w/o increase in back pain 09/20/23: Pt reports that she is walking at least 1 mile; only reports ankle pain, no back pain LTG Duration 10 weeks PROGRESSING/MET Two Impairment strength Impairment Difficulty with STS without UE use Short Term Goal (STG) Pt will be able to perform 5x STS without UE use from 20 table in order to demonstrate improved quad and glute strength for gait, stairs, and ADLs 07/11/23: able to perform 5x STS without UE assist, arms in front for weight shift anterior, prn cues for control w/ eccentric lowering STG Duration 5 weeks MET Halfway Goal (LTG) Pt will be able to perform at least 10 bilateral squats without pain or compensation in order to demonstrate improved quad and glute strength for gait, stairs, and ADLs 08/17/23: able to perform 10 squats with band around thighs for knee valgus, limited depth. Reports no pain in back or ankle, slight knee pain 09/20/23: 10 squats without back pain to chair, reports mild ankle pain LTG Duration 10 weeks PROGRESSING One Impairment Oswestry Impairment 13/50 Ip Paralegal Goal (LTG) Pt will decrease Oswestry score to <13/50 in order to demonstrate improved pain management and activity tolerance 08/17/23: pt did not finish oswestry so unable to score; LEFS now 49/50 09/20/23: 10/50 LTG Duration 10 weeks MET Progress Towards Goals Progress Towards Goals Progressing Toward Goals,Goals Met Progress Comments Progressing toward squat goal and ambulation goal. Partially met ambulation goal, other LTGs met Assessment Summary Assessment Pt had to leave session early due to travel, so decreased time today. However, Andreina tolerated session well and reports no pain in her L ankle at end of session. Session emphasis on improving L ankle dorsiflexion and soft tissue length. Pt has tenderness along her medial ankle near the tibialis anterior/ posterior. She responds well to ankle dorsiflexion self mobilization, particularly with toe scouring to improve ROM multi-directionally. Added to HEP with education on correct execution. Continued with hip strengthening. Initiated standing may with resistance at toes to increase iliopsoas strength for gait and to promote ankle stability . Pt continues to have good tolerance for therapeutic exercise after manual treatment. Educated on cryotherapy and elevation while on trip due to increased amount of ambulation pt will be performing; pt verbalizes agreement. Physical Therapy Plan Frequency and Duration Frequency of Treatment 1x/Week Duration of treatment (weeks) 10 Plan of Care Start Date 08/17/23 Plan of Care End Date 10/27/23 Therapeutic Interventions Therapeutic Interventions Aquatic Therapy,Balance Training,Coordination Training ,Gait Training,Home Exercise Program,Joint Mobilizations, Manual Therapy,Neuromuscular Re-education,Orthotic/ Prosthetic Management,Patient/ Caregiver Education,Self-Care/ Home Management,Sensory Integration,Soft Tissue Mobilization,Taping, Therapeutic Activities, Therapeutic Exercises Modalities Cold Pack/Ice Massage,Electric Stimulation,Hot Packs, Ultrasound,Vasopneumatic Devices Other Therapeutic Interventions pelvic realignment Other Referrals/Consults Referrals/Consults Recommended 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
--- NOTE | 2023-09-26 08:15 | PT.OTN ---
Current Diagnoses Pain in left ankle and joints of left foot (09/26/23) Low back pain, unspecified (09/26/23) Other lack of coordination (09/26/23) Weakness (09/26/23) Physical Therapy Treatment Note PT-OP-A Visit Information Start: 05/26/23 17:12 Freq: Status: Active Protocol: Document 09/26/23 07:27 NM (Rec: 09/26/23 08:14 NM [id number]) Out-Patient Physical Therapy Visit Information Visit Information Visit Type Treatment Note Visit Start Time 07:32 Visit Stop Time 08:13 Visit Number 21 Evaluation Information Evaluation Date 06/07/23 Precautions Precautions anterolisthesis, fall risk, previous TIA PT-OP-B Current Condition Start: 05/26/23 17:12 Freq: Status: Active Protocol: Document 06/07/23 14:29 NM (Rec: 06/07/23 16:41 NM [id number]) Current Condition History of Current Condition Onset Date last year Current Complaints pain, weakness, mobility History of Current Condition Pt presents with lumbar spine pain and L ankle pain. 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 Pt reports that her back pain worsen last year, when lifting an object. Pt reports that lifting up to 10# before pain. Pt reports that she has low back with sitting, standing, walking, sleeping along R side. Pt reports that her knees give out on stairs. She reports that she has a bone spur in L ankle, pain along medial ankle under malleoli. Ankle pain began last year when she was started wearing orthotics (had worn them for 10 years) for collapsed arch and leg lift. Tried a soft brace but did not help. She reports that her ankle pain is worse with walking, when she resorts to using a walking stick. She reports that she is able to bike. 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 Last year, pt reports that she had a ministroke where she was unable to speak but has not been confirmed; reports balance has worsened since then. Prior Treatments and Tests Imaging 04/2023: lumbar spine- stable anterolisthesis L4 on L5, mild facet arthopathy L4- S1; ankle radiograph- no fracture, calcaneal enthesophyte Treatment Goals Patient/Caregiver Goals trip to [place] in Nov, long flight PT-OP-C Subjective Start: 05/26/23 17:12 Freq: Status: Active Protocol: Document 09/26/23 07:27 NM (Rec: 09/26/23 08:14 NM [id number]) OP-PT Subjective Patient Comments Patient Comments Pt reports that she has been wearing her new ankle brace, states cause pain up her medial ankle. 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 Ambulated several miles over the weekend and had to do a lot of stairs, which she needed help performing. States brace works though and overall limits pain PT-OP-D Balance Start: 05/26/23 17:12 Freq: Status: Active Protocol: Document 06/07/23 14:29 NM (Rec: 06/07/23 16:41 NM [id number]) Balance Tests Single Limb Standing Single Limb- Right 0 seconds Single Limb- Left 1 seconds Tandem Tandem Standing unable to maintain PT-OP-E Functional Tests Start: 05/26/23 17:12 Freq: Status: Active Protocol: Document 06/07/23 14:29 NM (Rec: 06/07/23 16:41 NM [id number]) Functional Tests Five Times Sit to Stand Test Score 4 reps in 15 seconds, unable to complete 5th w/o UE assist Comments requires hand on quads to stand PT-OP-F Manual Assessment Start: 05/26/23 17:12 Freq: Status: Active Protocol: Document 06/07/23 14:29 NM (Rec: 06/07/23 16:41 NM [id number]) Manual Assessments Soft Tissue Assessment Soft Tissue Mobility Assessment Tightness R>L: B hamstrings, paraspinals, QL, and glutes/ piriformis Joint Mobility Assessment Joint Mobility Assessment Decreased L ankle dorsiflexion , pain with inversion. Hypomobility of L1-L5 with P-A springing. No lateral or medial ligamentous instability of L ankle PT-OP-G Mobility & Gait Start: 05/26/23 17:12 Freq: Status: Active Protocol: Document 06/07/23 14:29 NM (Rec: 06/07/23 16:41 NM [id number]) OP Gait Assessment Gait Gait Assistance Required: Independent Distance (Feet) 150 Gait Deviations General Gait Pattern Antalgic,Lateral Trunk Lean Factors Limiting Gait Function Factors Limiting Gait Function Decreased Strength,Limited Range of Motion,Pain,Poor Balance Comments Gait Comments L lean with L stance, also slight forward trunk lean PT-OP-H Neuro Start: 05/26/23 17:12 Freq: Status: Active Protocol: Document 06/07/23 14:29 NM (Rec: 06/07/23 16:41 NM [id number]) Sensation Evaluation Comments Summary Comments BLE equally intact to light touch sensation PT-OP-J Posture/Palpation/Skin Start: 05/26/23 17:12 Freq: Status: Active Protocol: Document 06/07/23 14:29 NM (Rec: 06/07/23 16:41 NM [id number]) Posture Evaluation Position Standing Head/C-Spine Posture Forward Head T-Spine Posture Increased Kyphosis L-Spine Posture Increased Lordosis Pelvis Posture Anteriorly Tilted Hip Posture (L) Externally Rotated,(R) Externally Rotated Knee Posture (L) Genu Valgus,(R) Genu Valgus Patellar Posture (L) Superior,(R) Superior Ankle/Foot Posture (L) Pronated,(R) Pronated,(L) Calcaneal Eversion,(R) Calcaneal Eversion Foot Arch (L) Low Arch,(R) Low Arch Palpation Assessment Location L ankle Palpation Details Tenderness at R navicular bone , under R medial malleolus and along posterior tibialis tendon, metatarsal pads Edema of B ankles, swelling present over R navicular bone lumbar spine Palpation Details R>L symptoms Tenderness: B PSIS, R SIJ, R glutes/piriformis, R lateral to midline L4-S1, R greater trochanter PT-OP-K Range of Motion Start: 05/26/23 17:12 Freq: Status: Active Protocol: Document 09/20/23 07:33 NM (Rec: 09/20/23 08:08 NM [id number]) Ankle and Foot Goniometric Range of Motion Ankle and Foot Left Dorsiflexion with Knee Flexed 10 Plantarflexion 30 Inversion 20 Eversion 15 Comments IE: 5 deg. No pain with passive movement except from examiner hand placement 07/11/23: 8 deg DF 09/19/23, 08/17/23: 10 deg DF PT-OP-L Special Tests Start: 05/26/23 17:12 Freq: Status: Active Protocol: Document 06/07/23 14:29 NM (Rec: 06/07/23 16:41 NM [id number]) Special Tests Lumbar Spine Special Tests Straight Leg Raise Test Results - Comments hamstring tightness, no change with tension Slump Test Results + Comments L Distraction Test Results + Jarvis/Quadrant Test Results + Comments R PSIS pain reproduced ea direction Foot/Ankle Special Tests Windlass Test Results - Talar tilt Test Results - Anterior Drawer Test Results - PT-OP-M Strength Start: 05/26/23 17:12 Freq: Status: Active Protocol: Document 09/20/23 07:33 NM (Rec: 09/20/23 08:08 NM [id number]) Hip Strength Hip Manual Muscle Testing Right Flexion (L2) 4 Good Extension (S1) 4 Good Abduction 4 Good Adduction 4 Good External Rotation 4 Good Internal Rotation 4 Good Comments Reports hip pain with resisted abduction along glute 07/11/23: improved glute activation during squats with band 09/19/23, 08/17/23: 4/5 for all, pain free Left Flexion (L2) 4 Good Extension (S1) 4 Good Abduction 4 Good Adduction 4 Good External Rotation 4 Good Internal Rotation 4 Good Comments Reports hip pain with resisted abduction along glute 07/11/23: improved glute activation during squats with band 09/19/23, 08/17/23: 4/5 for all, pain free Knee Strength Knee Manual Muscle Testing Right Flexion (S2) 4 Good Extension (L3) 4 Good Left Flexion (S2) 4 Good Extension (L3) 4 Good Ankle/Foot Strength Ankle and Foot Manual Muscle Testing Left Dorsiflexion (L4) 4 Good Plantarflexion (S1) 4 Good Inversion 4- Good- Eversion (S1) 4 Good Comments Pain reproduced with resisted inversion 09/19/23: 4/5, pain free PT-OP-Q Treatments Start: 05/26/23 17:12 Freq: Status: Active Protocol: Document 09/26/23 07:27 NM (Rec: 09/26/23 08:14 NM [id number]) Gym Equipment Shuttle Recovery B squat Details cued TKE w/o locking, no knee valgus Resistance 63# (2 navy) Reps/Time 3x8 Therapeutic Exercises Standing Exercises deadlift Standing Exercise Name kickstand RDL Side bilateral Resistance 5# Equipment Used mirror for visual feedback Reps/Minutes 10 Comments improved w/ reps, cued for weight closer to body ankle DF Standing Exercise Name crespo bag toss into bucket Side bilateral Equipment Used 1 hand support for balance Reps/Minutes 10 ea Comments L harder to coordinate DF, more challenging to balance on LLE heel raise Standing Exercise Name steppin. gastrocnemius , 2 . soleus Side bilateral Resistance AROM > 5# Reps/Minutes 2x15 ft ea Comments L less height than R, but pain free hip 3 way Standing Exercise Name 1. hip march, 2. hip ext, 3. hip abd Side bilateral Resistance 1. level 1 band at toes, 2. level 2 band at ankles Equipment Used hand support for balance Reps/Minutes 2x10 Comments pain free Manual Therapy Treatment Consent Patient gave verbal consent for manual Yes treatment Soft Tissue Mobilization left calf Body Location tibialis anterior and posterior, medial ankle, peroneals Mobilization Type Rolling Intensity/Depth Superficial Body Position Supine Comments No tenderness along medial ankle with superficial soft tissue mobilization, performed distal > proximal. No swelling. Performed prior to mobilization, good tolerance to manual treatment Joint Mobilizations L ankle Joint TC joint Direction Post glide Grade III Body Position Supine Reps/Duration 4x30 Comments To improve ankle mobility, reports improvement in symptoms post mobilization. Monitored for pain, pain free. Performed with gentle scour to ea toe. 7 deg ankle dorsiflexion after mobilization PT-OP-T Assessment and Plan Start: 05/26/23 17:12 Freq: Status: Active Protocol: Document 09/26/23 07:27 NM (Rec: 09/26/23 08:14 NM [id number]) Physical Therapy Assessment Goals Five Impairment mobility Impairment L ankle dorsiflexion 5 deg Short Term Goal (STG) Pt will increase L ankle dorsiflexion to at least 8 deg in order to improve gait mechanics and ankle AROM for activity 07/11/23: 8 deg DF STG Duration 5 weeks MET Respite Worker Goal (LTG) Pt will increase B ankle dorsiflexion to at least 10 deg in order to improve gait mechanics and ankle AROM for activity 08/17/23: 10 deg ofDF LTG Duration 10 weeks MET Four Impairment HEP Impairment not performing HEP Short Term Goal (STG) Pt will report compliance with HEP at least 2-3x/wk in order to maximize progression with PT during episode of care 07/11/23: states performing HEP every other day STG Duration 5 weeks MET Retirement Goal (LTG) Pt will report compliance with HEP at least 3x/wk in order to smoothly transition to maintenance program upon discharge from PT to independent exercise 08/17/23: reports 3x/wk, daily walking program LTG Duration 10 weeks MET Three Impairment function Impairment standing 30 minutes before pain in ankle and low back, walk 1/2 mile Short Term Goal (STG) Pt will report that she is able to stand for at least 45 minutes before needing to sit or rest due to pain in the low back in order to demonstrate improved activity tolerance 07/10/23: states can stand 1 hr before needing to take a seated break STG Duration 5 weeks MET Retirement Goal (LTG) Pt will report that she is able to ambulate for at least 3/4 mile before resting due to pain in order to demonstrate improved activity tolerance and pain management 08/17/23: able to walk 1hr, but not 3/4 mi w/o increase in back pain 09/20/23: Pt reports that she is walking at least 1 mile; only reports ankle pain, no back pain LTG Duration 10 weeks PROGRESSING/MET Two Impairment strength Impairment Difficulty with STS without UE use Short Term Goal (STG) Pt will be able to perform 5x STS without UE use from 20 table in order to demonstrate improved quad and glute strength for gait, stairs, and ADLs 07/11/23: able to perform 5x STS without UE assist, arms in front for weight shift anterior, prn cues for control w/ eccentric lowering STG Duration 5 weeks MET Respite Worker Goal (LTG) Pt will be able to perform at least 10 bilateral squats without pain or compensation in order to demonstrate improved quad and glute strength for gait, stairs, and ADLs 08/17/23: able to perform 10 squats with band around thighs for knee valgus, limited depth. Reports no pain in back or ankle, slight knee pain 09/20/23: 10 squats without back pain to chair, reports mild ankle pain LTG Duration 10 weeks PROGRESSING One Impairment Oswestry Impairment 13/50 Retirement Goal (LTG) Pt will decrease Oswestry score to <13/50 in order to demonstrate improved pain management and activity tolerance 08/17/23: pt did not finish oswestry so unable to score; LEFS now 49/50 09/20/23: 10/50 LTG Duration 10 weeks MET Assessment Summary Assessment Pt tolerated session well. Emphasis on ankle and hip strengthening. Good tolerance to progressed resistance on leg press, but pt only able to perform lower number of reps; no compensations with leg press. Initiated standing ankle dorsiflexion with single leg stance to promote better foot clearance with gait and increase ankle dorsiflexor activation. Pt's balance most limiting factor with kickstand RDL and hip 3 way, requiring visual feedback and occasional hand support to prevent LOB. Continued with L talocrural mobilization to improve L ankle dorsiflexion, up to 7 deg dorsiflexion post mobilization. 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 from skilled PT for L ankle and B hip strengthening, in addition to balance training in order to decrease fall risk and improve activity tolerance. Physical Therapy Plan Frequency and Duration Frequency of Treatment 1x/Week Duration of treatment (weeks) 10 Plan of Care Start Date 08/17/23 Plan of Care End Date 10/27/23 Therapeutic Interventions Therapeutic Interventions Aquatic Therapy,Balance Training,Coordination Training ,Gait Training,Home Exercise Program,Joint Mobilizations, Manual Therapy,Neuromuscular Re-education,Orthotic/ Prosthetic Management,Patient/ Caregiver Education,Self-Care/ Home Management,Sensory Integration,Soft Tissue Mobilization,Taping, Therapeutic Activities, Therapeutic Exercises Modalities Cold Pack/Ice Massage,Electric Stimulation,Hot Packs, Ultrasound,Vasopneumatic Devices Other Therapeutic Interventions pelvic realignment Other Referrals/Consults Referrals/Consults Recommended 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 from referral to sole buffer for custom orthotics to address L ankle/ foot pain Next Visit Focus/Plan Next Note Type Treatment Note Next Visit Plan Balance and hip strength, prn ankle DF mob as needed; add kickstand RDL to HEP if good form Hip strength: step up, hip 3 way with march, ankle strength and balance kael to limit pronation (banded eversion and inversion), everted heel raises deadlift, lat pull downs and rows, ankle inversion, leg press vs step up, ankle stability and DF mobility Next session:single leg stability, 4-6 step up trial for glute, leg press (low resistance), PN or d/c on 10/15 appt
--- NOTE | 2023-10-05 10:00 | PT.OTN ---
Current Diagnoses Pain in left ankle and joints of left foot (10/05/23) Low back pain, unspecified (10/05/23) Other lack of coordination (10/05/23) Weakness (10/05/23) Physical Therapy Treatment Note PT-OP-A Visit Information Start: 05/26/23 17:12 Freq: Status: Active Protocol: Document 10/05/23 08:06 AB (Rec: 10/05/23 09:02 AB [id number]) Out-Patient Physical Therapy Visit Information Visit Information Visit Type Treatment Note Visit Start Time 08:15 Visit Stop Time 09:59 Visit Number 22 Number of INTERNAL SALESPERSON Visits 1 Evaluation Information Evaluation Date 06/07/23 Precautions Precautions anterolisthesis, fall risk, previous TIA PT-OP-B Current Condition Start: 05/26/23 17:12 Freq: Status: Active Protocol: Document 06/07/23 14:29 NM (Rec: 06/07/23 16:41 NM [id number]) Current Condition History of Current Condition Onset Date last year Current Complaints pain, weakness, mobility History of Current Condition Pt presents with lumbar spine pain and L ankle pain. 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 Pt reports that her back pain worsen last year, when lifting an object. Pt reports that lifting up to 10# before pain. Pt reports that she has low back with sitting, standing, walking, sleeping along R side. Pt reports that her knees give out on stairs. She reports that she has a bone spur in L ankle, pain along medial ankle under malleoli. Ankle pain began last year when she was started wearing orthotics (had worn them for 10 years) for collapsed arch and leg lift. Tried a soft brace but did not help. She reports that her ankle pain is worse with walking, when she resorts to using a walking stick. She reports that she is able to bike. 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 Last year, pt reports that she had a ministroke where she was unable to speak but has not been confirmed; reports balance has worsened since then. Prior Treatments and Tests Imaging 04/2023: lumbar spine- stable anterolisthesis L4 on L5, mild facet arthopathy L4- S1; ankle radiograph- no fracture, calcaneal enthesophyte Treatment Goals Patient/Caregiver Goals trip to [place] in Nov, long flight PT-OP-C Subjective Start: 05/26/23 17:12 Freq: Status: Active Protocol: Document 10/05/23 08:06 AB (Rec: 10/05/23 09:02 AB [id number]) OP-PT Subjective Patient Comments Patient Comments Patient reports she has new shoes and brace. reports has no pain with walking when wearing her brace. Patient reports she is walking daily going to [facility]. PT-OP-D Balance Start: 05/26/23 17:12 Freq: Status: Active Protocol: Document 06/07/23 14:29 NM (Rec: 06/07/23 16:41 NM [id number]) Balance Tests Single Limb Standing Single Limb- Right 0 seconds Single Limb- Left 1 seconds Tandem Tandem Standing unable to maintain PT-OP-E Functional Tests Start: 05/26/23 17:12 Freq: Status: Active Protocol: Document 06/07/23 14:29 NM (Rec: 06/07/23 16:41 NM [id number]) Functional Tests Five Times Sit to Stand Test Score 4 reps in 15 seconds, unable to complete 5th w/o UE assist Comments requires hand on quads to stand PT-OP-F Manual Assessment Start: 05/26/23 17:12 Freq: Status: Active Protocol: Document 06/07/23 14:29 NM (Rec: 06/07/23 16:41 NM [id number]) Manual Assessments Soft Tissue Assessment Soft Tissue Mobility Assessment Tightness R>L: B hamstrings, paraspinals, QL, and glutes/ piriformis Joint Mobility Assessment Joint Mobility Assessment Decreased L ankle dorsiflexion , pain with inversion. Hypomobility of L1-L5 with P-A springing. No lateral or medial ligamentous instability of L ankle PT-OP-G Mobility & Gait Start: 05/26/23 17:12 Freq: Status: Active Protocol: Document 06/07/23 14:29 NM (Rec: 06/07/23 16:41 NM [id number]) OP Gait Assessment Gait Gait Assistance Required: Independent Distance (Feet) 150 Gait Deviations General Gait Pattern Antalgic,Lateral Trunk Lean Factors Limiting Gait Function Factors Limiting Gait Function Decreased Strength,Limited Range of Motion,Pain,Poor Balance Comments Gait Comments L lean with L stance, also slight forward trunk lean PT-OP-H Neuro Start: 05/26/23 17:12 Freq: Status: Active Protocol: Document 06/07/23 14:29 NM (Rec: 06/07/23 16:41 NM [id number]) Sensation Evaluation Comments Summary Comments BLE equally intact to light touch sensation PT-OP-J Posture/Palpation/Skin Start: 05/26/23 17:12 Freq: Status: Active Protocol: Document 06/07/23 14:29 NM (Rec: 06/07/23 16:41 NM [id number]) Posture Evaluation Position Standing Head/C-Spine Posture Forward Head T-Spine Posture Increased Kyphosis L-Spine Posture Increased Lordosis Pelvis Posture Anteriorly Tilted Hip Posture (L) Externally Rotated,(R) Externally Rotated Knee Posture (L) Genu Valgus,(R) Genu Valgus Patellar Posture (L) Superior,(R) Superior Ankle/Foot Posture (L) Pronated,(R) Pronated,(L) Calcaneal Eversion,(R) Calcaneal Eversion Foot Arch (L) Low Arch,(R) Low Arch Palpation Assessment Location L ankle Palpation Details Tenderness at R navicular bone , under R medial malleolus and along posterior tibialis tendon, metatarsal pads Edema of B ankles, swelling present over R navicular bone lumbar spine Palpation Details R>L symptoms Tenderness: B PSIS, R SIJ, R glutes/piriformis, R lateral to midline L4-S1, R greater trochanter PT-OP-K Range of Motion Start: 05/26/23 17:12 Freq: Status: Active Protocol: Document 09/20/23 07:33 NM (Rec: 09/20/23 08:08 NM [id number]) Ankle and Foot Goniometric Range of Motion Ankle and Foot Left Dorsiflexion with Knee Flexed 10 Plantarflexion 30 Inversion 20 Eversion 15 Comments IE: 5 deg. No pain with passive movement except from examiner hand placement 07/11/23: 8 deg DF 09/19/23, 08/17/23: 10 deg DF PT-OP-L Special Tests Start: 05/26/23 17:12 Freq: Status: Active Protocol: Document 06/07/23 14:29 NM (Rec: 06/07/23 16:41 NM [id number]) Special Tests Lumbar Spine Special Tests Straight Leg Raise Test Results - Comments hamstring tightness, no change with tension Slump Test Results + Comments L Distraction Test Results + Jarvis/Quadrant Test Results + Comments R PSIS pain reproduced ea direction Foot/Ankle Special Tests Windlass Test Results - Talar tilt Test Results - Anterior Drawer Test Results - PT-OP-M Strength Start: 05/26/23 17:12 Freq: Status: Active Protocol: Document 09/20/23 07:33 NM (Rec: 09/20/23 08:08 NM [id number]) Hip Strength Hip Manual Muscle Testing Right Flexion (L2) 4 Good Extension (S1) 4 Good Abduction 4 Good Adduction 4 Good External Rotation 4 Good Internal Rotation 4 Good Comments Reports hip pain with resisted abduction along glute 07/11/23: improved glute activation during squats with band 09/19/23, 08/17/23: 4/5 for all, pain free Left Flexion (L2) 4 Good Extension (S1) 4 Good Abduction 4 Good Adduction 4 Good External Rotation 4 Good Internal Rotation 4 Good Comments Reports hip pain with resisted abduction along glute 07/11/23: improved glute activation during squats with band 09/19/23, 08/17/23: 4/5 for all, pain free Knee Strength Knee Manual Muscle Testing Right Flexion (S2) 4 Good Extension (L3) 4 Good Left Flexion (S2) 4 Good Extension (L3) 4 Good Ankle/Foot Strength Ankle and Foot Manual Muscle Testing Left Dorsiflexion (L4) 4 Good Plantarflexion (S1) 4 Good Inversion 4- Good- Eversion (S1) 4 Good Comments Pain reproduced with resisted inversion 09/19/23: 4/5, pain free PT-OP-Q Treatments Start: 05/26/23 17:12 Freq: Status: Active Protocol: Document 10/05/23 08:06 AB (Rec: 10/05/23 09:02 AB [id number]) Therapeutic Exercises Standing Exercises forward T to mat height Side bilateral Reps/Minutes X10 X 2 each LE glute med isometric Standing Exercise Name HEP Side bilateral Reps/Minutes one minute each side Comments verbal and visual cues hip 3 way Standing Exercise Name 1. hip march, 2. hip ext, 3. hip abd Side bilateral Resistance level 3 at ankles Equipment Used hand support for balance Reps/Minutes 2x15 Comments pain free Manual Therapy Treatment Soft Tissue Mobilization bilateral gluteal muscles/piriformis Body Location sacral and glute/piriformis bilateral Mobilization Type Instrument Assisted Intensity/Depth Moderate Body Position Sidelying Joint Mobilizations L ankle Joint [place] with movement Direction AO Grade III Body Position Standing Reps/Duration 10X3 Manual Techniques MET for right AI left PI and pubic shotgun Type right AI left PI and pubic shot gun Reps/Duration 6 X 6 seconds Neuro Re-Education Treatment Balance Activities tandem stance Details with and without head turns and visual scanning Reps/Duration 2 min Comments CGA hands above bars SLS Details on floor and on air ex, W and WO visual scanning and head turns Reps/Duration 5 min Comments hands above bars CGA hurdles Reps/Duration 10 feet X 4 Comments CGA hands above bars PT-OP-T Assessment and Plan Start: 05/26/23 17:12 Freq: Status: Active Protocol: Document 10/05/23 08:06 AB (Rec: 10/05/23 09:02 AB [id number]) Physical Therapy Assessment Goals Five Impairment mobility Impairment L ankle dorsiflexion 5 deg Short Term Goal (STG) Pt will increase L ankle dorsiflexion to at least 8 deg in order to improve gait mechanics and ankle AROM for activity 07/11/23: 8 deg DF STG Duration 5 weeks MET Shelter Goal (LTG) Pt will increase B ankle dorsiflexion to at least 10 deg in order to improve gait mechanics and ankle AROM for activity 08/17/23: 10 deg ofDF LTG Duration 10 weeks MET Four Impairment HEP Impairment not performing HEP Short Term Goal (STG) Pt will report compliance with HEP at least 2-3x/wk in order to maximize progression with PT during episode of care 07/11/23: states performing HEP every other day STG Duration 5 weeks MET Shelter Goal (LTG) Pt will report compliance with HEP at least 3x/wk in order to smoothly transition to maintenance program upon discharge from PT to independent exercise 08/17/23: reports 3x/wk, daily walking program LTG Duration 10 weeks MET Three Impairment function Impairment standing 30 minutes before pain in ankle and low back, walk 1/2 mile Short Term Goal (STG) Pt will report that she is able to stand for at least 45 minutes before needing to sit or rest due to pain in the low back in order to demonstrate improved activity tolerance 07/10/23: states can stand 1 hr before needing to take a seated break STG Duration 5 weeks MET Shelter Goal (LTG) Pt will report that she is able to ambulate for at least 3/4 mile before resting due to pain in order to demonstrate improved activity tolerance and pain management 08/17/23: able to walk 1hr, but not 3/4 mi w/o increase in back pain 09/20/23: Pt reports that she is walking at least 1 mile; only reports ankle pain, no back pain 10/05/2023 Patient reports she can walk over 2 miles without stopping due to pain, attributes to shoe and new brace. 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 LTG Duration 10 weeks PROGRESSING/MET Two Impairment strength Impairment Difficulty with STS without UE use Short Term Goal (STG) Pt will be able to perform 5x STS without UE use from 20 table in order to demonstrate improved quad and glute strength for gait, stairs, and ADLs 07/11/23: able to perform 5x STS without UE assist, arms in front for weight shift anterior, prn cues for control w/ eccentric lowering STG Duration 5 weeks MET Lace Weaver Goal (LTG) Pt will be able to perform at least 10 bilateral squats without pain or compensation in order to demonstrate improved quad and glute strength for gait, stairs, and ADLs 08/17/23: able to perform 10 squats with band around thighs for knee valgus, limited depth. Reports no pain in back or ankle, slight knee pain 09/20/23: 10 squats without back pain to chair, reports mild ankle pain LTG Duration 10 weeks PROGRESSING One Impairment Oswestry Impairment 13/50 Shelter Goal (LTG) Pt will decrease Oswestry score to <13/50 in order to demonstrate improved pain management and activity tolerance 08/17/23: pt did not finish oswestry so unable to score; LEFS now 49/50 09/20/23: 10/50 LTG Duration 10 weeks MET Assessment Summary Assessment Good tolerance to this session , progressed band for 3 way and added glute med isometric on wall to HEP also performed with good corby and tech. Physical Therapy Plan Frequency and Duration Frequency of Treatment 1x/Week Duration of treatment (weeks) 10 Plan of Care Start Date 08/17/23 Plan of Care End Date 10/27/23 Next Visit Focus/Plan Next Note Type Treatment Note Next Visit Plan Balance and hip strength, prn ankle DF mob as needed; add kickstand RDL to HEP if good form Hip strength: step up, ankle strength and balance kael to limit pronation (banded eversion and inversion), everted heel raises deadlift, lat pull downs and rows, ankle inversion, leg press vs step up, ankle stability and DF mobility Next session:single leg stability, 4-6 step up trial for glute, leg press (low resistance), PN or d/c on 10/15 appt
--- NOTE | 2023-10-10 12:55 | PT.OTN ---
Current Diagnoses Pain in left ankle and joints of left foot (10/10/23) Low back pain, unspecified (10/10/23) Other lack of coordination (10/10/23) Weakness (10/10/23) Physical Therapy Treatment Note PT-OP-A Visit Information Start: 05/26/23 17:12 Freq: Status: Active Protocol: Document 10/10/23 08:07 AB (Rec: 10/10/23 08:47 AB [id number]) Out-Patient Physical Therapy Visit Information Visit Information Visit Type Treatment Note Visit Start Time 08:15 Visit Stop Time 08:58 Visit Number 23 Number of HAND CLIPPER Visits 2 Evaluation Information Evaluation Date 06/07/23 Precautions Precautions anterolisthesis, fall risk, previous TIA PT-OP-B Current Condition Start: 05/26/23 17:12 Freq: Status: Active Protocol: Document 06/07/23 14:29 NM (Rec: 06/07/23 16:41 NM [id number]) Current Condition History of Current Condition Onset Date last year Current Complaints pain, weakness, mobility History of Current Condition Pt presents with lumbar spine pain and L ankle pain. 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 Pt reports that her back pain worsen last year, when lifting an object. Pt reports that lifting up to 10# before pain. Pt reports that she has low back with sitting, standing, walking, sleeping along R side. Pt reports that her knees give out on stairs. She reports that she has a bone spur in L ankle, pain along medial ankle under malleoli. Ankle pain began last year when she was started wearing orthotics (had worn them for 10 years) for collapsed arch and leg lift. Tried a soft brace but did not help. She reports that her ankle pain is worse with walking, when she resorts to using a walking stick. She reports that she is able to bike. 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 Last year, pt reports that she had a ministroke where she was unable to speak but has not been confirmed; reports balance has worsened since then. Prior Treatments and Tests Imaging 04/2023: lumbar spine- stable anterolisthesis L4 on L5, mild facet arthopathy L4- S1; ankle radiograph- no fracture, calcaneal enthesophyte Treatment Goals Patient/Caregiver Goals trip to [place] in Nov, long flight PT-OP-C Subjective Start: 05/26/23 17:12 Freq: Status: Active Protocol: Document 10/10/23 08:07 AB (Rec: 10/10/23 09:01 AB [id number]) OP-PT Subjective Patient Comments Patient Comments papito PT-OP-D Balance Start: 05/26/23 17:12 Freq: Status: Active Protocol: Document 06/07/23 14:29 NM (Rec: 06/07/23 16:41 NM [id number]) Balance Tests Single Limb Standing Single Limb- Right 0 seconds Single Limb- Left 1 seconds Tandem Tandem Standing unable to maintain PT-OP-E Functional Tests Start: 05/26/23 17:12 Freq: Status: Active Protocol: Document 06/07/23 14:29 NM (Rec: 06/07/23 16:41 NM [id number]) Functional Tests Five Times Sit to Stand Test Score 4 reps in 15 seconds, unable to complete 5th w/o UE assist Comments requires hand on quads to stand PT-OP-F Manual Assessment Start: 05/26/23 17:12 Freq: Status: Active Protocol: Document 06/07/23 14:29 NM (Rec: 06/07/23 16:41 NM [id number]) Manual Assessments Soft Tissue Assessment Soft Tissue Mobility Assessment Tightness R>L: B hamstrings, paraspinals, QL, and glutes/ piriformis Joint Mobility Assessment Joint Mobility Assessment Decreased L ankle dorsiflexion , pain with inversion. Hypomobility of L1-L5 with P-A springing. No lateral or medial ligamentous instability of L ankle PT-OP-G Mobility & Gait Start: 05/26/23 17:12 Freq: Status: Active Protocol: Document 06/07/23 14:29 NM (Rec: 06/07/23 16:41 NM [id number]) OP Gait Assessment Gait Gait Assistance Required: Independent Distance (Feet) 150 Gait Deviations General Gait Pattern Antalgic,Lateral Trunk Lean Factors Limiting Gait Function Factors Limiting Gait Function Decreased Strength,Limited Range of Motion,Pain,Poor Balance Comments Gait Comments L lean with L stance, also slight forward trunk lean PT-OP-H Neuro Start: 05/26/23 17:12 Freq: Status: Active Protocol: Document 06/07/23 14:29 NM (Rec: 06/07/23 16:41 NM [id number]) Sensation Evaluation Comments Summary Comments BLE equally intact to light touch sensation PT-OP-J Posture/Palpation/Skin Start: 05/26/23 17:12 Freq: Status: Active Protocol: Document 06/07/23 14:29 NM (Rec: 06/07/23 16:41 NM [id number]) Posture Evaluation Position Standing Head/C-Spine Posture Forward Head T-Spine Posture Increased Kyphosis L-Spine Posture Increased Lordosis Pelvis Posture Anteriorly Tilted Hip Posture (L) Externally Rotated,(R) Externally Rotated Knee Posture (L) Genu Valgus,(R) Genu Valgus Patellar Posture (L) Superior,(R) Superior Ankle/Foot Posture (L) Pronated,(R) Pronated,(L) Calcaneal Eversion,(R) Calcaneal Eversion Foot Arch (L) Low Arch,(R) Low Arch Palpation Assessment Location L ankle Palpation Details Tenderness at R navicular bone , under R medial malleolus and along posterior tibialis tendon, metatarsal pads Edema of B ankles, swelling present over R navicular bone lumbar spine Palpation Details R>L symptoms Tenderness: B PSIS, R SIJ, R glutes/piriformis, R lateral to midline L4-S1, R greater trochanter PT-OP-K Range of Motion Start: 05/26/23 17:12 Freq: Status: Active Protocol: Document 09/20/23 07:33 NM (Rec: 09/20/23 08:08 NM [id number]) Ankle and Foot Goniometric Range of Motion Ankle and Foot Left Dorsiflexion with Knee Flexed 10 Plantarflexion 30 Inversion 20 Eversion 15 Comments IE: 5 deg. No pain with passive movement except from examiner hand placement 07/11/23: 8 deg DF 09/19/23, 08/17/23: 10 deg DF PT-OP-L Special Tests Start: 05/26/23 17:12 Freq: Status: Active Protocol: Document 06/07/23 14:29 NM (Rec: 06/07/23 16:41 NM [id number]) Special Tests Lumbar Spine Special Tests Straight Leg Raise Test Results - Comments hamstring tightness, no change with tension Slump Test Results + Comments L Distraction Test Results + Jarvis/Quadrant Test Results + Comments R PSIS pain reproduced ea direction Foot/Ankle Special Tests Windlass Test Results - Talar tilt Test Results - Anterior Drawer Test Results - PT-OP-M Strength Start: 05/26/23 17:12 Freq: Status: Active Protocol: Document 09/20/23 07:33 NM (Rec: 09/20/23 08:08 NM [id number]) Hip Strength Hip Manual Muscle Testing Right Flexion (L2) 4 Good Extension (S1) 4 Good Abduction 4 Good Adduction 4 Good External Rotation 4 Good Internal Rotation 4 Good Comments Reports hip pain with resisted abduction along glute 07/11/23: improved glute activation during squats with band 09/19/23, 08/17/23: 4/5 for all, pain free Left Flexion (L2) 4 Good Extension (S1) 4 Good Abduction 4 Good Adduction 4 Good External Rotation 4 Good Internal Rotation 4 Good Comments Reports hip pain with resisted abduction along glute 07/11/23: improved glute activation during squats with band 09/19/23, 08/17/23: 4/5 for all, pain free Knee Strength Knee Manual Muscle Testing Right Flexion (S2) 4 Good Extension (L3) 4 Good Left Flexion (S2) 4 Good Extension (L3) 4 Good Ankle/Foot Strength Ankle and Foot Manual Muscle Testing Left Dorsiflexion (L4) 4 Good Plantarflexion (S1) 4 Good Inversion 4- Good- Eversion (S1) 4 Good Comments Pain reproduced with resisted inversion 09/19/23: 4/5, pain free PT-OP-Q Treatments Start: 05/26/23 17:12 Freq: Status: Active Protocol: Document 10/10/23 08:07 AB (Rec: 10/10/23 08:47 AB [id number]) Therapeutic Exercises Sitting Exercises AROM DF Side bilateral Reps/Minutes X15 with band X 15 without band Comments between sets of Heel raise seated hip abduction with band Sitting Exercise Name HEP blue band now Side bilateral Equipment Used level 3 blue band post X one one minute hold with level 3 band Reps/Minutes X15X2, one minute hold Comments verbal cues monitored for pain Standing Exercises Forward T/single leg lift Standing Exercise Name To chair seat height, CGA to close supervision Side bilateral Reps/Minutes X10 Comments left more unsteady than right, not added to HEP squat Standing Exercise Name squat Side bilateral Resistance AROM Equipment Used to chair Reps/Minutes 2x10 Comments pain free in back and ankle; cued less trunk flex d/t ankle DF lacking heel raise Standing Exercise Name on 4 inch step with UE support Side bilateral Reps/Minutes 3X10 Manual Therapy Treatment Soft Tissue Mobilization left calf Body Location tibialis Bilateral anterior and posterior, medial ankle, peroneals Mobilization Type Rolling Intensity/Depth Superficial Body Position Supine Comments No tenderness along medial ankle with superficial soft tissue mobilization, performed distal > proximal. No swelling. Performed prior to mobilization, good tolerance to manual treatment Joint Mobilizations L ankle Joint [place] with movement Direction AO Grade III Body Position Standing Reps/Duration 10X3 Neuro Re-Education Treatment Balance Activities step up taps Reps/Duration X10 Comments CGA hands above bars marching on blue cushion Reps/Duration X12 Comments CGA hands above bars tandem stance Details tandem stepping Reps/Duration 10 feet X6 Comments CGA VC for heel toe pattern hands above bars PT-OP-T Assessment and Plan Start: 05/26/23 17:12 Freq: Status: Active Protocol: Document 10/10/23 08:07 AB (Rec: 10/10/23 08:47 AB [id number]) Physical Therapy Assessment Goals Five Impairment mobility Impairment L ankle dorsiflexion 5 deg Short Term Goal (STG) Pt will increase L ankle dorsiflexion to at least 8 deg in order to improve gait mechanics and ankle AROM for activity 07/11/23: 8 deg DF STG Duration 5 weeks MET Carton Folder Goal (LTG) Pt will increase B ankle dorsiflexion to at least 10 deg in order to improve gait mechanics and ankle AROM for activity 08/17/23: 10 deg ofDF LTG Duration 10 weeks MET Four Impairment HEP Impairment not performing HEP Short Term Goal (STG) Pt will report compliance with HEP at least 2-3x/wk in order to maximize progression with PT during episode of care 07/11/23: states performing HEP every other day STG Duration 5 weeks MET Residential Goal (LTG) Pt will report compliance with HEP at least 3x/wk in order to smoothly transition to maintenance program upon discharge from PT to independent exercise 08/17/23: reports 3x/wk, daily walking program LTG Duration 10 weeks MET Three Impairment function Impairment standing 30 minutes before pain in ankle and low back, walk 1/2 mile Short Term Goal (STG) Pt will report that she is able to stand for at least 45 minutes before needing to sit or rest due to pain in the low back in order to demonstrate improved activity tolerance 07/10/23: states can stand 1 hr before needing to take a seated break STG Duration 5 weeks MET Residential Goal (LTG) Pt will report that she is able to ambulate for at least 3/4 mile before resting due to pain in order to demonstrate improved activity tolerance and pain management 08/17/23: able to walk 1hr, but not 3/4 mi w/o increase in back pain 09/20/23: Pt reports that she is walking at least 1 mile; only reports ankle pain, no back pain 10/05/2023 Patient reports she can walk over 2 miles without stopping due to pain, attributes to shoe and new brace. 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 LTG Duration 10 weeks PROGRESSING/MET Two Impairment strength Impairment Difficulty with STS without UE use Short Term Goal (STG) Pt will be able to perform 5x STS without UE use from 20 table in order to demonstrate improved quad and glute strength for gait, stairs, and ADLs 07/11/23: able to perform 5x STS without UE assist, arms in front for weight shift anterior, prn cues for control w/ eccentric lowering STG Duration 5 weeks MET Residential Goal (LTG) Pt will be able to perform at least 10 bilateral squats without pain or compensation in order to demonstrate improved quad and glute strength for gait, stairs, and ADLs 08/17/23: able to perform 10 squats with band around thighs for knee valgus, limited depth. Reports no pain in back or ankle, slight knee pain 09/20/23: 10 squats without back pain to chair, reports mild ankle pain LTG Duration 10 weeks PROGRESSING One Impairment Oswestry Impairment 13/50 Carton Folder Goal (LTG) Pt will decrease Oswestry score to <13/50 in order to demonstrate improved pain management and activity tolerance 08/17/23: pt did not finish oswestry so unable to score; LEFS now 49/50 09/20/23: 10/50 LTG Duration 10 weeks MET Assessment Summary Assessment Pt reports having no pain end of session. Forward T required close supervision to CGA and not yet added to HEP. Physical Therapy Plan Frequency and Duration Frequency of Treatment 1x/Week Duration of treatment (weeks) 10 Plan of Care Start Date 08/17/23 Plan of Care End Date 10/27/23 Next Visit Focus/Plan Next Note Type Progress Note Next Visit Plan Balance and hip strength, prn ankle DF mob as needed; add kickstand RDL to HEP if good form/revisit fwd T to chair seat height CGA Hip strength: step up, ankle strength and balance kael to limit pronation (banded eversion and inversion), everted heel raises deadlift, lat pull downs and rows, ankle inversion, leg press vs step up, ankle stability and DF mobility Next session:single leg stability, 4-6 step up trial for glute, leg press (low resistance), PN or d/c on 10/15 appt
--- NOTE | 2023-10-10 12:56 | PT.OTN ---
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 Pt reports that her back pain worsen last year, when lifting an object. Pt reports that lifting up to 10# before pain. Pt reports that she has low back with sitting, standing, walking, sleeping along R side. Pt reports that her knees give out on stairs. She reports that she has a bone spur in L ankle, pain along medial ankle under malleoli. Ankle pain began last year when she was started wearing orthotics (had worn them for 10 years) for collapsed arch and leg lift. Tried a soft brace but did not help. She reports that her ankle pain is worse with walking, when she resorts to using a walking stick. She reports that she is able to bike. 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 Last year, pt reports that she had a ministroke where she was unable to speak but has not been confirmed; reports balance has worsened since then. Prior Treatments and Tests Imaging 04/2023: lumbar spine- stable anterolisthesis L4 on L5, mild facet arthopathy L4- S1; ankle radiograph- no fracture, calcaneal enthesophyte Treatment Goals Patient/Caregiver Goals trip to [place] in Nov, long flight PT-OP-C Subjective Start: 05/26/23 17:12 Freq: Status: Active Protocol: Document 10/10/23 08:07 AB (Rec: 10/10/23 09:01 AB [id number]) OP-PT Subjective Patient Comments Patient Comments papito PT-OP-D Balance Start: 05/26/23 17:12 Freq: Status: Active Protocol: Document 06/07/23 14:29 NM (Rec: 06/07/23 16:41 NM [id number]) Balance Tests Single Limb Standing Single Limb- Right 0 seconds Single Limb- Left 1 seconds Tandem Tandem Standing unable to maintain PT-OP-E Functional Tests Start: 05/26/23 17:12 Freq: Status: Active Protocol: Document 06/07/23 14:29 NM (Rec: 06/07/23 16:41 NM [id number]) Functional Tests Five Times Sit to Stand Test Score 4 reps in 15 seconds, unable to complete 5th w/o UE assist Comments requires hand on quads to stand PT-OP-F Manual Assessment Start: 05/26/23 17:12 Freq: Status: Active Protocol: Document 06/07/23 14:29 NM (Rec: 06/07/23 16:41 NM [id number]) Manual Assessments Soft Tissue Assessment Soft Tissue Mobility Assessment Tightness R>L: B hamstrings, paraspinals, QL, and glutes/ piriformis Joint Mobility Assessment Joint Mobility Assessment Decreased L ankle dorsiflexion , pain with inversion. Hypomobility of L1-L5 with P-A springing. No lateral or medial ligamentous instability of L ankle PT-OP-G Mobility & Gait Start: 05/26/23 17:12 Freq: Status: Active Protocol: Document 06/07/23 14:29 NM (Rec: 06/07/23 16:41 NM [id number]) OP Gait Assessment Gait Gait Assistance Required: Independent Distance (Feet) 150 Gait Deviations General Gait Pattern Antalgic,Lateral Trunk Lean Factors Limiting Gait Function Factors Limiting Gait Function Decreased Strength,Limited Range of Motion,Pain,Poor Balance Comments Gait Comments L lean with L stance, also slight forward trunk lean PT-OP-H Neuro Start: 05/26/23 17:12 Freq: Status: Active Protocol: Document 06/07/23 14:29 NM (Rec: 06/07/23 16:41 NM [id number]) Sensation Evaluation Comments Summary Comments BLE equally intact to light touch sensation PT-OP-J Posture/Palpation/Skin Start: 05/26/23 17:12 Freq: Status: Active Protocol: Document 06/07/23 14:29 NM (Rec: 06/07/23 16:41 NM [id number]) Posture Evaluation Position Standing Head/C-Spine Posture Forward Head T-Spine Posture Increased Kyphosis L-Spine Posture Increased Lordosis Pelvis Posture Anteriorly Tilted Hip Posture (L) Externally Rotated,(R) Externally Rotated Knee Posture (L) Genu Valgus,(R) Genu Valgus Patellar Posture (L) Superior,(R) Superior Ankle/Foot Posture (L) Pronated,(R) Pronated,(L) Calcaneal Eversion,(R) Calcaneal Eversion Foot Arch (L) Low Arch,(R) Low Arch Palpation Assessment Location L ankle Palpation Details Tenderness at R navicular bone , under R medial malleolus and along posterior tibialis tendon, metatarsal pads Edema of B ankles, swelling present over R navicular bone lumbar spine Palpation Details R>L symptoms Tenderness: B PSIS, R SIJ, R glutes/piriformis, R lateral to midline L4-S1, R greater trochanter PT-OP-K Range of Motion Start: 05/26/23 17:12 Freq: Status: Active Protocol: Document 09/20/23 07:33 NM (Rec: 09/20/23 08:08 NM [id number]) Ankle and Foot Goniometric Range of Motion Ankle and Foot Left Dorsiflexion with Knee Flexed 10 Plantarflexion 30 Inversion 20 Eversion 15 Comments IE: 5 deg. No pain with passive movement except from examiner hand placement 07/11/23: 8 deg DF 09/19/23, 08/17/23: 10 deg DF PT-OP-L Special Tests Start: 05/26/23 17:12 Freq: Status: Active Protocol: Document 06/07/23 14:29 NM (Rec: 06/07/23 16:41 NM [id number]) Special Tests Lumbar Spine Special Tests Straight Leg Raise Test Results - Comments hamstring tightness, no change with tension Slump Test Results + Comments L Distraction Test Results + Jarvis/Quadrant Test Results + Comments R PSIS pain reproduced ea direction Foot/Ankle Special Tests Windlass Test Results - Talar tilt Test Results - Anterior Drawer Test Results - PT-OP-M Strength Start: 05/26/23 17:12 Freq: Status: Active Protocol: Document 09/20/23 07:33 NM (Rec: 09/20/23 08:08 NM [id number]) Hip Strength Hip Manual Muscle Testing Right Flexion (L2) 4 Good Extension (S1) 4 Good Abduction 4 Good Adduction 4 Good External Rotation 4 Good Internal Rotation 4 Good Comments Reports hip pain with resisted abduction along glute 07/11/23: improved glute activation during squats with band 09/19/23, 08/17/23: 4/5 for all, pain free Left Flexion (L2) 4 Good Extension (S1) 4 Good Abduction 4 Good Adduction 4 Good External Rotation 4 Good Internal Rotation 4 Good Comments Reports hip pain with resisted abduction along glute 07/11/23: improved glute activation during squats with band 09/19/23, 08/17/23: 4/5 for all, pain free Knee Strength Knee Manual Muscle Testing Right Flexion (S2) 4 Good Extension (L3) 4 Good Left Flexion (S2) 4 Good Extension (L3) 4 Good Ankle/Foot Strength Ankle and Foot Manual Muscle Testing Left Dorsiflexion (L4) 4 Good Plantarflexion (S1) 4 Good Inversion 4- Good- Eversion (S1) 4 Good Comments Pain reproduced with resisted inversion 09/19/23: 4/5, pain free PT-OP-Q Treatments Start: 05/26/23 17:12 Freq: Status: Active Protocol: Document 10/10/23 08:07 AB (Rec: 10/10/23 08:47 AB [id number]) Therapeutic Exercises Sitting Exercises AROM DF Side bilateral Reps/Minutes X15 with band X 15 without band Comments between sets of Heel raise seated hip abduction with band Sitting Exercise Name HEP blue band now Side bilateral Equipment Used level 3 blue band post X one one minute hold with level 3 band Reps/Minutes X15X2, one minute hold Comments verbal cues monitored for pain Standing Exercises Forward T/single leg lift Standing Exercise Name To chair seat height, CGA to close supervision Side bilateral Reps/Minutes X10 Comments left more unsteady than right, not added to HEP squat Standing Exercise Name squat Side bilateral Resistance AROM Equipment Used to chair Reps/Minutes 2x10 Comments pain free in back and ankle; cued less trunk flex d/t ankle DF lacking heel raise Standing Exercise Name on 4 inch step with UE support Side bilateral Reps/Minutes 3X10 Manual Therapy Treatment Soft Tissue Mobilization left calf Body Location tibialis Bilateral anterior and posterior, medial ankle, peroneals Mobilization Type Rolling Intensity/Depth Superficial Body Position Supine Comments No tenderness along medial ankle with superficial soft tissue mobilization, performed distal > proximal. No swelling. Performed prior to mobilization, good tolerance to manual treatment Joint Mobilizations L ankle Joint [place] with movement Direction AO Grade III Body Position Standing Reps/Duration 10X3 Neuro Re-Education Treatment Balance Activities step up taps Reps/Duration X10 Comments CGA hands above bars marching on blue cushion Reps/Duration X12 Comments CGA hands above bars tandem stance Details tandem stepping Reps/Duration 10 feet X6 Comments CGA VC for heel toe pattern hands above bars PT-OP-T Assessment and Plan Start: 05/26/23 17:12 Freq: Status: Active Protocol: Document 10/10/23 08:07 AB (Rec: 10/10/23 08:47 AB [id number]) Physical Therapy Assessment Goals Five Impairment mobility Impairment L ankle dorsiflexion 5 deg Short Term Goal (STG) Pt will increase L ankle dorsiflexion to at least 8 deg in order to improve gait mechanics and ankle AROM for activity 07/11/23: 8 deg DF STG Duration 5 weeks MET Director And Professor Goal (LTG) Pt will increase B ankle dorsiflexion to at least 10 deg in order to improve gait mechanics and ankle AROM for activity 08/17/23: 10 deg ofDF LTG Duration 10 weeks MET Four Impairment HEP Impairment not performing HEP Short Term Goal (STG) Pt will report compliance with HEP at least 2-3x/wk in order to maximize progression with PT during episode of care 07/11/23: states performing HEP every other day STG Duration 5 weeks MET Shelter Goal (LTG) Pt will report compliance with HEP at least 3x/wk in order to smoothly transition to maintenance program upon discharge from PT to independent exercise 08/17/23: reports 3x/wk, daily walking program LTG Duration 10 weeks MET Three Impairment function Impairment standing 30 minutes before pain in ankle and low back, walk 1/2 mile Short Term Goal (STG) Pt will report that she is able to stand for at least 45 minutes before needing to sit or rest due to pain in the low back in order to demonstrate improved activity tolerance 07/10/23: states can stand 1 hr before needing to take a seated break STG Duration 5 weeks MET Shelter Goal (LTG) Pt will report that she is able to ambulate for at least 3/4 mile before resting due to pain in order to demonstrate improved activity tolerance and pain management 08/17/23: able to walk 1hr, but not 3/4 mi w/o increase in back pain 09/20/23: Pt reports that she is walking at least 1 mile; only reports ankle pain, no back pain 10/05/2023 Patient reports she can walk over 2 miles without stopping due to pain, attributes to shoe and new brace. 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 LTG Duration 10 weeks PROGRESSING/MET Two Impairment strength Impairment Difficulty with STS without UE use Short Term Goal (STG) Pt will be able to perform 5x STS without UE use from 20 table in order to demonstrate improved quad and glute strength for gait, stairs, and ADLs 07/11/23: able to perform 5x STS without UE assist, arms in front for weight shift anterior, prn cues for control w/ eccentric lowering STG Duration 5 weeks MET Shelter Goal (LTG) Pt will be able to perform at least 10 bilateral squats without pain or compensation in order to demonstrate improved quad and glute strength for gait, stairs, and ADLs 08/17/23: able to perform 10 squats with band around thighs for knee valgus, limited depth. Reports no pain in back or ankle, slight knee pain 09/20/23: 10 squats without back pain to chair, reports mild ankle pain LTG Duration 10 weeks PROGRESSING One Impairment Oswestry Impairment 13/50 Director And Professor Goal (LTG) Pt will decrease Oswestry score to <13/50 in order to demonstrate improved pain management and activity tolerance 08/17/23: pt did not finish oswestry so unable to score; LEFS now 49/50 09/20/23: 10/50 LTG Duration 10 weeks MET Assessment Summary Assessment Pt reports having no pain end of session. Forward T required close supervision to CGA and not yet added to HEP. Physical Therapy Plan Frequency and Duration Frequency of Treatment 1x/Week Duration of treatment (weeks) 10 Plan of Care Start Date 08/17/23 Plan of Care End Date 10/27/23 Next Visit Focus/Plan Next Note Type Progress Note Next Visit Plan Balance and hip strength, prn ankle DF mob as needed; add kickstand RDL to HEP if good form/revisit fwd T to chair seat height CGA Hip strength: step up, ankle strength and balance kael to limit pronation (banded eversion and inversion), everted heel raises deadlift, lat pull downs and rows, ankle inversion, leg press vs step up, ankle stability and DF mobility Next session:single leg stability, 4-6 step up trial for glute, leg press (low resistance), PN or d/c on 10/15 appt
--- NOTE | 2023-10-16 15:27 | PT.OTN ---
Current Diagnoses Pain in left ankle and joints of left foot (10/16/23) Low back pain, unspecified (10/16/23) Other lack of coordination (10/16/23) Weakness (10/16/23) Physical Therapy Treatment Note PT-OP-A Visit Information Start: 05/26/23 17:12 Freq: Status: Active Protocol: Document 10/16/23 14:36 NM (Rec: 10/16/23 15:27 NM [id number]) Out-Patient Physical Therapy Visit Information Visit Information Visit Type Progress Note Visit Start Time 14:37 Visit Stop Time 15:15 Visit Number 24 PT-OP-B Current Condition Start: 05/26/23 17:12 Freq: Status: Active Protocol: Document 06/07/23 14:29 NM (Rec: 06/07/23 16:41 NM [id number]) Current Condition History of Current Condition Onset Date last year Current Complaints pain, weakness, mobility History of Current Condition Pt presents with lumbar spine pain and L ankle pain. 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 Pt reports that her back pain worsen last year, when lifting an object. Pt reports that lifting up to 10# before pain. Pt reports that she has low back with sitting, standing, walking, sleeping along R side. Pt reports that her knees give out on stairs. She reports that she has a bone spur in L ankle, pain along medial ankle under malleoli. Ankle pain began last year when she was started wearing orthotics (had worn them for 10 years) for collapsed arch and leg lift. Tried a soft brace but did not help. She reports that her ankle pain is worse with walking, when she resorts to using a walking stick. She reports that she is able to bike. 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 Last year, pt reports that she had a ministroke where she was unable to speak but has not been confirmed; reports balance has worsened since then. Prior Treatments and Tests Imaging 04/2023: lumbar spine- stable anterolisthesis L4 on L5, mild facet arthopathy L4- S1; ankle radiograph- no fracture, calcaneal enthesophyte Treatment Goals Patient/Caregiver Goals trip to [place] in Nov, long flight PT-OP-C Subjective Start: 05/26/23 17:12 Freq: Status: Active Protocol: Document 10/16/23 14:36 NM (Rec: 10/16/23 15:27 NM [id number]) OP-PT Subjective Patient Comments Patient Comments Pt has been wearing orthotic and new shoes, which help; only wears when walking. She states supportive shoe is much more helpful. She has been going to health club every day , has been lifting; low weight and repetition. She has not had any back pain, reports improves with stretches and exercises. Her back has not been waking her up. PT-OP-D Balance Start: 05/26/23 17:12 Freq: Status: Active Protocol: Document 06/07/23 14:29 NM (Rec: 06/07/23 16:41 NM [id number]) Balance Tests Single Limb Standing Single Limb- Right 0 seconds Single Limb- Left 1 seconds Tandem Tandem Standing unable to maintain PT-OP-E Functional Tests Start: 05/26/23 17:12 Freq: Status: Active Protocol: Document 06/07/23 14:29 NM (Rec: 06/07/23 16:41 NM [id number]) Functional Tests Five Times Sit to Stand Test Score 4 reps in 15 seconds, unable to complete 5th w/o UE assist Comments requires hand on quads to stand PT-OP-F Manual Assessment Start: 05/26/23 17:12 Freq: Status: Active Protocol: Document 06/07/23 14:29 NM (Rec: 06/07/23 16:41 NM [id number]) Manual Assessments Soft Tissue Assessment Soft Tissue Mobility Assessment Tightness R>L: B hamstrings, paraspinals, QL, and glutes/ piriformis Joint Mobility Assessment Joint Mobility Assessment Decreased L ankle dorsiflexion , pain with inversion. Hypomobility of L1-L5 with P-A springing. No lateral or medial ligamentous instability of L ankle PT-OP-G Mobility & Gait Start: 05/26/23 17:12 Freq: Status: Active Protocol: Document 06/07/23 14:29 NM (Rec: 06/07/23 16:41 NM [id number]) OP Gait Assessment Gait Gait Assistance Required: Independent Distance (Feet) 150 Gait Deviations General Gait Pattern Antalgic,Lateral Trunk Lean Factors Limiting Gait Function Factors Limiting Gait Function Decreased Strength,Limited Range of Motion,Pain,Poor Balance Comments Gait Comments L lean with L stance, also slight forward trunk lean PT-OP-H Neuro Start: 05/26/23 17:12 Freq: Status: Active Protocol: Document 06/07/23 14:29 NM (Rec: 06/07/23 16:41 NM [id number]) Sensation Evaluation Comments Summary Comments BLE equally intact to light touch sensation PT-OP-J Posture/Palpation/Skin Start: 05/26/23 17:12 Freq: Status: Active Protocol: Document 06/07/23 14:29 NM (Rec: 06/07/23 16:41 NM [id number]) Posture Evaluation Position Standing Head/C-Spine Posture Forward Head T-Spine Posture Increased Kyphosis L-Spine Posture Increased Lordosis Pelvis Posture Anteriorly Tilted Hip Posture (L) Externally Rotated,(R) Externally Rotated Knee Posture (L) Genu Valgus,(R) Genu Valgus Patellar Posture (L) Superior,(R) Superior Ankle/Foot Posture (L) Pronated,(R) Pronated,(L) Calcaneal Eversion,(R) Calcaneal Eversion Foot Arch (L) Low Arch,(R) Low Arch Palpation Assessment Location L ankle Palpation Details Tenderness at R navicular bone , under R medial malleolus and along posterior tibialis tendon, metatarsal pads Edema of B ankles, swelling present over R navicular bone lumbar spine Palpation Details R>L symptoms Tenderness: B PSIS, R SIJ, R glutes/piriformis, R lateral to midline L4-S1, R greater trochanter PT-OP-K Range of Motion Start: 05/26/23 17:12 Freq: Status: Active Protocol: Document 10/16/23 14:36 NM (Rec: 10/16/23 15:27 NM [id number]) Ankle and Foot Goniometric Range of Motion Ankle and Foot Left Dorsiflexion with Knee Flexed 12 Plantarflexion 30 Inversion 20 Eversion 15 Comments IE: 5 deg. No pain with passive movement except from examiner hand placement 07/11/23: 8 deg DF 09/19/23, 08/17/23: 10 deg DF 10/16/23: 12 deg DF PT-OP-L Special Tests Start: 05/26/23 17:12 Freq: Status: Active Protocol: Document 06/07/23 14:29 NM (Rec: 06/07/23 16:41 NM [id number]) Special Tests Lumbar Spine Special Tests Straight Leg Raise Test Results - Comments hamstring tightness, no change with tension Slump Test Results + Comments L Distraction Test Results + Jarvis/Quadrant Test Results + Comments R PSIS pain reproduced ea direction Foot/Ankle Special Tests Windlass Test Results - Talar tilt Test Results - Anterior Drawer Test Results - PT-OP-M Strength Start: 05/26/23 17:12 Freq: Status: Active Protocol: Document 10/16/23 14:36 NM (Rec: 10/16/23 15:27 NM [id number]) Trunk Strength Trunk Manual Muscle Testing Flexion 4 Good Extension 4 Good Rotation Left 4 Good Rotation Right 4 Good Lateral Flexion Left 4 Good Lateral Flexion Right 4 Good Comments Pain reproduced at R PSIS with resisted R rotation 08/17/23: 4/5 for all, no pain reproduced with resisted testing Hip Strength Hip Manual Muscle Testing Right Flexion (L2) 4+ Good+ Extension (S1) 4+ Good+ Abduction 4+ Good+ Adduction 4+ Good+ External Rotation 4+ Good+ Internal Rotation 4+ Good+ Comments Reports hip pain with resisted abduction along glute 07/11/23: improved glute activation during squats with band 09/19/23, 08/17/23: 4/5 for all, pain free 10/16/23: 4+/5 Left Flexion (L2) 4+ Good+ Extension (S1) 4+ Good+ Abduction 4+ Good+ Adduction 4+ Good+ External Rotation 4+ Good+ Internal Rotation 4+ Good+ Comments Reports hip pain with resisted abduction along glute 07/11/23: improved glute activation during squats with band 09/19/23, 08/17/23: 4/5 for all, pain free 10/16/23: 4+/5 Knee Strength Knee Manual Muscle Testing Right Flexion (S2) 4+ Good+ Extension (L3) 4+ Good+ Left Flexion (S2) 4+ Good+ Extension (L3) 4+ Good+ Ankle/Foot Strength Ankle and Foot Manual Muscle Testing Right Dorsiflexion (L4) 4+ Good+ Plantarflexion (S1) 4+ Good+ Inversion 4+ Good+ Eversion (S1) 4+ Good+ Comments tested in sitting Left Dorsiflexion (L4) 4+ Good+ Plantarflexion (S1) 4+ Good+ Inversion 4+ Good+ Eversion (S1) 4+ Good+ Comments evaluatioon: Pain reproduced with resisted inversion 09/19/23: 4/5, pain free 10/16/23: 4+/5; tested in sitting PT-OP-Q Treatments Start: 05/26/23 17:12 Freq: Status: Active Protocol: Document 10/16/23 14:36 NM (Rec: 10/16/23 15:27 NM [id number]) Therapeutic Exercises Sitting Exercises ankle eversion Side left Resistance level 3 Reps/Minutes 3x10 Comments pain free ankle inversion Side left Resistance level 3 Reps/Minutes 3x10 Comments pain Standing Exercises ankle DF Side bilateral Reps/Minutes 15x5 hold squat Standing Exercise Name squat Side bilateral Resistance AROM Equipment Used to low plinth Reps/Minutes 2x10 Comments good form hip 3 way Standing Exercise Name 1. hip march, 2. hip ext, 3. hip abd Side bilateral Resistance level 3 at ankles Equipment Used hand support for balance Reps/Minutes 10 ea Comments pain free rojas carry Standing Exercise Name 1. asymmetrical carries, 2. rojas carry Side bilateral Reps/Minutes 2x50 ft ea side Comments pain free; improved core bracing Pallof press Standing Exercise Name 1. press, 2. press w/ overhead Side bilateral Resistance level 2 band > level 3 band Reps/Minutes 1. 30 ea side, ea level, 2. 10 w/ level 2 band PT-OP-T Assessment and Plan Start: 05/26/23 17:12 Freq: Status: Active Protocol: Document 10/16/23 14:36 NM (Rec: 10/16/23 15:27 NM [id number]) Physical Therapy Assessment Goals Five Impairment mobility Impairment L ankle dorsiflexion 5 deg Short Term Goal (STG) Pt will increase L ankle dorsiflexion to at least 8 deg in order to improve gait mechanics and ankle AROM for activity 07/11/23: 8 deg DF STG Duration 5 weeks MET Prison Goal (LTG) Pt will increase B ankle dorsiflexion to at least 10 deg in order to improve gait mechanics and ankle AROM for activity 08/17/23: 10 deg ofDF LTG Duration 10 weeks MET Four Impairment HEP Impairment not performing HEP Short Term Goal (STG) Pt will report compliance with HEP at least 2-3x/wk in order to maximize progression with PT during episode of care 07/11/23: states performing HEP every other day STG Duration 5 weeks MET Route Salesman And Driver Goal (LTG) Pt will report compliance with HEP at least 3x/wk in order to smoothly transition to maintenance program upon discharge from PT to independent exercise 08/17/23: reports 3x/wk, daily walking program LTG Duration 10 weeks MET Three Impairment function Impairment standing 30 minutes before pain in ankle and low back, walk 1/2 mile Short Term Goal (STG) Pt will report that she is able to stand for at least 45 minutes before needing to sit or rest due to pain in the low back in order to demonstrate improved activity tolerance 07/10/23: states can stand 1 hr before needing to take a seated break STG Duration 5 weeks MET Route Salesman [employer] Goal (LTG) Pt will report that she is able to ambulate for at least 3/4 mile before resting due to pain in order to demonstrate improved activity tolerance and pain management 08/17/23: able to walk 1hr, but not 3/4 mi w/o increase in back pain 09/20/23: Pt reports that she is walking at least 1 mile; only reports ankle pain, no back pain 10/05/2023 Patient reports she can walk over 2 miles without stopping due to pain, attributes to shoe and new brace. 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 10/16/23: she reports can ambulate over 2 miles LTG Duration 10 weeks MET 10/16/23 Two Impairment strength Impairment Difficulty with STS without UE use Short Term Goal (STG) Pt will be able to perform 5x STS without UE use from 20 table in order to demonstrate improved quad and glute strength for gait, stairs, and ADLs 07/11/23: able to perform 5x STS without UE assist, arms in front for weight shift anterior, prn cues for control w/ eccentric lowering STG Duration 5 weeks MET Prison Goal (LTG) Pt will be able to perform at least 10 bilateral squats without pain or compensation in order to demonstrate improved quad and glute strength for gait, stairs, and ADLs 08/17/23: able to perform 10 squats with band around thighs for knee valgus, limited depth. Reports no pain in back or ankle, slight knee pain 09/20/23: 10 squats without back pain to chair, reports mild ankle pain 10/16/23: 10 squats without back or ankle pain; no compensations LTG Duration 10 weeks MET One Impairment Oswestry Impairment 13/50 Prison Goal (LTG) Pt will decrease Oswestry score to <13/50 in order to demonstrate improved pain management and activity tolerance 08/17/23: pt did not finish oswestry so unable to score; LEFS now 49/50 09/20/23: 10/50 LTG Duration 10 weeks MET Progress Towards Goals Progress Towards Goals Goals Met Progress Comments All goals met Assessment Summary Assessment Pt tolerated session well, no pain in back or ankle with exercises. Session emphasis on maintenance program for ankle and back strengthening. Educated on performing 3x/wk for at least 6 months. Demos improved tolerance for resistance with ankle eversion /inversion with band. Still has less active dorsiflexion B in standing but able to achieve 12 deg active ankle dorsiflexion in NWB with knee flexed on LLE. Pt also able to progress both band for pallof press and to press with overhead lift. Demos improved core bracing and form. Trialed asymmetrical carries to promote core and trunk strength. Pt able to perform with good upright trunk posture compared to previous carrying drills in past sessions. Overall, pt progressing well toward goals. PT and pt discussed discharged today as pt has met all goals and has had no pain , able to perform all ADLs. Pt and PT in agreement. Physical Therapy Plan Frequency and Duration Frequency of Treatment 1x/Week Duration of treatment (weeks) 10 Plan of Care Start Date 08/17/23 Plan of Care End Date 10/27/23 Therapeutic Interventions Therapeutic Interventions Aquatic Therapy,Balance Training,Coordination Training ,Gait Training,Home Exercise Program,Joint Mobilizations, Manual Therapy,Neuromuscular Re-education,Orthotic/ Prosthetic Management,Patient/ Caregiver Education,Self-Care/ Home Management,Sensory Integration,Soft Tissue Mobilization,Taping, Therapeutic Activities, Therapeutic Exercises Modalities Cold Pack/Ice Massage,Electric Stimulation,Hot Packs, Ultrasound,Vasopneumatic Devices Other Therapeutic Interventions pelvic realignment Other Referrals/Consults Referrals/Consults Recommended 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 from referral to merchandise adjustment clerk for custom orthotics to address L ankle/ foot pain Discharge Physical Therapy Discharge Reasons Goals Met Next Visit Focus/Plan Next Visit Plan discharge from PT
== END 2023-10-17 10:54 | disposition home or self-care (01) ==
LOC: PHYS 14:30
PROVIDERS: Family Provider Family Medicine; PCP Family Medicine; Referring Provider Family Medicine; Visit Provider Family Medicine
DX: M54.50 Low back pain, unspecified (principal); M25.572 Pain in left ankle and joints of left foot; R53.1 Weakness; R27.8 Other lack of coordination
CPT/HCPCS: 97110; 97112; 97140; 97161; 97530